=== PATIENT | male | born 1955 | race Caucasian/White ===

== ENCOUNTER 2019-06-04 11:25 | Outpatient (CLI) | payer OTHER, SELFPAY ==
--- NOTE | ~2019-06-04 | XR_ITS ---
EXAMINATION: XR lumbar spine 2-3V EXAM DATE: 06/04/2019 12:01 INDICATION: Chronic sciatica, bilateral pain. TECHNIQUE: Lumber spine frontal, lateral, lateral L5-S1 projections for interpretation. There is no prior study for comparison. FINDINGS: There is mild to moderate disc disease L2-3, L4-5 and L5-S1. There is mild to moderate lum bar facet arthropathy. There is 3 mm anterolisthesis L4 on L5. The vertebral bodies are otherwise ali gned. Sacrum, sacroiliac joints, sacral arcuate lines are intact. Mild aortic arterial sclerosis. IMPRESSION: Mild to moderate lumbar spondylosis. Reviewed, dictated and finalized at location A.
== END 2019-06-04 11:26 | disposition home or self-care (01) ==
LOC: ANHIMG 11:37
PROVIDERS: PCP Nurse Practitioner Family; Visit Provider Nurse Practitioner Family
DX: M54.31 Sciatica, right side (principal); M54.32 Sciatica, left side; M47.816 Spondylosis without myelopathy or radiculopathy, lumbar region
CPT/HCPCS: 72100

== ENCOUNTER 2020-03-31 16:47 | Emergency (ER) | payer OTHER, SELFPAY ==
--- NOTE | ~2020-03-31 | CT_ITS ---
EXAMINATION: CT facial & cervical spine wo DATE: 03/31/2020 17:59 INDICATION: Left facial swelling. TECHNIQUE: Computed tomography (CT) of the maxillofacial region and cervical spine was performed with out intravenous contrast. Automated exposure control and iterative reconstruction technique were empl oyed. The dose-length product was 542.33 mGy-cm. COMPARISON: Cervical spine radiographs 07/14/2018 FINDINGS: MAXILLOFACIAL CT: There is mild mucosal thickening in the paranasal sinuses. There is leftward deviation of the nasal s eptum. No fracture. CERVICAL SPINE CT: There is a 2.6 cm nodule in left thyroid lobe. There is 5 degrees dextrocurvature of cervical spine. Vertebral body heights are normal. There is mildly decreased disc height at C4-C5 and C5-C6 and moder ately decreased disc height at C6-C7. Osseous central spinal canal is developmentally small from C1 t o C7. The following disc levels are specifically discussed: C2-C3: There is no uncovertebral joint osteoarthritis. There is moderate right and severe left facet joint osteoarthritis. There is no neural foraminal stenosis. There is mild central canal stenosis. C3-C4: There is no uncovertebral joint osteoarthritis. There is severe bilateral facet joint osteoart hritis. There is mild bilateral neural foraminal stenosis. There is mild central canal stenosis. C4-C5: There is no uncovertebral joint osteoarthritis. There is mild right and moderate left facet hira int osteoarthritis. There is no neural foraminal stenosis. There is mild central canal stenosis. C5-C6: There is mild right uncovertebral joint osteoarthritis. There is mild bilateral facet joint os teoarthritis. There is moderate right neural foraminal stenosis. There is mild central canal stenosis . C6-C7: There is mild left uncovertebral joint osteoarthritis. There is mild bilateral facet joint ost eoarthritis. There is no neural foraminal stenosis. There is mild central canal stenosis. C7-T1: There is no uncovertebral joint osteoarthritis. There is mild bilateral facet joint osteoarthr itis. There is no neural foraminal stenosis. There is no central canal stenosis. IMPRESSION: 1. No fracture. 2. Moderate cervical spondylosis. Reviewed, dictated and finalized at location A. ROUNDER
--- NOTE | ~2020-03-31 | CT_ITS ---
EXAMINATION: CT brain wo con DATE: 03/31/2020 17:59 INDICATION: Head injury. TECHNIQUE: Computed tomography (CT) of the head was performed without intravenous contrast. The mA wa s adjusted according to patient size. Iterative reconstruction technique was employed. The dose-lengt h product was 681.00 mGy-cm. COMPARISON: None FINDINGS: There are scattered areas of low attenuation in the cerebral white matter, which is within normal limits for the patient's age. There is no intracranial hemorrhage, acute infarction, or abnorm al intracranial mass lesion. The ventricles are normal in size. There is mild mucosal thickening in t he paranasal sinuses. The mastoid air cells are normal. IMPRESSION: 1. Normal aging brain. Reviewed, dictated and finalized at location A. ENT FOLDER IMPRESSION: 1. Normal aging brain.
--- NOTE | ~2020-03-31 | XR_ITS ---
XR hand RT min 3V DATE: 03/31/2020 18:18 INDICATION: Patient fell over dog. First digit pain, abrasion TECHNIQUE: 3 views COMPARISON: None FINDINGS: No fracture or dislocation, periosteal reaction or bone destruction. IMPRESSION: No fracture or dislocation Reviewed, dictated and finalized at location A. NT ACQUISITION MANAGER IMPRESSION: No fracture or dislocation
--- NOTE | ~2020-03-31 | XR_ITS ---
XR knee LT min 4V DATE: 03/31/2020 18:17 INDICATION: Patient fell over dog. Anterior and lateral knee pain, abrasion TECHNIQUE: 4 views COMPARISON: None FINDINGS: No fracture or dislocation or joint effusion. No periosteal reaction or bone destruction. N o radiopaque intra-articular loose body or chondrocalcinosis. Joint spaces are preserved. IMPRESSION: Negative Reviewed, dictated and finalized at location A. FORM POWER TECHNICIAN IMPRESSION: Negative
[2020-03-31 16:49] VITALS: BP 130/96; PULSE 77; RESP 20; TEMP 36.6; O2SAT 96
[2020-03-31] MEDS: ONDANSETRON HCL ODT 4 MG TABLET PO (18:18)
[2020-03-31] MEDS: ACETAMINOPHEN 500 MG TABLET 1000 MG PO (18:19)
[2020-03-31] MEDS: TETANUS,DIPHTHERIA,AC PERTUSSIS ADULT (0.5 ML) BOOSTRIX IM (18:20)
--- NOTE | 2020-03-31 18:24 | ED.FALL ---
HPI - Fall General Chief Complaint: Fall Stated Complaint: fell hit head, +blood thinners Time Seen by Provider: 03/31/20 16:59 Source: patient Mode of arrival: ambulatory Limitations: no limitations History of Present Illness HPI Narrative: This patient is a 65 year old male with history of afib, chronic anticoagulation who presents for evaluation of a head injury. He states he accidentally fell forward on concrete. He states he was dealing with his dog and a neighbor's dog and he lost his balance. He denies LOC. He reports headache, neck pain and left knee pain. He denies rib pain or shortness of breath. He take eliquis due to afib . He is unsure of his last tetanus. Related Data Allergies Allergy/AdvReac Type Severity Reaction Status Date / Time No Known Allergies Allergy Verified 03/31/20 18:18 Review of Systems Review of Systems: All systems reviewed & are unremarkable except as noted in HPI and below PMFSH Past Medical History Medical History (Updated 04/01/20 @ 00:00 by Thelma Guevara) Atrial fibrillation Hypertension Social History Social History (Updated 03/31/20 @ 18:29 by Rahel Moreno MD) Smoking status: Former smoker Gender identity (if verbalized by the patient): Male Exam Const: General: no acute distress and alert Orientation/consciousness: patient oriented x3 HENMT: Other: abrasion to left forehead and cheek Eyes: Pupils: Equal, round and reactive pupils present EOM: EOMs intact bilaterally Chest: Chest palpation & inspection: normal inspection of the chest Resp: Effort & Inspection: normal respiratory effort and no retractions Auscultation: clear to auscultation bilaterally Cardio: Rate: regular rate Rhythm: regular rhythm Heart sounds: no murmurs GI: GI Palp: Yes Soft to palpation Skin: Rashes: no rashes Neuro: General: patient oriented x3, moves all extremities and CN's II-XI intact bilaterally Extrem: Other: abrasion to left knee, abrasion right thumb Psych: Mental Status: mental status grossly normal Affect: normal affect Course Reevaluation(s) Reevaluation #1: I Discussed with patient imaging results. No acute fracture or injury. I discussed things to monitor while on anticoagulation Date: 03/31/20 Time: 18:43 Vital Signs Vital signs: Vital Signs Temperature 97.9 F 03/31/20 16:49 Pulse Rate 77 03/31/20 16:49 Respiratory Rate 20 03/31/20 16:49 Blood Pressure 130/96 H 03/31/20 16:49 Pulse Oximetry 96 03/31/20 16:49 Temperature 97.9 F 03/31/20 16:49 Pulse Rate 77 03/31/20 16:49 Respiratory Rate 20 03/31/20 16:49 Blood Pressure 130/96 H 03/31/20 16:49 Pulse Oximetry 96 03/31/20 16:49 MDM - Fall Imaging Data Radiologist's impression: ITS Impressions Head CT 03/31/20 18:01 IMPRESSION: 1. Normal aging brain. Head/Cervical Spine/Facial Bones CT 03/31/20 18:03 IMPRESSION: 1. No fracture. 2. Moderate cervical spondylosis. Knee X-Ray 03/31/20 18:23 IMPRESSION: Negative Hand X-Ray 03/31/20 18:24 IMPRESSION: No fracture or dislocation Discharge Plan Discharge Clinical Impression: CHI (closed head injury), Chronic anticoagulation, Abrasion of knee, left Patient Disposition: Home, Self-Care Condition: Stable Instructions: Head Injury (ED), Abrasion (ED) Additional Instructions: Today you were evaluated for a head injury. If your headache worsens, you develop more than 2 episodes of vomiting, weakness, or dizziness. return to ER. Follow up with your primary care physician. Follow-up/Referrals: Meagan,Alanna Young MD [Primary Care Provider] -
== END 2020-03-31 18:59 | disposition home or self-care (01) ==
PROVIDERS: Emergency Provider General Practice; PCP Family Medicine
DX: S09.90XA Unspecified injury of head, initial encounter (principal); S80.212A Abrasion, left knee, initial encounter; Z79.01 Long term (current) use of anticoagulants; I48.91 Unspecified atrial fibrillation; I10 Essential (primary) hypertension; Z87.891 Personal history of nicotine dependence; Z23 Encounter for immunization; M47.812 Spondylosis without myelopathy or radiculopathy, cervical region; W18.39XA Other fall on same level, initial encounter
CPT/HCPCS: 70450; 70486; 72125; 73130; 73564; 90471; 90715; 99284; A9270

== ENCOUNTER 2020-10-07 06:50 | Outpatient (CLI) | payer OTHER, SELFPAY ==
[2020-10-07 07:57] LABS: Basophils Absolute Auto 0.1 K/mm3 (0.0-0.1); Basophils Percent Auto 0.9 % (0.2-1.2); Eosinophils Absolute Auto 0.2 K/mm3 (0-0.3); Eosinophils Percent Auto 2.4 % (0-4.4); Hematocrit 48.5 % (42.0-52.0); Hemoglobin 16.1 g/dL (14.0-18.0); Immature Granulocyte Absolute 0.03 K/mm3 (0.00-0.031); Immature Granulocyte Percent A 0.4 % (0-0.5); Lymphocytes Absolute Auto 2.47 K/mm3 (0.9-3.2); Lymphocytes Percent Auto 29.2 % (18.3-44.2); Mean Corpuscular HGB Conc 33.2 g/dl (32-36); Mean Corpuscular Hemoglobin 29.4 pg (26-34); Mean Corpuscular Volume 88.5 fl (80-100); Monocytes Absolute Auto 0.6 K/mm3 (0.1-0.6); Neutrophils Absolute Auto 5.1 K/mm3 (1.3-6.7); Neutrophils Percent Auto 60.1 % (45.5-73.1); Platelet Count Result 241 k/mm3 (150-375); Red Blood Count 5.48 M/mm3 (4.6-6.20); White Blood Count 8.5 K/mm3 (4.5-10.0)
[2020-10-07 08:13] LABS: Alanine Aminotransferase 24 U/L (4-50); Albumin Level 4.5 g/dL (3.5-5.1); Alkaline Phosphatase 76 U/L (38-126); Anion Gap 9 mmol/L (8-16); Aspartate Amino Transferase 26 U/L (17-59); Bilirubin,Total 0.7 mg/dL (0.2-1.3); Blood Urea Nitrogen 13 mg/dL (9-20); Calcium 9.8 mg/dL (8.4-10.2); Carbon Dioxide 22 mmol/L (22-30); Chloride 106 mmol/L (98-107); Cholesterol 157 mg/dL (0-200); Estimated Glomerular Filt Rate > 60; Glucose 110 mg/dL (65-110); HDL Direct 40 mg/dL; Sodium 137 mmol/L (137-145); Triglycerides 143 mg/dL (<150)
[2020-10-07 08:24] LABS: LDL Cholesterol Direct 77 mg/dL
== END 2020-10-07 06:51 | disposition home or self-care (01) ==
PROVIDERS: PCP Family Medicine
DX: I48.0 Paroxysmal atrial fibrillation (principal); E78.5 Hyperlipidemia, unspecified
CPT/HCPCS: 36415; 80053; 80061; 85025

== ENCOUNTER 2021-09-12 07:48 | Outpatient (CLI) | payer OTHER, SELFPAY ==
[2021-09-12 08:17] LABS: Cholesterol 197 mg/dL (0-200); HDL Direct 38 mg/dL; Triglycerides 158 mg/dL (<150)
[2021-09-12 08:28] LABS: LDL Cholesterol Direct 117 mg/dL
== END 2021-09-12 07:49 | disposition home or self-care (01) ==
LOC: ANHLAB 07:53
PROVIDERS: PCP Family Medicine
DX: E78.5 Hyperlipidemia, unspecified (principal)
CPT/HCPCS: 36415; 80061

== ENCOUNTER 2022-06-05 07:03 | Outpatient (CLI) | payer OTHER, SELFPAY ==
[2022-06-05 08:01] LABS: Hematocrit 49.7 % (42.0-52.0); Hemoglobin 17.1 g/dL (14.0-18.0); Mean Corpuscular HGB Conc 34.4 g/dl (32-36); Mean Corpuscular Hemoglobin 29.8 pg (26-34); Mean Corpuscular Volume 86.7 fl (80-100); Mean Platelet Volume 9.4 fl (7.4-10.4); Platelet Count Result 243 k/mm3 (150-375); Red Blood Count 5.73 M/mm3 (4.6-6.20); Red Cell Distribution Width 13.1 % (11.5-14.5)
[2022-06-05 08:09] LABS: Alanine Aminotransferase 33 U/L (6-50); Albumin Level 4.7 g/dL (3.5-5.1); Alkaline Phosphatase 54 U/L (38-126); Anion Gap 8 mmol/L (8-16); Aspartate Amino Transferase 27 U/L (17-59); Bilirubin,Total 0.6 mg/dL (0.2-1.3); Blood Urea Nitrogen 14 mg/dL (9-20); Calcium 9.2 mg/dL (8.4-10.2); Carbon Dioxide 25 mmol/L (22-30); Chloride 103 mmol/L (98-107); Cholesterol 164 mg/dL (0-200); Estimated Glomerular Filt Rate > 60; Glucose 96 mg/dL (65-110); HDL Direct 34 mg/dL; Potassium 3.6 mmol/L (3.4-5.0); Sodium 136 mmol/L (137-145); Triglycerides 93 mg/dL (<150)
[2022-06-05 08:20] LABS: LDL Cholesterol Direct 113 mg/dL
[2022-06-05 08:37] LABS: Hemoglobin A1C 5.7 % (<5.7)
== END 2022-06-05 07:04 | disposition home or self-care (01) ==
LOC: ANHLAB 07:05
PROVIDERS: PCP Family Medicine; Visit Provider Nurse Practitioner Family
DX: E11.65 Type 2 diabetes mellitus with hyperglycemia (principal)
CPT/HCPCS: 36415; 80053; 80061; 83036; 85027

== ENCOUNTER 2023-01-28 08:11 | Outpatient (CLI) | payer OTHER, SELFPAY ==
--- NOTE | ~2023-01-28 | XR_ITS ---
Clinical Indication: Melanoma PA and lateral views of the chest: Comparison: None Findings: The lungs are clear, without evidence of focal consolidation or pleural effusion. Cardiome diastinal silhouette is within normal limits. Bones and soft tissues are unremarkable. Impression: Normal chest. Reviewed, dictated and finalized at location . NEERING INSTRUCTOR Impression: Normal chest.
== END 2023-01-28 08:12 | disposition home or self-care (01) ==
LOC: ANHIMG 08:15
PROVIDERS: PCP Family Medicine; Visit Provider Surgery
DX: C43.59 Malignant melanoma of other part of trunk (principal)
CPT/HCPCS: 71046

== ENCOUNTER 2023-07-27 07:26 | Outpatient (CLI) | payer OTHER, SELFPAY ==
[2023-07-27 08:04] LABS: Basophils Absolute Auto 0.1 K/mm3 (0.0-0.1); Basophils Percent Auto 1.1 % (0.2-1.2); Eosinophils Absolute Auto 0.1 K/mm3 (0-0.3); Eosinophils Percent Auto 1.8 % (0-4.4); Hematocrit 48.2 % (42.0-52.0); Hemoglobin 16.2 g/dL (14.0-18.0); Immature Granulocyte Absolute 0.02 K/mm3 (0.00-0.031); Immature Granulocyte Percent A 0.3 % (0-0.5); Lymphocytes Percent Auto 27.6 % (18.3-44.2); Mean Corpuscular HGB Conc 33.6 g/dl (32-36); Mean Corpuscular Hemoglobin 29.8 pg (26-34); Mean Corpuscular Volume 88.6 fl (80-100); Mean Platelet Volume 9.2 fl (7.4-10.4); Monocytes Absolute Auto 0.6 K/mm3 (0.1-0.6); Neutrophils Absolute Auto 4.4 K/mm3 (1.3-6.7); Neutrophils Percent Auto 61.2 % (45.5-73.1); Platelet Count Result 244 k/mm3 (150-375); Red Blood Count 5.44 M/mm3 (4.6-6.20); Red Cell Distribution Width 12.9 % (11.5-14.5); White Blood Count 7.2 K/mm3 (4.5-10.0)
[2023-07-27 08:14] LABS: Alanine Aminotransferase 31 U/L (6-50); Albumin Level 4.6 g/dL (3.5-5.1); Alkaline Phosphatase 52 U/L (38-126); Anion Gap 8 mmol/L (4-12); Aspartate Amino Transferase 28 U/L (17-59); Bilirubin,Total 0.6 mg/dL (0.2-1.3); Blood Urea Nitrogen 17 mg/dL (9-20); Calcium 9.6 mg/dL (8.4-10.2); Carbon Dioxide 26 mmol/L (22-30); Chloride 103 mmol/L (98-107); Cholesterol 165 mg/dL (0-200); Estimated Glomerular Filt Rate > 60; Glucose 126 mg/dL (65-110); HDL Direct 36 mg/dL; Potassium 4.2 mmol/L (3.4-5.0); Sodium 137 mmol/L (137-145); Triglycerides 257 mg/dL (<150)
[2023-07-27 08:25] LABS: LDL Cholesterol Direct 99 mg/dL
[2023-07-27 08:29] LABS: Iron 83 ug/dL (49-181)
[2023-07-27 08:38] LABS: Percent Iron Saturation 23 % (20-50)
[2023-07-27 08:44] LABS: Hemoglobin A1C 5.9 % (<5.7)
[2023-07-27 08:45] LABS: Prostate Specific Antigen 2.3 ng/mL (< OR = 4.0)
[2023-07-27 08:57] LABS: Vitamin D 25 Hydroxy 52.9 ng/mL
[2023-07-27 14:55] LABS: Appearance Urine Clear (Clear); Bacteria Urine None Seen /hpf; Bilirubin Urine Negative (Negative); Blood Urine Negative (Negative); Color Urine Yellow (Yellow); Glucose Urine UA Negative (Negative); Ketones Urine Negative (Negative); Leukocyte Esterase Ur 1+ LEU/UL (Negative); Nitrate Urine Negative (Negative); Non Pathogenic Casts 0-2; Protein Urine Negative (Negative); Squamous Epithelial Cell Urine None Seen /hpf (Few); pH Urine 7.5 (5.0-9.0)
[2023-07-27 15:08] LABS: Add Urine Microscopic? YES
== END 2023-07-27 07:27 | disposition home or self-care (01) ==
PROVIDERS: PCP Nurse Practitioner Family; Visit Provider Nurse Practitioner Family
DX: Z12.5 Encounter for screening for malignant neoplasm of prostate (principal); I10 Essential (primary) hypertension; R73.03 Prediabetes; D64.9 Anemia, unspecified; E55.9 Vitamin D deficiency, unspecified; Z13.29 Encounter for screening for other suspected endocrine disorder
CPT/HCPCS: 36415; 80053; 80061; 81001; 82306; 82607; 82728; 83036; 83540; 83550; 84153; 84443; 85025; G0103

== ENCOUNTER 2023-08-26 07:00 | Outpatient (CLI) | payer OTHER, SELFPAY ==
[2023-08-26 07:44] LABS: Alanine Aminotransferase 35 U/L (6-50); Albumin Level 4.7 g/dL (3.5-5.1); Alkaline Phosphatase 54 U/L (38-126); Anion Gap 12 mmol/L (4-12); Aspartate Amino Transferase 26 U/L (17-59); Bilirubin,Total 0.6 mg/dL (0.2-1.3); Blood Urea Nitrogen 14 mg/dL (9-20); Calcium 9.4 mg/dL (8.4-10.2); Carbon Dioxide 24 mmol/L (22-30); Chloride 100 mmol/L (98-107); Estimated Glomerular Filt Rate > 60; Glucose 119 mg/dL (65-110); Potassium 3.8 mmol/L (3.4-5.0); Sodium 136 mmol/L (137-145)
== END 2023-08-26 07:01 | disposition home or self-care (01) ==
LOC: ANHLAB 07:03
PROVIDERS: PCP Nurse Practitioner Family; Visit Provider Nurse Practitioner Family
DX: B35.1 Tinea unguium (principal); Z79.899 Other long term (current) drug therapy
CPT/HCPCS: 36415; 80053

== ENCOUNTER 2023-11-21 14:31 | Emergency (ER) | payer OTHER, SELFPAY ==
--- NOTE | ~2023-11-21 | CT_ITS ---
CT brain wo con Ordering provider: John Lee APRN History: 68 years Male with . fall, head injury . Comparison: March 31, 2020 Technique: CT of the head without contrast. Radiation reduction technique utilized.The dose-length product was 681 mGy-cm. FINDINGS: BRAIN PARENCHYMA AND CSF SPACES: Mild leukoaraiosis and diffuse cortical atrophy. Mild atheromatous d isease. Old lacunar infarct in the right basal ganglia. No midline shift, mass effect or hemorrhage. The brain parenchyma and CSF spaces are otherwise normal. VISUALIZED PARANASAL SINUSES: Well aerated. MASTOIDS: Well aerated. BONES: The bones appear intact. SOFT TISSUES: Visualized nasopharynx is normal. Superficial soft tissues are normal. IMPRESSION: No acute intracranial findings. Reviewed, dictated and finalized at location A.
--- NOTE | ~2023-11-21 | CT_ITS ---
EXAMINATION: CT cervical spine wo con DATE: 11/21/2023 15:07 INDICATION: Head injury. TECHNIQUE: Computed tomography (CT) of the cervical spine was performed without intravenous contrast. Automated exposure control and iterative reconstruction technique were employed. The dose-length pro duct was 611.36 mGy-cm. COMPARISON: CT cervical spine 03/31/2020 FINDINGS: There is 5 degrees dextrocurvature of cervical spine. Vertebral body heights are normal. Th ere is mildly decreased disc height at C4-C5 and C5-C6 and moderately decreased disc height at C6-C7. The following disc levels are specifically discussed: C2-C3: There is no uncovertebral joint osteoarthritis. There is moderate right and severe left facet joint osteoarthritis. There is mild left neural foraminal stenosis. There is no central canal stenosi s. C3-C4: There is mild bilateral uncovertebral joint osteoarthritis. There is severe bilateral facet hira int osteoarthritis. There is mild bilateral neural foraminal stenosis. There is mild central canal st enosis. C4-C5: There is no uncovertebral joint osteoarthritis. There is mild right and moderate left facet hira int osteoarthritis. There is mild left neural foraminal stenosis. There is no central canal stenosis. C5-C6: There is moderate right and mild left uncovertebral joint osteoarthritis. There is mild bilate ral facet joint osteoarthritis. There is mild right neural foraminal stenosis. There is mild central canal stenosis. C6-C7: There is mild bilateral uncovertebral joint osteoarthritis. There is mild right and moderate l eft facet joint osteoarthritis. There is mild left neural foraminal stenosis. There is mild central c anal stenosis. C7-T1: There is no uncovertebral joint osteoarthritis. There is mild bilateral facet joint osteoarthr itis. There is no neural foraminal stenosis. There is no central canal stenosis. IMPRESSION: 1. No fracture. 2. Moderate cervical spondylosis. Reviewed, dictated and finalized at location A.
--- NOTE | ~2023-11-21 | XR_ITS ---
EXAMINATION: XR chest 1V DATE: 11/21/2023 15:16 INDICATION: Syncope TECHNIQUE: frontal view of the chest was obtained. COMPARISON: Chest radiograph dated 01/28/2023 FINDINGS: The lungs are clear with no focal airspace opacities, pulmonary edema, pleural effusion or pneumothor ax. The cardiomediastinal silhouette is normal. Status post distal left clavicle resection. IMPRESSION: 1. No acute cardiopulmonary disease. Reviewed, dictated and finalized at location A.
--- NOTE | ~2023-11-21 | XR_ITS ---
EXAMINATION: XR shoulder LT min 2V DATE: 11/21/2023 15:16 INDICATION: Left shoulder pain post fall TECHNIQUE: AP internally and externally rotated and transscapular Y views of the left shoulder were o btained. COMPARISON: None FINDINGS: Chronic distal left clavicle resection with widening of the acromioclavicular joint. Alignment is oth erwise normal. No fracture. Soft tissues are unremarkable. IMPRESSION: 1. Status post distal left clavicle resection. No acute osseous abnormality. Reviewed, dictated and finalized at location A.
[2023-11-21 14:34] VITALS: BP 121/78; PULSE 72; RESP 16; TEMP 36.8; O2SAT 98
--- NOTE | 2023-11-21 14:47 | ED.GENADULT ---
HPI - General Adult General Chief complaint: Fall Stated complaint: fall - on blood thinner Time Seen by Provider: 11/21/23 14:46 Source: patient and family Mode of arrival: ambulatory Limitations: no limitations History of Present Illness HPI narrative: This is a 60-year-old male patient presents to the emergency department after he was working on the project on the ground he stood up blacked out fell against a door frame striking the left side of his head and left shoulder. Patient reported dizziness but no other symptoms. No nausea vomiting constipation diarrhea fever or chills. No shortness of breath or chest pain. Patient complaining of being at the left shoulder head with any mobilization. Related Data Home Medications Medication Instructions Recorded Confirmed cholecalciferol (vitamin D3) 125 125 mcg PO DAILY 07/06/23 07/06/23 mcg (5,000 unit) capsule omeprazole magnesium 20 mg 20 mg PO DAILY 07/06/23 07/06/23 tablet,delayed release (Prilosec OTC) ezetimibe 10 mg tablet (Zetia) 10 mg PO DAILY 08/30/23 Allergies Allergy/AdvReac Type Severity Reaction Status Date / Time No Known Allergies Allergy Verified 03/31/20 18:18 Review of Systems Review of Systems: All systems reviewed & are unremarkable except as noted in HPI and below PMFSH Past Medical History Medical History Acid reflux Anemia Arthritis Atrial fibrillation Chronic allergic rhinitis Dyslipidemia Heart disease Hx of melanoma of skin back Hypertension IBS (irritable bowel syndrome) Onychomycosis Prediabetes Family History Family History Mother Diabetes mellitus Hypertension Cerebrovascular accident Social History Social History Smoking status: Former smoker Alcohol intake: current Substance use: never Do You Feel Safe in your Home?: Yes Lack of Transportation: No Lack of Food: Never True Current Housing: I Have Housing Concerned About Future Housing: No Difficulty Paying Gas/Electric Bills: No Difficulty Paying for Meds: No Currently Unemployed: No Education: Associate Degree Difficulty w/ Childcare or Family Care: No Living arrangements: with family Gender identity (if verbalized by the patient): Male Exam Narrative: GENERAL: Well-appearing, well-nourished, and in no acute distress. HEAD: Normocephalic, atraumatic. ENT:? Mucous membranes moist. CHEST: Clear to auscultation.? No respiratory distress. HEART: Regular rate and rhythm. ? Normal peripheral pulses. ABDOMEN: Soft, nontender, nondistended. Obese. EXTREMITIES: Normal range of motion. No peripheral edema. Left shoulder tenderness to palpation with ROM limited due to pain, no crepitus. SKIN: Warm dry normal color NEURO: Alert and oriented x3. PSYCH: Normal mood and affect Course Reevaluation(s) Reevaluation #1: Ordered pain medication and shoulder sling. Will check orthostats and if stable plan to discharge home. Date: 11/21/23 Time: 15:45 Vital Signs Vital signs: Vital Signs Temperature 36.8 C 11/21/23 14:34 Pulse Rate 72 11/21/23 14:34 Respiratory Rate 16 11/21/23 14:34 Blood Pressure 121/78 11/21/23 14:34 Pulse Oximetry 98 11/21/23 14:34 Oxygen Delivery Room Air 11/21/23 14:34 Temperature 36.4 C 11/21/23 16:40 Pulse Rate 72 11/21/23 16:40 Respiratory Rate 18 11/21/23 16:40 Blood Pressure 129/89 11/21/23 16:40 Pulse Oximetry 98 11/21/23 16:40 Oxygen Delivery Room Air 11/21/23 14:34 Medical Decision Making MDM Narrative Medical decision making narrative: This is a 68-year-old male patient past medical history of atrial fibrillation hypertension on diltiazem and apixaban. Patient also has history of type 2 diabetes and hyperlipidemia. Patient had what sounds like a vasovagal synco
--- NOTE | 2023-11-21 14:48 | ECG_ITS ---
Test Date: 2023-11-21 14:55:36 Measurements Intervals [place] Rate: 69 P: -17 LA: 129 QRS: 52 QRSD: 90 T: 65 QT: 382 QTc: 411 Interpretive Statements SINUS RHYTHM LOW QRS VOLTAGE IN PRECORDIAL LEADS [QRS DEFLECTION < 1.0 mV IN CHEST LEADS] NONSPECIFIC T-WAVE ABNORMALITY No previous ECG available for comparison Electronically Signed On 11-21-2023 15:42:42 CDT by Kaden Juarez M.D.
[2023-11-21] MEDS: SODIUM CHLORIDE 0.9% IV 1,000 ML 999 ML IV CONT (14:56)
--- NOTE | 2023-11-21 14:59 | PC.NURSE ---
Pt to CT on tele and O2 monitor via stretcher at this time
[2023-11-21 15:05] LABS: Basophils Absolute Auto 0.1 K/mm3 (0.0-0.1); Basophils Percent Auto 0.6 % (0.2-1.2); Eosinophils Absolute Auto 0.1 K/mm3 (0-0.3); Eosinophils Percent Auto 0.6 % (0-4.4); Hematocrit 51.6 % (42.0-52.0); Hemoglobin 17.8 g/dL (14.0-18.0); Immature Granulocyte Absolute 0.03 K/mm3 (0.00-0.031); Immature Granulocyte Percent A 0.2 % (0-0.5); Lymphocytes Absolute Auto 2.39 K/mm3 (0.9-3.2); Lymphocytes Percent Auto 19.9 % (18.3-44.2); Mean Corpuscular HGB Conc 34.5 g/dl (32-36); Mean Corpuscular Hemoglobin 30.6 pg (26-34); Mean Corpuscular Volume 88.7 fl (80-100); Monocytes Absolute Auto 0.5 K/mm3 (0.1-0.6); Monocytes Percent Auto 4.1 % (2.6-8.5); Neutrophils Percent Auto 74.6 % (45.5-73.1); Platelet Count Result 250 k/mm3 (150-375); Red Blood Count 5.82 M/mm3 (4.6-6.20); Red Cell Distribution Width 13.2 % (11.5-14.5)
[2023-11-21 15:14] LABS: Alanine Aminotransferase 36 U/L (6-50); Albumin Level 4.6 g/dL (3.5-5.1); Alkaline Phosphatase 60 U/L (38-126); Anion Gap 14 mmol/L (4-12); Aspartate Amino Transferase 31 U/L (17-59); Bilirubin,Total 0.5 mg/dL (0.2-1.3); Blood Urea Nitrogen 22 mg/dL (9-20); Calcium 9.7 mg/dL (8.4-10.2); Carbon Dioxide 21 mmol/L (22-30); Chloride 101 mmol/L (98-107); Estimated CRCL calculation 122 ml/min; Estimated Glomerular Filt Rate > 60; Glucose 168 mg/dL (65-110); Potassium 3.9 mmol/L (3.4-5.0); Sodium 136 mmol/L (137-145)
[2023-11-21 15:26] LABS: Troponin I < 0.012 ng/mL (0.000-0.034)
[2023-11-21 15:28] VITALS: BP 110/87; PULSE 68; RESP 23; O2SAT 98
[2023-11-21 15:30] LABS: Partial Thromboplastin Time 27.8 Seconds (22.3-36.8)
[2023-11-21 15:31] LABS: INR 1.1; Prothrombin Time 14.6 Seconds (11.1-14.7)
[2023-11-21 15:34] LABS: D Dimer 0.28 ug/mL (<0.48)
[2023-11-21] MEDS: HYDROcodone/acetaminophen (*CRX) 10-325 MG TABLET 1 TAB PO (15:37)
[2023-11-21 16:01] VITALS: BP 128/91; BP 141/96; PULSE 68; PULSE 73
[2023-11-21 16:03] VITALS: BP 136/92; PULSE 65
[2023-11-21 16:40] VITALS: BP 129/89; PULSE 72; RESP 18; TEMP 36.4; O2SAT 98
== END 2023-11-21 16:42 | disposition home or self-care (01) ==
PROVIDERS: Emergency Provider Nurse Practitioner; PCP Nurse Practitioner Family
DX: S09.90XA Unspecified injury of head, initial encounter (principal); S49.92XA Unspecified injury of left shoulder and upper arm, initial encounter; I48.91 Unspecified atrial fibrillation; I11.9 Hypertensive heart disease without heart failure; E78.5 Hyperlipidemia, unspecified; K21.9 Gastro-esophageal reflux disease without esophagitis; K58.9 Irritable bowel syndrome, unspecified; M19.90 Unspecified osteoarthritis, unspecified site; R73.03 Prediabetes; Z85.820 Personal history of malignant melanoma of skin; Z87.891 Personal history of nicotine dependence; Z79.01 Long term (current) use of anticoagulants; Z79.899 Other long term (current) drug therapy; M47.812 Spondylosis without myelopathy or radiculopathy, cervical region; R94.31 Abnormal electrocardiogram [ECG] [EKG]; W01.198A Fall on same level from slipping, tripping and stumbling with subsequent striking against other object, initial encounter
CPT/HCPCS: 36415; 70450; 71045; 72125; 73030; 80053; 84484; 85025; 85380; 85610; 85730; 93005; 96360; 99284; A4565; A9270; J7030

== ENCOUNTER 2023-12-30 13:38 | Emergency (ER) | payer OTHER, SELFPAY ==
[2023-12-30 14:00] VITALS: PULSE 87; RESP 18; TEMP 36.2; O2SAT 98
--- NOTE | 2023-12-30 14:20 | ED_ITS ---
HPI - Extremity Problem General Chief complaint: Extremity Problem,Nontraumatic Stated complaint: Left Foot Big Toe Pain Time Seen by Provider: 12/30/23 14:20 History of Present Illness HPI Narrative: Patient presents with complaints of left great toe pain. He reports that he stubbed the toe and now the toenail is partially pulled off. No active bleeding. No other injury or trauma. Able to ambulate without any difficulty. Related Data Home Medications Medication Instructions Recorded Confirmed cholecalciferol (vitamin D3) 125 125 mcg PO DAILY 07/06/23 12/30/23 mcg (5,000 unit) capsule omeprazole magnesium 20 mg 20 mg PO DAILY 07/06/23 12/30/23 tablet,delayed release (Prilosec OTC) ezetimibe 10 mg tablet (Zetia) 10 mg PO DAILY 08/30/23 12/30/23 Allergies Allergy/AdvReac Type Severity Reaction Status Date / Time No Known Allergies Allergy Verified 01/01/24 13:23 Review of Systems Review of Systems: All systems reviewed & are unremarkable except as noted in HPI and below Constitutional: Constitutional: Reports no additional constitutional complaints ENT: Reports system reviewed and no additional complaints, except as documented Cardiovascular: Cardiovascular: Reports no additional cardiovascular complaints Respiratory: Respiratory: Reports no additional respiratory complaints Gastrointestinal: Gastrointestinal: Reports no additional gastrointestinal complaints Musculoskeletal: Musculoskeletal: Reports no additional musculoskeletal complaints and Reports as per HPI Integumentary/Breasts: Skin/Breast: Reports system reviewed and no additional complaints, except as docu and Reports as per HPI PMFSH Past Medical History Medical History Abnormal CT scan, head Acid reflux Anemia Anxiety and depression Arthritis Atrial fibrillation Balance problem Cervical radiculitis Cervicalgia Chronic allergic rhinitis Dyslipidemia Family history of Parkinson disease Frequent falls Heart disease Hx of melanoma of skin back Hypertension IBS (irritable bowel syndrome) Left shoulder pain Onychomycosis Prediabetes Family History Family History Mother Diabetes mellitus Hypertension Cerebrovascular accident Social History Social History Smoking status: Former smoker Alcohol intake: current Substance use: never Do You Feel Safe in your Home?: Yes Lack of Transportation: No Lack of Food: Never True Current Housing: I Have Housing Concerned About Future Housing: No Difficulty Paying Gas/Electric Bills: No Difficulty Paying for Meds: No Currently Unemployed: No Education: Associate Degree Difficulty w/ Childcare or Family Care: No Living arrangements: with family Gender identity (if verbalized by the patient): Male Exam Const: General: cooperative, no acute distress, alert and awake Orientation/consciousness: oriented to person, oriented to place and oriented to time HENMT: Head: normal to inspection Resp: Effort & Inspection: normal respiratory effort and able to speak in complete sentences Auscultation: clear to auscultation bilaterally, no crackles, no rales, no rhonchi and no wheezes Cardio: Palpation: normal PMI Rate: regular rate Rhythm: regular rhythm Heart sounds: S1 normal heart sound present and S2 normal heart sound present Neuro: General: oriented to person, oriented to place and oriented to time Cranial nerves: Yes CN's II-XII intact bilaterally Extrem: Left lower extremity: foot (Left great toe with partially avulsed toenail. Affected nail is thickened ) Psych: Appearance: grossly normal Thought process: Normal thought process present Insight: Good insight present (Psych) Judgement: Good judgement present (Psych) Course Course Level of Care: Express Care Visit Vital Signs Vital signs: Vital Signs Temperature 97.2 F L 12/30/23 14:00 Pulse Rate 87 12/30/23 14:00 Respiratory Rate 18 12/30/23 14:00 Pulse Oximetry 98 12/30/23 14:00 Oxygen Delivery Room Air 12/30/23 14:00 Temperature 97.2 F L 12/30/23 14:00 Pulse Rate 87 12/30/23 14:00 Respiratory Rate 18 12/30/23 14:00 Pulse Oximetry 98 12/30/23 14:00 Oxygen Delivery Room Air 12/30/23 14:00 MDM - Extremity (Nontraumatic) MDM Narrative Medical decision making narrative: Patient with partial avulsion of the left great toenail. Patient advised to keep the area bandaged. Follow with primary care provider. Emergency department for new or worsening symptoms. Discharge instructions reviewed with patient, as well as provided in writing per nursing staff. The instructions also include specific and strict return/GO TO THE ER as well as f/u information. All questions have been answered, and the patient deny any further questions with discharge and discharge plan. Some parts of this dictation were generated by voice recognition software and may contain typographical and/or grammatical inaccuracies. Differential Diagnosis Differential diagnosis: Likely cellulitis and deep vein thrombosis of lower extremity Medical Records Attestation: I reviewed the patient's medical records. Discharge Plan Discharge Clinical Impression: Avulsion of nail Patient Disposition: Home, Self-Care Condition: Stable Instructions: Antibiotic Form, Nail Avulsion (ED) Additional Instructions: Follow-up with primary care provider. Emergency department for new or worse symptoms. Patient Language: Khmer Prescriptions: No Action cholecalciferol (vitamin D3) 125 mcg (5,000 unit) capsule 125 mcg PO DAILY omeprazole magnesium [Prilosec OTC] 20 mg tablet,delayed release (DR/EC) 20 mg PO DAILY Eliquis 5 mg tablet 5 mg PO BID Qty: 180 3RF diltiazem HCl 360 mg capsule,extended release 24 hr 360 mg PO DAILY Qty: 90 3RF metformin 500 mg tablet extended release 24 hr 500 mg PO DAILY Qty: 90 3RF hydrochlorothiazide 12.5 mg tablet 12.5 mg PO DAILY Qty: 90 3RF benazepril 20 mg tablet 20 mg PO DAILY Qty: 90 3RF terbinafine HCl 250 mg tablet 250 mg PO DAILY Qty: 90 1RF Rx Instructions: take daily for 90 days, stop for 90 days, then take for 90 days again cephalexin 500 mg capsule 500 mg PO TID Qty: 30 0RF ezetimibe [Zetia] 10 mg tablet 10 mg PO DAILY Loratadine-D 10-240 mg tablet extended release 24 hr 1 tablet PO DAILY PRN (Reason: allergy symptoms) Qty: 90 3RF Follow-up/Referrals: Rosy Alexander NP [Primary Care Provider] - 1 Week Stand Alone Forms: Work/School Release IP Time of Disposition: 14:32
== END 2023-12-30 14:38 | disposition home or self-care (01) ==
PROVIDERS: Emergency Provider Nurse Practitioner Family; PCP Nurse Practitioner Family
DX: S91.202A Unspecified open wound of left great toe with damage to nail, initial encounter (principal); X58.XXXA Exposure to other specified factors, initial encounter; K21.9 Gastro-esophageal reflux disease without esophagitis; I48.91 Unspecified atrial fibrillation; E78.5 Hyperlipidemia, unspecified; I10 Essential (primary) hypertension; R73.03 Prediabetes; Z87.891 Personal history of nicotine dependence; Z85.820 Personal history of malignant melanoma of skin
CPT/HCPCS: 99212; G0463

== ENCOUNTER 2024-01-01 13:22 | Emergency (ER) | payer OTHER, SELFPAY ==
--- NOTE | ~2024-01-01 | XR_ITS ---
XR foot LT min 3V DATE: 01/01/2024 14:17 INDICATION: Left great toe injury 2 days ago. Redness and swelling. TECHNIQUE: 4 views COMPARISON: None FINDINGS: Mild plantar and posterior calcaneal enthesopathy. Mild osteoarthritis at the first metatarsophalangeal joint. No fracture or dislocation, periosteal reaction or bone destruction is detected. IMPRESSION: No fracture or dislocation is detected Mild osteoarthritis of first metatarsophalangeal joint Mild plantar and posterior calcaneal enthesopathy Reviewed, dictated and finalized at location A. NESS APPLICATIONS SPECIALIST
[2024-01-01 13:38] VITALS: BP 119/86; PULSE 98; RESP 16; TEMP 36.3; O2SAT 97
--- NOTE | 2024-01-01 14:19 | ED_ITS ---
HPI - Extremity Injury (Lower) General Chief Complaint: Extremity Injury, Lower Stated Complaint: 12/29 big toe L foot injury also has fungus Time Seen by Provider: 01/01/24 13:54 History of Present Illness HPI Narrative: Patient is a 68-year-old male who presents to the ER after a left toe injury. He reports he has history of a fungal infection on his left large toenail for which he has been treated for for at least 6 months. Patient reports he has been diagnosed as prediabetic. He reports on Tuesday morning he accidentally kicked the dresser and has had significant left great toe pain since then. Patient denies calf pain, shortness of breath, fevers. He endorses a history of atrial fibrillation for which he takes medications, and he has a history shoulder pain. Related Data Home Medications Medication Instructions Recorded Confirmed cholecalciferol (vitamin D3) 125 125 mcg PO DAILY 07/06/23 12/30/23 mcg (5,000 unit) capsule omeprazole magnesium 20 mg 20 mg PO DAILY 07/06/23 12/30/23 tablet,delayed release (Prilosec OTC) ezetimibe 10 mg tablet (Zetia) 10 mg PO DAILY 08/30/23 12/30/23 Allergies Allergy/AdvReac Type Severity Reaction Status Date / Time No Known Allergies Allergy Verified 01/01/24 13:23 Review of Systems Review of Systems: All systems reviewed & are unremarkable except as noted in HPI and below PMFSH Past Medical History Medical History Abnormal CT scan, head Acid reflux Anemia Anxiety and depression Arthritis Atrial fibrillation Balance problem Cervical radiculitis Cervicalgia Chronic allergic rhinitis Dyslipidemia Family history of Parkinson disease Frequent falls Heart disease Hx of melanoma of skin back Hypertension IBS (irritable bowel syndrome) Left shoulder pain Onychomycosis Prediabetes Family History Family History Mother Diabetes mellitus Hypertension Cerebrovascular accident Social History Social History Smoking status: Former smoker Alcohol intake: current Substance use: never Do You Feel Safe in your Home?: Yes Lack of Transportation: No Lack of Food: Never True Current Housing: I Have Housing Concerned About Future Housing: No Difficulty Paying Gas/Electric Bills: No Difficulty Paying for Meds: No Currently Unemployed: No Education: Associate Degree Difficulty w/ Childcare or Family Care: No Living arrangements: with family Gender identity (if verbalized by the patient): Male Exam Narrative: GENERAL: Well appearing, well-nourished, non-toxic, in no acute distress. HEAD: Normocephalic, atraumatic. NECK: Supple. No adenopathy, no masses. RESPIRATORY: Airway patent, respirations nonlabored. Clear to auscultation bilaterally, no rales, rhonchi, wheezing. CARDIOVASCULAR: Regular rate and rhythm without murmurs, rubs, or gallops. Peripheral pulses 2+ and equal bilaterally. ABDOMINAL: Soft, nontender, nondistended, no hepatosplenomegaly. Normoactive BS. MUSCULOSKELETAL: Moves all extremities. Strength/ROM intact without gross deformities. +full ROM in LLE and L great toe. Redness surrounding L great toenail, no notable areas of drainage. + feeling in entire great L toe. SKIN: Warm, dry, normal color. No rashes. NEURO: A&O X3. Speech clear. Cranial nerves II-XII grossly intact. Steady gait. No ataxic movements. PSYCHIATRIC: Appropriate mood and affect. Normal interaction. Course Vital Signs Vital signs: Vital Signs Temperature 36.3 C L 01/01/24 13:38 Pulse Rate 98 01/01/24 13:38 Respiratory Rate 16 01/01/24 13:38 Blood Pressure 119/86 01/01/24 13:38 Pulse Oximetry 97 01/01/24 13:38 Oxygen Delivery Room Air 01/01/24 13:38 Temperature 36.3 C L 01/01/24 13:38 Pulse Rate 98 01/01/24 13:38 Respiratory Rate 16 01/01/24 13:38 Blood Pressure 119/86 01/01/24 13:38 Pulse Oximetry 97 01/01/24 13:38 Oxygen Delivery Room Air 01/01/24 13:38 MDM - Extremity Injury (Lower) MDM Narrative Medical decision making narrative: Patient is a 68-year-old male who presents to the ER after a left toe injury. He reports he has history of a fungal infection on his left large toenail for which he has been treated for for at least 6 months. Patient r eports he has been diagnosed as prediabetic. He reports on Tuesday morning he accidentally kicked the dresser and has had significant left great toe pain since then. Patient denies calf pain, shortness of breath, fevers. He endorses a history of atrial fibrillation for which he takes medications, and he has a history shoulder pain. Labs Ordered: Imaging Ordered: Results: Diagnosis: Risks: Consults: Patient Education/Shared MDM: Disposition/Plan: Lab Data 01/01/24 14:31 01/01/24 14:31 Labs: Lab Results 01/01/24 Range/Units 14:31 WBC 9.2 (4.5-10.0) K/mm3 RBC 5.30 (4.6-6.20) M/mm3 Hgb 16.1 (14.0-18.0) g/dL Hct 46.3 (42.0-52.0) % MCV 87.4 (80-100) fl MCH 30.4 (26-34) pg MCHC 34.8 (32-36) g/dl RDW 13.2 (11.5-14.5) % Plt Count 246 (150-375) k/mm3 MPV 9.5 (7.4-10.4) fl Immature Gran % (Auto) 0.3 (0-0.5) % Neut % (Auto) 65.2 (45.5-73.1) % Lymph % (Auto) 26.7 (18.3-44.2) % [place] % (Auto) 5.7 (2.6-8.5) % Eos % (Auto) 1.6 (0-4.4) % Baso % (Auto) 0.5 (0.2-1.2) % Lymph # (Auto) 2.45 (0.9-3.2) K/mm3 [place] # (Auto) 0.5 (0.1-0.6) K/mm3 Eos # (Auto) 0.2 (0-0.3) K/mm3 Baso # (Auto) 0.1 (0.0-0.1) K/mm3 Abs Immat Gran (auto) 0.03 (0.00-0.031) K/mm3 Absolute Neuts (auto) 6.0 (1.3-6.7) K/mm3 Absolute Nucleated RBC 0.000 (0.0-0.012) K/mm3 Nucleated RBC % 0.0 (0.0-0.2) % PT 13.9 (11.1-14.7) Seconds INR 1.0 APTT 28.8 (22.3-36.8) Seconds Sodium 136 L (137-145) mmol/L Potassium 3.7 (3.4-5.0) mmol/L Chloride 103 (98-107) mmol/L Carbon Dioxide 25 (22-30) mmol/L Anion Gap 8 (4-12) mmol/L BUN 18 (9-20) mg/dL Creatinine 0.60 L (0.7-1.3) mg/dL Estim Creat Clear Calc 143 ml/min Estimated GFR > 60 (59 - ) Glucose 137 H (65-110) mg/dL Hemoglobin A1c 6.1 H (<5.7) % Lactic Acid 1.5 (0.7-2.0) mmol/L Calcium 9.8 (8.4-10.2) mg/dL Total Bilirubin 0.5 (0.2-1.3) mg/dL AST 35 (17-59) U/L ALT 40 (6-50) U/L Alkaline Phosphatase 57 (38-126) U/L Troponin I < 0.012 (0.000-0.034) ng/mL C-Reactive Protein < 0.5 (<1.0) mg/dL Total Protein 7.0 (6.3-8.2) g/dL Albumin 4.5 (3.5-5.1) g/dL Discharge Plan Discharge Clinical Impression: Traumatic loss of toenail of great toe Patient Disposition: Home, Self-Care Condition: Stable Instructions: Antibiotic Form, Nail Removal (ED) Additional Instructions: Please keep the Xeroform and gauze on your toenail until tomorrow. Starting tomorrow you can soak your foot in Epsom salts for 10 minutes once a day. Please apply antibiotic ointment daily for 1-2 weeks. Keep site covered with Band-Aid. Follow-up with podiatry as needed. Prescriptions: New cephalexin 500 mg capsule 500 mg PO TID Qty: 30 0RF No Action cholecalciferol (vitamin D3) 125 mcg (5,000 unit) capsule 125 mcg PO DAILY omeprazole magnesium [Prilosec OTC] 20 mg tablet,delayed release (DR/EC) 20 mg PO DAILY Eliquis 5 mg tablet 5 mg PO BID Qty: 180 3RF diltiazem HCl 360 mg capsule,extended release 24 hr 360 mg PO DAILY Qty: 90 3RF metformin 500 mg tablet extended release 24 hr 500 mg PO DAILY Qty: 90 3RF hydrochlorothiazide 12.5 mg tablet 12.5 mg PO DAILY Qty: 90 3RF benazepril 20 mg tablet 20 mg PO DAILY Qty: 90 3RF terbinafine HCl 250 mg tablet 250 mg PO DAILY Qty: 90 1RF Rx Instructions: take daily for 90 days, stop for 90 days, then take for 90 days again Loratadine-D 10-240 mg tablet extended release 24 hr 1 tablet PO DAILY PRN (Reason: allergy symptoms) Qty: 90 3RF ezetimibe [Zetia] 10 mg tablet 10 mg PO DAILY Follow-up/Referrals: Rosy Alexander NP [Primary Care Provider] - Hillary Davidson DPM [Physician] - (podiatry ) Time of Disposition: 16:14
[2024-01-01] MEDS: SODIUM CHLORIDE 0.9% IV 1,000 ML 999 ML IV CONT (14:35)
[2024-01-01 14:41] LABS: Basophils Absolute Auto 0.1 K/mm3 (0.0-0.1); Basophils Percent Auto 0.5 % (0.2-1.2); Eosinophils Absolute Auto 0.2 K/mm3 (0-0.3); Eosinophils Percent Auto 1.6 % (0-4.4); Hematocrit 46.3 % (42.0-52.0); Hemoglobin 16.1 g/dL (14.0-18.0); Immature Granulocyte Absolute 0.03 K/mm3 (0.00-0.031); Immature Granulocyte Percent A 0.3 % (0-0.5); Lymphocytes Absolute Auto 2.45 K/mm3 (0.9-3.2); Lymphocytes Percent Auto 26.7 % (18.3-44.2); Mean Corpuscular HGB Conc 34.8 g/dl (32-36); Mean Corpuscular Hemoglobin 30.4 pg (26-34); Mean Corpuscular Volume 87.4 fl (80-100); Mean Platelet Volume 9.5 fl (7.4-10.4); Monocytes Absolute Auto 0.5 K/mm3 (0.1-0.6); Monocytes Percent Auto 5.7 % (2.6-8.5); Neutrophils Percent Auto 65.2 % (45.5-73.1); Platelet Count Result 246 k/mm3 (150-375); Red Cell Distribution Width 13.2 % (11.5-14.5); White Blood Count 9.2 K/mm3 (4.5-10.0)
[2024-01-01 14:49] LABS: Lactic Acid Reflex 1.5 mmol/L (0.7-2.0)
[2024-01-01 14:52] LABS: Prothrombin Time 13.9 Seconds (11.1-14.7)
[2024-01-01 14:53] LABS: Alanine Aminotransferase 40 U/L (6-50); Albumin Level 4.5 g/dL (3.5-5.1); Alkaline Phosphatase 57 U/L (38-126); Anion Gap 8 mmol/L (4-12); Aspartate Amino Transferase 35 U/L (17-59); Bilirubin,Total 0.5 mg/dL (0.2-1.3); Blood Urea Nitrogen 18 mg/dL (9-20); CRP < 0.5 mg/dL (<1.0); Calcium 9.8 mg/dL (8.4-10.2); Carbon Dioxide 25 mmol/L (22-30); Chloride 103 mmol/L (98-107); Estimated CRCL calculation 143 ml/min; Estimated Glomerular Filt Rate > 60; Glucose 137 mg/dL (65-110); Hemoglobin A1C 6.1 % (<5.7); Partial Thromboplastin Time 28.8 Seconds (22.3-36.8); Potassium 3.7 mmol/L (3.4-5.0); Sodium 136 mmol/L (137-145)
[2024-01-01 15:02] LABS: Troponin I < 0.012 ng/mL (0.000-0.034)
== END 2024-01-01 16:37 | disposition home or self-care (01) ==
PROVIDERS: Emergency Provider Registered Nurse; PCP Nurse Practitioner Family
DX: S91.202A Unspecified open wound of left great toe with damage to nail, initial encounter (principal); B35.1 Tinea unguium; I48.91 Unspecified atrial fibrillation; I11.9 Hypertensive heart disease without heart failure; E78.5 Hyperlipidemia, unspecified; K21.9 Gastro-esophageal reflux disease without esophagitis; K58.9 Irritable bowel syndrome, unspecified; R73.03 Prediabetes; Z85.820 Personal history of malignant melanoma of skin; Z86.2 Personal history of diseases of the blood and blood-forming organs and certain disorders involving the immune mechanism; Z87.891 Personal history of nicotine dependence; Z79.01 Long term (current) use of anticoagulants; Z79.84 Long term (current) use of oral hypoglycemic drugs; Z79.899 Other long term (current) drug therapy; W22.03XA Walked into furniture, initial encounter
CPT/HCPCS: 36415; 73630; 80053; 83036; 83605; 84484; 85025; 85610; 85730; 86140; 87040; 96360; 99284; J7030

== ENCOUNTER 2024-01-17 08:39 | Outpatient (CLI) | payer OTHER, SELFPAY ==
--- NOTE | ~2024-01-17 | MR_ITS ---
MRI of the left shoulder Technique: Axial proton-density fat-sat images, coronal proton density fat-sat and T2 fat-sat images, and sagittal T1-weighted and T2 fat-sat images were acquired. Clinical History: Rotator cuff tear Findings: Probable prior subacromial decompression and partial resection of the distal clavicle, with associated presumed postoperative widening of the acromial clavicular joint space. No subacromial sp ur. Coracoclavicular, coracohumeral ligaments appear intact. Coracoacromial ligament probably remains intact. There are complete, full-thickness tears involving essentially the entire supraspinatus and infraspin atus tendons. Tendons are retracted to the medial aspect of the humeral head. Fluid-filled gap measur es approximately approximately 4.8 x 4.8 cm at its largest extent. Subscapularis tendon demonstrates probable partial thickness articular surface tearing, though evaluation is suboptimal due to signific ant motion artifact on axial images. There is moderate subscapularis tendinosis. Tendon of the long h ead of the biceps is probably intact, with intra-articular tendinosis. There is superior labral tear. There is mild to moderate degenerative change of the glenohumeral joint with extensive chondromalacia and minimal humeral head osteophyte. Inferior glenohumeral ligament is intact. Small glenohumeral hira int effusion present. No definite muscle atrophy. There is mild edematous change of the infraspinatus muscle belly. Impression: Essentially complete, full-thickness tears of the entire supraspinatus and infraspinatus tendons, as detailed above. Associated edematous change of the infraspinatus muscle belly. No fatty atrophy. Probable partial thickness articular surface tearing of the subscapularis tendon. Background rotator cuff tendinosis. Probable prior subacromial decompression. Degenerative changes of glenohumeral joint, as above. Reviewed, dictated and finalized at location M. DIRECTOR Impression: Essentially complete, full-thickness tears of the entire supraspinatus and infr aspinatus tendons, as detailed above. Associated edematous change of the infras pinatus muscle belly. No fatty atrophy. Probable partial thickness articular surface tearing of the subscapularis tendo n. Background rotator cuff tendinosis. Probable prior subacromial decompression. Degenerative changes of glenohumeral joint, as above.
== END 2024-01-17 08:40 | disposition home or self-care (01) ==
LOC: MICIMG 08:40
PROVIDERS: PCP Nurse Practitioner Family; Visit Provider Orthopaedic Surgery
DX: S46.812A Strain of other muscles, fascia and tendons at shoulder and upper arm level, left arm, initial encounter (principal); X58.XXXA Exposure to other specified factors, initial encounter; M19.012 Primary osteoarthritis, left shoulder; M75.122 Complete rotator cuff tear or rupture of left shoulder, not specified as traumatic
CPT/HCPCS: 73221

== ENCOUNTER 2024-03-30 12:14 | Outpatient (CLI) | payer OTHER, SELFPAY ==
--- OUTSIDE RECORDS SUMMARY | 2024-03-30 12:23 | XMS_ITS | Referral Summary ---
Author Organization [facility] Address [address] [place] [address] Care Team Providers Care Laser Machine Operator Name Role Phone Og Tran APRN-POTATO CHIP PROCESSING SUPERVISOR Primary Care Provider Source Comments [facility],non-owned Affiliates and Associated Physician Practices is amultiple site organization consisting of ambulatory clinics and hospital sitesin [place], [place], [place] and [place]. This disclosure is being madepursuant to the Care Everywhere program and may not contain all information available regarding this patient. Last updated 17.[facility] Allergies Active Allergy Reactions Criticality Noted Date Comments Adhesive Sensitivity Swelling Low 09/27/2016 Gabapentin Psychiatric Medium 03/25/2021 Hmg-Coa-R Inhibitors Myalgias High 04/17/2019 Medications * Be aware that medications may not be up to date on this document. Alwaysverify current medications with the patient. Medication Sig Dispensed Refills Start Date End Date Status fluticasone propionate (FLONASE) 50 MCG/ACT nasal spray [place] 2 (two) sprays into each nostril once daily Active dilTIAZem ER (TIAZAC) 360 MG capsule Take 1 (one) capsule by mouth once daily Active benazepril (LOTENSIN) 20 MG tablet Take by mouth once daily Active hydroCHLOROthiazide (MICROZIDE) 12.5 MG capsule Take 1 (one) capsule by mouth once daily Active Cholecalciferol (VITAMIN D3) 22217 UNITS TABS Active Eliquis 5 MG tablet Take 1 (one) tablet by mouth 2 times daily 12/10/2022 Active metFORMIN (Glucophage) 500 MG tablet Take 1 (one) tablet by mouth 2 times daily with morning and evening meal Active phentermine (Ionamine) 30 MG capsule Take 1 (one) capsule by mouth daily before breakfast Active B Complex Vitamins (B COMPLEX 1 PO) Active Active Problems Problem Noted Date Diagnosed Date Melanoma of back Social History Tobacco Use Types Packs/Day Years Used Date Smoking Tobacco: Former Cigarettes Q uit: 09/09/1996 Smokeless Tobacco: Never Tobacco Cessation:Counseling Given: Not Answered Alcohol Use Standard Drinks/Week Comments Yes 0 (1 standard drink = 0.6 oz pur e alcohol) few beers once and and awhile AUDIT-C Answer Date Recorded Q1: How often do you have a drink containing alc ohol? 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 No 02/08/2023 Is person blind or have serious difficulty seein g? No 02/08/2023 Does person have serious dif ficulty walking/climbing stairs? No 02/08/2023 Does person have difficulty dressing/bathing? No 02/08/2023 Does person have difficulty doing errands alone? No 02/08/2023 Cognitive Status Response Date of Assessm ent Does person have difficulty concentrating/remembering/making decisions? No 02/08/2023 Plan of Treatment Not on file Procedures Procedure Name Priority Date/Time Associated Diagnosis Comments COMPREHENSIVE METABOLIC PANEL Routine 02/02/2023 1:43 PM [facility] Mass of scalp from Last 3 Months or Most Recently Relevant to Health Maintenance Results * (ABNORMAL) COMPREHENSIVE METABOLIC PANEL (02/02/2023 1:43 PM [facility]) BUN 15 7 - 26 mg/dL 02/02/2023 2:31 PM [facility] Creatinine 0.76 0.71 - 1.16 mg/dL 02/02/2023 2:31 PM [facility] Sodium 143 136 - 145 mmol/L 02/02/2023 2:31 PM [facility] Potassium 3.8 3.5 - 4.5 mmol/L 02/02/2023 2:31 PM [facility] Chloride 104 98 - 107 mmol/L 02/02/2023 2:31 PM [facility] CO2 26 22 - 29 mmol/L 02/02/2023 2:31 PM [facility] Glucose 115 70 - 115 mg/dL 02/02/2023 2:31 PM [facility] Calcium 10.2 8.4 - 10.2 mg/dL 02/02/2023 2:31 PM [facility] Protein Total 7.5 6.0 - 8.3 g/dL 02/02/2023 2:31 PM [facility] Albumin 4.3 3.4 - 5.0 g/dL 02/02/2023 2:31 PM [facility] Bilirubin Total 0.3 0.2 - 1.2 mg/dL 02/02/2023 2:31 PM [facility] Alkaline Phosphatase 62 40 - 150 U/L 02/02/2023 2:31 PM [facility] ALT 30 5 - 55 U/L 02/02/2023 2:31 PM [facility] AST 21 5 - 34 U/L 02/02/2023 2:31 PM [facility] Anion Gap 13 6 - 16 02/02/2023 2:31 PM [facility] BUN/Creatinine Ratio 20 7 - 23 02/02/2023 2:31 PM [facility] Osmolality Calculated 298(H) 275 - 295 mOsm/kg 02/02/2023 2:31 PM [employer] [facility] Albumin/Globulin Ratio 1.3 1.1 - 2.3 02/02/2023 2:31 PM [employer] [facility] eGFR by CKD-EPI >90 >=90 mL/min/1.7 3 m2 02/02/2023 2:31 PM [employer] [facility] Blood BLOOD SPECIMEN / Unknown Lab Venipuncture / Unknown 02/02/2023 1:43 PM [employer] 02/02/2023 2:06 PM [employer] Talib Hunt MD LAB - CHEMISTRY [facility] [address] [place] [address], [facility] [phone] from Last 3 Months or Most Recently Relevant to Health Maintenance Care Teams Laser Machine Operator Relationship Specialty Start Date End Date Og Tran, LOG DRIVER-POTATO CHIP PROCESSING SUPERVISOR [address] [place] [id number] PCP - General 11/02/21
--- OUTSIDE RECORDS SUMMARY | 2024-03-30 12:23 | XMS_ITS | Referral Summary ---
Author Organization [facility] Address [address] [place] [address] Care Team Providers Care Staple Shear Operator Name Role Phone Rosy Alexander NP Primary Care Provider [phone] Encounters Date Type Department Care Team Description 02/09/2024 3:11 PM WIREWORKER SUPERVISOR - 02/09/2024 7:59 PM WIREWORKER SUPERVISOR Emergency [facility] [address] [place] [address] Dinesh Abreu MD Near syncope (Primary Dx); Palpitations Discharge Disposition: Discharge to home or self care from Last 3 Months Allergies No known active allergies Medications No known medications Social History Tobacco Use Types Packs/Day Years Used Date Smoking Tobacco: Never Assessed Personal Safety Answer Date Recorded Have you ever been in or are you currently in a harmful physical or emotional relationship or is someone making you feel afraid or unsafe? Denies 02/09/2024 Sex and Gender Information Value Date Recorded Sex Assigned at Not on file Legal Sex Male 5:43 PM WIREWORKER SUPERVISOR Gender Identity Not on file Sexual Orientation Not on file Last Filed Vital Signs Vital Sign Reading Time Taken Comments Blood Pressure 122/96 02/09/2024 7:36 PM WIREWORKER SUPERVISOR Pulse 78 02/09/2024 7:36 PM WIREWORKER SUPERVISOR Temperature 36.4 C (97.6 F) 02/09/2024 3:20 PM WIREWORKER SUPERVISOR Respiratory Rate 17 02/09/2024 7:36 PM WIREWORKER SUPERVISOR Oxygen Saturation 98% 02/09/2024 7:36 PM WIREWORKER SUPERVISOR Inhaled Oxygen Concentration - - Weight 136.1 kg (300 lb) 02/09/2024 3:20 PM WIREWORKER SUPERVISOR Height 182.9 cm (6') 02/09/2024 3:20 PM WIREWORKER SUPERVISOR Body Mass Index 40.69 02/09/2024 3:20 PM WIREWORKER SUPERVISOR Plan of Treatment Not on file Procedures Procedure Name Priority Date/Time Associated Diagnosis Comments URINE CULTURE STAT 02/09/2024 7:40 PM WIREWORKER SUPERVISOR URINALYSIS, MICROSCOPIC ONLY STAT 02/09/2024 5:16 PM WIREWORKER SUPERVISOR URINALYSIS AND REFLEX TO MICROSCOPIC AND CULTURE STAT 02/09/2024 5:16 PM WIREWORKER SUPERVISOR EGFR STAT 02/09/2024 3:25 PM WIREWORKER SUPERVISOR DIFFERENTIAL AUTO STAT 02/09/2024 3:2 5 PM WIREWORKER SUPERVISOR COMPREHENSIVE METABOLIC PANEL STAT 02/09/2024 3:25 PM WIREWORKER SUPERVISOR CBC WITH AUTO DIFFERENTIAL STAT 02/09/2024 3:25 PM WIREWORKER SUPERVISOR ECG 12-LEAD STAT 02/09/2024 3:22 PM WIREWORKER SUPERVISOR POCT GLUCOSE DEVICE Routine 02/09/2024 3 :[address] ABDOMEN PELVIS W WO CONTRAST Schedule Routine, Read Routine (OP Routine) 06/12/2018 8:26 AM CDT Other specified disorders of kidney and ureter from Last 3 Months or Most Recently Relevant to Health Maintenance Results * Urine culture Urine, bladder (02/09/2024 7:40 PM WIREWORKER SUPERVISOR) Report Final Report: No growth Comment:Testing performed by : [facility], [address], [place]., [address] Urine, bladder 02/09/2024 7: 40 PM WIREWORKER SUPERVISOR 02/10/2024 3:01 AM WIREWORKER SUPERVISOR Narrative [facility] - 02/12/2024 4:00 AM WIREWORKER SUPERVISOR Indications for Culture:->Recent positive UA Dinesh Abreu MD LAB MICROBIOLOGY - GENERAL OR DERABLES Final Result [facility]ERTO [address] [place] [address] * (ABNORMAL) Urinalysis reflex to microscopic and culture Urine (02/09/2024 5:16 PM WIREWORKER SUPERVISOR) Color, ur Yellow Yellow Clarity, ur Clear Clear [facility] Specific gravity, ur 1.025 1.003 - 1.030 [facility] pH, urine 6.0 [facility] Comment: Interpretive Data U rine pH is affected by diet, medications, systemic acid-base disturbances, and renal tubular function. pH may affect urinary stone formation. For example, urine pH below 6.0 may help reduce the tendency for calcium phosphate stones and pH greater than 6.0 may reduce the tendency for uric acid stone formation. Source: [facility] Current Interpretive Data was last revised on 2017 Protein, ur ql Trace Negative [facility] Glucose, ur ql Negative Negative [facility] Ketones, ur Negative Negative [facility] Bilirubin, ur Negative Negative [facility] Blood, ur Negative Negative [facility] Urobilinogen, ur <2.0 <2.0 mg/dL [facility] Nitrite, ur Negative Negative [facility] Leukocyte esterase, ur 1+(A) Negative [facility] UA reflex comment Reflex to microscopic UA will be performed. [facility] Urine 02/09/2024 5:16 PM WIREWORKER SUPERVISOR 02/09/2024 5:25 PM WIREWORKER SUPERVISOR Dinesh Abreu MD LAB MICROBIOLOGY - GENERAL OR DERABLES Final Result Performing Organization Address City/[facility]/ZIP Co de Phone Number ALBERTO [address] Department [place] [address] * (ABNORMAL) Urinalysis, microscopic only (02/09/2024 5:16 PM WIREWORKER SUPERVISOR) WBC, ur 6-10(A) 0 - 5 /HPF RBC, ur 3-5(A) 0 - 2 /HPF [facility] Bacteria, ur Trace(A) [facility] Culture Reflex Comment Reflex conditions for urine culture (WBC >10) not met. [facility] Urine 02/09/2024 5:16 PM WIREWORKER SUPERVISOR 02/09/2024 5:25 PM WIREWORKER SUPERVISOR Dinesh Abreu MD LAB URINE ORDERABLES Final Re sult Performing Organization Address [facility] Co de Phone Number [address] [place] [address] * eGFR (02/09/2024 3:25 PM WIREWORKER SUPERVISOR) eGFR >90 >=60 mL/min/1. 73 m2 Comment: Interpretive Data Reference Interval Normal >/= 90 mL/min/1.73m2 Mildly decreased* 60 - 89 mL/min/1.73m2 Mildly to moderately decreased 45 - 59 mL/min/1.73m2 Moderately to severely decreased 30 - 44 mL/min/1.73m2 Severely decreased 15 - 29 mL/min/1.73m2 Kidney Failure < 15 mL/min/1.73m2 *Relative to young adult level Estimated glomerular filtration rate is determined by the 2020 CKD-EPI equation recommended by the National Kidney Foundation (A Unifying Approach to GFR Estimation: Recommendations of the NKF-ASK Task Force on Reassessing the Inclusion of Race in Diagnosing Kidney Disease, JASN 2020). The CKD-EPI equation should not be used for patients with unstable renal function and has not been validated in children and those over 70. Current interpretive data was last reviewed 2020. Blood 02/09/2024 3:25 PM WIREWORKER SUPERVISOR 02/09/2024 3:30 PM WIREWORKER SUPERVISOR Dinesh Abreu MD LAB BLOOD ORDERABLES Final Re sult Performing Organization Address City/[facility]/ZIP Co de Phone Number [address] Department of Laboratories [place], [place] [id number] * (ABNORMAL) Differential, auto (02/09/2024 3:25 PM WIREWORKER SUPERVISOR) Neutrophil abs 6.2 1.5 - 6.5 K/cumm Imm gran abs 0.0 0.0 - 0.1 K/cumm [facility] Lymphocyte abs 3.9(H) 0.8 - 3.3 K/cumm [facility] Monocyte abs 0.7 0.2 - 0.8 K/cumm [facility] Eosinophil abs 0.1 0.0 - 0.5 K/cumm [facility] Basophil abs 0.1 0.0 - 0.1 K/cumm [facility] Neutrophil pct 56.3 % [facility] Comment: Interpretive Data Percent cell count reference ranges are not reported, since discordance with absolute values may lead to misinterpretation of CBC data. Current Interpretive Data was last revised on 2017. Imm gran pct 0.3 % [facility] Comment: Interpretive Data Percent cell count reference ranges are not reported, since discordance with absolute values may lead to misinterpretation of CBC data. Current Interpretive Data was last revised on 2017. Lymphocyte pct 35.8 % [facility] Comment: Interpretive Data Percent cell count reference ranges are not reported, since discordance with absolute values may lead to misinterpretation of CBC data. Current Interpretive Data was last revised on 2017. Monocyte pct 5.9 % [facility] Comment: Interpretive Data Percent cell count reference ranges are not reported, since discordance with absolute values may lead to misinterpretation of CBC data. Current Interpretive Data was last revised on 2017. Eosinophil pct 1.0 % [facility] Comment: Interpretive Data Percent cell count reference ranges are not reported, since discordance with absolute values may lead to misinterpretation of CBC data. Current Interpretive Data was last revised on 2017. Basophil pct 0.7 % [facility] Comment: Interpretive Data Percent cell count reference ranges are not reported, since discordance with absolute values may lead to misinterpretation of CBC data. Current Interpretive Data was last revised on 2017. Blood 02/09/2024 3:25 PM WIREWORKER SUPERVISOR 02/09/2024 3:30 PM WIREWORKER SUPERVISOR Dinesh Abreu MD LAB BLOOD ORDERABLES Final Re sult [address] Department [place] [address] * (ABNORMAL) CBC with auto differential (02/09/2024 3:25 PM WIREWORKER SUPERVISOR) [facility] WBC 11.0(H) 3.8 - 9.9 K/cumm Hgb 16.8 13.0 - 17.5 g/dL [facility] Hct 51.1(H) 38.9 - 50.3 % [facility] Plt 268 150 - 400 K/cumm [facility] MPV 9.4 9.1 - 12.3 fL [facility] RBC 5.67 4.30 - 5.80 M/cumm [facility] MCV 90.1 81.3 - 96.4 fL [facility] MCH 29.6 27.1 - 33.3 pg [facility] MCHC 32.9 32.3 - 35.7 g/dL [facility] RDW CV 12.9 11.1 - 14.9 % [facility] RDW SD 42.3 35.7 - 48.1 fL [facility] NRBC abs 0.00 0.00 - 0.01 K/cumm [facility] Blood 02/09/2024 3:25 PM WIREWORKER SUPERVISOR 02/09/2024 3:30 PM WIREWORKER SUPERVISOR Dinesh Abreu MD LAB BLOOD ORDERABLES Final Re sult Performing Organization Address [facility]/ZIP Co de Phone Number [address] Department [place] [address] * (ABNORMAL) Comprehensive metabolic panel (02/09/2024 3:25 PM WIREWORKER SUPERVISOR) [facility] Sodium 139 135 - 145 mmol/L Potassium, pl 4.0 3.3 - 4.9 mmol/L [facility] Chloride 103 97 - 110 mmol/L [facility] CO2 21(L) 22 - 32 mmol/L [facility] Anion gap 15 2 - 15 mmol/L [facility] BUN 21 6 - 25 mg/dL [facility] Creatinine 0.78(L) 0.80 - 1.30 mg/dL [facility] Glucose 123 70 - 199 mg/dL [facility] Comment: Interpretive Data Fasting glucose >/= 126 mg/dl is diagnostic for diabetes. Fasting is defined as no caloric intake for at least 8 hours. Fasting glucose between 100 mg/dl to 125 mg/dl is diagnostic of prediabetes. In a patient with classic symptoms of hyperglycemia or hyperglycemic crisis, a random glucose >/= 200 mg/dl is diagnostic for diabetes. In the absence of unequivocal hyperglycemia, results should be confirmed by repeat testing. The classification and Diagnosis of Diabetes Diabetes Care 2021; 46: S19-S40. Current interpretive data was last revised 2022. Calcium 9.9 8.5 - 10.3 mg/dL [facility] Bilirubin, total 0.2 0.1 - 1.2 mg/dL [facility] Protein, pl 7.1 6.5 - 8.5 g/dL [facility] Albumin 4.3 3.5 - 5.0 g/dL [facility] Alk phos 62 40 - 130 Units/L [facility] ALT 47 7 - 55 Units/L [facility] AST 35 10 - 50 Units/L [facility] Comment:Hemolysis may falsel y increase results. Use caution when interpreting hemolyzed results. Blood 02/09/2024 3:25 PM WIREWORKER SUPERVISOR 02/09/2024 3:30 PM WIREWORKER SUPERVISOR Dinesh Abreu MD LAB BLOOD ORDERABLES Final Re sult [facility] [address] [facility] [address] Department [place] [address] * ECG 12 lead (02/09/2024 3:22 PM WIREWORKER SUPERVISOR) 02/09/2024 3:22 PM WIREWORKER SUPERVISOR Narrative [facility] - 02/13/2024 3:33 PM WIREWORKER SUPERVISOR Vent Rate: 82 bpm RR Interval: 724 msec AR Interval: 151 msec QRS Duration: 110 msec QT Interval: 371 msec QTC Interval: 410 msec P-R-T [place]: 35 - 57 - 32 degrees IMPRESSION: SINUS RHYTHM WITH SINUS ARRHYTHMIA INCOMPLETE RIGHT BUNDLE BRANCH BLOCK BORDERLINE ECG Electronically Signed By: Sia Goddard DO us Dinesh Abreu MD ECG ORDERABLES Final Result [facility] * POCT glucose (02/09/2024 3:14 PM WIREWORKER SUPERVISOR) Glucose, POC 117 70 - 199 mg/dL Blood 02/09/2024 3:14 PM WIREWORKER SUPERVISOR 02/09/2024 3:14 PM WIREWORKER SUPERVISOR Notinfile Unknown LAB POCT ORDERABLES - DEVICE F inal Result Performing Organization Address City/[facility]/ZIP Co de Phone Number ALBERTO [address] Department of Laboratories [place] [phone] * CT Abdomen Pelvis W WO Contrast (06/12/2018 8:26 AM CDT) Anatomical Region Laterality Modality Body N/A Computed Tomogra phy 06/12/2018 9:30 AM CDT Impressions 06/12/2018 10:01 AM CDT Bilateral renal cysts as noted Electronically signed by: Samuel Klein M.D. Narrative 06/12/2018 10:01 AM CDT RESULT: CT ABDOMEN AND PELVIS WITH AND WITHOUT IV CONTRAST HISTORY: Other specified disorders of kidney and ureter abdominal pain TECHNIQUE: Transaxial imaging through the abdomen and pelvis was performed with 2-D reformats preceding and following the intravenous administration of 95 mL of Optiray-350. FINDINGS: There are no acute changes in the visualized lung bases. There is no sign of pneumoperitoneum. The liver was unremarkable. The gallbladder, spleen and pancreas were unremarkable. There is a normal appearance of both adrenal glands and both kidneys, with the exception of renal cysts. The largest representing a 2 cm exophytic cyst is noted in the mid posterior right kidney no evidence of pathologic renal enhancement. The small bowel pattern is not significantly dilated and there are no significant air-fluid levels. There is a prominent sized appendix with a tiny appendicolith at the tip and no evidence of acute inflammatory change There is moderate fecal loading of the colon with sigmoid diverticulosis. There is no ascites or increased cul-de-sac fluid. The urinary bladder as imaged is unremarkable. There are scattered atherosclerotic mural calcifications throughout the aorta and iliac vessels and the visceral arteries of the abdominal aorta without sign of aneurysm or dissection. There are degenerative spine changes with generalized spondylosis and scoliosis. Procedure Note Samuel Klein MD - 06/12/2018 RESULT: CT ABDOMEN AND PELVIS WITH AND WITHOUT IV CONTRAST HISTORY: Other specified disorders of kidney and ureter abdominal pain TECHNIQUE: Transaxial imaging through the abdomen and pelvis was performed with 2-D reformats preceding and following the intravenous administration of 95 mL of Optiray-350. FINDINGS: There are no acute changes in the visualized lung bases. There is no sign of pneumoperitoneum. The liver was unremarkable. The gallbladder, spleen and pancreas were unremarkable. There is a normal appearance of both adrenal glands and both kidneys, with the exception of renal cysts. The largest representing a 2 cm exophytic cyst is noted in the mid posterior right kidney no evidence of pathologic renal enhancement. The small bowel pattern is not significantly dilated and there are no significant air-fluid levels. There is a prominent sized appendix with a tiny appendicolith at the tip and no evidence of acute inflammatory change There is moderate fecal loading of the colon with sigmoid diverticulosis. There is no ascites or increased cul-de-sac fluid. The urinary bladder as imaged is unremarkable. There are scattered atherosclerotic mural calcifications throughout the aorta and iliac vessels and the visceral arteries of the abdominal aorta without sign of aneurysm or dissection. There are degenerative spine changes with generalized spondylosis and scoliosis. IMPRESSION: Bilateral renal cysts as noted Electronically signed by: Samuel Klein M.D. Nick Virk DO IMG CT PROCEDURES Final Res ult from Last 3 Months or Most Recently Relevant to Health Maintenance Insurance [facility]ICE PL[facility] HMO/PPO Address: [facility] [address] [id number] [place] [address] [facility] CHOICE PLUS [facility] HMO/PPO Address: [place] [phone] [place] [phone] Care Teams Staple Shear Operator Relationship Specialty Start Date End Date Rosy Alexander NP [address] [address] PCP - General Family Medicine 02/09/24
--- OUTSIDE RECORDS SUMMARY | 2024-03-30 12:23 | XMS_ITS | Encounter Summary ---
Author Organization [facility] Facility Care Team Providers Care Oil Dipper Name Role Phone Alanna Rhodes MD Primary Care Provider + Rosy Alexander NP Primary Care Provider [phone] Encounter Details Date Type Department Care Team (Latest Contact Info) Description 02/20/2015 Orders Only [facility] ProviderGiselle MD [address] [place] [id number] Social History Tobacco Use Types Packs/Day Years Used Date Smoking Tobacco: Never Assessed Sex and Gender Information Value Date Recorded Sex Assigned at Not on file Legal Sex Male 5:43 PM BURSAR Gender Identity Not on file Sexual Orientation Not on file documented as of this encounter Plan of Treatment Not on file documented as of this encounter Procedures Procedure Name Priority Date/Time Associated Diagnosis Comments CARDIOLOGY REPORT 03/04/2016 12: 00 AM BURSAR documented in this encounter Results * CARDIOLOGY REPORT (03/04/2016 12:00 AM BURSAR) Anatomical Region Laterality Modality Other Narrative 03/04/2016 12:00 AM BURSAR Ordered by an unspecified provider. Historical Provider [facility] DESI[facility] GREENWOOD Final Result documented in this encounter Visit Diagnoses Not on filedocumented in this encounter Care Teams Oil Dipper Relationship Specialty Start Date End Date Alanna Rhodes MD PCP - General 06/12/18 02/08/24 Rosy Alexander NP [address] [address] PCP - General Family Medicine 02/09/24 documented as of this encounter
--- OUTSIDE RECORDS SUMMARY | 2024-03-30 12:23 | XMS_ITS | Encounter Summary ---
Author Organization [facility] Address [address] [facility] [place] [address] Care Team Providers Care Naval Surface Fire Support Planner Name Role Phone TranOg ASSEMBLY LINE MACHINE OPERATOR-AUTO TECHNICIAN MECHANIC Primary Care Provider Encounter Details Date Type Department Care Team (Late st Contact Info) Description 03/22/2019 Lab Requisition [facility] Care DermPath Lab [address] [place] [id number] Sloan Alfaro MD [address] [place] [address] Social History Tobacco Use Types Packs/Day Years Used Date Smoking Tobacco: Former Cigarettes Q uit: 09/09/1996 Smokeless Tobacco: Never Alcohol Use Standard Drinks/Week Comments Yes 0 (1 standard drink = 0.6 oz pur e alcohol) few beers once and and awhile Sex and Gender Information Value Date Recorded Sex Assigned at Not on file Gender Identity Not on file Sexual Orientation Not on file documented as of this encounter Plan of Treatment Not on file documented as of this encounter Procedures Procedure Name Priority Date/Time Associated Diagnosis Comments DERMATOPATHOLOGY Routine 03/20/2019 12:0 0 AM SURVEY RESEARCHER documented in this encounter Results * DERMATOPATHOLOGY (03/20/2019 12:00 AM SURVEY RESEARCHER) Case Report Dermatopathology Report Case: [id number] Authorizing Provider: Sloan Alfaro MD Collected: 03/20/2019 12:00 AM Ordering Location: [facility] Care DermPath Lab Received: 03/22/2019 08:09 AM Pathologist: Destiny Graham MD Specimen: Skin, left mid back 0 2:09 PM [facility] DERMATOPATHOLOGY LABORATORY Final Diagnosis Specimen A. 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 [id number]. Check margins 0 2:09 PM SURVEY RESEARCHER DERMATOPATHOLOGY LABORATORY Gross Description Specimen A: Received is one formalin filled container labeled with the patient's name and designated left mid back. The specimen consists of a shave biopsy measuring 9x7x1 mm, inked. Jar 0. 0 2:09 PM [facility] DERMATOPATHOLOGY LABORATORY Microscopic Description Specimen A. SKIN, left mid back: This is a compound nevus. There is architectural disorder characterized by a lentiginous proliferation of melanocytes between irregular nevus nests of cells along the dermal-epidermal junction. There is underlying lamellar fibroplasia of the papillary dermis. The intradermal component is bland in appearance and matures with depth. (Compound Bryant's Nevus or Compound Dysplastic Nevus) This lesion is not present at the sampled margin of the specimen. 0 2:09 PM [facility] DERMATOPATHOLOGY LABORATORY Disclaimer An external and internal positive and negative controls are appropriate for the histochemical, immunohistochemical and immunofluorescence stain(s) in this case (if any), except where stated explicitly. The performance characteristics of the stain(s) cited in this report were developed and its performance characteristic determined by the Dermatopathology Laboratory at [facility], directed by Dr. Christie Núñez. These tests need not be, and therefore are not, approved by the [place] Food and Drug Administration. The tests are used for clinical purposes. Billing Codes Specimen Charges Stain Charges 59029 1 0 2:09 PM [facility] DERMATOPATHOLOGY [facility]ORATORY Embedded Images 0 2:09 PM [facility] DERMATOPATHOLOGY [facility]OR[facility]ORY Pathology/Cytolog y TISSUE SPECIMEN FROM SKIN / Unknown 03/20/2019 03/22/2019 8:09 AM SURVEY RESEARCHER Sloan Alfaro MD LAB - PATHOLOGY/CYTO LOGY ORDERABLES DERMATOPATHOLOGY LABORATORY [facility] - Department of Dermatology [address] [facility] 5th Floor Lab [address] [phone] documented in this encounter Visit Diagnoses Not on filedocumented in this encounter Care Teams Naval Surface Fire Support Planner Relationship Specialty Start Date End Date Og Tran, ASSEMBLY LINE MACHINE OPERATOR-AUTO TECHNICIAN MECHANIC [address] [place] [id number] PCP - General 11/02/21 documented as of this encounter
--- OUTSIDE RECORDS SUMMARY | 2024-03-30 12:23 | XMS_ITS | Encounter Summary ---
Author Organization [facility] Facility Care Team Providers Care Residential Mental Health Worker Name Role Phone Alanna Rhodes MD Primary Care Provider + Rosy Alexander NP Primary Care Provider [phone] Encounter Details Date Type Department Care Team (Latest Contact Info) Description 01/13/2015 Orders Only [facility] CLINCONV ProviderGiselle MD [address] [place] [address] Social History Tobacco Use Types Packs/Day Years Used Date Smoking Tobacco: Never Assessed Sex and Gender Information Value Date Recorded Sex Assigned at Not on file Legal Sex Male 5:43 PM PICKER AND PACKER Gender Identity Not on file Sexual Orientation Not on file documented as of this encounter Plan of Treatment Not on file documented as of this encounter Procedures Procedure Name Priority Date/Time Associated Diagnosis Comments SCAN - LABS 03/04/2016 12:00 AM PICKER AND PACKER documented in this encounter Results * SCAN - LABS (03/04/2016 12:00 AM PICKER AND PACKER) Narrative 03/04/2016 12:00 AM PICKER AND PACKER Ordered by an unspecified provider. Historical Provider Final Res ult documented in this encounter Visit Diagnoses Not on filedocumented in this encounter Care Teams Residential Mental Health Worker Relationship Specialty Start Date End Date Alanna Rhodes MD PCP - General 06/12/18 02/08/24 Rosy Alexander NP [address] [address] PCP - General Family Medicine 02/09/24 documented as of this encounter
--- OUTSIDE RECORDS SUMMARY | 2024-03-30 12:23 | XMS_ITS | Clinical Summary ---
Author Organization [facility] Address [address] [place] [address] Care Team Providers Care Anime Designer Name Role Phone Rosy Alexander NP Primary Care Provider [phone] Allergies No known active allergies Medications No known medications Encounters Date Type Department Care Team Description 02/09/2024 3:11 PM BACK PAD INSPECTOR - 02/09/2024 7:59 PM BACK PAD INSPECTOR Emergency [facility] Emergency Department [address] [place] [address] Dinesh Abreu MD Near syncope (Primary Dx); Palpitations Discharge Disposition: Discharge to home or self care from Last 3 Months Social History Tobacco Use Types Packs/Day Years Used Date Smoking Tobacco: Never Assessed Personal Safety Answer Date Recorded Have you ever been in or are you currently in a harmful physical or emotional relationship or is someone making you feel afraid or unsafe? Denies 02/09/2024 Sex and Gender Information Value Date Recorded Sex Assigned at Not on file Legal Sex Male 5:43 PM BACK PAD INSPECTOR Gender Identity Not on file Sexual Orientation Not on file Last Filed Vital Signs Vital Sign Reading Time Taken Comments Blood Pressure 122/96 02/09/2024 7:36 PM BACK PAD INSPECTOR Pulse 78 02/09/2024 7:36 PM BACK PAD INSPECTOR Temperature 36.4 C (97.6 F) 02/09/2024 3:20 PM BACK PAD INSPECTOR Respiratory Rate 17 02/09/2024 7:36 PM BACK PAD INSPECTOR Oxygen Saturation 98% 02/09/2024 7:36 PM BACK PAD INSPECTOR Inhaled Oxygen Concentration - - Weight 136.1 kg (300 lb) 02/09/2024 3:20 PM BACK PAD INSPECTOR Height 182.9 cm (6') 02/09/2024 3:20 PM BACK PAD INSPECTOR Body Mass Index 40.69 02/09/2024 3:20 PM BACK PAD INSPECTOR Plan of Treatment Health Maintenance Due Date Last Done Comments Colon Cancer Screening-Colonoscopy 1955 Depression Screening 1955 Fall Risk Assessment 1955 Hepatitis C Screening 1955 Prostate Cancer Screening-PSA 1955 Hepatitis B Screening 1973 Zoster Vaccine (1 of 2) 2005 Abdominal Aortic Aneurysm (A AA) Screen 2020 06/12/2018 Well Visit 65+ 2020 Covid-19 Vaccine (2023-2 5 season) 2024 01/19/2024, 12/04/2022, 11/04/2021, Additional history exists DTaP/Tdap/Td Vaccine (3 - Td or Tdap) 03/31/2030 03/31/2020, 03/29/2019 Pneumococcal vaccine 65+ Completed 12/04/2022 Influenza Vaccine Completed 01/19/2024, , 12/13/2016, Additional history exists Procedures Procedure Name Priority Date/Time Associated Diagnosis Comments URINE CULTURE STAT 02/09/2024 7:40 PM BACK PAD INSPECTOR URINALYSIS, MICROSCOPIC ONLY STAT 02/09/2024 5:16 PM BACK PAD INSPECTOR URINALYSIS AND REFLEX TO MICROSCOPIC AND CULTURE STAT 02/09/2024 5:16 PM BACK PAD INSPECTOR EGFR STAT 02/09/2024 3:25 PM BACK PAD INSPECTOR DIFFERENTIAL AUTO STAT 02/09/2024 3:2 5 PM BACK PAD INSPECTOR COMPREHENSIVE METABOLIC PANEL STAT 02/09/2024 3:25 PM BACK PAD INSPECTOR CBC WITH AUTO DIFFERENTIAL STAT 02/09/2024 3:25 PM BACK PAD INSPECTOR ECG 12-LEAD STAT 02/09/2024 3:22 PM BACK PAD INSPECTOR POCT GLUCOSE DEVICE Routine 02/09/2024 3 :[address] ABDOMEN PELVIS W WO CONTRAST Schedule Routine, Read Routine (OP Routine) 06/12/2018 8:26 AM CDT Other specified disorders of kidney and ureter from Last 3 Months or Most Recently Relevant to Health Maintenance Results * Urine culture Urine, bladder (02/09/2024 7:40 PM BACK PAD INSPECTOR) Report Final Report: No growth Comment:Testing performed by : [facility], [address] [place] [address], [place]., [address] Urine, bladder 02/09/2024 7: 40 PM BACK PAD INSPECTOR 02/10/2024 3:01 AM BACK PAD INSPECTOR [facility]ative [facility] - 02/12/2024 4:00 AM BACK PAD INSPECTOR Indications for Culture:->Recent positive UA us Dinesh Abreu MD LAB MICROBIOLOGY - GENERAL OR DERABLES Final Result [address] [place] [address] * (ABNORMAL) Urinalysis reflex to microscopic and culture Urine (02/09/2024 5:16 PM BACK PAD INSPECTOR) Color, ur Yellow Yellow Clarity, ur Clear Clear [facility] Specific gravity, ur 1.025 1.003 - 1.030 [facility] pH, urine 6.0 [facility] Comment: Interpretive Data U rine pH is affected by diet, medications, systemic acid-base disturbances, and renal tubular function. pH may affect urinary stone formation. For example, urine pH below 6.0 may help reduce the tendency for calcium phosphate stones and pH greater than 6.0 may reduce the tendency for uric acid stone formation. Source: [facility] Current Interpretive Data was last revised on 2017 Protein, ur ql Trace Negative [facility] Glucose, ur ql Negative Negative [facility] Ketones, ur Negative Negative [facility] Bilirubin, ur Negative Negative [facility] Blood, ur Negative Negative [facility] Urobilinogen, ur <2.0 <2.0 mg/dL [facility] Nitrite, ur Negative Negative [facility] Leukocyte esterase, ur 1+(A) Negative [facility] UA reflex comment Reflex to microscopic UA will be performed. [facility] Urine 02/09/2024 5:16 PM BACK PAD INSPECTOR 02/09/2024 5:25 PM BACK PAD INSPECTOR Dinesh Abreu MD LAB MICROBIOLOGY - GENERAL OR DERABLES Final Result Performing Organization Address [facility] Co de Phone Number [address] [place] [address] * (ABNORMAL) Urinalysis, microscopic only (02/09/2024 5:16 PM BACK PAD INSPECTOR) WBC, ur 6-10(A) 0 - 5 /HPF RBC, ur 3-5(A) 0 - 2 /HPF [facility] Bacteria, ur Trace(A) [facility] Culture Reflex Comment Reflex conditions for urine culture (WBC >10) not met. [facility] Urine 02/09/2024 5:16 PM BACK PAD INSPECTOR 02/09/2024 5:25 PM BACK PAD INSPECTOR Dinesh Abreu MD LAB URINE ORDERABLES Final Re sult Performing Organization Address [facility] de Phone Number [address] [place] [address] * eGFR (02/09/2024 3:25 PM BACK PAD INSPECTOR) eGFR >90 >=60 mL/min/1. 73 m2 Comment: [...] of Race in Diagnosing Kidney Disease, JASN 202). The CKD-EPI equation should not be used for patients with unstable renal function and has not been validated in children and those over 70. Current interpretive data was last reviewed 2020. Blood 02/09/2024 3:25 PM BACK PAD INSPECTOR 02/09/2024 3:30 PM BACK PAD INSPECTOR us Dinesh Abreu MD LAB BLOOD ORDERABLES Final Re sult [address] Department [place] [address] * (ABNORMAL) Differential, auto (02/09/2024 3:25 PM BACK PAD INSPECTOR) Neutrophil abs 6.2 1.5 - 6.5 K/cumm Imm gran abs 0.0 0.0 - 0.1 K/cumm [facility] Lymphocyte abs 3.9(H) 0.8 - 3.3 K/cumm [facility] Monocyte abs 0.7 0.2 - 0.8 K/cumm [facility] Eosinophil abs 0.1 0.0 - 0.5 K/cumm [facility] Basophil abs 0.1 0.0 - 0.1 K/cumm [facility] Neutrophil pct 56.3 % [facility] Comment: Interpretive Data Percent cell count reference ranges are not reported, since discordance with absolute values may lead to misinterpretation of CBC data. Current Interpretive Data was last revised on 2017. Imm gran pct 0.3 % [facility] Comment: Interpretive Data Percent cell count reference ranges are not reported, since discordance with absolute values may lead to misinterpretation of CBC data. Current Interpretive Data was last revised on 2017. Lymphocyte pct 35.8 % [facility] Comment: Interpretive Data Percent cell count reference ranges are not reported, since discordance with absolute values may lead to misinterpretation of CBC data. Current Interpretive Data was last revised on 2017. Monocyte pct 5.9 % [facility] Comment: Interpretive Data Percent cell count reference ranges are not reported, since discordance with absolute values may lead to misinterpretation of CBC data. Current Interpretive Data was last revised on 2017. Eosinophil pct 1.0 % [facility] Comment: Interpretive Data Percent cell count reference ranges are not reported, since discordance with absolute values may lead to misinterpretation of CBC data. Current Interpretive Data was last revised on 2017. Basophil pct 0.7 % [facility] Comment: Interpretive Data Percent cell count reference ranges are not reported, since discordance with absolute values may lead to misinterpretation of CBC data. Current Interpretive Data was last revised on 2017. Blood 02/09/2024 3:25 PM BACK PAD INSPECTOR 02/09/2024 3:30 PM BACK PAD INSPECTOR us Dinesh Abreu MD LAB BLOOD ORDERABLES Final Re sult [address] Department [place] [address] * (ABNORMAL) CBC with auto differential (02/09/2024 3:25 PM BACK PAD INSPECTOR) WBC 11.0(H) 3.8 - 9.9 K/cumm Hgb 16.8 13.0 - 17.5 g/dL [facility] Hct 51.1(H) 38.9 - 50.3 % [facility] Plt 268 150 - 400 K/cumm [facility] MPV 9.4 9.1 - 12.3 fL [facility] RBC 5.67 4.30 - 5.80 M/cumm [facility] MCV 90.1 81.3 - 96.4 fL [facility] MCH 29.6 27.1 - 33.3 pg [facility] MCHC 32.9 32.3 - 35.7 g/dL [facility] RDW CV 12.9 11.1 - 14.9 % [facility] RDW SD 42.3 35.7 - 48.1 fL [facility] NRBC abs 0.00 0.00 - 0.01 K/cumm [facility] Blood 02/09/2024 3:25 PM BACK PAD INSPECTOR 02/09/2024 3:30 PM BACK PAD INSPECTOR us Dinesh Abreu MD LAB BLOOD ORDERABLES Final Re sult [facility] [address] [facility] Department [place] [address] * (ABNORMAL) Comprehensive metabolic panel (02/09/2024 3:25 PM BACK PAD INSPECTOR) Sodium 139 135 - 145 mmol/L Potassium, pl 4.0 3.3 - 4.9 mmol/L [facility] Chloride 103 97 - 110 mmol/L [facility] CO2 21(L) 22 - 32 mmol/L [facility] Anion gap 15 2 - 15 mmol/L [facility] BUN 21 6 - 25 mg/dL [facility] Creatinine 0.78(L) 0.80 - 1.30 mg/dL [facility] Glucose 123 70 - 199 mg/dL [facility] Comment: Interpretive Data Fasting glucose >/= 126 [...] classification and Diagnosis of Diabetes Diabetes Care 202; 46: S19-S40. Current interpretive data was last revised 2022. Calcium 9.9 8.5 - 10.3 mg/dL [facility] Bilirubin, total 0.2 0.1 - 1.2 mg/dL [facility] Protein, pl 7.1 6.5 - 8.5 g/dL [facility] Albumin 4.3 3.5 - 5.0 g/dL [facility] Alk phos 62 40 - 130 Units/L [facility] ALT 47 7 - 55 Units/L [facility] AST 35 10 - 50 Units/L [facility] Comment:Hemolysis may falsel y increase results. Use caution when interpreting hemolyzed results. Blood 02/09/2024 3:25 PM BACK PAD INSPECTOR 02/09/2024 3:30 PM BACK PAD INSPECTOR Dinesh Abreu MD LAB BLOOD ORDERABLES Final Re sult Performing Organization Address [facility] Co de Phone Number [address] Department [place] [address] * ECG 12 lead (02/09/2024 3:22 PM BACK PAD INSPECTOR) 02/09/2024 3:22 PM BACK PAD INSPECTOR Narrative [facility] - 02/13/2024 3:33 PM BACK PAD INSPECTOR Vent Rate: 82 bpm RR Interval: 724 msec MA Interval: 151 msec QRS Duration: 110 msec QT Interval: 371 msec QTC Interval: 410 msec P-R-T [place]: 35 - 57 - 32 degrees IMPRESSION: SINUS RHYTHM WITH SINUS ARRHYTHMIA INCOMPLETE RIGHT BUNDLE BRANCH BLOCK BORDERLINE ECG Electronically Signed By: Sai Goddard DO Dinesh Abreu MD ECG ORDERABLES Final Result Performing Organization Address [facility] de Phone Number [facility] * POCT glucose (02/09/2024 3:14 PM BACK PAD INSPECTOR) Glucose, POC 117 70 - 199 mg/dL Blood 02/09/2024 3:14 PM BACK PAD INSPECTOR 02/09/2024 3:14 PM BACK PAD INSPECTOR us Notinfile Unknown LAB POCT ORDERABLES - DEVICE F inal Result Performing Organization Address [facility] Co de Phone Number [address] [place] [address] * CT Abdomen Pelvis W WO Contrast [...] Relevant to Health Maintenance Insurance [facility] PL[facility] PLUS [place] [id number] Care Teams Anime Designer Relationship Specialty Start Date End Date Rosy Alexander NP [address] [place] [address] PCP - General Family Medicine 02/09/24
--- OUTSIDE RECORDS SUMMARY | 2024-03-30 12:23 | XMS_ITS | Encounter Summary ---
Author Organization [facility] Address [address] [place] [address] Care Team Providers Care Physician Intensivist Name Role Phone Alanna Rhodes MD Primary Care Provider [phone] Jose Alberto Toth MD Unavailable [phone] Rosy Alexander Primary Care Provider [phone] Encounter Details Date Type Department Care Team (Late Contact Info) Description 10/07/2020 Abstract [facility] [facility], [address] [address] Jenifer Lujan MA Social History Tobacco Use Types Packs/Day Years Used Date Smoking Tobacco: Never Smokeless Tobacco: Never Alcohol Use Standard Drinks/Week Comments Yes 0 (1 standard drink = 0.6 oz pur e alcohol) ocassionally Sex and Gender Information Value Date Recorded Sex Assigned at Male 02/23/2022 1:56 PM REFRACTORY TILE HELPER Legal Sex Male 5:08 PM CDT Gender Identity Male 03/23/2021 4:31 AM REFRACTORY TILE HELPER Sexual Orientation Straight 03/23/2021 4: 31 AM REFRACTORY TILE HELPER COVID-19 Exposure Response Date Recorded In the last month, have you been in contact with someone who was confirmed or suspected to have Coronavirus / COVID-19? No / Unsure 09/23/2020 8:32 AM CDT documented as of this encounter Plan of Treatment Upcoming Encounters Date Type Department Care Team (Late Contact Info) Description 08/22/2024 3:00 PM CDT Office Visit [facility] [facility], [address] [address] Jose Alberto Toth MD Three [facility]. [facility] [address] [place], [place] [id number] documented as of this encounter Procedures Procedure Name Priority Date/Time Associated Diagnosis Comments COMPREHENSIVE METABOLIC PANEL Routine 06/05/2022 LIPID PANEL Routine 06/05/2022 CBC, MANUAL DIFF Routine 06/05/2022 LIPID PANEL Routine 09/12/2021 CBC (OUTSIDE LAB) Routine 10/07/2020 COMPREHENSIVE METABOLIC PANEL Routine 10/07/2020 LIPID PANEL Routine 10/07/2020 documented in this encounter Results * (ABNORMAL) COMPREHENSIVE METABOLIC PANEL (06/05/2022) SODIUM S/P/B 136 GLUCOSE 96 mg/dL AST 27 BUN 14 CREATININE S/P/B 0.60(A) 0.7 - 1.3 CALCIUM S/P/B 9.2 POTASSIUM S/P/B 3.6 CHLORIDE S/P/B 103 ALT 33 GFR ESTIMATE >60 Narrative Resulting Agency Comment us Default History Genericprovider LABORATORY Final Result * LIPID PANEL (06/05/2022) CHOLESTEROL 164 TRIGLYCERIDES 93 HDL 34 DIRECT LDL 113 Narrative Resulting Agency Comment us Default History Genericprovider LABORATORY Final Result * CBC, MANUAL DIFF (06/05/2022) WBC 7.0 HGB 17.1 HCT 49.7 PLT 243 Narrative Resulting Agency Comment us Default History Genericprovider LABORATORY Final Result * LIPID PANEL (09/12/2021) CHOLESTEROL 197 HDL 38 TRIGLYCERIDES 158 DIRECT LDL 117 09/12/2021 us Doc [facility] LABORATORY Final Result * CBC (OUTSIDE LAB) (10/07/2020) Pathologist [facility] WBC 8.5 HGB 16.1 HCT 48.5 PLT 241 10/07/2020 us Doc [facility] LAB-OUTSIDE/ABSTRACTED Final Result * LIPID PANEL (10/07/2020) Pathologist [facility] CHOLESTEROL 157 HDL 40 TRIGLYCERIDES 143 DIRECT LDL 77 10/07/2020 us Doc [facility] LABORATORY Final Result * (ABNORMAL) COMPREHENSIVE METABOLIC PANEL (10/07/2020) Pathologist [facility] SODIUM S/P/B 137 POTASSIUM S/P/B 4.0 CO2 22 CHLORIDE S/P/B 106 GLUCOSE 110 mg/dL CALCIUM S/P/B 9.8 BUN 13 CREATININE S/P/B 0.60(A) 0.7 - 1.3 EGFR NON-AFR. AMER. >60 <=90 ALKALINE PHOSPHATASE S/P/B 76 ALT 24 AST 26 BILIRUBIN TOTAL S/P/B 0.7 ALBUMIN S/P/B 4.5 3.5 - 5.0 TOTAL PROTEIN S/P/B 7.0 10/07/2020 us Doc [facility] LABORATORY Final Result documented in this encounter Visit Diagnoses Not on filedocumented in this encounter Care Teams Physician Intensivist Relationship Specialty Start Date End Date Alanna Rhodes MD [address] [place] [address] [place] [address] PCP - General FAMILY PRACTICE 04/06/19 08/16/23 Rosy Alexander APNP [address] [place] [id number] PCP - General Nurse Practitioner Family 08/17/23 Jose Alberto Toth MD [address] [address] [place] Harvest Supervisor CARDIOVASCULAR DISEASE 05/09/19 documented as of this encounter
--- OUTSIDE RECORDS SUMMARY | 2024-03-30 12:23 | XMS_ITS | Clinical Summary ---
Author Organization [facility] Address [address] [place] [id number] Care Team Providers Care Photoengraving Etcher Name Role Phone Jose Alberto Toth MD Unavailable Rosy Alexander Primary Care Provider [phone] Allergies Active Allergy Reactions Criticality Noted Date Comments Gabapentin Hallucinations 03/25/2021 Statins Myalgias High 04/17/2019 Tape Swelling Low 09/27/2016 Medications benazepril 20 MG tablet Take 1 tablet (20 mg total) by mouth daily. 01/20/2019 Active fluticasone propionate 50 MCG/ACT nasal spray 2 sprays by Nasal route daily. Active Cholecalciferol (VITAMIN D-3) 125 MCG (5000 UT) Tab Take 1 tablet (5,000 Units total) by mouth daily. Active loratadine 10 MG tablet Take 1 tablet (10 mg total) by mouth daily. Active ELIQUIS 5 MG tablet Take 1 tablet by mouth twice daily 180 tablet 1 03/01/2022 Active metFORMIN ER (GLUCOPHAGE-XR) 500 MG 24 hr tablet Take 1 tablet (500 mg total) by mouth daily with breakfast. Active Phentermine HCl 30 MG Cap Take 30 mg by mouth daily. Active terbinafine (LAMISIL) 250 MG tablet TAKE 1 TABLET BY MOUTH ONCE DAILY FOR 90 DAYS, THEN STOP TAKING FOR 90 DAYS, THEN TAKE AGAIN FOR 90 DAYS. 07/06/2023 Active ezetimibe (ZETIA) 10 MG tabletIndication s:Dyslipidemia Take 1 tablet (10 mg total) by mouth daily. 90 tablet 2 08/25/2023 Active dilTIAZem ER (TIAZAC) 360 MG 24 hr capsule 02/24/2024 Activ e Active Problems Problem Noted Date Diagnosed Date Atrial fibrillation ([facility]) 02/27/2018 Hypertensive disorder 02/27/2018 Diabetes mellitus ([facility]) 02/27/2018 Dyslipidemia 02/27/2018 Palpitations Encounters Date Type Department Care Team Description 02/29/2024 3:00 PM SENIOR QUANTITY SURVEYOR Office Visit [facility] [address] [place] [address] Jose Alberto Toth MD Atrial Fibrillation; Palpitations; Hypertension; Lipids; Follow Up 02/29/2024 Travel 02/09/2024 Scan [facility] [address] [place] [address] Scanned, Doc Pccl 01/25/2024 Telephone [facility] [address] [place] [address] Jose Alberto Toth MD Surgical Clearance ([facility] requesting cardiac clearance) from Last 3 Months Immunizations Name Administration Dates Next Due Flucelvax 6 Months+ (Prefilled Syringe) 12/14/19 17 Influenza Adult (Generic) 01/13/2016 Tdap (Generic) 03/29/2019 Family History Medical History Relation Comments No Known Problems Brother No Known Problems Father No Known Problems Maternal Aunt No Known Problems Maternal Uncle No Known Problems Mother No Known Problems Paternal Aunt No Known Problems Paternal Uncle No Known Problems Sister Relation Status Comments Brother Father Maternal Aunt Maternal Uncle Mother Paternal Aunt Paternal Uncle Sister Social History Tobacco Use Types Packs/Day Years Used Date Smoking Tobacco: Never Smokeless Tobacco: Never Tobacco Cessation:Counseling Given: Not Answered Alcohol Use Standard Drinks/Week Comments Yes 0 (1 standard drink = 0.6 oz pur e alcohol) ocassionally Sex and Gender Information Value Date Recorded Sex Assigned at Male 02/23/2022 1:56 PM SENIOR QUANTITY SURVEYOR Legal Sex Male 5:08 PM CDT Gender Identity Male 03/23/2021 4:31 AM SENIOR QUANTITY SURVEYOR Sexual Orientation Straight 03/23/2021 4: 31 AM SENIOR QUANTITY SURVEYOR Last Filed Vital Signs Vital Sign Reading Time Taken Comments Blood Pressure 108/80 02/29/2024 2:55 PM SENIOR QUANTITY SURVEYOR Pulse 76 02/29/2024 2:55 PM SENIOR QUANTITY SURVEYOR Temperature 36.6 C (97.8 F) 04/17/2019 6:50 AM CDT Respiratory Rate 15 04/17/2019 11:00 AM CDT Oxygen Saturation 98% 02/29/2024 2:55 PM SENIOR QUANTITY SURVEYOR Inhaled Oxygen Concentration - - Weight 137.4 kg (303 lb) 02/29/2024 2:55 PM SENIOR QUANTITY SURVEYOR Height 182.9 cm (6') 02/29/2024 2:55 PM SENIOR QUANTITY SURVEYOR Body Mass Index 41.09 02/29/2024 2:55 PM SENIOR QUANTITY SURVEYOR Plan of Treatment Upcoming Encounters Date Type Department Care Team (Late st Contact Info) Description 08/22/2024 3:00 PM CDT Office Visit [facility] [address] [place], [place] [id number] Jose Alberto Toth MD [facility]. [address] [place], [place] [id number] Health Maintenance Due Date Last Done Comments Kidney Health Evaluation 1955 Hemoglobin A1C 1955 Pneumococcal Vaccine: 65+ Years (1 of 2 - PCV) 1961 Diabetes: Retinopathy Eye Exam 1973 Hepatitis C 1973 Zoster Vaccines (1 of 2) 2005 RSV Immunization or 60+ Years (1 - Risk 60-74 years 1-dose series) 2015 COVID-19 Vaccine ( season) 2023 Influenza Adult (#1) 2023 12/13/2016, 01/13/20 16 Lipid Panel 07/26/2024 07/27/2023, 04/2 10/2022, 09/12/2021, Additional history exists DTaP, Tdap and Td Vaccines (2 - Td or Tdap) 03/29/2029 03/29/2019 Colorectal Cancer Screening Colonoscopy (10 Years) 09/30/2029 10/01/2019 Meningococcal B Vaccine Aged Out No l onger eligible based on patient's age to complete this topic Meningococcal Vaccine Aged Out No conor amari eligible based on patient's age to complete this topic RSV Immunizations Under 20 Months Aged Out No longer eligible based on patient's age to complete this topic Procedures Procedure Name Priority Date/Time Associated Diagnosis Comments LIPID PANEL Routine 07/27/2023 COLONOSCOPY GENERIC (SCAN ORDER) Routine 10/01/2019 from Last 3 Months or Most Recently Relevant to Health Maintenance Results * (ABNORMAL) LIPID PANEL (07/27/2023) CHOLESTEROL 165 0 - 200 HDL 36 >35 TRIGLYCERIDES 257(A) 0 - 150 LDL (CALCULATED) 99 0 - 100 07/27/2023 us Default History Genericprovider LABORATORY Final Result * COLONOSCOPY (10/01/2019) us Documents Scanned SCANNING Final Result Performing Organization Address City/State/[facility] Co de Phone [facility] from Last 3 Months or Most Recently Relevant to Health Maintenance [place] [address] [address] [place] [address] [facility] [place] [address] Care Teams Photoengraving Etcher Relationship Specialty Start Date End Date Rosy Alexander APNP [address] [place] [address] PCP - General Nurse Practitioner Family 08/17/23 Jose Alberto Toth MD [facility] [address] [place] [address] [employer] CARDIOVASCULAR DISEASE 05/09/19
--- OUTSIDE RECORDS SUMMARY | 2024-03-30 12:23 | XMS_ITS | Patient Health Summary ---
Author Organization [facility] Address [address] [place] [address] Care Team Providers Care Tile Decorator Name Role Phone Og Tran APRN-WEB SITE SPECIALIST Primary Care Provider Note from [facility],non-owned Affiliates and Associated Physician Practices is amultiple site organization consisting of ambulatory clinics and hospital sitesin [place], [place], [place] and [place]. This disclosure is being madepursuant to the Care Everywhere program and may not contain all information available regarding this patient. Last updated 17.[facility] Allergies * Adhesive Sensitivity(Swelling) -Low Criticality * Gabapentin(Psychiatric) -Medium Criticality * Hmg-Coa-R Inhibitors(Myalgias) -High Criticality Medications * Be aware that medications may not be up to date on this document. Alwaysverify current medications with the patient. * fluticasone propionate (FLONASE) 50 MCG/ACT nasal spray Distant 2 (two) sprays into each nostril once daily * dilTIAZem ER (TIAZAC) 360 MG capsule Take 1 (one) capsule by mouth once daily * benazepril (LOTENSIN) 20 MG tablet Take by mouth once daily * hydroCHLOROthiazide (MICROZIDE) 12.5 MG capsule Take 1 (one) capsule by mouth once daily * Cholecalciferol (VITAMIN D3) 91061 UNITS TABS * Eliquis 5 MG tablet(Started 12/10/2022) Take 1 (one) tablet by mouth 2 times daily * metFORMIN (Glucophage) 500 MG tablet Take 1 (one) tablet by mouth 2 times daily with morning and evening meal * phentermine (Ionamine) 30 MG capsule Take 1 (one) capsule by mouth daily before breakfast * B Complex Vitamins (B COMPLEX 1 PO) Active Problems Problem Noted Date Diagnosed Date [...] Comments Blood Pressure 118/81 02/21/2023 2:05 PM MANIFOLD OPERATOR Pulse 77 02/21/2023 2:05 PM MANIFOLD OPERATOR Temperature 36.8 C (98.2 F) 02/21/2023 2:05 PM MANIFOLD OPERATOR Respiratory Rate 9 02/08/2023 9:45 AM MANIFOLD OPERATOR Oxygen Saturation 97% 02/21/2023 2:05 PM MANIFOLD OPERATOR Inhaled Oxygen Concentration - - Weight 128.1 kg (282 lb 4.8 oz) 02/08/2023 6:46 AM MANIFOLD OPERATOR Height 182.9 cm (6') 02/21/2023 2:05 PM MANIFOLD OPERATOR Body Mass Index 38.29 02/08/2023 6:46 AM MANIFOLD OPERATOR Procedures * PATHOLOGY TISSUE(Performed 02/08/2023) Performed for Subcutaneous nodule * NH EXC FACE LES SC < 2 CM(Performed 02/08/2023) Performed for Subcutaneous nodule * PT-INR [facility](Performed 02/02/2023) Performed for Melanoma of back (HCC) * PTT [facility](Performed 02/02/2023) Performed for Melanoma of back (HCC) * COMPREHENSIVE METABOLIC PANEL(Performed 02/02/2023) Performed for Mass of scalp * CBC W AUTO DIFFERENTIAL(Performed 02/02/2023) Performed for Mass of scalp * EKG 12-LEAD(Performed 02/02/2023) Performed for Mass of scalp * IMAGING/RADIOLOGY/XRAY RESULTS ORDER(Performed 01/28/2023) * DERMATOPATHOLOGY(Performed 03/20/2019) * MRI BRAIN WWO CONTRAST(Performed 02/12/2018) Performed for Melanoma of back (HCC), Acute nonintractable headache, unspecified headache type * CREATININE BLOOD - POCT (IP) [facility](Performed 02/12/2018) Performed for Melanoma of back (HCC) * XR CHEST 2VW(Performed 01/06/2018) Performed for Melanoma of back (HCC) * LAB RESULTS ORDER(Performed 08/15/2017) * IMAGING/RADIOLOGY/XRAY RESULTS ORDER(Performed 07/21/2017) * LAB RESULTS ORDER(Performed 07/19/2017) * CARDIAC RHYTHM STRIP ORDER(Performed 09/10/2016) * PATHOLOGY/CYTOLOGY REPORT ORDER(Performed 09/10/2016) * PATHOLOGY TISSUE EXAM (STL)(Performed 09/09/2016) Performed for Malignant melanoma of back (HCC) * BIOPSY/EXCISION AXILLARY LYMPH NODE(Performed 09/09/2016) Performed for Malignant melanoma of back (HCC) * EXCISION MASS CHEST WALL/BACK(Performed 09/09/2016) Performed for Malignant melanoma of back (HCC) * NM LYMPHOSCINTIGRAPHY(Performed 09/09/2016) Performed for Melanoma of back (HCC) * PATHOLOGY/GENETICS HISTORICAL-ONBASE(Performed 09/09/2016) * COMPREHENSIVE METABOLIC PANEL(Performed 09/01/2016) * CBC W AUTO DIFFERENTIAL(Performed 09/01/2016) * CBC W AUTO DIFFERENTIAL(Performed 09/01/2016) * XR CHEST 2VW(Performed 09/01/2016) * EKG 12-LEAD(Performed 09/01/2016) * PATHOLOGY/GENETICS HISTORICAL-ONBASE(Performed 08/19/2016) * PATHOLOGY/GENETICS HISTORICAL-ONBASE(Performed 08/19/2016) * PATHOLOGY/GENETICS HISTORICAL-ONBASE(Performed 08/19/2016) Results * PATHOLOGY TISSUE (02/08/2023 8:55 AM MANIFOLD OPERATOR) Case Report Surgical Pathology Report Case: [id number] Authorizing Provider: Talib Hunt MD Collected: 02/08/2023 08:55 AM Ordering Location: [facility] Received: 02/08/2023 10:02 AM Pathologist: Tamika Brooks MD Specimen: Cyst, CYST WALL 02/10/2023 8:39 PM [facility] Final Diagnosis Soft tissue, cyst wall, excision (A): - Ruptured epidermal inclusion cyst 02/10/2023 8:39 PM [facility] Microscopic Description and Comment Sections from the cyst wall show portions of a cyst lined by stratified squamous epithelium. The wall is fibrous with dense chronic inflammation and a foreign body giant cell reaction. There is no atypia or malignancy 02/10/2023 8:39 PM [facility] Clinical History The patient is a 67-year-old man with a left forehead subcutaneous nodule. Operative procedure: Excision of the left forehead nodule. 02/10/2023 8:39 PM [facility] Gross Description The requisition and specimen(s) are identified with the patient's name Kentrell Javier . Received in formalin, specimen A , consists of a 0.7 x 0.4 x 0.1 cm aggregate of pink-angulo fibromembranous tissue, submitted in toto in cassette A1. [place]AYoon 02/10/2023 8:39 PM [facility] Pathologist Location at [facility] 02/10/2023 8:39 PM [facility] Disclaimer The performance characteristics of all immunohistochemical and indirect immunofluorescence stains (if any) cited in this report were determined by the Histopathology Laboratory of [facility]. Some of these tests were developed by our own laboratory and have not been cleared or approved by the US Food and Drug Administration. The FDA does not require this test to go through premarket FDA review. These tests are used for clinical purposes. They should not be regarded as investigational or for research. This laboratory is certified under the Clinical Laboratory Improvement Amendments (CLIA) as qualified to perform high complexity clinical laboratory testing. This case has been personally reviewed and interpreted by the attending (teaching) pathologist. 02/10/2023 8:39 PM [facility] Embedded Images 02/10/2023 8:39 PM [facility] Biopsy, Excision CYST TISSUE / Unknown 02/08/2023 8:55 AM MANIFOLD OPERATOR 02/08/2023 10:02 AM MANIFOLD OPERATOR Comment:Pre-op diagnosis: SUBCUTANEOUS NODULE LEFT FOREHEAD Talib Hunt MD LAB - PATHOLOGY/CYTO LOGY ORDERABLES Performing Organization Address [facility]/ZIP Co de Phone Number [facility] [address] [place] [address], [facility] [phone] * PTT [facility] (02/02/2023 1:43 PM MANIFOLD OPERATOR) APTT 29.7 23.0 - 38.4 Seconds 02/02/2023 2:29 PM MANIFOLD OPERATOR [facility] Comment:Suggested therapeuti c range for full dose I.V. unfractionated heparin therapy for venous thromboembolism is 71 to 109 seconds. Blood BLOOD SPECIMEN / Unknown Lab Venipuncture / Unknown 02/02/2023 1:43 PM MANIFOLD OPERATOR 02/02/2023 2:03 PM MANIFOLD OPERATOR Talib Hunt MD LAB - COAGULATION OR DERABLES Performing Organization Address [facility] Co de Phone Number [facility] [address] [place] [phone], [facility] [phone] * PT-INR [facility] (02/02/2023 1:43 PM MANIFOLD OPERATOR) PT 13.5 12.1 - 14.8 Seconds 02/02/2023 2:29 PM MANIFOLD OPERATOR [facility] INR 1.1 See Comment 02/02/2023 2:29 PM MANIFOLD OPERATOR [facility] Comment:The suggested therap eutic range for standard coumadin (warfarin) therapy is an INR of 2.0-3.0. For high-risk patients (Mechanical Mitral Valve Prosthesis, etc.), the suggested prophylactic therapeutic range is an INR of 2.5-3.5. Blood BLOOD SPECIMEN / Unknown Lab Venipuncture / Unknown 02/02/2023 1:43 PM MANIFOLD OPERATOR 02/02/2023 2:03 PM MANIFOLD OPERATOR Talib Hunt MD LAB - COAGULATION OR DERABLES Performing Organization Address [facility] Co de Phone Number [address] [phone], [facility] [phone] * CBC WITH DIFFERENTIAL (02/02/2023 1:43 PM [facility]) Only the most recent of3 resultswithin the time period is included. WBC 8.2 4.0 - 10.7 x10E9/L 02/02/2023 2:11 PM [facility] RBC Count 5.74 4.30 - 5.80 x10E12/L 02/02/2023 2:11 PM [facility] Hemoglobin 17.1 13.3 - 17.5 g/dL 02/02/2023 2:11 PM [facility] Hematocrit 49.5 38.7 - 51.1 % 02/02/2023 2:11 PM [facility] MCV 86.2 80.0 - 98.0 fL 02/02/2023 2:11 PM [facility] MCH 29.8 26.7 - 33.6 pg 02/02/2023 2:11 PM [facility] MCHC 34.5 31.7 - 36.3 g/dL 02/02/2023 2:11 PM [facility] RDW-CV 13.0 11.3 - 14.8 % 02/02/2023 2:11 PM [facility] Platelet Count 258 150 - 420 x10E9/L 02/02/2023 2:11 PM [facility] MPV 9.1 7.8 - 11.4 fL 02/02/2023 2:11 PM [facility] Neutrophil % 52.0 41.0 - 74.0 % 02/02/2023 2:11 PM [facility] Lymphocyte % 37.7 17.0 - 47.0 % 02/02/2023 2:11 PM [facility] Monocyte % 7.9 3.0 - 11.0 % 02/02/2023 2:11 PM [facility] Eosinophil % 1.5 0.0 - 7.0 % 02/02/2023 2:11 PM [facility] Basophil % 0.7 0.0 - 1.6 % 02/02/2023 2:11 PM [facility] Immature Granulocytes % 0.2 0.0 - 1.0 % 02/02/2023 2:11 PM [facility] Neutrophil Absolute 4.25 1.60 - 7.50 x10E9/L 02/02/2023 2:11 PM [facility] Lymphocyte Absolute 3.08 1.00 - 4.40 x10E9/L 02/02/2023 2:11 PM [facility] Monocyte Absolute 0.65 0.15 - 1.00 x10E9/L 02/02/2023 2:11 PM [facility] Eosinophil Absolute 0.12 0.00 - 0.60 x10E9/L 02/02/2023 2:11 PM [facility] Basophil Absolute 0.06 0.00 - 0.13 x10E9/L 02/02/2023 2:11 PM [facility] Blood BLOOD SPECIMEN / Unknown Lab Venipuncture / Unknown 02/02/2023 1:43 PM MANIFOLD OPERATOR 02/02/2023 2:06 PM MANIFOLD OPERATOR Talib Hunt MD LAB - HEMATOLOGY ORD ERABLES [facility] [address] [place] [address], [facility] [phone] * (ABNORMAL) COMPREHENSIVE METABOLIC PANEL (02/02/2023 1:43 PM MANIFOLD OPERATOR) Only the most recent of2 resultswithin the time period is included. BUN 15 7 - 26 mg/dL 02/02/2023 2:31 PM [facility] Creatinine 0.76 0.71 - 1.16 mg/dL 02/02/2023 2:31 PM [facility] Sodium 143 136 - 145 mmol/L 02/02/2023 2:31 PM [facility] Potassium 3.8 3.5 - 4.5 mmol/L 02/02/2023 2:31 PM [facility] Chloride 104 98 - 107 mmol/L 02/02/2023 2:31 PM [facility] CO2 26 22 - 29 mmol/L 02/02/2023 2:31 PM [facility] Glucose 115 70 - 115 mg/dL 02/02/2023 2:31 PM [facility] Calcium 10.2 8.4 - 10.2 mg/dL 02/02/2023 2:31 PM [facility] Protein Total 7.5 6.0 - 8.3 g/dL 02/02/2023 2:31 PM [facility] Albumin 4.3 3.4 - 5.0 g/dL 02/02/2023 2:31 PM [facility] Bilirubin Total 0.3 0.2 - 1.2 mg/dL 02/02/2023 2:31 PM [facility] Alkaline Phosphatase 62 40 - 150 U/L 02/02/2023 2:31 PM [facility] ALT 30 5 - 55 U/L 02/02/2023 2:31 PM [facility] AST 21 5 - 34 U/L 02/02/2023 2:31 PM [facility] Anion Gap 13 6 - 16 02/02/2023 2:31 PM [facility] BUN/Creatinine Ratio 20 7 - 23 02/02/2023 2:31 PM [facility] Osmolality Calculated 298(H) 275 - 295 mOsm/kg 02/02/2023 2:31 PM [facility] Albumin/Globulin Ratio 1.3 1.1 - 2.3 02/02/2023 2:31 PM [facility] eGFR by CKD-EPI >90 >=90 mL/min/1.7 3 m2 02/02/2023 2:31 PM [facility] Blood BLOOD SPECIMEN / Unknown Lab Venipuncture / Unknown 02/02/2023 1:43 PM MANIFOLD OPERATOR 02/02/2023 2:06 PM [facility] Talib Hunt MD LAB - CHEMISTRY GA HODGES [facility] [address] [place] [address], [facility] [phone] * EKG 12-LEAD (02/02/2023 1:05 PM [facility]) Only the most recent of2 resultswithin the time period is included. Ventricular Rate 85 BPM [facility] MUSE Atrial Rate 85 BPM [facility] MUSE P-R Interval 154 ms [facility] MUSE QRS Duration ms 94 ms [facility] MUSE Q-T Interval ms 364 ms [facility] MUSE QTC Calculation (Bezet) 433 ms [facility] MUSE Calculated P [place] 48 degrees [facility] MUSE Calculated R [place] 61 degrees [facility] MUSE Calculated T [place] 35 degrees [facility] MUSE Interpretation EKG NORMAL SINUS RHYTHM POSSIBLE LEFT ATRIAL ENLARGEMENT INCOMPLETE RIGHT BUNDLE BRANCH BLOCK BORDERLINE ECG WHEN COMPARED WITH ECG OF 01-SEP-2016 13:16, NO SIGNIFICANT CHANGE WAS FOUND Confirmed by ZENAIDA BETTS MD ([id number]) on 02/07/2023 9:17:12 AM [facility] MUSE 02/02/2023 1:05 PM MANIFOLD OPERATOR 02/07/2023 9:17 AM MANIFOLD OPERATOR Talib Hunt MD ECG ORDERABLES [facility] MUSE * IMAGING RADIOLOGY XRAY RESULTS ORDER (01/28/2023) Only the most recent of2 resultswithin the time period is included. Anatomical Region Laterality Modality Other 01/28/2023 Narrative 01/28/2023 Ordered by an unspecified provider. Scanned Document IMAGING * DERMATOPATHOLOGY (03/20/2019 12:00 AM MANIFOLD OPERATOR) Case Report Dermatopathology Report Case: [id number] Authorizing Provider: Sloan Alfaro MD Collected: 03/20/2019 12:00 AM Ordering Location: [facility] Lab Received: 03/22/2019 08:09 AM Pathologist: Destiny Graham MD Specimen: Skin, left mid back 0 2:09 PM MANIFOLD OPERATOR DERMATOPATHOLOGY LABORATORY Final Diagnosis Specimen A. 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 [id number]. Check margins 0 2:09 PM MANIFOLD OPERATOR DERMATOPATHOLOGY LABORATORY Gross Description Specimen A: Received is one formalin filled container labeled with the patient's name and designated left mid back. The specimen consists of a shave biopsy measuring 9x7x1 mm, inked. Jar 0. 0 2:09 PM [facility] DERMATOPATHOLOGY LABORATORY Microscopic Description Specimen A. SKIN, [...] margin of the specimen. 0 2:09 PM [facility] DERMATOPATHOLOGY LABORATORY Disclaimer An external and internal positive and negative controls are appropriate for the histochemical, immunohistochemical and immunofluorescence stain(s) in this case (if any), except where stated explicitly. The performance characteristics of the stain(s) cited in this report were developed and its performance characteristic determined by the Dermatopathology Laboratory at [facility], directed by Dr. Christie Núñez. These tests need not be, and therefore are not, approved by the [place] Food and Drug Administration. The tests are used for clinical purposes. Billing Codes Specimen Charges Stain Charges 17491 1 0 2:09 PM [facility] DERMATOPATHOLOGY LABORATORY Embedded Images 0 2:09 PM [facility] DERMATOPATHOLOGY LABORATORY Pathology/Cytolog y TISSUE SPECIMEN FROM SKIN / Unknown 03/20/2019 03/22/2019 8:09 AM MANIFOLD OPERATOR Sloan Alfaro MD LAB - PATHOLOGY/CYTO LOGY ORDERABLES DERMATOPATHOLOGY LABORATORY [facility] - Department of Dermatology [address] [place] [address], [address] Floor Lab [address] [phone] * MRI BRAIN WWO CONTRAST (02/12/2018 1:47 PM MANIFOLD OPERATOR) Anatomical Region Laterality Modality Head Magnetic Resonan ce 02/13/2018 8:13 AM MANIFOLD OPERATOR Impressions 02/13/2018 1:34 PM MANIFOLD OPERATOR IMPRESSION: 1.Right occipital scalp soft tissue lesion measuring 10 x 6 x 6 mm as outlined. Clinical correlation recommended. 2.No evidence of intracranial metastatic disease or acute intracranial process. Dictated by Shelby Robin MD (assistant to the vice president). This report was approved by Shelby Robin on 02/13/2018 1:25 PM . I, Dr. MILTON MCGEE have personally reviewed and interpreted this examination/study. This report was electronically signed by MILTON MCGEE on 02/13/2018 1:34 PM . Narrative 02/13/2018 1:34 PM MANIFOLD OPERATOR EXAMINATION: Magnetic resonance imaging (MRI) of the brain without and with contrast HISTORY: Headaches, history of melanoma TECHNIQUE: MRI of the brain was performed prior to and following the uneventful administration of [10 mL] Gadavist intravenous gadolinium contrast according to a tumor protocol. FINDINGS: No prior study is available for comparison at the time of this dictation. No evidence of acute or chronic hemorrhage is identified. No evidence of acute cerebral infarction is seen. There is mild cerebral volume loss with associated ex vacuo ventricular dilatation. No mass effect or midline shift is seen. Small right hippocampal fissure cysts. Periventricular and scattered white matter FLAIR hyperintensities likely represent sequelae of chronic small vessel ischemic disease. No enhancing lesions are identified. The corpus callosum and sella appear normal. The posterior fossa, brainstem, and craniocervical junction appear normal. There is a 10 x 6 x 6 mm enhancing lesion along the right occipital scalp, (series 17, image 21). Other than mucosal thickening of the left maxillary sinus the visualized portions of the orbits, paranasal sinuses, and mastoids appear normal. Normal flow voids are demonstrated in the carotid arteries and basilar artery. The calvarium and visualized cervical spine appear normal. Procedure Note Milton Mcgee MD - 02/13/2018 EXAMINATION: Magnetic resonance imaging (MRI) of the brain without and with contrast HISTORY: Headaches, history of melanoma TECHNIQUE: MRI of the brain was performed prior to and following the uneventful administration of [10 mL] Gadavist intravenous gadolinium contrast according to a tumor protocol. FINDINGS: No prior study is available for comparison at the time of this dictation. No evidence of acute or chronic hemorrhage is identified. No evidence of acute cerebral infarction is seen. There is mild cerebral volume losswith associated ex vacuo ventricular dilatation. No mass effect or midline shift is seen. Small right hippocampal fissure cysts. Periventricularand scattered white matter FLAIR hyperintensities likely represent sequelaeof chronic small vessel ischemic disease. No enhancing lesions are identified. The corpus callosum and sella appear normal. The posterior fossa, brainstem, and craniocervical junction appear normal. There is a10 x 6 x 6 mm enhancing lesion along the right occipital scalp, (series 17, image 21). Other than mucosal thickening of the left maxillary sinus the visualized portions of the orbits, paranasal sinuses, and mastoids appear normal. Normal flow voids are demonstrated in the carotid arteries and basilar artery. The calvarium and visualized cervical spine appear normal. IMPRESSION: 1.Right occipital scalp soft tissue lesion measuring 10 x 6 x 6 mm as outlined. Clinical correlation recommended. 2.No evidence of intracranial metastatic disease or acute intracranial process. Dictated by Shelby Robin MD (assistant to the vice president). This report was approved by Shelby Robin on 02/13/2018 1:25 PM . I, Dr. MILTON MCGEE have personally reviewed and interpreted this examination/study. This report was electronically signed by MILTON MCGEE on02/13/2018 1:34 PM . Talib Hunt MD MR ORDERABLES * CREATININE BLOOD - POCT (IP) [facility] (02/12/2018 12:50 PM MANIFOLD OPERATOR) Creatinine POCT 1.04 0.3 - 1.3 mg/dL [facility] POCT TESTING eGFR POCT 60 60 ml/min [facility] POCT TESTING Blood BLOOD SPECIMEN / Unknown 02/12/2018 12:50 PM MANIFOLD OPERATOR Talib Hunt MD LAB - POINT OF CARE ORDERABLES [facility] POCT TESTING [address] [phone] * XR CHEST 2VW (01/06/2018 3:02 PM MANIFOLD OPERATOR) Only the most recent of2 resultswithin the time period is included. Anatomical Region Laterality Modality Chest Radiographic Kerry ging 01/06/2018 3:03 PM MANIFOLD OPERATOR Impressions 01/06/2018 4:42 PM MANIFOLD OPERATOR IMPRESSION: No acute pulmonary process. No suspicious pulmonary nodules. Dictated by Nia Villegas MD (assistant to the vice president). This report was approved by Nia Villegas on 01/06/2018 4:[address] CHRISTINA Salcedo M.D. have personally reviewed and interpreted this examination/study. This report was electronically signed by CHRISTINA WILLSON M.D. on 01/06/2018 4:42 PM . Narrative 01/06/2018 4:42 PM MANIFOLD OPERATOR EXAMINATION: XR CHEST 2VW HISTORY: C43.59: Melanoma of back FINDINGS: Comparison made to chest radiograph performed 09/01/2016. There is no focal consolidation, pleural effusion, or pneumothorax. The cardiomediastinal silhouette is normal. The visible bony thorax is intact. Procedure Note Christina Willson MD - 01/06/2018 EXAMINATION: XR CHEST 2VW HISTORY: C43.59: Melanoma of back FINDINGS: Comparison made to chest radiograph performed 09/01/2016. There is no focal consolidation, pleural effusion, or pneumothorax. The cardiomediastinal silhouette is normal. The visible bony thorax is intact. IMPRESSION: No acute pulmonary process. No suspicious pulmonary nodules. Dictated by Nia Villegas MD (assistant to the vice president). This report was approved by Nia Villegas on 01/06/2018 4:[address] CHRISTINA Salcedo M.D. have personally reviewed and interpreted this examination/study. This report was electronically signed by CHRISTINA WILLSON M.D. on01/06/2018 4:42 PM . Talib Hunt MD DIAGNOSTIC IMAGING O RDERABLES * LAB RESULTS ORDER (08/15/2017 3:30 PM CDT) Only the most recent of2 resultswithin the time period is included. Narrative 08/15/2017 3:30 PM CDT Ordered by an unspecified provider. Scanned Document LAB - THERAPEUTIC DR SOSA MONITORING ORDERABLES * CARDIAC RHYTHM STRIP ORDER (09/10/2016 10:24 PM CDT) Narrative 09/10/2016 10:24 PM CDT Ordered by an unspecified provider. Scanned Document CARDIAC SERVICES ORD ERABLES * PATHOLOGY/CYTOLOGY REPORT ORDER (09/10/2016 10:24 PM CDT) Narrative 09/10/2016 10:24 PM CDT Ordered by an unspecified provider. Scanned Document LAB - PATHOLOGY/CYTO LOGY ORDERABLES * GROSS + MICRO EXAM (STL) (09/09/2016 11:13 AM CDT) Case Report Surgical Pathology Report Case: [id number] Authorizing Provider: Talib Hunt MD Collected: 09/09/2016 11:13 AM Ordering Location: [facility] Received: 09/09/2016 03:06 PM Pathologist: Nadege Bass MD Specimens: A) - Warren Lymph Node, right axillary sentinol lymph node, stitch at hot spot B) - Back Mass, back melanoma, stitch at 12 o'clock C) - Back Mass, back melanoma inferior margin D) - Back Mass, back melanoma superior margin 09/15/2016 10:39 AM CDT [facility] Final Diagnosis Warren lymph node, right axilla, excision: - No evidence of malignancy in one lymph node (0/1) Skin, back, wide local excision: - Residual melanoma - Breslow thickness: 1.10 mm - Lymph-vascular invasion not identified - Surgical resection margins negative - Dermal scar consistent with prior excision site - See description Skin, back, inferior margin, excision: - Compound melanocytic nevus - No evidence of malignancy - See description Skin, back, superior margin, excision: - No evidence of malignancy KL/scs 09/15/2016 10:39 AM CDT [facility] Clinical History Per the provided copy of the outside pathology report, the patient had a prior shave biopsy of A mid lower back malignant melanoma with a Breslow depth of 2.25 mm, 4 mitoses/mm^2, and no ulceration. The lesion reported extended to an inked deep and peripheral edge of the specimen. 09/15/2016 10:39 AM CDT [facility] Gross Description Received in formalin are four containers, each labeled Hopper, Kentrell W. Container 1 is labeled right axillary sentinel node, stitch at hot spot. The container holds a 4.8 x 4.0 x 1.5 cm yellow-angulo lobular fragments of fat. There is a stitch kenny in the hot spot of the lymph node. The lymph node measures 3 x 2.1 x 0.9 cm. The hot spot is inked black. The node is submitted in cassette A1 through A3. Container 2 is labeled back melanomas, stitch at 12 o'clock. The container holds a 5 x 4.7 x 3 cm angulo, slightly oval skin with subcutaneous attached tissue. The skin surface has a central lesion measuring 0.8 x 0.7 x 0.3 cm. There is a blue discoloration to the skin surface consistent with a tracer dye. The specimen is inked as follows: 12 o'clock - blue, 3 o'clock - red, 6 o'clock - green, 9 o'clock - yellow, deep - black. The specimen is serially sectioned from 12 o'clock to 6 o'clock. Section shows a yellow-angulo cut-surface. Airplane Patroller sections, including the entire lesion, are submitted as follows: B1 - 12 o'clock margin shaved, submitted en face; B2/B3 - contiguous section of lesion bisected; B4/B5 - contiguous section of lesion bisected; B6/B7 - contiguous section of lesion bisected; B8/B9 - contiguous section of lesion bisected; B10/B11 - contiguous section of lesion bisected; B12/B13 - contiguous section of lesion bisected; B14 - 6 o'clock margin shaved and submitted en face. Container 3 is labeled back melanoma inferior margin. The container holds a 4 x 3 x 2.2 cm triangular pink-angulo fragment of skin and subcutaneous tissue. The margin is inked green. Section shows a yellow-angulo uniform cut-surface. The specimen is entirely submitted in cassettes C1 through C10, with tips shaved in cassette C1. Container 4 is labeled back melanoma superior margin. The container holds an unoriented, 5 x 3 x 3 cm pink-angulo triangular fragment of skin with attached subcutaneous tissue. The margin of resection is inked blue. Sections show a yellow-angulo uniform cut-surface. The specimen is entirely submitted in cassettes D1 through D10, with tips shaved in cassette D1. ROB/chente 09/15/2016 10:39 AM [facility] Microscopic Description Histologic sections of the right axillary sentinel lymph node show no evidence of malignancy in one lymph node by multiple H&E sections, S100 and MART-1 immunohistochemical stains. Histologic sections of the back wide excision show residual melanoma adjacent to the prior excision site. The tumor is highlighted by MART-1 stains performed on blocks B3, B7, B11, and B12 and shows irregular and confluent nests at the dermal epidermal junction and nests of melanocytes within the dermis with enlarged nuclei and variably prominent nuclei that do not appear to significantly mature within the dermis. The lesion is seen adjacent to the dermal scar consistent with the prior biopsy site. The Breslow thickness measured on the MART-1 stained sections is 1.10 mm. Mitotic figures are not identified. Lymph-vascular invasion is not identified. The surgical resection margins are negative for tumor. Residual melanoma is 1.6 cm from the closest yellow-inked 9 o'clock peripheral margin. Histologic sections of the inferior margin show a focal melanocytic proliferation in C8. Sikes-1 stain is performed and shows the lesion to be predominantly composed of nests at the dermal-epidermal with a few small round dermal nests. While the epidermal nests are somewhat irregular with focal bridging of rete, the lesion is overall small (3 mm), relatively symmetric, and lacks Pagetoid growth in the epidermis or significant cytologic atypia. It is interpreted as a compound melanocytic nevus. The margins are negative. There is no evidence of malignancy. Histologic sections of the superior margin show no evidence of malignancy. KL/scs 09/15/2016 10:39 AM [facility] Disclaimer All histochemical and/or immunohistochemical results are interpreted with controls that demonstrate appropriate staining reactions before reporting results. Note on use of immunocytochemistry reagents: This test was developed and its performance characteristic determined by [facility], Department of Laboratory Medicine. It has not been cleared or approved by the U.S. Food and Drug Administration (FDA). The FDA has determined that such clearance or approval is not necessary. The test is used for clinical purpose. It should not be regarded as investigational or for research. This laboratory is certified to perform high complexity testing. 09/15/2016 10:39 AM [facility] Embedded Images 09/15/2016 10:39 AM [facility] Pathology/Cytology SPECIMEN FROM SENTINEL LYMPH NODE / Unknown 09/09/2016 11:13 AM CDT 09/09/2016 3:06 PM CDT Miscellaneous samples (specimen) MASS OF BACK / Unknown 09/09/2016 11:27 AM CDT 09/09/2016 3:06 PM CDT Miscellaneous samples (specimen) MASS OF BACK / Unknown 09/09/2016 11:40 AM CDT 09/09/2016 3:06 PM CDT Miscellaneous samples (specimen) MASS OF BACK / Unknown 09/09/2016 11:42 AM CDT 09/09/2016 3:06 PM CDT Talib Hunt MD LAB - PATHOLOGY/CYTO LOGY ORDERABLES [facility] [address] [place] [address] * NM LYMPHOSCINTIGRAPHY (09/09/2016 10:10 AM CDT) Anatomical Region Laterality Modality Nuclear Digisoni cs 09/09/2016 10:3 4 AM CDT Narrative 09/09/2016 10:36 AM CDT Nuclear medicine lymphoscintigraphy INDICATION: Malignant melanoma Patient was administered 1.03 mCi technetium 99m lymphocytic x the surgeon Dr. Hunt. Imaging performed in the AP and lateral projections. Uptake is noted at what appears to be right axilla or upper chest. Imaging performed as preoperative planning for the surgeon. Procedure Note Indy Flores MD - 09/09/2016 Nuclear medicine lymphoscintigraphy INDICATION: Malignant melanoma Patient was administered 1.03 mCi technetium 99m lymphocytic x the surgeon Dr. Hunt. Imaging performed in the AP and lateral projections. Uptake is noted at what appears to be right axilla or upper chest. Imaging performed as preoperative planning for the surgeon. Talib Hunt MD NM ORDERABLES * PATHOLOGY/GENETICS HISTORICAL-ONBASE (09/09/2016) Only the most recent of4 resultswithin the time period is included. 09/09/2016 Historical Provider LAB - CHEMISTRY O RDERABLES [facility] [address] [place] [address], [facility] Care Teams Tile Decorator Relationship Specialty Start Date End Date Og Tran, DRIVER/MERCHANDISER-WEB SITE SPECIALIST [address] [place] [id number] PCP - General 11/02/21
--- OUTSIDE RECORDS SUMMARY | 2024-03-30 12:23 | XMS_ITS | Clinical Summary ---
Author Organization [facility] Address [address] [address] Care Team Providers Care Dog Walker Name Role Phone Og Tran APRN-ROD FINISHER Primary Care Provider Source Comments [facility],non-owned Affiliates and Associated Physician Practices is amultiple site organization consisting of ambulatory clinics and hospital sitesin [place], [place], [place] and [place]. This disclosure is being madepursuant to the Care Everywhere program and may not contain all information available regarding this patient. Last updated 17.[facility] Allergies Active Allergy Reactions Criticality Noted Date Comments Adhesive Sensitivity Swelling Low 09/27/2016 Gabapentin Psychiatric Medium 03/25/2021 Hmg-Coa-R Inhibitors Myalgias High 04/17/2019 Medications * Be aware that medications may not be up to date on this document. Alwaysverify current medications with the patient. Medication Sig Dispensed Refills Start Date End Date Status fluticasone propionate (FLONASE) 50 MCG/ACT nasal spray Frierson 2 (two) sprays into each nostril once daily Active dilTIAZem ER (TIAZAC) 360 MG capsule Take 1 (one) capsule by mouth once daily Active benazepril (LOTENSIN) 20 MG tablet Take by mouth once daily Active hydroCHLOROthiazide (MICROZIDE) 12.5 MG capsule Take 1 (one) capsule by mouth once daily Active Cholecalciferol (VITAMIN D3) 70378 UNITS TABS Active Eliquis 5 MG tablet [...] Comments Blood Pressure 118/81 02/21/2023 2:05 PM TREATING ENGINEER HELPER Pulse 77 02/21/2023 2:05 PM TREATING ENGINEER HELPER Temperature 36.8 C (98.2 F) 02/21/2023 2:05 PM TREATING ENGINEER HELPER Respiratory Rate 9 02/08/2023 9:45 AM TREATING ENGINEER HELPER Oxygen Saturation 97% 02/21/2023 2:05 PM TREATING ENGINEER HELPER Inhaled Oxygen Concentration - - Weight 128.1 kg (282 lb 4.8 oz) 02/08/2023 6:46 AM TREATING ENGINEER HELPER Height 182.9 cm (6') 02/21/2023 2:05 PM TREATING ENGINEER HELPER Body Mass Index 38.29 02/08/2023 6:46 AM TREATING ENGINEER HELPER Plan of Treatment Health Maintenance Due Date Last Done Comments COLOGUARD (AGES 45-75) - COL ON CA SCREENING 1955 COLON MONITORING 1955 COLONOSCOPY - COLON CA SCREENING 1955 CT COLONOGRAPHY - COLON CA SCREENING 1955 Colorectal Cancer Screening 1955 FIT - COLON CA SCREENING 1955 FLEX SIG - COLON CA SCREENING 1955 LIPID TESTING 1955 HEPATITIS C SCREENING 03/14/1973 DTAP/TDAP/TD VACCINES (1 - Tdap) 1974 PNEUMOCOCCAL VACCINE 50+ (1 of 1 - PCV) 2005 ZOSTER VACCINE (1 of 2) 2005 AAA SCREENING 2020 COVID-19 VACCINE (1 - 2023-2 5 season) 2023 INFLUENZA VACCINE (#1) 2023 7, 01/13/2016 DEPRESSION SCREENING 02/08/2024 SCREENING FOR DIABETES 02/02/2026 3, 09/01/2016 Respiratory Syncytial Virus (RSV) Vaccine Pt: or over 60 yrs (1 - 1-dose 75+ series) 2030 HEPATITIS B VACCINE Aged Out No longe r eligible based on patient's age to complete this topic HIB VACCINE Aged Out No longer eligi ble based on patient's age to complete this topic HPV VACCINE Aged Out No longer eligi ble based on patient's age to complete this topic MENINGOCOCCAL (Group B) VACCINE Aged Out No longer eligible b ased on patient's age to complete this topic MENINGOCOCCAL VACCINE Aged Out No conor amari eligible based on patient's age to complete this topic Procedures Procedure Name Priority Date/Time Associated Diagnosis Comments COMPREHENSIVE METABOLIC PANEL Routine 02/02/2023 1:43 PM TREATING ENGINEER HELPER Mass of scalp from Last 3 Months or Most Recently Relevant to Health Maintenance Results * (ABNORMAL) COMPREHENSIVE METABOLIC PANEL (02/02/2023 1:43 PM TREATING ENGINEER HELPER) BUN 15 7 - 26 mg/dL 02/02/2023 2:31 PM [facility] Creatinine 0.76 0.71 - 1.16 mg/dL 02/02/2023 2:31 PM [facility] Sodium 143 136 - 145 mmol/L 02/02/2023 2:31 PM [facility] Potassium 3.8 3.5 - 4.5 mmol/L 02/02/2023 2:31 PM [facility] Chloride 104 98 - 107 mmol/L 02/02/2023 2:31 PM [facility] CO2 26 22 - 29 mmol/L 02/02/2023 2:31 PM [facility] Glucose 115 70 - 115 mg/dL 02/02/2023 2:31 PM [facility] Calcium 10.2 8.4 - 10.2 mg/dL 02/02/2023 2:31 PM [facility] Protein Total 7.5 6.0 - 8.3 g/dL 02/02/2023 2:31 PM [facility] Albumin 4.3 3.4 - 5.0 g/dL 02/02/2023 2:31 PM [facility] Bilirubin Total 0.3 0.2 - 1.2 mg/dL 02/02/2023 2:31 PM [facility] Alkaline Phosphatase 62 40 - 150 U/L 02/02/2023 2:31 PM [facility] ALT 30 5 - 55 U/L 02/02/2023 2:31 PM [facility] AST 21 5 - 34 U/L 02/02/2023 2:31 PM [facility] Anion Gap 13 6 - 16 02/02/2023 2:31 PM [facility] BUN/Creatinine Ratio 20 7 - 23 02/02/2023 2:31 PM [facility] Osmolality Calculated 298(H) 275 - 295 mOsm/kg 02/02/2023 2:31 PM [facility] Albumin/Globulin Ratio 1.3 1.1 - 2.3 02/02/2023 2:31 PM [facility] eGFR by CKD-EPI >90 >=90 mL/min/1.7 3 m2 02/02/2023 2:31 PM [facility] Blood BLOOD SPECIMEN / Unknown Lab Venipuncture / Unknown 02/02/2023 1:43 PM TREATING ENGINEER HELPER 02/02/2023 2:06 PM TREATING ENGINEER HELPER Talib Hunt MD LAB - CHEMISTRY [facility] Organization Address City/State/ZIP Co de Phone Number [facility] [address] [place] [address], [place] [phone] from Last 3 Months or Most Recently Relevant to Health Maintenance Care Teams Dog Walker Relationship Specialty Start Date End Date Og Tran, RESCUE INSTRUCTOR-ROD FINISHER [address] [place] [phone] PCP - General 11/02/21
[2024-03-30 13:23] LABS: Basophils Absolute Auto 0.1 K/mm3 (0.0-0.1); Basophils Percent Auto 0.7 % (0.2-1.2); Eosinophils Absolute Auto 0.2 K/mm3 (0-0.3); Eosinophils Percent Auto 1.5 % (0-4.4); Hematocrit 50.2 % (42.0-52.0); Hemoglobin 17.1 g/dL (14.0-18.0); Immature Granulocyte Absolute 0.02 K/mm3 (0.00-0.031); Immature Granulocyte Percent A 0.2 % (0-0.5); Lymphocytes Absolute Auto 3.08 K/mm3 (0.9-3.2); Mean Corpuscular HGB Conc 34.1 g/dl (32-36); Mean Corpuscular Hemoglobin 30.1 pg (26-34); Mean Corpuscular Volume 88.4 fl (80-100); Mean Platelet Volume 9.2 fl (7.4-10.4); Monocytes Absolute Auto 0.7 K/mm3 (0.1-0.6); Monocytes Percent Auto 6.6 % (2.6-8.5); Neutrophils Absolute Auto 6.6 K/mm3 (1.3-6.7); Platelet Count Result 254 k/mm3 (150-375); Red Blood Count 5.68 M/mm3 (4.6-6.20); Red Cell Distribution Width 12.9 % (11.5-14.5); White Blood Count 10.6 K/mm3 (4.5-10.0)
[2024-03-30 13:35] LABS: Anion Gap 10 mmol/L (4-12); Blood Urea Nitrogen 19 mg/dL (9-20); Calcium 9.9 mg/dL (8.4-10.2); Carbon Dioxide 25 mmol/L (22-30); Chloride 103 mmol/L (98-107); Estimated Glomerular Filt Rate > 60; Glucose 105 mg/dL (65-110); Potassium 4.5 mmol/L (3.4-5.0); Sodium 138 mmol/L (137-145)
[2024-03-30 14:33] LABS: MRSA (PCR) NOT DETECTED (NOT DETECTE)
== END 2024-03-30 12:15 | disposition home or self-care (01) ==
LOC: ANHSURGERY 12:20
PROVIDERS: Anesthesiology; PCP Nurse Practitioner Family; Visit Provider Orthopaedic Surgery
DX: Z01.812 Encounter for preprocedural laboratory examination (principal); M12.812 Other specific arthropathies, not elsewhere classified, left shoulder; E11.9 Type 2 diabetes mellitus without complications; Z79.899 Other long term (current) drug therapy
CPT/HCPCS: 36415; 80048; 85025; 87641

== ENCOUNTER 2024-04-06 08:52 | Outpatient (CLI) | payer OTHER, SELFPAY ==
[2024-04-09 18:39] LABS: Red Blood Cell Folate 391 ng/mL RBC (>280)
[2024-04-10 12:53] LABS: Vitamin B6 46.2 ng/mL (2.1-21.7)
[2024-04-10 13:58] LABS: Vitamin B1 59 nmol/L (8-30)
[2024-04-10 20:19] LABS: Methylmalonic Acid 149 nmol/L (69-390)
== END 2024-04-06 08:53 | disposition home or self-care (01) ==
LOC: ANHIMG 08:54
PROVIDERS: Psychiatry & Neurology Neurology; PCP Nurse Practitioner Family; Visit Provider Physician Assistant Surgical
DX: M19.012 Primary osteoarthritis, left shoulder (principal); E55.9 Vitamin D deficiency, unspecified; G62.9 Polyneuropathy, unspecified; R26.89 Other abnormalities of gait and mobility; R29.6 Repeated falls
CPT/HCPCS: 36415; 73200; 82607; 82652; 82747; 83921; 84207; 84425; 84443; 86334

== ENCOUNTER 2024-04-24 00:17 | Day surgery (SDC) | payer OTHER, SELFPAY ==
[2024-03-30 12:34] VITALS: RESP 16; TEMP 36.6; O2SAT 98; BMI 40.6
--- NOTE | 2024-03-30 13:01 | PC.NURSE ---
Report to the Outpatient Waiting Room, entrance under the green pavilion located off [facility], at time __0600am on date __04/24/24 . Planned Procedure Time: __0730am .? Time changes happen often and if your time is changed the preop area will call you the afternoon before. - You and your visitor will be asked to self-screen and do not enter if you have any COVID symptoms. Please call surgeon if you need to reschedule. - A mask is optional within the hospital at this time. Patients may have clear liquids (water, carbonated beverages, clear teas, apple juice) until 3 hours prior to surgery with a maximum of 20 ounces. - No food from midnight until time of surgery and no smoking, or chewing tobacco (or any form of nicotine). No chewing gum, candy or mints. (0430am) Take only the following medications with a SIP of water on the morning of surgery: __Diltiazem DO NOT STOP ANY OF YOUR OTHER PRESCRIPTION MEDICATIONS PRIOR TO SURGERY EXCEPT THE FOLLOWING Hold the Eliquis for 2 days prior to surgery per Dr Freed, date to take last dose is 04/21/24 Hold all vitamins and supplements for 3 days per anesthesiologist.Date to take last dose___04/20/24 Please no make-up, nail malaysian, hairspray, perfume, deodorant, or body powder the day of surgery.? No jewelry (including any body piercings) or valuables the day of surgery, leave them at home.? Please take a shower or bath the night before, or the morning of, surgery with an antibacterial soap.? Wear comfortable, loose fitting clothing.? - Jewelry must be removed prior to entering the operating room.? Rings and piercings that are not removed may be cut off. - The hospital will not accept responsibility for valuables.? - Please leave all valuables, including medications, at home the day of surgery. If you are going home after surgery, a licensed dairy truck driver must drive you home.? - NO public transportation without another adult if you receive anesthesia. - We recommend that an adult stay with you for 24 hours following discharge. - We also recommend that you do not drive, make important decision, drink alcoholic beverages, or take any drugs that were not prescribed by your health care provider for at least 24 hours after your discharge time. Follow any additional instructions given to you from your surgeon. Telephone instructions given to _patient and asked if any additional questions and then verbalized understanding. Patient advised to call surgeon office or pre surgery nurse liaison [phone] if any additional questions.
[2024-04-24] VITALS (23 sets, daily range): BP systolic 98–140; BP diastolic 73–101; PULSE 62–870; RESP 11–20; TEMP 36.1–37.1; O2SAT 89–100
--- NOTE | ~2024-04-24 | XR_ITS ---
EXAMINATION: XR shoulder LT min 2V DATE: 04/24/2024 10:56 INDICATION: Left shoulder arthroplasty TECHNIQUE: 4 views left shoulder FINDINGS: There is a left shoulder arthroplasty in expected position. Subcutaneous gas with soft tis radha swelling are consistent with recent surgery. IMPRESSION: 1. Recent left shoulder arthroplasty. Reviewed, dictated and finalized at location B.
--- OUTSIDE RECORDS SUMMARY | 2024-04-24 00:20 | XMS_ITS | Clinical Summary ---
Author Organization [facility] Address [facility] [place] [address] Care Team Providers Care Resist Coater Developer Name Role Phone Jose Alberto Toth MD Unavailable [phone] Rosy Alexander Primary Care Provider [phone] Allergies Active Allergy Reactions Criticality Noted Date [...] Problem Noted Date Diagnosed Date Atrial fibrillation ([facility]) 02/27/2018 Hypertensive disorder 02/27/2018 Diabetes mellitus ([facility]) 02/27/2018 Dyslipidemia 02/27/2018 Palpitations Encounters Date Type Department Care Team Description 02/29/2024 3:00 PM RECREATION TEACHER Office Visit [facility] [address] [place] [address] Jose Alberto Toth MD Atrial Fibrillation; Palpitations; Hypertension; Lipids; Follow Up 02/29/2024 Travel 02/09/2024 Scan [facility], [facility] [address] [place] [address] Scanned, Doc Pccl 01/25/2024 Telephone [facility], [facility] [address] [place] [address] Jose Alberto Toth MD Surgical Clearance (Precision [...] Sex Assigned at Male 02/23/2022 1:56 PM RECREATION TEACHER Legal Sex Male 5:08 PM CDT Gender Identity Male 03/23/2021 4:31 AM RECREATION TEACHER Sexual Orientation Straight 03/23/2021 4: 31 AM RECREATION TEACHER Last Filed Vital Signs Vital Sign Reading Time Taken Comments Blood Pressure 108/80 02/29/2024 2:55 PM RECREATION TEACHER Pulse 76 02/29/2024 2:55 PM RECREATION TEACHER Temperature 36.6 C (97.8 F) 04/17/2019 6:50 AM CDT Respiratory Rate 15 04/17/2019 11:00 AM CDT Oxygen Saturation 98% 02/29/2024 2:55 PM RECREATION TEACHER Inhaled Oxygen Concentration - - Weight 137.4 kg (303 lb) 02/29/2024 2:55 PM RECREATION TEACHER Height 182.9 cm (6') 02/29/2024 2:55 PM RECREATION TEACHER Body Mass Index 41.09 02/29/2024 2:55 PM RECREATION TEACHER Plan of Treatment Upcoming Encounters Date Type Department Care Team (Late st Contact Info) Description 08/22/2024 3:00 PM CDT Office Visit [facility] [address] [place], [place] [id number] Jose Alberto Toth MD [facility]. [address] [place], [place] [id number] Health Maintenance Due Date Last Done Comments [...] Scanned SCANNING Final Result Performing Organization Address City/State/[facility] Co de Phone Number [facility] from Last 3 Months or Most Recently Relevant to Health Maintenance [place] [address] [facility] Care Teams Resist Coater Developer Relationship Specialty Start Date End Date Rosy Alexander APNP [address] [place] [address] PCP - General Nurse Practitioner Family 08/17/23 Jose Alberto Toth MD [facility] [address] [place] [address] [place] Dope Sprayer CARDIOVASCULAR DISEASE 05/09/19
--- OUTSIDE RECORDS SUMMARY | 2024-04-24 00:20 | XMS_ITS | Clinical Summary ---
Author Organization [facility] Address [address] [place] [address] Care Team Providers Care Community Development Coordinator Name Role Phone Benjamin Rosy GRACE Primary Care Provider [phone] Allergies No known active allergies Medications No known medications Encounters Date Type Department Care Team Description 02/09/2024 3:11 PM PLANNER/SCHEDULER - 02/09/2024 7:59 PM PLANNER/SCHEDULER Emergency [facility] Emergency Department [address] [place] [address] Dinesh Abreu MD Near syncope (Primary [...] on file Legal Sex Male 5:43 PM PLANNER/SCHEDULER Gender Identity Not on file Sexual Orientation Not on file Last Filed Vital Signs Vital Sign Reading Time Taken Comments Blood Pressure 122/96 02/09/2024 7:36 PM PLANNER/SCHEDULER Pulse 78 02/09/2024 7:36 PM PLANNER/SCHEDULER Temperature 36.4 C (97.6 F) 02/09/2024 3:20 PM PLANNER/SCHEDULER Respiratory Rate 17 02/09/2024 7:36 PM PLANNER/SCHEDULER Oxygen Saturation 98% 02/09/2024 7:36 PM PLANNER/SCHEDULER Inhaled Oxygen Concentration - - Weight 136.1 kg (300 lb) 02/09/2024 3:20 PM PLANNER/SCHEDULER Height 182.9 cm (6') 02/09/2024 3:20 PM PLANNER/SCHEDULER Body Mass Index 40.69 02/09/2024 3:20 PM PLANNER/SCHEDULER Plan of Treatment Health Maintenance Due Date [...] Comments URINE CULTURE STAT 02/09/2024 7:40 PM PLANNER/SCHEDULER URINALYSIS, MICROSCOPIC ONLY STAT 02/09/2024 5:16 PM PLANNER/SCHEDULER URINALYSIS AND REFLEX TO MICROSCOPIC AND CULTURE STAT 02/09/2024 5:16 PM PLANNER/SCHEDULER EGFR STAT 02/09/2024 3:25 PM PLANNER/SCHEDULER DIFFERENTIAL AUTO STAT 02/09/2024 3:2 5 PM PLANNER/SCHEDULER COMPREHENSIVE METABOLIC PANEL STAT 02/09/2024 3:25 PM PLANNER/SCHEDULER CBC WITH AUTO DIFFERENTIAL STAT 02/09/2024 3:25 PM PLANNER/SCHEDULER ECG 12-LEAD STAT 02/09/2024 3:22 PM PLANNER/SCHEDULER POCT GLUCOSE DEVICE Routine 02/09/2024 3 :14 PM PLANNER/SCHEDULER CT ABDOMEN PELVIS W WO CONTRAST Schedule Routine, Read Routine (OP Routine) 06/12/2018 8:26 AM CDT Other specified disorders of kidney and ureter from Last 3 Months or Most Recently Relevant to Health Maintenance Results * Urine culture Urine, bladder (02/09/2024 7:40 PM PLANNER/SCHEDULER) Report Final Report: No growth Comment:Testing performed by : [facility], [address] [place] [address]., [id number] Urine, bladder 02/09/2024 7: 40 PM PLANNER/SCHEDULER 02/10/2024 3:01 AM PLANNER/SCHEDULER Narrative [facility] - 02/12/2024 4:00 AM PLANNER/SCHEDULER Indications for Culture:->Recent positive UA Dinesh Abreu MD LAB MICROBIOLOGY - GEN ERAL ORDERABLES Final Result [address] [place] [address] * (ABNORMAL) Urinalysis reflex to microscopic and culture Urine (02/09/2024 5:16 PM PLANNER/SCHEDULER) Color, ur Yellow Yellow Clarity, ur Clear Clear [facility] Specific gravity, ur 1.025 1.003 - 1.030 [facility] pH, urine 6.0 [facility] Comment: Interpretive Data U rine pH is affected by diet, medications, systemic acid-base disturbances, and renal tubular function. pH may affect urinary stone formation. For example, urine pH below 6.0 may help reduce the tendency for calcium phosphate stones and pH greater than 6.0 may reduce the tendency for uric acid stone formation. Source: [facility] Current Interpretive Data was last revised on 2017 Protein, ur ql Trace Negative [facility] Glucose, ur ql Negative Negative [facility] Ketones, ur Negative Negative [facility] Bilirubin, ur Negative Negative [facility] Blood, ur Negative Negative [facility] Urobilinogen, ur <2.0 <2.0 mg/dL [facility] Nitrite, ur Negative Negative [facility] Leukocyte esterase, ur 1+(A) Negative [facility] UA reflex comment Reflex to microscopic UA will be performed. [facility] Urine 02/09/2024 5:16 PM PLANNER/SCHEDULER 02/09/2024 5:25 PM PLANNER/SCHEDULER Dinesh Abreu MD LAB MICROBIOLOGY - GEN ERAL ORDERABLES Final Result Performing Organization Address [facility] [[email or web address]] Co de Phone Number [address] [place] [address] * (ABNORMAL) Urinalysis, microscopic only (02/09/2024 5:16 PM PLANNER/SCHEDULER) WBC, ur 6-10(A) 0 - 5 /HPF RBC, ur 3-5(A) 0 - 2 /HPF [facility] Bacteria, ur Trace(A) [facility] Culture Reflex Comment Reflex conditions for urine culture (WBC >10) not met. [facility] Urine 02/09/2024 5:16 PM PLANNER/SCHEDULER 02/09/2024 5:25 PM PLANNER/SCHEDULER Dinesh Abreu MD LAB URINE ORDERABLES F inal Result Performing Organization Address [facility] de Phone Number [address] [place] [address] * eGFR (02/09/2024 3:25 PM PLANNER/SCHEDULER) eGFR >90 >=60 mL/min/1. 73 m2 Comment: [...] last reviewed 2020. Blood 02/09/2024 3:25 PM PLANNER/SCHEDULER 02/09/2024 3:30 PM PLANNER/SCHEDULER us Dinesh Abreu MD LAB BLOOD ORDERABLES F inal Result [address] Department [place] [address] * (ABNORMAL) Differential, auto (02/09/2024 3:25 PM PLANNER/SCHEDULER) Neutrophil abs 6.2 1.5 - 6.5 K/cumm Imm gran abs 0.0 0.0 - 0.1 K/cumm [facility] Lymphocyte abs 3.9(H) 0.8 - 3.3 K/cumm [facility] Monocyte abs 0.7 0.2 - 0.8 K/cumm [facility] Eosinophil abs 0.1 0.0 - 0.5 K/cumm [facility] Basophil abs 0.1 0.0 - 0.1 K/cumm [facility] Neutrophil pct 56.3 % [facility] Comment: Interpretive Data Percent cell count reference ranges are not reported, since discordance with absolute values may lead to misinterpretation of CBC data. Current Interpretive Data was last revised on 2017. Imm gran pct 0.3 % [facility] Comment: Interpretive Data Percent cell count reference ranges are not reported, since discordance with absolute values may lead to misinterpretation of CBC data. Current Interpretive Data was last revised on 2017. Lymphocyte pct 35.8 % [facility] Comment: Interpretive Data Percent cell count reference ranges are not reported, since discordance with absolute values may lead to misinterpretation of CBC data. Current Interpretive Data was last revised on 2017. Monocyte pct 5.9 % [facility] Comment: Interpretive Data Percent cell count reference ranges are not reported, since discordance with absolute values may lead to misinterpretation of CBC data. Current Interpretive Data was last revised on 2017. Eosinophil pct 1.0 % [facility] Comment: Interpretive Data Percent cell count reference ranges are not reported, since discordance with absolute values may lead to misinterpretation of CBC data. Current Interpretive Data was last revised on 2017. Basophil pct 0.7 % [facility] Comment: Interpretive Data Percent cell count reference ranges are not reported, since discordance with absolute values may lead to misinterpretation of CBC data. Current Interpretive Data was last revised on 2017. Blood 02/09/2024 3:25 PM PLANNER/SCHEDULER 02/09/2024 3:30 PM PLANNER/SCHEDULER us Dinesh Abreu MD LAB BLOOD ORDERABLES F inal Result [address] [place] [address] * (ABNORMAL) CBC with auto differential (02/09/2024 3:25 PM PLANNER/SCHEDULER) WBC 11.0(H) 3.8 - 9.9 K/cumm Hgb 16.8 13.0 - 17.5 g/dL [facility] Hct 51.1(H) 38.9 - 50.3 % [facility] Plt 268 150 - 400 K/cumm [facility] MPV 9.4 9.1 - 12.3 fL [facility] RBC 5.67 4.30 - 5.80 M/cumm [facility] MCV 90.1 81.3 - 96.4 fL [facility] MCH 29.6 27.1 - 33.3 pg [facility] MCHC 32.9 32.3 - 35.7 g/dL [facility] RDW CV 12.9 11.1 - 14.9 % [facility] RDW SD 42.3 35.7 - 48.1 fL [facility] NRBC abs 0.00 0.00 - 0.01 K/cumm [facility] Blood 02/09/2024 3:25 PM PLANNER/SCHEDULER 02/09/2024 3:30 PM PLANNER/SCHEDULER us Dinesh Abreu MD LAB BLOOD ORDERABLES F inal Result [facility] Department [place] [address] * (ABNORMAL) Comprehensive metabolic panel (02/09/2024 3:25 PM PLANNER/SCHEDULER) Sodium 139 135 - 145 mmol/L Potassium, pl 4.0 3.3 - 4.9 mmol/L [facility] Chloride 103 97 - 110 mmol/L [facility] CO2 21(L) 22 - 32 mmol/L [facility] Anion gap 15 2 - 15 mmol/L [facility] BUN 21 6 - 25 mg/dL [facility] Creatinine 0.78(L) 0.80 - 1.30 mg/dL [facility] Glucose 123 70 - 199 mg/dL [facility] Comment: Interpretive Data Fasting glucose >/= [...] 2022. Calcium 9.9 8.5 - 10.3 mg/dL [facility] Bilirubin, total 0.2 0.1 - 1.2 mg/dL [facility] Protein, pl 7.1 6.5 - 8.5 g/dL [facility] Albumin 4.3 3.5 - 5.0 g/dL [facility] Alk phos 62 40 - 130 Units/L [facility] ALT 47 7 - 55 Units/L [facility] AST 35 10 - 50 Units/L [facility] Comment:Hemolysis may falsel y increase results. Use caution when interpreting hemolyzed results. Blood 02/09/2024 3:25 PM PLANNER/SCHEDULER 02/09/2024 3:30 PM PLANNER/SCHEDULER Dinesh Abreu MD LAB BLOOD ORDERABLES F inal Result Performing Organization Address [facility] de Phone Number [address] [place] [address] * ECG 12 lead (02/09/2024 3:22 PM PLANNER/SCHEDULER) 02/09/2024 3:22 PM PLANNER/SCHEDULER Narrative [facility] - 02/13/2024 3:33 PM PLANNER/SCHEDULER Vent Rate: 82 bpm RR Interval: 724 msec [place] Interval: 151 msec QRS Duration: 110 msec QT Interval: 371 msec QTC Interval: 410 msec P-R-T [place]: 35 - 57 - 32 degrees IMPRESSION: SINUS RHYTHM WITH SINUS ARRHYTHMIA INCOMPLETE RIGHT BUNDLE BRANCH BLOCK BORDERLINE ECG Electronically Signed By: Sai Goddard DO Dinesh Abreu MD ECG ORDERABLES Final Result Performing Organization Address [facility] de Phone Number [facility] * POCT glucose (02/09/2024 3:14 PM PLANNER/SCHEDULER) [facility] Signature Glucose, POC 117 70 - 199 mg/dL Blood 02/09/2024 3:14 PM PLANNER/SCHEDULER 02/09/2024 3:14 PM PLANNER/SCHEDULER Notinfile Unknown LAB POCT ORDERABLES - DEVICE F inal Result Performing Organization Address [facility] [[email or web address]] Co de Phone Number [address] [place] [address] * CT Abdomen Pelvis W WO Contrast (06/12/2018 8:26 AM CDT) Anatomical Region Laterality Modality Body N/A Computed Tomogra phy 06/12/2018 9:30 AM CDT Impressions 06/12/2018 10:01 AM CDT Bilateral renal cysts as noted Electronically signed by: Samuel Klein M.D. [facility] 06/12/2018 10:01 AM CDT RESULT: CT ABDOMEN [...] Most Recently Relevant to Health Maintenance Insurance [place] [id number] [facility] CHOICE PLUS [facility] CHOICE PLUS Care Teams Community Development Coordinator Relationship Specialty Start Date End Date Rosy Alexander NP [address] [id number] PCP - General Family Medicine 02/09/24
--- OUTSIDE RECORDS SUMMARY | 2024-04-24 00:20 | XMS_ITS | Referral Summary ---
Author Organization [facility] Address [address] [place] [address] Care Team Providers Care It Administrator Name Role Phone Rosy Alexander NP Primary Care Provider [phone] Encounters Date Type Department Care Team Description 02/09/2024 3:11 PM INDUSTRIAL STAFF NURSE - 02/09/2024 7:59 PM INDUSTRIAL STAFF NURSE Emergency [facility] Emergency Department [address] [place] [address] Dinesh Abreu MD Near syncope (Primary [...] on file Legal Sex Male 5:43 PM INDUSTRIAL STAFF NURSE Gender Identity Not on file Sexual Orientation Not on file Last Filed Vital Signs Vital Sign Reading Time Taken Comments Blood Pressure 122/96 02/09/2024 7:36 PM INDUSTRIAL STAFF NURSE Pulse 78 02/09/2024 7:36 PM INDUSTRIAL STAFF NURSE Temperature 36.4 C (97.6 F) 02/09/2024 3:20 PM INDUSTRIAL STAFF NURSE Respiratory Rate 17 02/09/2024 7:36 PM INDUSTRIAL STAFF NURSE Oxygen Saturation 98% 02/09/2024 7:36 PM INDUSTRIAL STAFF NURSE Inhaled Oxygen Concentration - - Weight 136.1 kg (300 lb) 02/09/2024 3:20 PM INDUSTRIAL STAFF NURSE Height 182.9 cm (6') 02/09/2024 3:20 PM INDUSTRIAL STAFF NURSE Body Mass Index 40.69 02/09/2024 3:20 PM INDUSTRIAL STAFF NURSE Plan of Treatment Not on file Procedures Procedure Name Priority Date/Time Associated Diagnosis Comments URINE CULTURE STAT 02/09/2024 7:40 PM INDUSTRIAL STAFF NURSE URINALYSIS, MICROSCOPIC ONLY STAT 02/09/2024 5:16 PM INDUSTRIAL STAFF NURSE URINALYSIS AND REFLEX TO MICROSCOPIC AND CULTURE STAT 02/09/2024 5:16 PM INDUSTRIAL STAFF NURSE EGFR STAT 02/09/2024 3:25 PM INDUSTRIAL STAFF NURSE DIFFERENTIAL AUTO STAT 02/09/2024 3:2 5 PM INDUSTRIAL STAFF NURSE COMPREHENSIVE METABOLIC PANEL STAT 02/09/2024 3:25 PM INDUSTRIAL STAFF NURSE CBC WITH AUTO DIFFERENTIAL STAT 02/09/2024 3:25 PM INDUSTRIAL STAFF NURSE ECG 12-LEAD STAT 02/09/2024 3:22 PM INDUSTRIAL STAFF NURSE POCT GLUCOSE DEVICE Routine 02/09/2024 3 :14 [address] IND[address]AL STAFF NURSE CT ABDOMEN PELVIS W WO CONTRAST Schedule Routine, Read Routine (OP Routine) 06/12/2018 8:26 AM CDT Other specified disorders of kidney and ureter from Last 3 Months or Most Recently Relevant to Health Maintenance Results * Urine culture Urine, bladder (02/09/2024 7:40 PM INDUSTRIAL STAFF NURSE) Report Final Report: No growth Comment:Testing performed by : [facility], [facility], [place]., [address] Urine, bladder 02/09/2024 7: 40 PM INDUSTRIAL STAFF NURSE 02/10/2024 3:01 AM INDUSTRIAL STAFF NURSE Narrative [facility] - 02/12/2024 4:00 AM INDUSTRIAL STAFF NURSE Indications for Culture:->Recent positive UA us Dinesh Abreu MD LAB MICROBIOLOGY - GEN ERAL ORDERABLES Final Result [facility] [address] Department [place] [address] * (ABNORMAL) Urinalysis reflex to microscopic and culture Urine (02/09/2024 5:16 PM INDUSTRIAL STAFF NURSE) Color, ur Yellow Yellow Clarity, ur Clear Clear [facility] Specific gravity, ur 1.025 1.003 - 1.030 [facility] pH, urine 6.0 [facility] Comment: Interpretive Data U rine pH is affected by diet, medications, systemic acid-base disturbances, and renal tubular function. pH may affect urinary stone formation. For example, urine pH below 6.0 may help reduce the tendency for calcium phosphate stones and pH greater than 6.0 may reduce the tendency for uric acid stone formation. Source: [facility] Current Interpretive Data was last revised on 2017 Protein, ur ql Trace Negative [facility] Glucose, ur ql Negative Negative [facility] Ketones, ur Negative Negative [facility] Bilirubin, ur Negative Negative [facility] Blood, ur Negative Negative [facility] Urobilinogen, ur <2.0 <2.0 mg/dL [facility] Nitrite, ur Negative Negative [facility] Leukocyte esterase, ur 1+(A) Negative [facility] UA reflex comment Reflex to microscopic UA will be performed. [facility] Urine 02/09/2024 5:16 PM INDUSTRIAL STAFF NURSE 02/09/2024 5:25 PM INDUSTRIAL STAFF NURSE us Dinesh Abreu MD LAB MICROBIOLOGY - GEN ERAL ORDERABLES Final Result [facility] [address] Department [place] [address] * (ABNORMAL) Urinalysis, microscopic only (02/09/2024 5:16 PM INDUSTRIAL STAFF NURSE) WBC, ur 6-10(A) 0 - 5 /HPF RBC, ur 3-5(A) 0 - 2 /HPF [facility] Bacteria, ur Trace(A) [facility] Culture Reflex Comment Reflex conditions for urine culture (WBC >10) not met. [facility] Urine 02/09/2024 5:16 PM INDUSTRIAL STAFF NURSE 02/09/2024 5:25 PM INDUSTRIAL STAFF NURSE Dinesh Abreu MD LAB URINE ORDERABLES F inal Result Performing Organization Address [facility] Co de Phone Number [address] [place] [address] * eGFR (02/09/2024 3:25 PM INDUSTRIAL STAFF NURSE) Pathologist [facility] eGFR >90 >=60 mL/min/1. 73 m2 Comment: [...] last reviewed 2020. Blood 02/09/2024 3:25 PM INDUSTRIAL STAFF NURSE 02/09/2024 3:30 PM INDUSTRIAL STAFF NURSE Dinesh Abreu MD LAB BLOOD ORDERABLES F inal Result Performing Organization Address City/[facility] Co de Phone Number [address] [place] [address] * (ABNORMAL) Differential, auto (02/09/2024 3:25 PM INDUSTRIAL STAFF NURSE) Neutrophil abs 6.2 1.5 - 6.5 K/cumm Imm gran abs 0.0 0.0 - 0.1 K/cumm [facility] Lymphocyte abs 3.9(H) 0.8 - 3.3 K/cumm [facility] Monocyte abs 0.7 0.2 - 0.8 K/cumm [facility] Eosinophil abs 0.1 0.0 - 0.5 K/cumm [facility] Basophil abs 0.1 0.0 - 0.1 K/cumm [facility] Neutrophil pct 56.3 % [facility] Comment: Interpretive Data Percent cell count reference ranges are not reported, since discordance with absolute values may lead to misinterpretation of CBC data. Current Interpretive Data was last revised on 2017. Imm gran pct 0.3 % [facility] Comment: Interpretive Data Percent cell count reference ranges are not reported, since discordance with absolute values may lead to misinterpretation of CBC data. Current Interpretive Data was last revised on 2017. Lymphocyte pct 35.8 % [facility] Comment: Interpretive Data Percent cell count reference ranges are not reported, since discordance with absolute values may lead to misinterpretation of CBC data. Current Interpretive Data was last revised on 2017. Monocyte pct 5.9 % [facility] Comment: Interpretive Data Percent cell count reference ranges are not reported, since discordance with absolute values may lead to misinterpretation of CBC data. Current Interpretive Data was last revised on 2017. Eosinophil pct 1.0 % [facility] Comment: Interpretive Data Percent cell count reference ranges are not reported, since discordance with absolute values may lead to misinterpretation of CBC data. Current Interpretive Data was last revised on 2017. Basophil pct 0.7 % [facility] Comment: Interpretive Data Percent cell count reference ranges are not reported, since discordance with absolute values may lead to misinterpretation of CBC data. Current Interpretive Data was last revised on 2017. Blood 02/09/2024 3:25 PM INDUSTRIAL STAFF NURSE 02/09/2024 3:30 PM INDUSTRIAL STAFF NURSE Dinesh Abreu MD LAB BLOOD ORDERABLES F inal Result Performing Organization Address [facility] Co de Phone Number [address] Department [place] [address] * (ABNORMAL) CBC with auto differential (02/09/2024 3:25 PM INDUSTRIAL STAFF NURSE) [facility] WBC 11.0(H) 3.8 - 9.9 K/cumm Hgb 16.8 13.0 - 17.5 g/dL [facility] Hct 51.1(H) 38.9 - 50.3 % [facility] Plt 268 150 - 400 K/cumm [facility] MPV 9.4 9.1 - 12.3 fL [facility] RBC 5.67 4.30 - 5.80 M/cumm [facility] MCV 90.1 81.3 - 96.4 fL [facility] MCH 29.6 27.1 - 33.3 pg [facility] MCHC 32.9 32.3 - 35.7 g/dL [facility] RDW CV 12.9 11.1 - 14.9 % [facility] RDW SD 42.3 35.7 - 48.1 fL [facility] NRBC abs 0.00 0.00 - 0.01 K/cumm [facility] Blood 02/09/2024 3:25 PM INDUSTRIAL STAFF NURSE 02/09/2024 3:30 PM INDUSTRIAL STAFF NURSE Dinesh Abreu MD LAB BLOOD ORDERABLES F inal Result Performing Organization Address [facility]/ZIP Co de Phone Number [address] Department [place] [address] * (ABNORMAL) Comprehensive metabolic panel (02/09/2024 3:25 PM INDUSTRIAL STAFF NURSE) [facility] Sodium 139 135 - 145 mmol/L Potassium, pl 4.0 3.3 - 4.9 mmol/L [facility] Chloride 103 97 - 110 mmol/L [facility] CO2 21(L) 22 - 32 mmol/L [facility] Anion gap 15 2 - 15 mmol/L [facility] BUN 21 6 - 25 mg/dL [facility] Creatinine 0.78(L) 0.80 - 1.30 mg/dL [facility] Glucose 123 70 - 199 mg/dL [facility] Comment: Interpretive Data Fasting glucose >/= 126 [...] 2022. Calcium 9.9 8.5 - 10.3 mg/dL [facility] Bilirubin, total 0.2 0.1 - 1.2 mg/dL [facility] Protein, pl 7.1 6.5 - 8.5 g/dL [facility] Albumin 4.3 3.5 - 5.0 g/dL [facility] Alk phos 62 40 - 130 Units/L [facility] ALT 47 7 - 55 Units/L [facility] AST 35 10 - 50 Units/L [facility] Comment:Hemolysis may falsel y increase results. Use caution when interpreting hemolyzed results. Blood 02/09/2024 3:25 PM INDUSTRIAL STAFF NURSE 02/09/2024 3:30 PM INDUSTRIAL STAFF NURSE us Dinesh Abreu MD LAB BLOOD ORDERABLES F inal Result [facility] [address] [facility] Department [place] [address] * ECG 12 lead (02/09/2024 3:22 PM INDUSTRIAL STAFF NURSE) 02/09/2024 3:22 PM INDUSTRIAL STAFF NURSE Narrative [facility] - 02/13/2024 3:33 PM INDUSTRIAL STAFF NURSE Vent Rate: 82 bpm RR Interval: 724 msec [place] Interval: 151 msec QRS Duration: 110 msec QT Interval: 371 msec QTC Interval: 410 msec P-R-T [place]: 35 - 57 - 32 degrees IMPRESSION: SINUS RHYTHM WITH SINUS ARRHYTHMIA INCOMPLETE RIGHT BUNDLE BRANCH BLOCK BORDERLINE ECG Electronically Signed By: Sai Goddard DO us Dinesh Abreu MD ECG ORDERABLES Final Result [facility] * POCT glucose (02/09/2024 3:14 PM INDUSTRIAL STAFF NURSE) Glucose, POC 117 70 - 199 mg/dL Blood 02/09/2024 3:14 PM INDUSTRIAL STAFF NURSE 02/09/2024 3:14 PM INDUSTRIAL STAFF NURSE us Notinfile Unknown LAB POCT ORDERABLES - DEVICE F inal Result [facility] [address] Department of Laboratories [place] [id number] * CT Abdomen Pelvis W WO Contrast [...] Most Recently Relevant to Health Maintenance Insurance [facility] CHOICE PLUS [facility] HMO/PPO Address: [address] [address] [place] [address] [facility] CHOICE PLUS [facility] HMO/PPO Address: [address] [address] [place] [address] Care Teams It Administrator Relationship Specialty Start Date End Date Rosy Alexander NP [address] [address] PCP - General Family Medicine 02/09/24
--- OUTSIDE RECORDS SUMMARY | 2024-04-24 00:20 | XMS_ITS | Encounter Summary ---
Author Organization [facility] Facility Care Team Providers Care Neurosurgeon Name Role Phone Alnana Rhodes MD Primary Care Provider + Rosy Alexander NP Primary Care Provider [phone] Encounter Details Date Type Department Care Team (Latest Contact Info) Description 02/20/2015 Orders Only [facility] CLINCONV ProviderGiselle MD [address] [place] [address] Social History Tobacco Use Types Packs/Day Years Used Date Smoking Tobacco: Never Assessed Sex and Gender Information Value Date Recorded Sex Assigned at Not on file Legal Sex Male 5:43 PM VOCATIONAL REHABILITATION ADMINISTRATOR Gender Identity Not on file Sexual Orientation Not on file documented as of this encounter Plan of Treatment Not on file documented as of this encounter Procedures Procedure Name Priority Date/Time Associated Diagnosis Comments CARDIOLOGY REPORT 03/04/2016 12: 00 AM VOCATIONAL REHABILITATION ADMINISTRATOR documented in this encounter Results * CARDIOLOGY REPORT (03/04/2016 12:00 AM VOCATIONAL REHABILITATION ADMINISTRATOR) Anatomical Region Laterality Modality Other Narrative 03/04/2016 12:00 AM VOCATIONAL REHABILITATION ADMINISTRATOR Ordered by an unspecified provider. Historical Provider [facility] DESIREE GREENWOOD Final Result documented in this encounter Visit Diagnoses Not on filedocumented in this encounter Care Teams Neurosurgeon Relationship Specialty Start Date End Date Alanna Rhodes MD PCP - General 06/12/18 02/08/24 Rosy Alexander NP [address] [address] PCP - General Family Medicine 02/09/24 documented as of this encounter
--- OUTSIDE RECORDS SUMMARY | 2024-04-24 00:20 | XMS_ITS | Encounter Summary ---
Author Organization [facility] Address [address] [place] [address] Care Team Providers Care Music Minister Name Role Phone TranOg SECURITY OFFICER SUPERVISOR-PRODUCT DEVELOPMENT Primary Care Provider Encounter Details Date Type Department Care Team (Late st Contact Info) Description 03/22/2019 Lab Requisition [facility] Care DermPath Lab [address] [place] [id number] Sloan Alfaro MD [address] [place] [address] Social History Tobacco Use Types [...] Comments DERMATOPATHOLOGY Routine 03/20/2019 12:0 0 AM ACCOUNT EXECUTIVE documented in this encounter Results * DERMATOPATHOLOGY (03/20/2019 12:00 AM ACCOUNT EXECUTIVE) Case Report Dermatopathology Report Case: [id number] Authorizing Provider: Sloan Alfaro MD Collected: 03/20/2019 12:00 AM Ordering Location: [facility] Care DermPath Lab Received: 03/22/2019 08:09 AM Pathologist: Destiny Graham MD Specimen: Skin, left mid back 0 2:09 PM [facility] DERMATOPATHOLOGY LABORATORY Final Diagnosis Specimen A. 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 [id number]. Check margins 0 2:09 PM ACCOUNT EXECUTIVE DERMATOPATHOLOGY LABORATORY Gross Description Specimen A: Received is one formalin filled container labeled with the patient's name and designated left mid back. The specimen consists of a shave biopsy measuring 9x7x1 mm, inked. Jar 0. 0 2:09 PM [facility] DERMATOPATHOLOGY LABORATORY Microscopic Description Specimen A. SKIN, [...] margin of the specimen. 0 2:09 PM [facility] DERMATOPATHOLOGY LABORATORY Disclaimer An external and internal positive and negative controls are appropriate for the histochemical, immunohistochemical and immunofluorescence stain(s) in this case (if any), except where stated explicitly. The performance characteristics of the stain(s) cited in this report were developed and its performance characteristic determined by the Dermatopathology Laboratory at [facility], directed by Dr. Christie Núñez. These tests need not be, and therefore are not, approved by the [place] Food and Drug Administration. The tests are used for clinical purposes. Billing Codes Specimen Charges Stain Charges 87324 1 0 2:09 PM [facility] DERMATOPATHOLOGY LABORATORY Embedded Images 0 2:09 PM [facility] DERMATOPATHOLOGY LABORATORY Pathology/Cytolog y TISSUE SPECIMEN FROM SKIN / Unknown 03/20/2019 03/22/2019 8:09 AM ACCOUNT EXECUTIVE Sloan Alfaro MD LAB - PATHOLOGY/CYTO LOGY ORDERABLES DERMATOPATHOLOGY LABORATORY [facility] - Department of Dermatology [address] [facility] 5th Floor Lab [address] [phone] documented in this encounter Visit Diagnoses Not on filedocumented in this encounter Care Teams Music Minister Relationship Specialty Start Date End Date Og Tran, SECURITY OFFICER SUPERVISOR-PRODUCT DEVELOPMENT [address] [place] [id number] PCP - General 11/02/21 documented as of this encounter
--- OUTSIDE RECORDS SUMMARY | 2024-04-24 00:20 | XMS_ITS | Encounter Summary ---
Author Organization [facility] Facility Care Team Providers Care Family Practice Nurse Practitioner Name Role Phone Alanna Rhodes MD Primary Care Provider + Rosy Alexander NP Primary Care Provider [phone] Encounter Details Date Type Department Care Team (Latest Contact Info) Description 01/13/2015 Orders Only [facility] CLINCONV ProviderGiselle MD [address] [place] [address] Social History Tobacco Use Types Packs/Day Years Used Date Smoking Tobacco: Never Assessed Sex and Gender Information Value Date Recorded Sex Assigned at Not on file Legal Sex Male 5:43 PM SUPERVISOR FRUIT GRADING Gender Identity Not on file Sexual Orientation Not on file documented as of this encounter Plan of Treatment Not on file documented as of this encounter Procedures Procedure Name Priority Date/Time Associated Diagnosis Comments SCAN - LABS 03/04/2016 12:00 AM SUPERVISOR FRUIT GRADING documented in this encounter Results * SCAN - LABS (03/04/2016 12:00 AM SUPERVISOR FRUIT GRADING) Narrative 03/04/2016 12:00 AM SUPERVISOR FRUIT GRADING Ordered by an unspecified provider. Historical Provider Final Res ult documented in this encounter Visit Diagnoses Not on filedocumented in this encounter Care Teams Family Practice Nurse Practitioner Relationship Specialty Start Date End Date Alanna Rhodes MD PCP - General 06/12/18 02/08/24 Rosy Alexander NP [address] [address] PCP - General Family Medicine 02/09/24 documented as of this encounter
--- OUTSIDE RECORDS SUMMARY | 2024-04-24 00:21 | XMS_ITS | Data Portability ---
Author Organization [facility] [employer], Main Office Address [address] [place] [address] Care Team Providers Care Offal Worker Name Role Phone KG GONZALEZ Primary Care Provider [phone] KG GONZALEZ Referring Provider [phone] Assessment No assessment recorded. Plan of Treatment Reminders Order Date Submit Date Provider Last Modified By Organization Details Last Modified Time Details Appointments None recorded. Lab None recorded. Referral None recorded. Procedures None recorded. Surgeries None recorded. Imaging None recorded. Medication Orders phentermine 37.5 mg capsule 2022 023 [facility], [address], [place], [address], 3 16:30:12 phentermine 15 mg capsule 2022 023 [facility], [address], [place], [address], 3 17:02:24 fluticasone propionate 50 mcg/actuati on nasal spray,suspe nsion 2022 023 [facility] [address], [address] [place], [address], 3 16:48:27 Loratadine- D 10 mg-240 mg tablet,exte nded release 24 hr 2022 023 [facility] [address], [address] [place], [address], 3 16:48:29 Wegovy 0.25 mg/0.5 mL subcutaneou s pen injector 2022 023 [facility] [address], [address], [place], [address], 3 16:48:26 Eliquis 5 mg tablet 2022 023 [facility] [address], [address], [place], [address], 3 17:04:20 Mounjaro 5 mg/0.5 mL subcutaneou s pen injector [address] [place] [address] Pharmacy 4878, [address] Y[address]osey, [place], [address], 3 17:42:07 Mounjaro 7.5 mg/0.5 mL subcutaneou s pen injector 2022 [email or web address] [place] [address] Pharmacy 4878, [address], [place], [address], 3 13:21:35 Patient TargetsNo targets recorded. Patient InstructionsNo instructions recorded. Reason for Referral None Reported. Results Created Date Observation Date Name Description Value Unit Range Abnormal Flag Note LastModifiedBy Organization Detail LastModifiedTime 01/29/20 23 01/28/2023 XR, chest No observ ation record ed. [address] [facility] [address], [place], [address], 06/17/2023 17:51:50 Result Notes None recorded. Problems Name Problem SNOMED Code Status Onset Date Resolution Date Notes Provider Name and Address Organization Details Recorded Time Dupuytren' s disease of palm, nodules with no contractur e 460064446 Active 2021 Not Available [facility] 3 20:39:32 Renal mass 643675645 Active 2018 Not Available [facility] 3 20:39:32 Dyslipidem ia 681726575 Active 2018 Not Available [facility] 3 20:39:32 Hypertensi ve disorder 63174780 Active 2018 Not Available [facility] 3 20:39:32 Atrial fibrillati on 31986077 Active 2018 Not Available [facility] 3 20:39:32 Essential hypertensi on 86531825 Active 2020 Not Available [facility] 3 20:39:32 Diabetes mellitus 71527457 Active 2018 Not Available [facility] 3 20:39:32 Seasonal allergy 729036943 Active 2022 ASHIA Bautista [address], [place], [address] , [employer] 3 13:42:10 Hyperglyce alfonzo due to type 2 diabetes mellitus 5652974104746 09 Active 2022 SALTY Perez [address], [address], [place], [address] , [employer] 3 15:46:08 Obesity 150758802 Active 2022 ISAC Sidhu [address], [address], [place], [address] , [employer] 3 16:20:08 Problem Notes None recorded. Procedures Surgical History None recorded. Imaging Results Imaging Date Name Status LastModified by Organiz ation Details LastModified Time 01/28/2023 XR, chest completed [id number] [facility] [address], [place], [address], 06/17/2023 17:51:50 Procedure Notes None recorded. Medical Equipment None Reported. Allergies Allergen ID Allergen Name Allergen Category Reaction Reaction Severity Criticality Documentation Date Start Date Code Code System Note Provider Name and Address Organization Details Recorded Time 65003 Product containin g 3-hydroxy -3-methyl glutaryl- coenzyme A reductase inhibitor (product) medicatio n Not available Not available Not available 04/07/2022 88988 009 SNOMED pain Not Available [facility] 3 20:40:35 Medications Name Sig Start Date Stop Date Status Note LastModified by Organization Details LastModified Time cyclobenza loyda 10 mg tablet 07/21 completed too sleepy Not Available Not Available Not Available atorvastat in 20 mg tablet Take 1 tablet every day by oral route for 30 days. active Not Available Not Available No t Available tizanidine 2 mg tablet TAKE 1 TABLET BY MOUTH EVERY 8 HOURS NEEDED 09/18 completed Not Available Not Available Not Available atorvastat in 10 mg tablet Take 1 tablet every day by oral route for 90 days. 09/15 completed Not Available Not Available Not Available alprazolam 1 mg tablet Take one tablet PO 30 minutes before procedur e 11/13 completed Not Available Not Available Not Available prednisone 20 mg tablet Take 2 tablets every day by oral route for 5 days. 06/09 completed Not Available Not Available Not Available phentermin e 15 mg capsule TAKE 1 CAPSULE BY MOUTH ONCE DAILY active Not Available Not Available No t Available diltiazem CD 360 mg capsule,ex tended release 24 hr active Not Available Not Available Not Available digoxin 250 mcg (0.25 mg) tablet TAKE 1 TABLET BY MOUTH ONCE DAILY 05/[address] Toth Not Available Not Available Not Available tramadol 50 mg tablet TAKE 1 TABLET BY MOUTH TWICE DAILY FOR 30 DAYS active Not Available Not Available No t Available phentermin e 30 mg capsule TAKE 1 CAPSULE BY MOUTH ONCE DAILY active Not Available Not Available No t Available ketorolac 30 mg/mL (1 mL) injection solution Inject 1 mL every 6 hours by intramus cular route. 01/06 completed Not Available Not Available Not Available simvastati n 40 mg tablet Take 1 tablet every day by oral route at bedtime for 30 days. 09/20 completed Not Available Not Available Not Available cephalexin 500 mg capsule TAKE 1 CAPSULE BY MOUTH THREE TIMES DAILY FOR 3 DAYS active Not Available Not Available No t Available hydrochlor othiazide 12.5 mg capsule TAKE 1 CAPSULE BY MOUTH ONCE DAILY active Not Available Not Available No t Available gabapentin 300 mg capsule TAKE 1 CAPSULE BY MOUTH THREE TIMES DAILY NEEDED 01/27 completed Not Available Not Available Not Available benazepril 20 mg tablet Take 1 tablet every day by oral route. active Not Available Not Available No t Available fluticason e propionate 50 mcg/actuat ion nasal spray,susp ension Use 2 spray(s) in each nostril once daily 2023 active Not Available Not Available Not Avai lable metformin ER 500 mg tablet,ext ended release 24 hr TAKE 1 TABLET BY MOUTH ONCE DAILY FOR 90 DAYS active Not Available Not Available No t Available phentermin e 37.5 mg capsule Take 1 capsule by mouth once daily 2023 active Not Available Not Available Not Avai lable naproxen 500 mg tablet Take 1 tablet twice a day by oral route for 90 days. 09/18 completed Not Available Not Available Not Available Loratadine -D 10 mg-240 mg tablet,ext ended release 24 hr Take 1 tablet by mouth once daily 2022 active Not Available Not Available Not Avai lable rosuvastat in 5 mg tablet TAKE 1 TABLET BY MOUTH NIGHTLY AT BEDTIME active Not Available Not Available No t Available rosuvastat in 40 mg tablet Take 1 tablet every day by oral route at bedtime for 90 days. 03/29 completed Not Available Not Available Not Available fenofibrat e 160 mg tablet TAKE 1 TABLET BY MOUTH ONCE DAILY WITH MEALS FOR 90 DAYS active Not Available Not Available No t Available digoxin daily 05/08 completed 0.25 mg Not Available Not Available Not Available hydrochlor othiazide daily 01/06 completed 12.5 mg Not Available Not Available Not Available fenofibrat e daily 09/18 completed 160 mg Not Available Not Available Not Available Suprep Bowel Prep Kit 17.5 gram-3.13 gram-1.6 gram oral solution 01/06 completed Not Available Not Available Not Available Xarelto 20 mg tablet TK 1 T PO D WITH SUPPER - TAKE WITH FOOD 05/[address] Toth Not Available Not Available Not Available vit D3-folic acid-B2-B6 -B12 09/18 completed Not Available Not Available Not Available Eliquis 5 mg tablet Take 1 tablet by mouth twice daily 2023 active Not Available Not Available Not Avlexy labdavid Trulicity 0.75 mg/0.5 mL subcutaneo us pen injector INJECT 1/2 (ONE-DARY F) ML SUBCUTAN EOUSLY ONCE A WEEK 2022 active Not Available Not Available Not Avai lable One-A-Day Men [employer] 2018 active Not Available Not Available Not Avai lable Wegovy 0.25 mg/0.5 mL subcutaneo us pen injector Inject 0.5 mL every week by subcutan eous route. active Not Available Not Available No t Available Mounjaro 7.5 mg/0.5 mL subcutaneo us pen injector INJECT 7.5MG SUBCUTAN EOUSLY ONCE A WEEK, EVERY 7 DAYS 07/23 completed sick Not Available Not Available Not Available Mounjaro 5 mg/0.5 mL subcutaneo us pen injector INJECT 5 MG SUBCUTAN EOUSLY ONCE A WEEK, EVERY 7 DAYS 07/15 completed Not Available Not Available Not Available Mounjaro 2.5 mg/0.5 mL subcutaneo us pen injector Inject 2.5 mg every week by subcutan eous route. 07/15 completed Not Available Not Available Not Available Vitals Date Recorded Body height Body mass index (BMI) Body weight Body temperature Heart rate Oxygen saturation Oxygen saturation in Arterial blood by Pulse oximetry Systolic blood pressure Diastolic blood pressure Provider Name and Address Organization Details Last Updated DateTime 3 185.42 cm 37.5 kg/m2 870121. 23 g 97.1 [degF] 76 /min 93 % 93 % 110 mm[Hg] 68 mm[Hg] PATRICIA Weinstein [facility] [employer] 3 16:34:39 Date Recorded Body height Body mass index (BMI) Body weight Body temperature Heart rate Oxygen saturation Oxygen saturation in Arterial blood by Pulse oximetry Systolic blood pressure Diastolic blood pressure Provider Name and Address Organization Details Last Updated DateTime 3 185.42 cm 35.2 kg/m2 697830. 16 g 98.9 [degF] 82 /min 96 % 96 % 118 mm[Hg] 78 mm[Hg] [facility] 3 17:10:47 Date Recorded Body height Body mass index (BMI) Body weight Body temperature Oxygen saturation Oxygen saturation in Arterial blood by Pulse oximetry Heart rate Systolic blood pressure Diastolic blood pressure Provider Name and Address Organization Details Last Updated DateTime 3 185.42 cm 35.1 kg/m2 461442. 57 g 97.9 [degF] 96 % 96 % 108 /min 122 mm[Hg] 68 mm[Hg] Luci Alexander CMA [facility] [employer] 3 15:58:45 Date Recorded Body height Body mass index (BMI) Body weight Body temperature Heart rate Oxygen saturation Oxygen saturation in Arterial blood by Pulse oximetry Systolic blood pressure Diastolic blood pressure Provider Name and Address Organization Details Last Updated DateTime 3 185.42 cm 36.4 kg/m2 576853. 49 g 98.3 [degF] 77 /min 93 % 93 % 122 mm[Hg] 72 mm[Hg] Justyna Sullivan LPN [facility] [employer] [facility] [employer] 3 16:45:41 Date Recorded Body height Body mass index (BMI) Body weight Body temperature Oxygen saturation Oxygen saturation in Arterial blood by Pulse oximetry Heart rate Systolic blood pressure Diastolic blood pressure Provider Name and Address Organization Details Last Updated DateTime 3 185.42 cm 37.2 kg/m2 271931. 05 g 97.2 [degF] 94 % 94 % 91 /min 128 mm[Hg] 90 mm[Hg] Erna Smiley RN [facility] [employer] 3 15:59:44 Social History Question Answer Notes LastModified by Organizat ion Details LastModified Time Tobacco Smoking Status Former Smoker Lillie Tim RN [facility], [facility] [employer] 05/21/2022 15:35:51 What Is Your Level Of Alcohol Consumption? Occasional Information not available 05/21/2022 What Is Your Level Of Caffeine Consumption? Moderate Information not available 05/21/2022 Which Illicit Or Recreational Drugs Have You Used? Marijuana Information not available 05/21/2022 When Did You Quit Smoking? 16+yearssincel astcigarette Information not available 05/21/2022 Do You Use Your Seat Belt Or Car Seat Routinely? Yes Information not available 06/09/2022 Do You Feel Stressed (tense, Restless, Nervous, Or Anxious, Or Unable To Sleep At Night)? [email or web address] Information not available 06/09/2022 Do You Use Any Illicit Or Recreational Drugs? Yes [email or web address] Information not available 05/21/2022 Sex: Unknown Functional Status None recorded. Mental Status None recorded. Family History Nothing Reported. Medical History No medical history recorded. Immunizations Vaccine Type Date Status Note Provider Nam e and Address Organization Details Recorded Time Tdap 03/29/2019 completed Not Available [employer] 04/07/2022 20:40:33 Past Encounters Encounter ID Performer Location Encounter Start Date Encounter Closed Date Diagnosis/Indication Diagnosis SNOMED-CT Code Diagnosis ICD10 Code Diagnosis Note [id number] [address] [address] 01/27/2021 00:00:00 01/27/2021 17:14:[id number] [address] 11/13/2021 00:00:00 11/13/2021 18:16:22 [id number] SALTY Perez [address] [address] 05/21/2022 15:25:56 05/21/2022 17:26:10 Hyperglycemia due to type 2 diabetes mellitus 8766909868 04940 E11.65 Unknown status.Dis cussed need for regular exercise, increase intake of water/vege tables/fib er. Decrease intake of carbs, especially white rice/pasta /flour/leodan ad/sugar.W ill check labs and start on metformin 500mg ER daily.Will also give trial of Mounjaro 2.5mg weekly. [id number] SALTY Perez [address] [address] 06/09/2022 16:28:17 06/09/2022 17:27:44 Hyperglycemia due to type 2 diabetes mellitus 5317839546 90486 E11.65 Improved with starting MounjaroA1 C 5.7 (06/05/22)D iscussed need for regular exercise, increase intake of water/vege tables/fib er. Decrease intake of carbs, especially white rice/pasta /flour/leodan ad/sugar.C ontinue with metformin 500mg ER daily.Incr ease Mounjaro to 5mg weekly, then increase to 7.5mg in July. Pt to call or send portal message after second dose of 7.5mg to decide whether to increase to the 10mg dose. Patient in formed - test result [id number] Z71.2 Reviewed lab results with patient. Discussed abnormal levels and treatment recommenda tions as above.chol esterol levels wnl (06/05/22)C BC wnl (06/05/22)C MP: na 136, creat 0.60 (06/05/22) [id number] SALTY Perez [facility] [address] [place] [address] 07/15/2022 16:50:48 07/15/2022 18:02:22 Hyperglycemia due to type 2 diabetes mellitus 1902783398 26593 E11.65 Improved with starting MounjaroA1 C 5.7 (06/05/22)D iscussed need for regular exercise, increase intake of water/vege tables/fib er. Decrease intake of carbs, especially white rice/pasta /flour/leodan ad/sugar.C ontinue with metformin 500mg ER daily.Incr ease Mounjaro to 5mg weekly, then increase to 7.5mg in July. Pt to call or send portal message after second dose of 7.5mg to decide whether to increase to the 10mg dose. fall W19.XXXA No ongoing sx at this time. [id number] ISAC Sidhu [facility] [address] [place] [address] 09/10/2022 15:53:43 09/10/2022 16:46:53 Obesity 879898314 E66.9 Declines further use of the Mounjaro d/t negative GI side effectsWil l trial wegovyEnco uraged fresh fruits and veggies.In crease daily water intake Seasonal allergy 7134272 04 J30.2 stable Atrial fibrillation 4943 6004 I48.91 stable [id number] Sergio Abdalla [employer] [facility] Primary Care [facility] [address] [facility] [address] [place] [address] 12/01/2022 16:27:15 12/01/2022 17:00:40 Obesity 756698528 E66.9 Has gained 10 lbs since last visitinsur ance did not approve wegovyhe has tried to be more active in the last 2 months than he has in the last 2 yearshe is agreeable to trying phentermin e-will give 15mg capf/u in 1 month Declines further use of the Mounjaro d/t negative GI side effectsWil l trial wegovyEnco uraged fresh fruits and veggies.In crease daily water intake [id number] Sergio AbdallaSALTY-Yuriy [facility] Primary Care [facility] [address] [facility] [address] [place] [address] 02/02/2023 15:49:25 02/02/2023 16:28:34 Obesity 409376538 E66.9 -pt notes no ASE with use of phentermin e-he is ready to increase the dosage-phe ntermine 37.5 started-f/ u in 2 months to restart meds Health Concerns Section Related Observation LastModified by Organization Detai ls LastModified Time None Recorded Concern Status LastModified by Organization Details LastModified Time None Recorded Advance Directives Directive None Recorded Payers Encounter Date Sequence Insurance Name Policy Number Policy Wagoner Covered Member ID Wagoner Member ID Guarantor Name 06/09/2022 1 [facility] [id number] [facility] [id number] [facility] 07/15/2022 1 [facility] [id number] [facility] [id number] [facility] 09/10/2022 1 [facility] [id number] [facility] [id number] [facility] 12/01/2022 1 [facility] [id number] [facility] [id number] Kentrell Iglesias [facility] 02/02/2023 1 [facility] [id number] Kentrell Iglesias [facility] [id number] Kentrell Kelsie [facility] Notes Date Note Type Note Provider Name and Address Organization Details Recorded Time 06/09/2022 text/html 06/09/22: 1. Pt in office for 3 week f/u on starting Mounjaro and metformin. Pt states he has been taking metamucil fiber to help with the constipation. Pt states that he doesn't feel like he's losing weight as fast as he thought he would. 05/21/22: 1. Pt in office for f/u on DM. Pt states his son went on Mounjaro about 2 months ago and had amazing results for sugars and weight loss. Pt states he discussed it with cardiology and they are all for anything that will help him lose some weight. SALTY Perez [address], [place], [address], [facility] [employer] 06/09/2022 17:11:37 07/15/2022 text/html 07/15/22: 1. Pt in office with for 4 week f/u appt on Mounjaro. Pt states he is tolerating well. Denies any severe GI distress most of the time until he went to [facility] for lunch on Tuesday.2. Pt states he was in his camper the end of last month and sat up in the bed, hit his head on the ceiling, got off balance, fell forward and hit the left side of his head, neck, and chest on a TV tray. 06/09/22: 1. Pt in office for 3 week f/u on starting Mounjaro and metformin. Pt states he has been taking metamucil fiber to help with the constipation. Pt states that he doesn't feel like he's losing weight as fast as he thought he would. 05/21/22: 1. Pt in office for f/u on DM. Pt states his son went on Mounjaro about 2 months ago and had amazing results for sugars and weight loss. Pt states he discussed it with cardiology and they are all for anything that will help him lose some weight. SALTY Perez [address], [place], [address], [facility] [employer] [facility] [employer] [facility] 07/15/2022 18:47:06 09/10/2022 text/html Pt here to f/u o n mounjaro and blood sugars . Started taking on Tuesday after last visit, by Tuesday he developed LLQ pain. Symptoms resolved over the couple days. The next week he took his dose of mounjaro and the exact same thing happened. Nausea included. He stopped this medication at that time, 1 month total since last used. BMs few and far between with use of Mounjaro. Improved with use of metamucil, and miralax ISAC Sidhu [address] [place] [address], [place], [address], [facility] [employer] [facility] 09/10/2022 16:49:17 12/01/2022 text/html Pt is here for 1 month f/u ISAC Sidhu [address], [place] [address], [place], [address], [employer] [facility] [employer] [facility] 12/01/2022 17:03:57 02/02/2023 text/html Pt is here for weight loss f/u ISAC Sidhu [address], [place] [address], [place], [address], [facility] [employer] [facility] [employer] [facility] 02/02/2023 16:33:03
--- OUTSIDE RECORDS SUMMARY | 2024-04-24 00:21 | XMS_ITS | Clinical Summary ---
Author Organization [facility] Address [address] [place] [address] Care Team Providers Care Military Lawyer Name Role Phone Og Tran APRN-HEALTH PROMOTION SPECIALIST Primary Care Provider Source Comments [facility],non-owned Affiliates and Associated Physician Practices is amultiple site organization consisting of ambulatory clinics and hospital sitesin [place], [place], [place] and [place]. This disclosure is being madepursuant to the Care Everywhere program and may not contain all information available regarding this patient. Last updated 17.[facility] Allergies Active Allergy Reactions Criticality Noted Date Comments Adhesive Sensitivity Swelling Low 09/27/2016 Gabapentin Psychiatric Medium 03/25/2021 Hmg-Coa-R Inhibitors Myalgias High 04/17/2019 Medications * Be aware that medications may not be up to date on this document. Alwaysverify current medications with the patient. Medication Sig Dispensed Refills Start Date End Date Status fluticasone propionate (FLONASE) 50 MCG/ACT nasal spray [place] 2 (two) sprays into each nostril once daily Active dilTIAZem ER (TIAZAC) 360 MG capsule Take 1 (one) capsule by mouth once daily Active benazepril (LOTENSIN) 20 MG tablet Take by mouth once daily Active hydroCHLOROthiazide (MICROZIDE) 12.5 MG capsule Take 1 (one) capsule by mouth once daily Active Cholecalciferol (VITAMIN D3) 75438 UNITS TABS Active Eliquis 5 MG tablet [...] Comments Blood Pressure 118/81 02/21/2023 2:05 PM [facility] Pulse 77 02/21/2023 2:05 PM [facility] Temperature 36.8 C (98.2 F) 02/21/2023 2:05 PM [facility] Respiratory Rate 9 02/08/2023 9:45 AM [facility] Oxygen Saturation 97% 02/21/2023 2:05 PM [facility] Inhaled Oxygen Concentration - - Weight 128.1 kg (282 lb 4.8 oz) 02/08/2023 6:46 AM [facility] Height 182.9 cm (6') 02/21/2023 2:05 PM [facility] Body Mass Index 38.29 02/08/2023 6:46 AM [facility] Plan of Treatment Health Maintenance Due Date [...] complete this topic MENINGOCOCCAL (Group B) VACCINE SHARED DECISION-MAKING Aged Out No longer eligible based on patient's age to complete this topic MENINGOCOCCAL GROUPS A/C/Y/W VACCINE Aged Out No longer eligible b ased on patient's age to complete this topic Procedures Procedure Name Priority Date/Time Associated Diagnosis Comments COMPREHENSIVE METABOLIC PANEL Routine 02/02/2023 1:43 PM [facility] Mass of scalp from Last 3 Months or Most Recently Relevant to Health Maintenance Results * (ABNORMAL) COMPREHENSIVE METABOLIC PANEL (02/02/2023 1:43 PM [facility]) BUN 15 7 - 26 mg/dL 02/02/2023 2:31 PM [facility] Creatinine 0.76 0.71 - 1.16 mg/dL 02/02/2023 2:31 PM [facility] Sodium 143 136 - 145 mmol/L 02/02/2023 2:31 PM [facility] Potassium 3.8 3.5 - 4.5 mmol/L 02/02/2023 2:31 PM [facility] Chloride 104 98 - 107 mmol/L 02/02/2023 2:31 PM [facility] CO2 26 22 - 29 mmol/L 02/02/2023 2:31 PM [facility] Glucose 115 70 - 115 mg/dL 02/02/2023 2:31 PM [facility] Calcium 10.2 8.4 - 10.2 mg/dL 02/02/2023 2:31 PM [facility] Protein Total 7.5 6.0 - 8.3 g/dL 02/02/2023 2:31 PM [facility] Albumin 4.3 3.4 - 5.0 g/dL 02/02/2023 2:31 PM [facility] Bilirubin Total 0.3 0.2 - 1.2 mg/dL 02/02/2023 2:31 PM [facility] Alkaline Phosphatase 62 40 - 150 U/L 02/02/2023 2:31 PM [facility] ALT 30 5 - 55 U/L 02/02/2023 2:31 PM [facility] AST 21 5 - 34 U/L 02/02/2023 2:31 PM [facility] Anion Gap 13 6 - 16 02/02/2023 2:31 PM [facility] BUN/Creatinine Ratio 20 7 - 23 02/02/2023 2:31 PM [facility] Osmolality Calculated 298(H) 275 - 295 mOsm/kg 02/02/2023 2:31 PM [facility] Albumin/Globulin Ratio 1.3 1.1 - 2.3 02/02/2023 2:31 PM [facility] eGFR by CKD-EPI >90 >=90 mL/min/1.7 3 m2 02/02/2023 2:31 PM [facility] Blood BLOOD SPECIMEN / Unknown Lab Venipuncture / Unknown 02/02/2023 1:43 PM [facility] 02/02/2023 2:06 PM [facility] Talib Hunt MD LAB - CHEMISTRY [place] [facility] [address] [place] [address], [facility] [phone] from Last 3 Months or Most Recently Relevant to Health Maintenance Care Teams Military Lawyer Relationship Specialty Start Date End Date Og Tran, PREMIUM SERVICE REPRESENTATIVE-HEALTH PROMOTION SPECIALIST [address] [place] [phone] PCP - General 11/02/21
--- OUTSIDE RECORDS SUMMARY | 2024-04-24 00:21 | XMS_ITS | Encounter Summary ---
Author Organization [facility] Address [address] [place] [address] Care Team Providers Care Paper And Pulp Mill Operator Name Role Phone Alanna Rhodes MD Primary Care Provider [phone] Jose Alberto Toth MD Unavailable [phone] Rosy Alexander Primary Care Provider [phone] Encounter Details Date Type Department Care Team (Late Contact Info) Description 10/07/2020 Abstract [facility] [facility], [address] [address] Jenifer Lujan MA Social History Tobacco Use Types Packs/Day Years Used Date Smoking Tobacco: Never Smokeless Tobacco: Never Alcohol Use Standard Drinks/Week Comments Yes 0 (1 standard drink = 0.6 oz pur e alcohol) ocassionally Sex and Gender Information Value Date Recorded Sex Assigned at Male 02/23/2022 1:56 PM UNIT AIDE TECH Legal Sex Male 5:08 PM CDT Gender Identity Male 03/23/2021 4:31 AM UNIT AIDE TECH Sexual Orientation Straight 03/23/2021 4: 31 AM UNIT AIDE TECH COVID-19 Exposure Response Date Recorded In the last month, have you been in contact with someone who was confirmed or suspected to have Coronavirus / COVID-19? No / Unsure 09/23/2020 8:32 AM CDT documented as of this encounter Plan of Treatment Upcoming Encounters Date Type Department Care Team (Late Contact Info) Description 08/22/2024 3:00 PM CDT Office Visit [facility] [facility], [address] [address] Jose Alberto Toth MD Three [facility]. [facility] [address] [place], [place] [id number] documented as of this encounter Procedures Procedure [...] Result * CBC (OUTSIDE LAB) (10/07/2020) Pathologist [facility] WBC 8.5 HGB 16.1 HCT 48.5 PLT 241 10/07/2020 us Doc [facility] Abstract LAB-OUTSIDE/ABSTRACTED Final Result * LIPID PANEL (10/07/2020) Pathologist [facility] CHOLESTEROL 157 HDL 40 TRIGLYCERIDES 143 DIRECT LDL 77 10/07/2020 us Doc [facility] Abstract LABORATORY Final Result * (ABNORMAL) COMPREHENSIVE METABOLIC PANEL (10/07/2020) Pathologist [facility] SODIUM S/P/B 137 POTASSIUM S/P/B 4.0 CO2 [...] on filedocumented in this encounter Care Teams Paper And Pulp Mill Operator Relationship Specialty Start Date End Date Alanna Rhodes MD [address] [place] [address] [place] [address] PCP - General FAMILY PRACTICE 04/06/19 08/16/23 Rosy Alexander APNP [address] [place] [phone] PCP - General Nurse Practitioner Family 08/17/23 Jose Alberto Toth MD [address] [address] [place] [facility] CARDIOVASCULAR DISEASE 05/09/19 documented as of this encounter
--- OUTSIDE RECORDS SUMMARY | 2024-04-24 00:21 | XMS_ITS | Referral Summary ---
Author Organization [email or web address] Address [address] [place] [address] Care Team Providers Care Boatbuilder Wood Name Role Phone Og Tran APRN-GROUP BURNER MACHINE Primary Care Provider Source Comments [facility],non-owned Affiliates and Associated Physician Practices is amultiple site organization consisting of ambulatory clinics and hospital sitesin [place], [place], [place] and [place]. This disclosure is being madepursuant to the Care Everywhere program and may not contain all information available regarding this patient. Last updated 17.[email or web address] Allergies Active Allergy Reactions Criticality Noted Date Comments Adhesive Sensitivity Swelling Low 09/27/2016 Gabapentin Psychiatric Medium 03/25/2021 Hmg-Coa-R Inhibitors Myalgias High 04/17/2019 Medications * Be aware that medications may not be up to date on this document. Alwaysverify current medications with the patient. Medication Sig Dispensed Refills Start Date End Date Status fluticasone propionate (FLONASE) 50 MCG/ACT nasal spray [place] 2 (two) sprays into each nostril once daily Active dilTIAZem ER (TIAZAC) 360 MG capsule Take 1 (one) capsule by mouth once daily Active benazepril (LOTENSIN) 20 MG tablet Take by mouth once daily Active hydroCHLOROthiazide (MICROZIDE) 12.5 MG capsule Take 1 (one) capsule by mouth once daily Active Cholecalciferol (VITAMIN D3) 10183 UNITS TABS Active Eliquis 5 MG tablet [...] Comments Blood Pressure 118/81 02/21/2023 2:05 PM ACCOUNT SPECIALIST Pulse 77 02/21/2023 2:05 PM ACCOUNT SPECIALIST Temperature 36.8 C (98.2 F) 02/21/2023 2:05 PM ACCOUNT SPECIALIST Respiratory Rate 9 02/08/2023 9:45 AM ACCOUNT SPECIALIST Oxygen Saturation 97% 02/21/2023 2:05 PM ACCOUNT SPECIALIST Inhaled Oxygen Concentration - - Weight 128.1 kg (282 lb 4.8 oz) 02/08/2023 6:46 AM ACCOUNT SPECIALIST Height 182.9 cm (6') 02/21/2023 2:05 PM ACCOUNT SPECIALIST Body Mass Index 38.29 02/08/2023 6:46 AM ACCOUNT SPECIALIST Functional Status Functional Status Response Date of [...] COMPREHENSIVE METABOLIC PANEL Routine 02/02/2023 1:43 PM [facility] Mass of scalp from Last 3 Months or Most Recently Relevant to Health Maintenance Results * (ABNORMAL) COMPREHENSIVE METABOLIC PANEL (02/02/2023 1:43 PM [facility]) BUN 15 7 - 26 mg/dL 02/02/2023 2:31 PM [facility] Creatinine 0.76 0.71 - 1.16 mg/dL 02/02/2023 2:31 PM [facility] Sodium 143 136 - 145 mmol/L 02/02/2023 2:31 PM [facility] Potassium 3.8 3.5 - 4.5 mmol/L 02/02/2023 2:31 PM [facility] Chloride 104 98 - 107 mmol/L 02/02/2023 2:31 PM [facility] CO2 26 22 - 29 mmol/L 02/02/2023 2:31 PM [facility] Glucose 115 70 - 115 mg/dL 02/02/2023 2:31 PM [facility] Calcium 10.2 8.4 - 10.2 mg/dL 02/02/2023 2:31 PM [facility] Protein Total 7.5 6.0 - 8.3 g/dL 02/02/2023 2:31 PM [facility] Albumin 4.3 3.4 - 5.0 g/dL 02/02/2023 2:31 PM [facility] Bilirubin Total 0.3 0.2 - 1.2 mg/dL 02/02/2023 2:31 PM [facility] Alkaline Phosphatase 62 40 - 150 U/L 02/02/2023 2:31 PM [facility] ALT 30 5 - 55 U/L 02/02/2023 2:31 PM [facility] AST 21 5 - 34 U/L 02/02/2023 2:31 PM [facility] Anion Gap 13 6 - 16 02/02/2023 2:31 PM [facility] BUN/Creatinine Ratio 20 7 - 23 02/02/2023 2:31 PM [facility] Osmolality Calculated 298(H) 275 - 295 mOsm/kg 02/02/2023 2:31 PM ACCOUNT SPECIALIST [facility] Albumin/Globulin Ratio 1.3 1.1 - 2.3 02/02/2023 2:31 PM ACCOUNT SPECIALIST [facility] eGFR by CKD-EPI >90 >=90 mL/min/1.7 3 m2 02/02/2023 2:31 PM ACCOUNT SPECIALIST [facility] Blood BLOOD SPECIMEN / Unknown Lab Venipuncture / Unknown 02/02/2023 1:43 PM ACCOUNT SPECIALIST 02/02/2023 2:06 PM ACCOUNT SPECIALIST Talib Hunt MD LAB - CHEMISTRY [place] [facility] [address] [place] [address], [facility] [phone] from Last 3 Months or Most Recently Relevant to Health Maintenance Care Teams Boatbuilder Wood Relationship Specialty Start Date End Date Og Tran, ASSEMBLER TRIM-GROUP BURNER MACHINE [address] [place] [phone] PCP - General 11/02/21
--- OUTSIDE RECORDS SUMMARY | 2024-04-24 00:21 | XMS_ITS | Patient Health Summary ---
Author Organization [facility] Address [address] [place] [address] Care Team Providers Care Towel Sewer Name Role Phone Og Tran APRN-COOK P[employer]LED MEAT Primary Care Provider Note from [facility],non-owned Affiliates and Associated Physician Practices is amultiple site organization consisting of ambulatory clinics and hospital sitesin [place], [place], [place] and [place]. This disclosure is being madepursuant to the Care Everywhere program and may not contain all information available regarding this patient. Last updated 17.[facility] Allergies * Adhesive Sensitivity(Swelling) -Low Criticality * Gabapentin(Psychiatric) -Medium Criticality * Hmg-Coa-R Inhibitors(Myalgias) -High Criticality Medications * Be aware that medications may not be up to date on this document. Alwaysverify current medications with the patient. * fluticasone propionate (FLONASE) 50 MCG/ACT nasal spray [place] 2 (two) sprays into each nostril once daily * dilTIAZem ER (TIAZAC) 360 MG capsule Take 1 (one) capsule by mouth once daily * benazepril (LOTENSIN) 20 MG tablet Take by mouth once daily * hydroCHLOROthiazide (MICROZIDE) 12.5 MG capsule Take 1 (one) capsule by mouth once daily * Cholecalciferol (VITAMIN D3) 00351 UNITS TABS * Eliquis 5 MG tablet(Started [...] Comments Blood Pressure 118/81 02/21/2023 2:05 PM [employer] Pulse 77 02/21/2023 2:05 PM [employer] Temperature 36.8 C (98.2 F) 02/21/2023 2:05 PM [employer] Respiratory Rate 9 02/08/2023 9:45 AM [employer] Oxygen Saturation 97% 02/21/2023 2:05 PM [employer] Inhaled Oxygen Concentration - - Weight 128.1 kg (282 lb 4.8 oz) 02/08/2023 6:46 AM [employer] Height 182.9 cm (6') 02/21/2023 2:05 PM [employer] Body Mass Index 38.29 02/08/2023 6:46 AM [employer] Procedures * PATHOLOGY TISSUE(Performed 02/08/2023) Performed for Subcutaneous nodule * [place] EXC FACE LES SC < 2 CM(Performed [...] Results * PATHOLOGY TISSUE (02/08/2023 8:55 AM [employer]) Case Report Surgical Pathology Report Case: [id number] Authorizing Provider: Talib Hunt MD Collected: 02/08/2023 08:55 AM Ordering Location: [facility] Received: 02/08/2023 10:02 AM Pathologist: Tamika Brooks MD Specimen: Cyst, CYST WALL 02/10/2023 8:39 PM [facility] Final Diagnosis Soft tissue, cyst wall, excision (A): - Ruptured epidermal inclusion cyst 02/10/2023 8:39 PM [facility] Microscopic Description and Comment Sections from the cyst wall show portions of a cyst lined by stratified squamous epithelium. The wall is fibrous with dense chronic inflammation and a foreign body giant cell reaction. There is no atypia or malignancy 02/10/2023 8:39 PM [facility] Clinical History The patient is a 67-year-old man with a left forehead subcutaneous nodule. Operative procedure: Excision of the left forehead nodule. 02/10/2023 8:39 PM [facility] Gross Description The requisition and specimen(s) are identified with the patient's name Kentrell Javier . Received in formalin, specimen A , consists of a 0.7 x 0.4 x 0.1 cm aggregate of pink-angulo fibromembranous tissue, submitted in toto in cassette A1. [place] 02/10/2023 8:39 PM [facility] Pathologist Location at [facility] 02/10/2023 8:39 PM [facility] Disclaimer The performance characteristics of all immunohistochemical and indirect immunofluorescence stains (if any) cited in this report were determined by the Histopathology Laboratory of [facility]. Some of these tests were developed by [...] the attending (teaching) pathologist. 02/10/2023 8:39 PM [facility] Embedded Images 02/10/2023 8:39 PM [facility] Biopsy, Excision CYST TISSUE / Unknown 02/08/2023 8:55 AM [employer] 02/08/2023 10:02 AM [employer] Comment:Pre-op diagnosis: SUBCUTANEOUS NODULE LEFT FOREHEAD Talib Hunt MD LAB - PATHOLOGY/CYTO LOGY ORDERABLES Performing Organization Address [facility]/ZIP Co de Phone Number [facility] [address] [place] [address], [facility] [phone] * PTT [facility] (02/02/2023 1:43 PM [employer]) APTT 29.7 23.0 - 38.4 Seconds 02/02/2023 2:29 PM [employer] [facility] Comment:Suggested therapeuti c range for full dose I.V. unfractionated heparin therapy for venous thromboembolism is 71 to 109 seconds. Blood BLOOD SPECIMEN / Unknown Lab Venipuncture / Unknown 02/02/2023 1:43 PM [employer] 02/02/2023 2:03 PM [employer] Talib Hunt MD LAB - COAGULATION OR DERABLES Performing Organization Address [facility] Co de Phone Number [facility] [address] [place] [id number], [facility] [phone] * PT-INR [facility] (02/02/2023 1:43 PM [employer]) PT 13.5 12.1 - 14.8 Seconds 02/02/2023 2:29 PM [employer] [facility] INR 1.1 See Comment 02/02/2023 2:29 PM [employer]IRING [employer] INSPECTING [facility] Comment:The suggested therap eutic range for standard coumadin (warfarin) therapy is an INR of 2.0-3.0. For high-risk patients (Mechanical Mitral Valve Prosthesis, etc.), the suggested prophylactic therapeutic range is an INR of 2.5-3.5. Blood BLOOD SPECIMEN / Unknown Lab Venipuncture / Unknown 02/02/2023 1:43 PM [employer] 02/02/2023 2:03 PM [employer] Talib Hunt MD LAB - COAGULATION OR DERABLES Performing Organization Address [facility] Co de Phone Number [address] [address], [facility] [phone] * CBC WITH DIFFERENTIAL (02/02/2023 1:[address] [facility]) Only the most recent of3 resultswithin the time period is included. WBC 8.2 4.0 - 10.7 x10E9/L 02/02/2023 2:11 PM [facility] RBC Count 5.74 4.30 - 5.80 x10E12/L 02/02/2023 2:11 PM [facility] Hemoglobin 17.1 13.3 - 17.5 g/dL 02/02/2023 2:11 PM [facility] Hematocrit 49.5 38.7 - 51.1 % 02/02/2023 2:11 PM [facility] MCV 86.2 80.0 - 98.0 fL 02/02/2023 2:11 PM [facility] MCH 29.8 26.7 - 33.6 pg 02/02/2023 2:11 PM [facility] MCHC 34.5 31.7 - 36.3 g/dL 02/02/2023 2:11 PM [facility] RDW-CV 13.0 11.3 - 14.8 % 02/02/2023 2:11 PM [facility] Platelet Count 258 150 - 420 x10E9/L 02/02/2023 2:11 PM [facility] MPV 9.1 7.8 - 11.4 fL 02/02/2023 2:11 PM [facility] Neutrophil % 52.0 41.0 - 74.0 % 02/02/2023 2:11 PM [facility] Lymphocyte % 37.7 17.0 - 47.0 % 02/02/2023 2:11 PM [facility] Monocyte % 7.9 3.0 - 11.0 % 02/02/2023 2:11 PM [facility] Eosinophil % 1.5 0.0 - 7.0 % 02/02/2023 2:11 PM [facility] Basophil % 0.7 0.0 - 1.6 % 02/02/2023 2:11 PM [facility] Immature Granulocytes % 0.2 0.0 - 1.0 % 02/02/2023 2:11 PM [facility] Neutrophil Absolute 4.25 1.60 - 7.50 x10E9/L 02/02/2023 2:11 PM [facility] Lymphocyte Absolute 3.08 1.00 - 4.40 x10E9/L 02/02/2023 2:11 PM [facility] Monocyte Absolute 0.65 0.15 - 1.00 x10E9/L 02/02/2023 2:11 PM [facility] Eosinophil Absolute 0.12 0.00 - 0.60 x10E9/L 02/02/2023 2:11 PM [facility] Basophil Absolute 0.06 0.00 - 0.13 x10E9/L 02/02/2023 2:11 PM [facility] Blood BLOOD SPECIMEN / Unknown Lab Venipuncture / Unknown 02/02/2023 1:43 PM [employer] 02/02/2023 2:06 PM [employer] Talib Hunt MD LAB - HEMATOLOGY ORD ERABLES [facility] [address] [place] [address], [facility] [phone] * (ABNORMAL) COMPREHENSIVE METABOLIC PANEL (02/02/2023 1:43 PM [employer]) Only the most recent of2 resultswithin the time period is included. BUN 15 7 - 26 mg/dL 02/02/2023 2:31 PM [facility] Creatinine 0.76 0.71 - 1.16 mg/dL 02/02/2023 2:31 PM [facility] Sodium 143 136 - 145 mmol/L 02/02/2023 2:31 PM [facility] Potassium 3.8 3.5 - 4.5 mmol/L 02/02/2023 2:31 PM [facility] Chloride 104 98 - 107 mmol/L 02/02/2023 2:31 PM [facility] CO2 26 22 - 29 mmol/L 02/02/2023 2:31 PM [facility] Glucose 115 70 - 115 mg/dL 02/02/2023 2:31 PM [facility] Calcium 10.2 8.4 - 10.2 mg/dL 02/02/2023 2:31 PM [facility] Protein Total 7.5 6.0 - 8.3 g/dL 02/02/2023 2:31 PM [facility] Albumin 4.3 3.4 - 5.0 g/dL 02/02/2023 2:31 PM [facility] Bilirubin Total 0.3 0.2 - 1.2 mg/dL 02/02/2023 2:31 PM [facility] Alkaline Phosphatase 62 40 - 150 U/L 02/02/2023 2:31 PM [facility] ALT 30 5 - 55 U/L 02/02/2023 2:31 PM [facility] AST 21 5 - 34 U/L 02/02/2023 2:31 PM [facility] Anion Gap 13 6 - 16 02/02/2023 2:31 PM [facility] BUN/Creatinine Ratio 20 7 - 23 02/02/2023 2:31 PM [facility] Osmolality Calculated 298(H) 275 - 295 mOsm/kg 02/02/2023 2:31 PM [facility] Albumin/Globulin Ratio 1.3 1.1 - 2.3 02/02/2023 2:31 PM [facility] eGFR by CKD-EPI >90 >=90 mL/min/1.7 3 m2 02/02/2023 2:31 PM [facility] Blood BLOOD SPECIMEN / Unknown Lab Venipuncture / Unknown 02/02/2023 1:43 PM [employer] 02/02/2023 2:[address] [facility] Talib Hunt MD LAB - CHEMISTRY GA [facility] [address] [place] [address], [facility] [phone] * EKG 12-LEAD (02/02/2023 1:[address] [facility]) Only the most recent of2 resultswithin the time period is included. Ventricular Rate 85 BPM [facility] Atrial Rate 85 BPM [facility] P-R Interval 154 ms [facility] QRS Duration ms 94 ms [facility] Q-T Interval ms 364 ms [facility] QTC Calculation (Bezet) 433 ms [facility] Calculated P [place] 48 degrees [facility] Calculated R [place] 61 degrees [facility] Calculated T [place] 35 degrees [facility] Interpretation EKG NORMAL SINUS RHYTHM POSSIBLE LEFT ATRIAL ENLARGEMENT INCOMPLETE RIGHT BUNDLE BRANCH BLOCK BORDERLINE ECG WHEN COMPARED WITH ECG OF 01-SEP-2016 13:16, NO SIGNIFICANT CHANGE WAS FOUND Confirmed by ZENAIDA BETTS MD ([id number]) on 02/07/2023 9:17:12 AM [facility] 02/02/2023 1:05 PM [employer] 02/07/2023 9:17 AM [employer] Talib Hunt MD ECG ORDERABLES [facility] * IMAGING RADIOLOGY XRAY RESULTS ORDER (01/28/2023) Only the most recent of2 resultswithin the time period is included. Anatomical Region Laterality Modality Other 01/28/2023 Narrative 01/28/2023 Ordered by an unspecified provider. Scanned Document IMAGING * DERMATOPATHOLOGY (03/20/2019 12:00 AM [employer]) Case Report Dermatopathology Report Case: [id number] Authorizing Provider: Sloan Alfaro MD Collected: 03/20/2019 12:00 AM Ordering Location: [facility] Received: 03/22/2019 08:09 AM Pathologist: Destiny Graham MD Specimen: Skin, left mid back 0 2:09 PM [employer] DERMATOPATHOLOGY LABORATORY Final Diagnosis Specimen A. 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 [id number]. Check margins 0 2:09 PM [employer] DERMATOPATHOLOGY LABORATORY Gross Description Specimen A: Received is one formalin filled container labeled with the patient's name and designated left mid back. The specimen consists of a shave biopsy measuring 9x7x1 mm, inked. Jar 0. 0 2:[address] [facility] DERMATOPATHOLOGY LABORATORY Microscopic Description Specimen A. [...] margin of the specimen. 0 2:[address] [facility] DERMATOPATHOLOGY LABORATORY Disclaimer An external and internal positive and negative controls are appropriate for the histochemical, immunohistochemical and immunofluorescence stain(s) in this case (if any), except where stated explicitly. The performance characteristics of the stain(s) cited in this report were developed and its performance characteristic determined by the Dermatopathology Laboratory at [facility], directed by Dr. Christie Núñez. These tests need not be, and therefore are not, approved by the [place] Food and Drug Administration. The tests are used for clinical purposes. Billing Codes Specimen Charges Stain Charges 04368 1 0 2:[address] [facility] DERMATOPATHOLOGY LABORATORY Embedded Images 0 2:[address] [facility] DERMATOPATHOLOGY LABORATORY Pathology/Cytolog y TISSUE SPECIMEN FROM SKIN / Unknown 03/20/2019 03/22/2019 8:09 AM [employer] Sloan Alfaro MD LAB - PATHOLOGY/CYTO LOGY ORDERABLES DERMATOPATHOLOGY LABORATORY [facility] - Department of Dermatology [address] [place] [address], [address] Floor Lab [address] [phone] * MRI BRAIN WWO CONTRAST (02/12/2018 1:47 PM [employer]) Anatomical Region Laterality Modality Head Magnetic Resonan ce 02/13/2018 8:13 AM [employer] Impressions 02/13/2018 1:34 PM [employer] IMPRESSION: 1.Right occipital scalp soft tissue lesion measuring 10 x 6 x 6 mm as outlined. Clinical correlation recommended. 2.No evidence of intracranial metastatic disease or acute intracranial process. Dictated by Shelby Robin MD (vice president of product marketing). This report was approved by Shelby Robin on 02/13/2018 1:25 PM . I, Dr. MILTON MCGEE have personally reviewed and interpreted this examination/study. This report was electronically signed by MILTON MCGEE on 02/13/2018 1:34 PM . Narrative 02/13/2018 1:34 PM [employer] EXAMINATION: Magnetic resonance imaging (MRI) of the [...] intracranial process. Dictated by Shelby Robin MD (vice president of product marketing). This report was approved by Shelby Robin on 02/13/2018 1:25 PM . I, Dr. MILTON MCGEE have personally reviewed and interpreted this examination/study. This report was electronically signed by MILTON MCGEE on02/13/2018 1:34 PM . Talib Hunt MD MR ORDERABLES * CREATININE BLOOD - POCT (IP) [facility] (02/12/2018 12:50 PM [employer]) Creatinine POCT 1.04 0.3 - 1.3 mg/dL [facility] eGFR POCT 60 60 ml/min [facility] Blood BLOOD SPECIMEN / Unknown 02/12/2018 12:50 PM [employer] Talib Hunt MD LAB - POINT OF CARE ORDERABLES [facility] [address] [phone] * XR CHEST 2VW (01/06/2018 3:02 PM [employer]) Only the most recent of2 resultswithin the time period is included. Anatomical Region Laterality Modality Chest Radiographic Kerry ging 01/06/2018 3:03 PM [employer] Impressions 01/06/2018 4:42 PM [employer] IMPRESSION: No acute pulmonary process. No suspicious pulmonary nodules. Dictated by Nia Villegas MD (vice president of product marketing). This report was approved by Nia Villegas on 01/06/2018 4:[address] CHRISTINA Salcedo M.D. have personally reviewed and interpreted this examination/study. This report was electronically signed by CHRISTINA WILLSON M.D. on 01/06/2018 4:42 PM . Narrative 01/06/2018 4:42 PM [employer] EXAMINATION: XR CHEST 2VW HISTORY: C43.59: Melanoma [...] pulmonary nodules. Dictated by Nia Villegas MD (vice president of product marketing). This report was approved by Nia Villegas [...] CDT) Case Report Surgical Pathology Report Case: [id number] Authorizing Provider: Talib Hunt MD Collected: 09/09/2016 11:13 AM Ordering Location: [facility] Received: 09/09/2016 03:06 PM Pathologist: Nadege Bass MD Specimens: A) - Capulin Lymph Node, right axillary sentinol lymph node, stitch at hot spot B) - Back Mass, back melanoma, stitch at 12 o'clock C) - Back Mass, back melanoma inferior margin D) - Back Mass, back melanoma superior margin 09/15/2016 10:39 AM CDT [facility] Final Diagnosis Capulin lymph node, right axilla, excision: - No [...] of malignancy KL/scs 09/15/2016 10:39 AM CDT [facility] Clinical History Per the provided copy of the outside pathology report, the patient had a prior shave biopsy of A mid lower back malignant melanoma with a Breslow depth of 2.25 mm, 4 mitoses/mm^2, and no ulceration. The lesion reported extended to an inked deep and peripheral edge of the specimen. 09/15/2016 10:39 AM CDT [facility] Gross Description Received in formalin are [...] 6 o'clock. Section shows a yellow-angulo cut-surface. Telecom Engineer sections, including the entire lesion, are submitted [...] in cassette D1. ROB/chente 09/15/2016 10:39 AM [facility] Microscopic Description Histologic sections of the [...] show a focal melanocytic proliferation in C8. [place]-1 stain is performed and shows the lesion [...] evidence of malignancy. KL/scs 09/15/2016 10:39 AM [facility] Disclaimer All histochemical and/or immunohistochemical results are interpreted with controls that demonstrate appropriate staining reactions before reporting results. Note on use of immunocytochemistry reagents: This test was developed and its performance characteristic determined by [facility], Department of Laboratory Medicine. It has not been cleared or approved by the U.S. Food and Drug Administration (FDA). The FDA has determined that such clearance or approval is not necessary. The test is used for clinical purpose. It should not be regarded as investigational or for research. This laboratory is certified to perform high complexity testing. 09/15/2016 10:39 AM [facility] Embedded Images 09/15/2016 10:39 AM [facility] Pathology/Cytology SPECIMEN FROM SENTINEL LYMPH NODE [...] Hunt MD LAB - PATHOLOGY/CYTO LOGY ORDERABLES [facility] [address] [place] [address] * NM LYMPHOSCINTIGRAPHY (09/09/2016 10:10 AM [...] Provider LAB - CHEMISTRY O RDERABLES [facility] [address] [place] [address], [facility] Care Teams Towel Sewer Relationship Specialty Start Date End Date Og Tran, MEDICATION ADMINISTRATION PROFESSIONAL-COOK [employer]LED [employer]AT [address] [place] [phone] PCP - General 11/02/21
[2024-04-24 06:38] LABS: Glucose Point of Care 118 mg/dl (65-105)
[2024-04-24] MEDS: ACETAMINOPHEN 500 MG TABLET 1000 MG PO (06:45)
[2024-04-24] MEDS: TRANEXAMIC ACID 1,000MG/ISO100 1,000 MG/100 ML BAG 200 MG IVPB (06:45)
[2024-04-24] MEDS: LACTATED RINGERS 1,000 ML 30 ML IV CONT ×2 (06:45→09:59)
--- NOTE | 2024-04-24 06:51 | P.PNAN_ITS ---
Anes - Initial Pre Proc Eval Procedure: Operation Date: 04/24/24 07:30 Proposed Procedures p Left Reverse Total Shoulder Arthroplasty - German Freed MD Date/Time: 04/24/24 06:51 Surgeon: German Freed MD Pre Op Diagnosis: left shoulder rotator cuff arthropathy Patient Data Age: 69 Gender: M Height: 1.83 m Weight: 136 kg Last Vital Signs Temp 36.6 C 03/30/24 12:34 Resp 16 03/30/24 12:34 Pulse Ox 98 03/30/24 12:34 O2 Del Method Room Air 03/30/24 12:34 Allergies Allergy/AdvReac Type Severity Reaction Status Date / Time No Known Allergies Allergy Verified 04/03/24 15:50 Home Medications ?Medication ?Instructions ?Recorded ?Confirmed ?Type apixaban 5 mg tablet (Eliquis) 5 mg PO BID #180 tabs 07/06/23 04/04/24 Rx benazepril 20 mg tablet 20 mg PO DAILY #90 tabs 07/06/23 04/04/24 Rx cholecalciferol (vitamin D3) 125 125 mcg PO DAILY 07/06/23 04/04/24 History mcg (5,000 unit) capsule metformin 500 mg tablet,extended 500 mg PO DAILY #90 tabs 07/06/23 04/04/24 Rx release 24 hr omeprazole magnesium 20 mg 20 mg PO DAILY 07/06/23 04/04/24 History tablet,delayed release (Prilosec OTC) ezetimibe 10 mg tablet (Zetia) 10 mg PO DAILY 08/30/23 04/04/24 History diltiazem HCl 360 mg capsule,24 360 mg PO DAILY #90 caps 02/23/24 04/04/24 Rx hr,extended release loratadine-pseudoephedrine ER 10 1 tablet PO DAILY PRN allergy 04/14/24 Rx mg-240 mg tablet,extended symptoms #90 tabs [id number] (Loratadine-D) Laboratory Tests 04/24/24 04/24/24 06:31 06:36 POC Capillary Glucose 118 H mg/dl (65-105) Blood Type Pending Antibody Screen Pending Patient hx anesthesia problems: none Family hx anesthesia problems: none Results Review: All pre-operative results and documents have been reviewed as part of the pre- operative evaluation. [facility] Past Medical History Medical History (Updated 04/16/24 @ 17:04 by Nirali Moran MD) Monoclonal gammopathy Polyneuropathy Anxiety and depression Abnormal CT scan, head Family history of Parkinson disease Frequent falls Balance problem Cervical radiculitis Cervicalgia Left shoulder pain Dyslipidemia Chronic allergic rhinitis Prediabetes Anemia Onychomycosis IBS (irritable bowel syndrome) Hx of melanoma of skin back Heart disease Acid reflux Arthritis Hypertension Atrial fibrillation Family History Family History Mother Diabetes mellitus Hypertension Cerebrovascular accident Social History Social History Smoking packs per day: 0.5 Smoking cigarettes per day: 10.0 Years smoked: 15 Smoking pack-years: 7.50 Smoking status: Former smoker Smoking end date: 02/07/94 Alcohol intake: current Drinks per week: 4 Substance use: never Substance use type: marijuana Other substance usage details: daily smokes Marijuana Do You Feel Safe in your Home?: Yes Lack of Transportation: No Lack of Food: Never True Current Housing: I Have Housing Concerned About Future Housing: No Difficulty Paying Gas/Electric Bills: No Difficulty Paying for Meds: No Currently Unemployed: No Education: Associate Degree Difficulty w/ Childcare or Family Care: No Living arrangements: with family Additional living arrangements comments: Gender identity (if verbalized by the patient): Male Spiritual care concerns: No Anes - Eval Final PreProcedure Day of Procedure 04/24/24 06:51 Patient weight: morbidly obese Heart: regular rate and rhythm Lungs: clear to auscultation Airway: Mallampati scale class III Neurological: alert and oriented Last oral intake: >/= 8 hours ASA classification: III Emergent: no Anesthetic plan: proceed Anesthesia type and monitoring: general ETT and standard monitoring Results Review: All pre-operative results and documents have been reviewed as part of the pre- operative evaluation. Informed Consent: The patient's anesthetic plan and its attendant risks and benefits were discussed with the patient/family/POA. Questions were solicited and answers provided to the satisfaction of the patient/family/POA.
--- NOTE | 2024-04-24 07:19 | WPDHPUPDATE1 ---
History and Physical Update Update Date/Time: 04/24/24 07:19 History and Physical has been reviewed, including an updated exam of the patient. There are NO changes in the patient's condition. Risks, benefits, and alternatives have been discussed and questions answered. Patient agrees to proceed with procedure.
[2024-04-24] MEDS: ceFAZolin 3 GM/D5W 100 ML 100 ML IVPB (07:31)
--- NOTE | 2024-04-24 08:11 | WPDANESPNB ---
Anes - Peripheral Nerve Block Date/Time: 04/24/24 08:11 I have discussed with the patient/family/POA the placement of a peripheral nerve block for post-operative pain management, including associated risks, benefits, complications, and side effects. Alternative methods of post-operative analgesia were detailed. Questions were solicited and answers provided to the satisfaction of the patient/family/POA. Time-Out: A pre-procedural Time-Out was completed immediately before starting the procedure and confirmed: Patient Identification, Site, Procedure, Patient Position and the Availability of Requisite Equipment. Clinical Indications: Acute post-operative pain management requested by the operative surgeon. Nerve Block Insertion Note Anes-nerve block: interscalene left Patient position: supine Skin prep: chlorhexidine Needle: 22 gauge, stimulating, insulated echogenic needle. Needle length: 50 mm Technique: ultrasound Injectate: bupivacaine 0.5% with epi 5 mcg/ml (20cc- no epi) Observations: tolerated well Complications: none Procedure start time:: 722 Procedure end time:: 725
[2024-04-24] MEDS: SODIUM CHLORIDE 0.9% IV 37.7 ML, MORPHINE SULFATE INJ (*CRX) 2 MG, ROPivacaine HCL 1% 2... INFILTRATE (08:13)
[2024-04-24] MEDS: VANCOMYCIN HCL 1,000 MG VIAL 1000 MG TOPICAL (08:14)
[2024-04-24] MEDS: TRANEXAMIC ACID 1,000 MG/10 ML AMPUL 1000 MG IV PUSH (08:49)
--- NOTE | 2024-04-24 09:24 | P.OP_ITS ---
Procedure Note - Detailed Date of Procedure 04/24/24 Pre-op Diagnosis Left shoulder rotator cuff arthropathy Post-op Diagnosis Same Procedure Performed Reverse total shoulder arthroplasty, left Surgeon German Freed MD Development Eng Anca Jacobo PA-C Anesthesia General and Regional (Interscalene block.) Indications Massive recurrent rotator cuff tear. Findings Satisfactory bone quality. Large stature. 10 degree augment. Description of Procedure The patient was given an interscalene block in the preoperative area. Preoperative antibiotics were given. The patient was transferred to the operating room and a general anesthetic was administered. The beach chair position was used at 45 degrees. All bony prominences were padded. The head was carefully stabilized on the [facility] head concierge. A sterile prep and drape was performed in the usual manner with ChloraPrep. A longitudinal incision was created at the anterior shoulder just lateral to the deltopectoral interval. Hydrogen peroxide was placed on the incision and then rinsed after one minute. Careful dissection was performed to expose the interval and protect the cephalic vein. The vein was retracted medially. The upper border of the pectoralis was released. Anterior circumflex vessel branches were suture ligated. The biceps was tenodesed. A subscapularis tenotomy was performed. The inferior capsule was released, exposing the humeral head. Osteophytes were removed. Care was taken to stay on bone to protect the axillary nerve. The anatomic head cut was taken with the oscillating saw. The guide pin was placed, central drilling performed, and the broach trial inserted. The neck anteversion and inclination were carefully assessed. The cut protector was placed, and attention was turned to the glenoid. Retractors were placed. Releases were carried out for exposure. The subscapularis was mobilized, the inferior capsule and long head of triceps released, and the superior and middle glenohumeral ligaments released as well. Labral tissue was resected as needed. Version and inclination were corrected according to preoperative templating. The sizing template was used to assess the baseplate position low on the glenoid, with an approximate 3 degrees corrections of retroversion and 10 degrees of inclination. A guide pin was placed. Minimal reaming was used to accomplish a flat surface without violating the subchondral bone. The boss was drilled, and the real component was impacted into position. Supplemental locking screws were placed centrally, superiorly, and inferiorly. The glenosphere was impacted into the taper. The proximal humerus was reamed for the inset component. The humeral components were trialed. The real humeral stem, tray, and insert were impacted into position. The shoulder was copiously irrigated periodically with pulsatile lavage. The shoulder was reduced and stability confirmed. 1 gram of Vancomycin powder was placed in the joint. The biceps tenodesis was incorporated with the pectoralis tendon repair. The remaining tissue was closed with 2-0 Vicryl, 3-0 Stratafix and 4-0 Stratafix, and steri-strips. A sterile silver occlusive dressing and shoulder immobilizer were placed. The patient was transferred to the recovery room. Physician emergency veterinary assistant, Anca Jacobo PA-C, required for surgery; including patient positioning, draping, tissue retraction, maintaining instrument position, wound closure, and dressing placement. Implants Shoulder Innovations reverse TSA size 1 stem. +3 polyethylene insert. 10 augmented baseplate. 36 +6 mm glenosphere. Estimated Blood Loss 200 Drains No Pathology None sent Complications No immediate complications Condition Stable Disposition PACU [facility] Billing Surgery - Charge Forward: Surgery Billing
[2024-04-24 10:11] LABS: Glucose Point of Care 145 mg/dl (65-105)
[2024-04-24] MEDS: fentaNYL CITRATE INJ (*CRX) 100 MCG/2 ML VIAL 25 MCG IV PUSH ×8 (10:16→11:45)
[2024-04-24] MEDS: HYDROmorphone HCL INJ (*CRX) 1 MG/ML SYR 0.5 MG IV PUSH ×3 (12:01→12:48)
[2024-04-24 15:08] LABS: Basophils Absolute Auto 0.1 K/mm3 (0.0-0.1); Basophils Percent Auto 0.3 % (0.2-1.2); Hematocrit 48.3 % (42.0-52.0); Hemoglobin 16.1 g/dL (14.0-18.0); Immature Granulocyte Absolute 0.09 K/mm3 (0.00-0.031); Immature Granulocyte Percent A 0.5 % (0-0.5); Lymphocytes Absolute Auto 1.17 K/mm3 (0.9-3.2); Lymphocytes Percent Auto 6.5 % (18.3-44.2); Mean Corpuscular HGB Conc 33.3 g/dl (32-36); Mean Corpuscular Hemoglobin 29.4 pg (26-34); Mean Corpuscular Volume 88.1 fl (80-100); Mean Platelet Volume 9.2 fl (7.4-10.4); Monocytes Absolute Auto 0.5 K/mm3 (0.1-0.6); Monocytes Percent Auto 2.8 % (2.6-8.5); Neutrophils Absolute Auto 16.2 K/mm3 (1.3-6.7); Neutrophils Percent Auto 89.9 % (45.5-73.1); Platelet Count Result 296 k/mm3 (150-375); Red Blood Count 5.48 M/mm3 (4.6-6.20); Red Cell Distribution Width 12.9 % (11.5-14.5)
[2024-04-24 15:13] LABS: Anion Gap 14 mmol/L (4-12); Blood Urea Nitrogen 12 mg/dL (9-20); Calcium 9.5 mg/dL (8.4-10.2); Carbon Dioxide 21 mmol/L (22-30); Chloride 101 mmol/L (98-107); Estimated CRCL calculation 139 ml/min; Estimated Glomerular Filt Rate > 60; Glucose 152 mg/dL (65-110); Potassium 4.2 mmol/L (3.4-5.0); Sodium 136 mmol/L (137-145)
[2024-04-24] MEDS: ACETAMINOPHEN 325 MG TABLET 650 MG PO ×3 (16:19→23:32)
[2024-04-24] MEDS: ceFAZolin 2 GM/D5W 50 ML 2 GM/50 ML BAG IVPB ×2 (16:19→23:31)
[2024-04-24] MEDS: SODIUM CHLORIDE 0.9% IV 1,000 ML 125 ML IV CONT (16:19)
[2024-04-24] MEDS: ASPIRIN 81 MG ENTERIC TABLET PO (18:06)
[2024-04-24] MEDS: SENNA/DOCUSATE SODIUM TABLET 2 TAB PO (18:07)
[2024-04-25 03:21] VITALS: BP 128/90; PULSE 93; RESP 18; TEMP 36.8; O2SAT 98
[2024-04-25] MEDS: ACETAMINOPHEN 325 MG TABLET 650 MG PO (06:06)
[2024-04-25] MEDS: ceFAZolin 2 GM/D5W 50 ML 2 GM/50 ML BAG IVPB (06:07)
[2024-04-25 07:01] LABS: Basophils Percent Auto 0.2 % (0.2-1.2); Hematocrit 41.5 % (42.0-52.0); Hemoglobin 13.6 g/dL (14.0-18.0); Immature Granulocyte Absolute 0.06 K/mm3 (0.00-0.031); Immature Granulocyte Percent A 0.5 % (0-0.5); Lymphocytes Absolute Auto 2.02 K/mm3 (0.9-3.2); Lymphocytes Percent Auto 15.9 % (18.3-44.2); Mean Corpuscular HGB Conc 32.8 g/dl (32-36); Mean Corpuscular Hemoglobin 29.2 pg (26-34); Mean Corpuscular Volume 89.2 fl (80-100); Mean Platelet Volume 9.5 fl (7.4-10.4); Monocytes Absolute Auto 1.1 K/mm3 (0.1-0.6); Neutrophils Absolute Auto 9.5 K/mm3 (1.3-6.7); Neutrophils Percent Auto 74.4 % (45.5-73.1); Platelet Count Result 239 k/mm3 (150-375); Red Blood Count 4.65 M/mm3 (4.6-6.20); White Blood Count 12.7 K/mm3 (4.5-10.0)
[2024-04-25 07:07] LABS: Anion Gap 9 mmol/L (4-12); Blood Urea Nitrogen 15 mg/dL (9-20); Calcium 8.7 mg/dL (8.4-10.2); Carbon Dioxide 26 mmol/L (22-30); Chloride 101 mmol/L (98-107); Estimated CRCL calculation 145 ml/min; Estimated Glomerular Filt Rate > 60; Glucose 115 mg/dL (65-110); Potassium 3.8 mmol/L (3.4-5.0); Sodium 136 mmol/L (137-145)
[2024-04-25 07:31] VITALS: BP 107/85; PULSE 91; RESP 18; TEMP 36.2; O2SAT 97
[2024-04-25] MEDS: oxyCODONE/ACETAMINOPHEN (*CRX) 10-325 MG TABLET 1 TAB PO (08:47)
[2024-04-25] MEDS: SENNA/DOCUSATE SODIUM TABLET 2 TAB PO (08:51)
[2024-04-25] MEDS: dilTIAZem HCL CD 180 MG CAP.24HR 360 MG PO (08:51)
[2024-04-25] MEDS: lisinopriL 20 MG TABLET PO (08:51)
[2024-04-25] MEDS: polyethylene glycoL 3350 17 GM POWD.PACK PO (08:51)
[2024-04-25] MEDS: EZETIMIBE 10 MG TABLET PO (08:51)
[2024-04-25] MEDS: PANTOPRAZOLE 40 MG TABLET PO (08:52)
[2024-04-25] MEDS: ASPIRIN 81 MG ENTERIC TABLET PO (08:52)
[2024-04-25] MEDS: metFORMIN HCL XR 500 MG TAB.SR.24H PO (08:53)
== END 2024-04-25 10:10 | disposition home or self-care (01) ==
LOC: ANHSURGERY 07:20 → ANH3MEDSUR 13:47
PROVIDERS: Physician Assistant Surgical; PCP Nurse Practitioner Family; Visit Provider Orthopaedic Surgery
PROC: (CPT 23472; principal; 2024-04-24 07:30)
DX: M12.812 Other specific arthropathies, not elsewhere classified, left shoulder (principal); M25.712 Osteophyte, left shoulder; G89.18 Other acute postprocedural pain; E78.5 Hyperlipidemia, unspecified; D64.9 Anemia, unspecified; K58.9 Irritable bowel syndrome, unspecified; R73.03 Prediabetes; I11.9 Hypertensive heart disease without heart failure; K21.9 Gastro-esophageal reflux disease without esophagitis; I48.91 Unspecified atrial fibrillation; G89.29 Other chronic pain; G62.9 Polyneuropathy, unspecified; D47.2 Monoclonal gammopathy; F41.8 Other specified anxiety disorders; R26.89 Other abnormalities of gait and mobility; M54.12 Radiculopathy, cervical region; J30.89 Other allergic rhinitis; F12.90 Cannabis use, unspecified, uncomplicated; E66.01 Morbid (severe) obesity due to excess calories; Z68.41 Body mass index [BMI] 40.0-44.9, adult; Z91.81 History of falling; Z79.01 Long term (current) use of anticoagulants; Z79.84 Long term (current) use of oral hypoglycemic drugs; Z79.899 Other long term (current) drug therapy; Z87.891 Personal history of nicotine dependence; Z85.820 Personal history of malignant melanoma of skin; Z82.49 Family history of ischemic heart disease and other diseases of the circulatory system
CPT/HCPCS: 64415; 23472; 36415; 73030; 80048; 82948; 85025; 86850; 86900; 86901; 97110; 97161; 97165; 97530; 97535; A4565; A9270; C1776; J0171; J0690; J1100; J1171; J1885; J2250; J2270; J2405; J2704; J2795; J3010; J3370; J7030; J7120

== ENCOUNTER 2024-05-07 09:46 | Outpatient (CLI) | payer OTHER, SELFPAY ==
[2024-05-07 10:07] LABS: Basophils Absolute Auto 0.1 K/mm3 (0.0-0.1); Basophils Percent Auto 0.7 % (0.2-1.2); Eosinophils Absolute Auto 0.2 K/mm3 (0-0.3); Eosinophils Percent Auto 1.8 % (0-4.4); Hemoglobin 14.3 g/dL (14.0-18.0); Immature Granulocyte Absolute 0.06 K/mm3 (0.00-0.031); Immature Granulocyte Percent A 0.6 % (0-0.5); Lymphocytes Absolute Auto 2.69 K/mm3 (0.9-3.2); Lymphocytes Percent Auto 25.8 % (18.3-44.2); Mean Corpuscular HGB Conc 33.3 g/dl (32-36); Mean Corpuscular Hemoglobin 29.2 pg (26-34); Mean Corpuscular Volume 87.8 fl (80-100); Mean Platelet Volume 8.5 fl (7.4-10.4); Monocytes Absolute Auto 0.7 K/mm3 (0.1-0.6); Monocytes Percent Auto 6.6 % (2.6-8.5); Neutrophils Absolute Auto 6.7 K/mm3 (1.3-6.7); Neutrophils Percent Auto 64.5 % (45.5-73.1); Platelet Count Result 368 k/mm3 (150-375); Red Cell Distribution Width 13.2 % (11.5-14.5); White Blood Count 10.4 K/mm3 (4.5-10.0)
--- OUTSIDE RECORDS SUMMARY | 2024-05-07 10:40 | XMS_ITS | Encounter Summary ---
Author Organization [facility] Facility Care Team Providers Care Body Worker Name Role Phone Alanna Rhodes MD Primary Care Provider + Rosy Alexander NP Primary Care Provider [phone] Encounter Details Date Type Department Care Team (Latest Contact Info) Description 01/13/2015 Orders Only [facility] CLINCONV ProviderGiselle MD [address] [place] [id number] Social History Tobacco Use Types Packs/Day Years Used Date Smoking Tobacco: Never Assessed Sex and Gender Information Value Date Recorded Sex Assigned at Not on file Legal Sex Male 5:43 PM BOTTLE HOP Gender Identity Not on file Sexual Orientation Not on file documented as of this encounter Plan of Treatment Not on file documented as of this encounter Procedures Procedure Name Priority Date/Time Associated Diagnosis Comments SCAN - LABS 03/04/2016 12:00 AM BOTTLE HOP documented in this encounter Results * SCAN - LABS (03/04/2016 12:00 AM BOTTLE HOP) Narrative 03/04/2016 12:00 AM BOTTLE HOP Ordered by an unspecified provider. Historical Provider Final Res ult documented in this encounter Visit Diagnoses Not on filedocumented in this encounter Care Teams Body Worker Relationship Specialty Start Date End Date Alanna Rhodes MD PCP - General 06/12/18 02/08/24 Rosy Alexander NP [address] [address] PCP - General Family Medicine 02/09/24 documented as of this encounter
--- OUTSIDE RECORDS SUMMARY | 2024-05-07 10:40 | XMS_ITS | Clinical Summary ---
Author Organization [facility] Address [address] [place] [address] Care Team Providers Care Supervisor Brake Repair Name Role Phone Benjamin Rosy GRACE Primary Care Provider [phone] Allergies No known active allergies Medications No known medications Encounters Date Type Department Care Team Description 02/09/2024 3:11 PM RFID STRATEGIST - 02/09/2024 7:59 PM RFID STRATEGIST Emergency [facility] Emergency Department [address] [place] [address] Dinesh Abreu MD Near syncope (Primary [...] on file Legal Sex Male 5:43 PM RFID STRATEGIST Gender Identity Not on file Sexual Orientation Not on file Last Filed Vital Signs Vital Sign Reading Time Taken Comments Blood Pressure 122/96 02/09/2024 7:36 PM RFID STRATEGIST Pulse 78 02/09/2024 7:36 PM RFID STRATEGIST Temperature 36.4 C (97.6 F) 02/09/2024 3:20 PM RFID STRATEGIST Respiratory Rate 17 02/09/2024 7:36 PM RFID STRATEGIST Oxygen Saturation 98% 02/09/2024 7:36 PM RFID STRATEGIST Inhaled Oxygen Concentration - - Weight 136.1 kg (300 lb) 02/09/2024 3:20 PM RFID STRATEGIST Height 182.9 cm (6') 02/09/2024 3:20 PM RFID STRATEGIST Body Mass Index 40.69 02/09/2024 3:20 PM RFID STRATEGIST Plan of Treatment Health Maintenance Due Date [...] Comments URINE CULTURE STAT 02/09/2024 7:40 PM RFID STRATEGIST URINALYSIS, MICROSCOPIC ONLY STAT 02/09/2024 5:16 PM RFID STRATEGIST URINALYSIS AND REFLEX TO MICROSCOPIC AND CULTURE STAT 02/09/2024 5:16 PM RFID STRATEGIST EGFR STAT 02/09/2024 3:25 PM RFID STRATEGIST DIFFERENTIAL AUTO STAT 02/09/2024 3:2 5 PM RFID STRATEGIST COMPREHENSIVE METABOLIC PANEL STAT 02/09/2024 3:25 PM RFID STRATEGIST CBC WITH AUTO DIFFERENTIAL STAT 02/09/2024 3:25 PM RFID STRATEGIST ECG 12-LEAD STAT 02/09/2024 3:22 PM RFID STRATEGIST POCT GLUCOSE DEVICE Routine 02/09/2024 3 :[address] ABDOMEN PELVIS W WO CONTRAST Schedule Routine, Read Routine (OP Routine) 06/12/2018 8:26 AM CDT Other specified disorders of kidney and ureter from Last 3 Months or Most Recently Relevant to Health Maintenance Results * Urine culture Urine, bladder (02/09/2024 7:40 PM RFID STRATEGIST) Report Final Report: No growth Comment:Testing performed by : [facility], [address] [place] [address]., [id number] Urine, bladder 02/09/2024 7: 40 PM RFID STRATEGIST 02/10/2024 3:01 AM RFID STRATEGIST Narrative [facility] - 02/12/2024 4:00 AM RFID STRATEGIST Indications for Culture:->Recent positive UA Dinesh Abreu MD LAB MICROBIOLOGY - GEN ERAL ORDERABLES Final Result [address] Department [place] [address] * (ABNORMAL) Urinalysis reflex to microscopic and culture Urine (02/09/2024 5:16 PM RFID STRATEGIST) Color, ur Yellow Yellow Clarity, ur Clear Clear [facility] Specific gravity, ur 1.025 1.003 - 1.030 [facility] pH, urine 6.0 [facility] Comment: Interpretive Data U rine pH is affected by diet, medications, systemic acid-base disturbances, and renal tubular function. pH may affect urinary stone formation. For example, urine pH below 6.0 may help reduce the tendency for calcium phosphate stones and pH greater than 6.0 may reduce the tendency for uric acid stone formation. Source: [place] [employer] Current Interpretive Data was last revised on 2017 Protein, ur ql Trace Negative [facility] Glucose, ur ql Negative Negative [facility] Ketones, ur Negative Negative [facility] Bilirubin, ur Negative Negative [facility] Blood, ur Negative Negative [facility] Urobilinogen, ur <2.0 <2.0 mg/dL [facility] Nitrite, ur Negative Negative [facility] Leukocyte esterase, ur 1+(A) Negative [facility] UA reflex comment Reflex to microscopic UA will be performed. [facility] Urine 02/09/2024 5:16 PM RFID STRATEGIST 02/09/2024 5:25 PM RFID STRATEGIST Dinesh Abreu MD LAB MICROBIOLOGY - GEN ERAL ORDERABLES Final Result Performing Organization Address [facility] Co de Phone Number [address] Department [place] [address] * (ABNORMAL) Urinalysis, microscopic only (02/09/2024 5:16 PM RFID STRATEGIST) WBC, ur 6-10(A) 0 - 5 /HPF RBC, ur 3-5(A) 0 - 2 /HPF [facility] Bacteria, ur Trace(A) [facility] Culture Reflex Comment Reflex conditions for urine culture (WBC >10) not met. [facility] Urine 02/09/2024 5:16 PM RFID STRATEGIST 02/09/2024 5:25 PM RFID STRATEGIST Dinesh Abreu MD LAB URINE ORDERABLES F inal Result Performing Organization Address [facility] de Phone Number [address] [place] [address] * eGFR (02/09/2024 3:25 PM RFID STRATEGIST) eGFR >90 >=60 mL/min/1. 73 m2 Comment: [...] last reviewed 2020. Blood 02/09/2024 3:25 PM RFID STRATEGIST 02/09/2024 3:30 PM RFID STRATEGIST us iDnesh Abreu MD LAB BLOOD ORDERABLES F inal Result [address] Department [place] [address] * (ABNORMAL) Differential, auto (02/09/2024 3:25 PM RFID STRATEGIST) Neutrophil abs 6.2 1.5 - 6.5 K/cumm [...] revised on 2017. Monocyte pct 5.9 % [facility] Comment: Interpretive Data Percent cell count reference ranges are not reported, since discordance with absolute values may lead to misinterpretation of CBC data. Current Interpretive Data was last revised on 2017. Eosinophil pct 1.0 % [facility] Comment: Interpretive Data Percent cell count reference ranges are not reported, since discordance with absolute values may lead to misinterpretation of CBC data. Current Interpretive Data was last revised on 2017. Basophil pct 0.7 % [facility] Comment: Interpretive Data Percent cell count reference ranges are not reported, since discordance with absolute values may lead to misinterpretation of CBC data. Current Interpretive Data was last revised on 2017. Blood 02/09/2024 3:25 PM RFID STRATEGIST 02/09/2024 3:30 PM RFID STRATEGIST us Dinesh Abreu MD LAB BLOOD ORDERABLES F inal Result [address] Department [place] [address] * (ABNORMAL) CBC with auto differential (02/09/2024 3:25 PM RFID STRATEGIST) WBC 11.0(H) 3.8 - 9.9 K/cumm Hgb 16.8 13.0 - 17.5 g/dL [facility] Hct 51.1(H) 38.9 - 50.3 % [facility] Plt 268 150 - 400 K/cumm [facility] MPV 9.4 9.1 - 12.3 fL [facility] RBC 5.67 4.30 - 5.80 M/cumm [facility] MCV 90.1 81.3 - 96.4 fL [facility] MCH 29.6 27.1 - 33.3 pg [facility] MCHC 32.9 32.3 - 35.7 g/dL [facility] RDW CV 12.9 11.1 - 14.9 % [facility] RDW SD 42.3 35.7 - 48.1 fL [facility] NRBC abs 0.00 0.00 - 0.01 K/cumm [facility] Blood 02/09/2024 3:25 PM RFID STRATEGIST 02/09/2024 3:30 PM RFID STRATEGIST us Dinesh Abreu MD LAB BLOOD ORDERABLES F inal Result [facility] [address] [facility] [place] [address] * (ABNORMAL) Comprehensive metabolic panel (02/09/2024 3:25 PM RFID STRATEGIST) Sodium 139 135 - 145 mmol/L Potassium, pl 4.0 3.3 - 4.9 mmol/L [facility] Chloride 103 97 - 110 mmol/L [facility] CO2 21(L) 22 - 32 mmol/L [facility] Anion gap 15 2 - 15 mmol/L [facility] BUN 21 6 - 25 mg/dL [facility] Creatinine 0.78(L) 0.80 - 1.30 mg/dL [facility] Glucose 123 70 - 199 mg/dL [facility] Comment: Interpretive Data Fasting glucose >/= 126 [...] 2022. Calcium 9.9 8.5 - 10.3 mg/dL [facility] Bilirubin, total 0.2 0.1 - 1.2 mg/dL [facility] Protein, pl 7.1 6.5 - 8.5 g/dL [facility] Albumin 4.3 3.5 - 5.0 g/dL [facility] Alk phos 62 40 - 130 Units/L [facility] ALT 47 7 - 55 Units/L [facility] AST 35 10 - 50 Units/L [facility] Comment:Hemolysis may falsel y increase results. Use caution when interpreting hemolyzed results. Blood 02/09/2024 3:25 PM RFID STRATEGIST 02/09/2024 3:30 PM RFID STRATEGIST Dinesh Abreu MD LAB BLOOD ORDERABLES F inal Result Performing Organization Address [facility] de Phone Number [address] Department [place] [address] * ECG 12 lead (02/09/2024 3:22 PM RFID STRATEGIST) 02/09/2024 3:22 PM RFID STRATEGIST Narrative [facility] - 02/13/2024 3:33 PM RFID STRATEGIST Vent Rate: 82 bpm RR Interval: 724 msec [place] Interval: 151 msec QRS Duration: 110 msec QT Interval: 371 msec QTC Interval: 410 msec P-R-T [place]: 35 - 57 - 32 degrees IMPRESSION: SINUS RHYTHM WITH SINUS ARRHYTHMIA INCOMPLETE RIGHT BUNDLE BRANCH BLOCK BORDERLINE ECG Electronically Signed By: Sai Goddard DO Dinesh Abreu MD ECG ORDERABLES Final Result Performing Organization Address [facility] de Phone Number [facility] * POCT glucose (02/09/2024 3:14 PM RFID STRATEGIST) [facility] Signature Glucose, POC 117 70 - 199 mg/dL Blood 02/09/2024 3:14 PM RFID STRATEGIST 02/09/2024 3:14 PM RFID STRATEGIST Notinfile Unknown LAB POCT ORDERABLES - DEVICE F inal Result Performing Organization Address [facility] Co de Phone Number [address] Department [place] [address] * CT Abdomen Pelvis W WO Contrast (06/12/2018 8:26 AM CDT) Anatomical Region Laterality Modality Body N/A Computed Tomogra phy 06/12/2018 9:30 AM CDT Impressions 06/12/2018 10:01 AM CDT Bilateral renal cysts as noted Electronically signed by: Samuel Klein M.D. [facility] 06/12/2018 10:01 AM CDT RESULT: CT ABDOMEN [...] Most Recently Relevant to Health Maintenance Insurance [place] [id number] [facility] CHOICE PLUS [facility] CHOICE PLUS Care Teams Supervisor Brake Repair Relationship Specialty Start Date End Date Rosy Alexander NP [address] [id number] PCP - General Family Medicine 02/09/24
--- OUTSIDE RECORDS SUMMARY | 2024-05-07 10:40 | XMS_ITS | Clinical Summary ---
Author Organization [facility] Address [facility] [place] [address] Care Team Providers Care Medical Dir Name Role Phone Jose Alberto Toth MD Unavailable [phone] Rosy Alexander Primary Care Provider [phone] Allergies Active Allergy Reactions Criticality Noted Date [...] Problem Noted Date Diagnosed Date Atrial fibrillation ([facility]) 02/27/2018 Hypertensive disorder 02/27/2018 Diabetes mellitus ([facility]) 02/27/2018 Dyslipidemia 02/27/2018 Palpitations Encounters Date Type Department Care Team Description 02/29/2024 3:00 PM SHRINK PIT OPERATOR Office Visit [facility] [place] [address] [place] [address] Jose Alberto Toth MD Atrial Fibrillation; Palpitations; Hypertension; Lipids; Follow Up 02/29/2024 Travel 02/09/2024 Scan [facility] [address] [place] [address] Scanned, Doc Pccl from Last 3 Months Immunizations Name Administration [...] Sex Assigned at Male 02/23/2022 1:56 PM SHRINK PIT OPERATOR Legal Sex Male 5:08 PM CDT Gender Identity Male 03/23/2021 4:31 AM SHRINK PIT OPERATOR Sexual Orientation Straight 03/23/2021 4: 31 AM SHRINK PIT OPERATOR Last Filed Vital Signs Vital Sign Reading Time Taken Comments Blood Pressure 108/80 02/29/2024 2:55 PM SHRINK PIT OPERATOR Pulse 76 02/29/2024 2:55 PM SHRINK PIT OPERATOR Temperature 36.6 C (97.8 F) 04/17/2019 6:50 AM CDT Respiratory Rate 15 04/17/2019 11:00 AM CDT Oxygen Saturation 98% 02/29/2024 2:55 PM SHRINK PIT OPERATOR Inhaled Oxygen Concentration - - Weight 137.4 kg (303 lb) 02/29/2024 2:55 PM SHRINK PIT OPERATOR Height 182.9 cm (6') 02/29/2024 2:55 PM SHRINK PIT OPERATOR Body Mass Index 41.09 02/29/2024 2:55 PM SHRINK PIT OPERATOR Plan of Treatment Upcoming Encounters Date Type Department Care Team (Late st Contact Info) Description 08/22/2024 3:00 PM CDT [facility] [place] [place] [address] Jose Alberto Toth MD [facility]. [address] [place], [place] [id number] Health Maintenance Due Date Last Done Comments Kidney Health Evaluation 1955 Hemoglobin A1C 1955 Pneumococcal Vaccine: 65+ Years (1 of 2 - PCV) 1961 Diabetes: Retinopathy Eye Exam 1973 Hepatitis C 1973 Zoster Vaccines (1 of 2) 2005 RSV Immunization or 60+ Years (1 - Risk 60-74 years 1-dose series) 2015 COVID-19 Vaccine ( - season) 2023 Influenza Adult (#1) 2023 12/13/2016, [...] (10/01/2019) us Documents Scanned SCANNING Final Result [facility] from Last 3 Months or Most Recently Relevant to Health Maintenance Insurance [facility] Care Teams Medical Dir Relationship Specialty Start Date End Date Rosy Alexander APNP [address] [place] [id number] PCP - General Nurse Practitioner Family 08/17/23 Jose Alberto Toth MD [facility] [address] [place] [address] Spiro Gang Worker CARDIOVASCULAR DISEASE 05/09/19
--- OUTSIDE RECORDS SUMMARY | 2024-05-07 10:40 | XMS_ITS | Referral Summary ---
Author Organization [facility] Address [address] [place] [address] Care Team Providers Care Maintenance Director Name Role Phone Rosy Alexander NP Primary Care Provider [phone] Encounters Date Type Department Care Team Description 02/09/2024 3:11 PM ENGINEERING TEAM SUPERVISOR - 02/09/2024 7:59 PM ENGINEERING TEAM SUPERVISOR Emergency [facility] Emergency Department [address] [place] [address] Dinesh Abreu MD Near syncope (Primary [...] on file Legal Sex Male 5:43 PM ENGINEERING TEAM SUPERVISOR Gender Identity Not on file Sexual Orientation Not on file Last Filed Vital Signs Vital Sign Reading Time Taken Comments Blood Pressure 122/96 02/09/2024 7:36 PM ENGINEERING TEAM SUPERVISOR Pulse 78 02/09/2024 7:36 PM ENGINEERING TEAM SUPERVISOR Temperature 36.4 C (97.6 F) 02/09/2024 3:20 PM ENGINEERING TEAM SUPERVISOR Respiratory Rate 17 02/09/2024 7:36 PM ENGINEERING TEAM SUPERVISOR Oxygen Saturation 98% 02/09/2024 7:36 PM ENGINEERING TEAM SUPERVISOR Inhaled Oxygen Concentration - - Weight 136.1 kg (300 lb) 02/09/2024 3:20 PM ENGINEERING TEAM SUPERVISOR Height 182.9 cm (6') 02/09/2024 3:20 PM ENGINEERING TEAM SUPERVISOR Body Mass Index 40.69 02/09/2024 3:20 PM ENGINEERING TEAM SUPERVISOR Plan of Treatment Not on file Procedures Procedure Name Priority Date/Time Associated Diagnosis Comments URINE CULTURE STAT 02/09/2024 7:40 PM ENGINEERING TEAM SUPERVISOR URINALYSIS, MICROSCOPIC ONLY STAT 02/09/2024 5:16 PM ENGINEERING TEAM SUPERVISOR URINALYSIS AND REFLEX TO MICROSCOPIC AND CULTURE STAT 02/09/2024 5:16 PM ENGINEERING TEAM SUPERVISOR EGFR STAT 02/09/2024 3:25 PM ENGINEERING TEAM SUPERVISOR DIFFERENTIAL AUTO STAT 02/09/2024 3:2 5 PM ENGINEERING TEAM SUPERVISOR COMPREHENSIVE METABOLIC PANEL STAT 02/09/2024 3:25 PM ENGINEERING TEAM SUPERVISOR CBC WITH AUTO DIFFERENTIAL STAT 02/09/2024 3:25 PM ENGINEERING TEAM SUPERVISOR ECG 12-LEAD STAT 02/09/2024 3:22 PM ENGINEERING TEAM SUPERVISOR POCT GLUCOSE DEVICE Routine 02/09/2024 3 :14 [address]ING TEAM SU[address]VIS[address] CT ABDOMEN PELVIS W WO CONTRAST Schedule Routine, Read Routine (OP Routine) 06/12/2018 8:26 AM CDT Other specified disorders of kidney and ureter from Last 3 Months or Most Recently Relevant to Health Maintenance Results * Urine culture Urine, bladder (02/09/2024 7:40 PM ENGINEERING TEAM SUPERVISOR) Report Final Report: No growth Comment:Testing performed by : [facility], [facility], [place]., [address] Urine, bladder 02/09/2024 7: 40 PM ENGINEERING TEAM SUPERVISOR 02/10/2024 3:01 AM ENGINEERING TEAM SUPERVISOR Narrative [facility] - 02/12/2024 4:00 AM ENGINEERING TEAM SUPERVISOR Indications for Culture:->Recent positive UA us Dinesh Abreu MD LAB MICROBIOLOGY - GEN ERAL ORDERABLES Final Result [facility] [address] [place] [address] * (ABNORMAL) Urinalysis reflex to microscopic and culture Urine (02/09/2024 5:16 PM ENGINEERING TEAM SUPERVISOR) Color, ur Yellow Yellow Clarity, ur Clear Clear [facility] Specific gravity, ur 1.025 1.003 - 1.030 [facility] pH, urine 6.0 [facility] Comment: Interpretive Data U rine pH is affected by diet, medications, systemic acid-base disturbances, and renal tubular function. pH may affect urinary stone formation. For example, urine pH below 6.0 may help reduce the tendency for calcium phosphate stones and pH greater than 6.0 may reduce the tendency for uric acid stone formation. Source: [facility] Current Interpretive Data was last revised on 2017 Protein, ur ql Trace Negative [facility] Glucose, ur ql Negative Negative [facility] Ketones, ur Negative Negative [facility] Bilirubin, ur Negative Negative [facility] Blood, ur Negative Negative [facility] Urobilinogen, ur <2.0 <2.0 mg/dL [facility] Nitrite, ur Negative Negative [facility] Leukocyte esterase, ur 1+(A) Negative [facility] UA reflex comment Reflex to microscopic UA will be performed. [facility] Urine 02/09/2024 5:16 PM ENGINEERING TEAM SUPERVISOR 02/09/2024 5:25 PM ENGINEERING TEAM SUPERVISOR us Dinesh Abreu MD LAB MICROBIOLOGY - GEN ERAL ORDERABLES Final Result [facility]ERT[address] Department [place] [address] * (ABNORMAL) Urinalysis, microscopic only (02/09/2024 5:16 PM ENGINEERING TEAM SUPERVISOR) WBC, ur 6-10(A) 0 - 5 /HPF RBC, ur 3-5(A) 0 - 2 /HPF [facility] Bacteria, ur Trace(A) [facility] Culture Reflex Comment Reflex conditions for urine culture (WBC >10) not met. [facility] Urine 02/09/2024 5:16 PM ENGINEERING TEAM SUPERVISOR 02/09/2024 5:25 PM ENGINEERING TEAM SUPERVISOR Dinesh Abreu MD LAB URINE ORDERABLES F inal Result Performing Organization Address [facility] Co de Phone Number [address] [place] [address] * eGFR (02/09/2024 3:25 PM ENGINEERING TEAM SUPERVISOR) Pathologist [facility] eGFR >90 >=60 mL/min/1. 73 m2 Comment: [...] last reviewed 2020. Blood 02/09/2024 3:25 PM ENGINEERING TEAM SUPERVISOR 02/09/2024 3:30 PM ENGINEERING TEAM SUPERVISOR Dinesh Abreu MD LAB BLOOD ORDERABLES F inal Result Performing Organization Address City/[facility] Co de Phone Number [address] [place] [address] * (ABNORMAL) Differential, auto (02/09/2024 3:25 PM ENGINEERING TEAM SUPERVISOR) Neutrophil abs 6.2 1.5 - 6.5 K/cumm Imm gran abs 0.0 0.0 - 0.1 K/cumm [facility] Lymphocyte abs 3.9(H) 0.8 - 3.3 K/cumm [facility] Monocyte abs 0.7 0.2 - 0.8 K/cumm [facility] Eosinophil abs 0.1 0.0 - 0.5 K/cumm [facility] Basophil abs 0.1 0.0 - 0.1 K/cumm [facility] Neutrophil pct 56.3 % [facility] Comment: Interpretive Data Percent cell count reference ranges are not reported, since discordance with absolute values may lead to misinterpretation of CBC data. Current Interpretive Data was last revised on 2017. Imm gran pct 0.3 % [facility] Comment: Interpretive Data Percent cell count reference ranges are not reported, since discordance with absolute values may lead to misinterpretation of CBC data. Current Interpretive Data was last revised on 2017. Lymphocyte pct 35.8 % [facility] Comment: Interpretive Data Percent cell count reference ranges are not reported, since discordance with absolute values may lead to misinterpretation of CBC data. Current Interpretive Data was last revised on 2017. Monocyte pct 5.9 % [facility] Comment: Interpretive Data Percent cell count reference ranges are not reported, since discordance with absolute values may lead to misinterpretation of CBC data. Current Interpretive Data was last revised on 2017. Eosinophil pct 1.0 % [facility] Comment: Interpretive Data Percent cell count reference ranges are not reported, since discordance with absolute values may lead to misinterpretation of CBC data. Current Interpretive Data was last revised on 2017. Basophil pct 0.7 % [facility] Comment: Interpretive Data Percent cell count reference ranges are not reported, since discordance with absolute values may lead to misinterpretation of CBC data. Current Interpretive Data was last revised on 2017. Blood 02/09/2024 3:25 PM ENGINEERING TEAM SUPERVISOR 02/09/2024 3:30 PM ENGINEERING TEAM SUPERVISOR Dinesh Abreu MD LAB BLOOD ORDERABLES F inal Result Performing Organization Address [facility] Co de Phone Number [address] Department [place] [address] * (ABNORMAL) CBC with auto differential (02/09/2024 3:25 PM ENGINEERING TEAM SUPERVISOR) [facility] WBC 11.0(H) 3.8 - 9.9 K/cumm Hgb 16.8 13.0 - 17.5 g/dL [facility] Hct 51.1(H) 38.9 - 50.3 % [facility] Plt 268 150 - 400 K/cumm [facility] MPV 9.4 9.1 - 12.3 fL [facility] RBC 5.67 4.30 - 5.80 M/cumm [facility] MCV 90.1 81.3 - 96.4 fL [facility] MCH 29.6 27.1 - 33.3 pg [facility] MCHC 32.9 32.3 - 35.7 g/dL [facility] RDW CV 12.9 11.1 - 14.9 % [facility] RDW SD 42.3 35.7 - 48.1 fL [facility] NRBC abs 0.00 0.00 - 0.01 K/cumm [facility] Blood 02/09/2024 3:25 PM ENGINEERING TEAM SUPERVISOR 02/09/2024 3:30 PM ENGINEERING TEAM SUPERVISOR Dinesh Abreu MD LAB BLOOD ORDERABLES F inal Result Performing Organization Address [facility]/ZIP Co de Phone Number [address] Department [place] [address] * (ABNORMAL) Comprehensive metabolic panel (02/09/2024 3:25 PM ENGINEERING TEAM SUPERVISOR) [facility] Sodium 139 135 - 145 mmol/L Potassium, pl 4.0 3.3 - 4.9 mmol/L [facility] Chloride 103 97 - 110 mmol/L [facility] CO2 21(L) 22 - 32 mmol/L [facility] Anion gap 15 2 - 15 mmol/L [facility] BUN 21 6 - 25 mg/dL [facility] Creatinine 0.78(L) 0.80 - 1.30 mg/dL [facility] Glucose 123 70 - 199 mg/dL [facility] Comment: Interpretive Data Fasting glucose >/= [...] 2022. Calcium 9.9 8.5 - 10.3 mg/dL [facility] Bilirubin, total 0.2 0.1 - 1.2 mg/dL [facility] Protein, pl 7.1 6.5 - 8.5 g/dL [facility] Albumin 4.3 3.5 - 5.0 g/dL [facility] Alk phos 62 40 - 130 Units/L [facility] ALT 47 7 - 55 Units/L [facility] AST 35 10 - 50 Units/L [facility] Comment:Hemolysis may falsel y increase results. Use caution when interpreting hemolyzed results. Blood 02/09/2024 3:25 PM ENGINEERING TEAM SUPERVISOR 02/09/2024 3:30 PM ENGINEERING TEAM SUPERVISOR us Dinesh Abreu MD LAB BLOOD ORDERABLES F inal Result [facility] [address] [facility] Department [place] [address] * ECG 12 lead (02/09/2024 3:22 PM ENGINEERING TEAM SUPERVISOR) 02/09/2024 3:22 PM ENGINEERING TEAM SUPERVISOR Narrative [facility] - 02/13/2024 3:33 PM ENGINEERING TEAM SUPERVISOR Vent Rate: 82 bpm RR Interval: 724 msec CA Interval: 151 msec QRS Duration: 110 msec QT Interval: 371 msec QTC Interval: 410 msec P-R-T [place]: 35 - 57 - 32 degrees IMPRESSION: SINUS RHYTHM WITH SINUS ARRHYTHMIA INCOMPLETE RIGHT BUNDLE BRANCH BLOCK BORDERLINE ECG Electronically Signed By: Sai Goddard DO us Dinesh Abreu MD ECG ORDERABLES Final Result [facility] * POCT glucose (02/09/2024 3:14 PM ENGINEERING TEAM SUPERVISOR) Glucose, POC 117 70 - 199 mg/dL Blood 02/09/2024 3:14 PM ENGINEERING TEAM SUPERVISOR 02/09/2024 3:14 PM ENGINEERING TEAM SUPERVISOR us Notinfile Unknown LAB POCT ORDERABLES - DEVICE F inal Result ALBERTO [address] Department of Laboratories [place] [id number] * CT Abdomen Pelvis W WO Contrast [...] Most Recently Relevant to Health Maintenance Insurance [facility] CHOICE PLUS [facility] CHOICE PLUS Care Teams Maintenance Director Relationship Specialty Start Date End Date Rosy Alexander NP [address] [address] PCP - General Family Medicine 02/09/24
--- OUTSIDE RECORDS SUMMARY | 2024-05-07 10:40 | XMS_ITS | Encounter Summary ---
Author Organization [facility] Facility Care Team Providers Care Supervising Bailiff Name Role Phone Alanna Rhodes MD Primary Care Provider + Rosy Alexander NP Primary Care Provider [phone] Encounter Details Date Type Department Care Team (Latest Contact Info) Description 02/20/2015 Orders Only [facility] ProviderGiselle MD [address] [place] [address] Social History Tobacco Use Types Packs/Day Years Used Date Smoking Tobacco: Never Assessed Sex and Gender Information Value Date Recorded Sex Assigned at Not on file Legal Sex Male 5:43 PM EQUIPMENT LEAD Gender Identity Not on file Sexual Orientation Not on file documented as of this encounter Plan of Treatment Not on file documented as of this encounter Procedures Procedure Name Priority Date/Time Associated Diagnosis Comments CARDIOLOGY REPORT 03/04/2016 12: 00 AM EQUIPMENT LEAD documented in this encounter Results * CARDIOLOGY REPORT (03/04/2016 12:00 AM EQUIPMENT LEAD) Anatomical Region Laterality Modality Other Narrative 03/04/2016 12:00 AM EQUIPMENT LEAD Ordered by an unspecified provider. Historical Provider [facility] DESIREE GREENWOOD Final Result documented in this encounter Visit Diagnoses Not on filedocumented in this encounter Care Teams Supervising Bailiff Relationship Specialty Start Date End Date Alanna Rhodes MD PCP - General 06/12/18 02/08/24 Rosy Alexander NP [address] [address] PCP - General Family Medicine 02/09/24 documented as of this encounter
--- OUTSIDE RECORDS SUMMARY | 2024-05-07 10:40 | XMS_ITS | Encounter Summary ---
Author Organization [facility] Address [address] [place] [address] Care Team Providers Care Timber Setter Name Role Phone Alanna Rhodes MD Primary Care Provider [phone] Jose Alberto Toth MD Unavailable [phone] Rosy Alexander Primary Care Provider [phone] Encounter Details Date Type Department Care Team (Late Contact Info) Description 10/07/2020 Abstract [facility], [address] [address] Jenifer Lujan MA Social History Tobacco Use Types Packs/Day Years Used Date Smoking Tobacco: Never Smokeless Tobacco: Never Alcohol Use Standard Drinks/Week Comments Yes 0 (1 standard drink = 0.6 oz pur e alcohol) ocassionally Sex and Gender Information Value Date Recorded Sex Assigned at Male 02/23/2022 1:56 PM TELEPHONE CLEANER Legal Sex Male 5:08 PM CDT Gender Identity Male 03/23/2021 4:31 AM TELEPHONE CLEANER Sexual Orientation Straight 03/23/2021 4: 31 AM TELEPHONE CLEANER COVID-19 Exposure Response Date Recorded In the last month, have you been in contact with someone who was confirmed or suspected to have Coronavirus / COVID-19? No / Unsure 09/23/2020 8:32 AM CDT documented as of this encounter Plan of Treatment Upcoming Encounters Date Type Department Care Team (Late Contact Info) Description 08/22/2024 3:00 PM CDT Office Visit [facility] [facility], [address] [address] Jose Alberto Toth MD [facility]. [facility] [address] [place], [place] [id number] documented as of this encounter Procedures Procedure [...] * CBC (OUTSIDE LAB) (10/07/2020) Pathologist [facility] WBC 8.5 HGB 16.1 HCT 48.5 PLT 241 10/07/2020 us Doc [facility] Abstract LAB-OUTSIDE/ABSTRACTED Final Result * LIPID PANEL (10/07/2020) Pathologist [facility] CHOLESTEROL 157 HDL 40 TRIGLYCERIDES 143 DIRECT LDL 77 10/07/2020 us Doc [facility] Abstract LABORATORY Final Result * (ABNORMAL) COMPREHENSIVE METABOLIC PANEL (10/07/2020) Pathologist [facility] SODIUM S/P/B 137 POTASSIUM S/P/B 4.0 CO2 [...] on filedocumented in this encounter Care Teams Timber Setter Relationship Specialty Start Date End Date Alanna Rhodes MD [address] [place] [address] [place] [address] PCP - General FAMILY PRACTICE 04/06/19 08/16/23 Rosy Alexander APNP [address] [place] [id number] PCP - General Nurse Practitioner Family 08/17/23 Jose Alberto Toth MD [address] [address] [employer] Conservator CARDIOVASCULAR DISEASE 05/09/19 documented as of this encounter
--- OUTSIDE RECORDS SUMMARY | 2024-05-07 10:40 | XMS_ITS | Clinical Summary ---
Author Organization [facility] Address [address] [facility] [address] Care Team Providers Care Director Of Special Services Name Role Phone Unavailable Primary Care Provider Unavailabl e Allergies No known active allergies Medications ezetimibe (ZETIA) 10 mg tablet Take 10 mg by mouth daily. 08/25/2023 Active dilTIAZem (TIAZAC) 360 mg Extended Release capsule 02/24/2024 Active benazepriL (LOTENSIN) 20 mg tablet Take by mouth daily. Active apixaban (Eliquis) 5 mg tablet Take 5 mg by mouth 2 times daily. 03/01/2022 Active metFORMIN (GLUCOPHAGE XR) 500 mg Extended Release 24 hour tablet Take 500 mg by mouth daily with breakfast. Active loratadine (CLARITIN) 10 mg tablet Take 10 mg by mouth daily. Active CALCIUM CARBONATE-VITAMI N D3 ORAL Take by mouth. Active iron/folic ac/vit Bcomp,C/min (B JUAYIMZ-X-IDY-FE -FA ORAL) Take by mouth. Active Active Problems No known active problems Encounters Date Type Department Care Team Description 05/07/2024 9:15 AM CDT Office Visit [facility] Oncology and Hematology - [place] [address] [facility] [address] [address] Ernesto Turner MD Plasma cell disorder (Primary Dx) from Last 3 Months Family History * Patient is adopted Medical History Relation Name Comments No Known Problems Child No Known Problems Father No Known Problems Mother No Known Problems Sister Relation Name Status Comments Child Alive Father Mother Sister Alive Social History Tobacco Use Types Packs/Day Years Used Date Smoking Tobacco: Never Smokeless Tobacco: Never Alcohol Use Standard Drinks/Week Comments Yes 0 (1 standard drink = 0.6 oz pur e alcohol) Occasionally Sex and Gender Information Value Date Recorded Sex Assigned at Not on file Legal Sex Male 4:26 PM CDT Gender Identity Not on file Sexual Orientation Not on file Last Filed Vital Signs Vital Sign Reading Time Taken Comments Blood Pressure 113/72 05/07/2024 9:01 AM CDT Pulse 70 05/07/2024 9:01 AM CDT Temperature 35.9 C (96.7 F) 05/07/2024 9:01 AM CDT Respiratory Rate 15 05/07/2024 9:01 AM CDT Oxygen Saturation 96% 05/07/2024 9:01 AM CDT Inhaled Oxygen Concentration - - Weight 137.3 kg (302 lb 9.6 oz) 05/07/2024 9:01 AM CDT Height 182.9 cm (6') 05/07/2024 9:01 AM CDT Body Mass Index 41.04 05/07/2024 9:01 AM CDT Plan of Treatment Upcoming Encounters Date Type Department Care Team (Late st Contact Info) Description 05/21/2024 9:45 AM CDT Office Visit [facility] Oncology and Hematology - [place] [address] [place] [address] [facility] [address] [place] [address] Ernesto Turner MD [address] [facility] [address] [place] [address] Health Maintenance Due Date Last Done Comments FIT-DNA Q 3 years 2000 FIT/FOBT Q 1 year 2000 Flex Sig/CT Colonography Q 5 years 2000 PNEUMOCOCCAL VACCINE 50+ YEARS (1 of 1 - PCV) 03/19/19 06 ZOSTER VACCINE (1 of 2) 2005 INFLUENZA VACCINE (#1) 2023 12/13/2016 Preventative Visit- Commercial 02/08/2024 DTAP/TDAP/TD VACCINES (2 - Td or Tdap) 03/29/2029 COLORECTAL SCREENING 09/30/2029 10/01/2019 Colorectal Cancer Screening 09/30/2029 RSV VACCINE (60+ or ) (1 - 1-dose 75+ series) 2030 Insurance [facility] [id number]
--- OUTSIDE RECORDS SUMMARY | 2024-05-07 10:40 | XMS_ITS | Encounter Summary ---
Author Organization [facility] Address [address] [facility] [place] [address] Care Team Providers Care Centrifuge Operator Name Role Phone TranOg HOMICIDE SQUAD LIEUTENANT-MAINTENANCE REPRESENTATIVE Primary Care Provider Encounter Details Date Type Department Care Team (Late st Contact Info) Description 03/22/2019 Lab Requisition [facility] Care DermPath Lab [address] [facility] [place] [id number] Sloan Alfaro MD [address] [facility] [place] [address] Social History Tobacco Use Types [...] Comments DERMATOPATHOLOGY Routine 03/20/2019 12:0 0 AM RESIDENTIAL MORTGAGE MANAGER documented in this encounter Results * DERMATOPATHOLOGY (03/20/2019 12:00 AM RESIDENTIAL MORTGAGE MANAGER) Case Report Dermatopathology Report Case: [id number] Authorizing Provider: Sloan Alfaro MD Collected: 03/20/2019 12:00 AM Ordering Location: [facility] Care DermPath Lab Received: 03/22/2019 08:09 AM Pathologist: Destiny Graham MD Specimen: Skin, left mid back 0 2:09 PM [facility] DERMATOPATHOLOGY LABORATORY Final Diagnosis Specimen A. 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 [id number]. Check margins 0 2:09 PM RESIDENTIAL MORTGAGE MANAGER DERMATOPATHOLOGY LABORATORY Gross Description Specimen A: Received is one formalin filled container labeled with the patient's name and designated left mid back. The specimen consists of a shave biopsy measuring 9x7x1 mm, inked. Jar 0. 0 2:09 PM [facility] DERMATOPATHOLOGY LABORATORY Microscopic Description Specimen A. SKIN, [...] of the specimen. 0 2:09 PM [facility] DERMATOPATHOLOGY LABORATORY Disclaimer An external and internal positive and negative controls are appropriate for the histochemical, immunohistochemical and immunofluorescence stain(s) in this case (if any), except where stated explicitly. The performance characteristics of the stain(s) cited in this report were developed and its performance characteristic determined by the Dermatopathology Laboratory at [facility], directed by Dr. Christie Núñez. These tests need not be, and therefore are not, approved by the [place] Food and Drug Administration. The tests are used for clinical purposes. Billing Codes Specimen Charges Stain Charges 17818 1 0 2:09 PM [facility] DERMATOPATHOLOGY LABORATORY Embedded Images 0 2:09 PM [facility] DERMATOPATHOLOGY LABORATORY Pathology/Cytolog y TISSUE SPECIMEN FROM SKIN / Unknown 03/20/2019 03/22/2019 8:09 AM RESIDENTIAL MORTGAGE MANAGER Sloan Alfaro MD LAB - PATHOLOGY/CYTO LOGY ORDERABLES DERMATOPATHOLOGY LABORATORY [facility] - Department of Dermatology [address] [facility] 5th Floor Lab [address] [phone] documented in this encounter Visit Diagnoses Not on filedocumented in this encounter Care Teams Centrifuge Operator Relationship Specialty Start Date End Date Og Tran, HOMICIDE SQUAD LIEUTENANT-MAINTENANCE REPRESENTATIVE [address] [place] [phone] PCP - General 11/02/21 documented as of this encounter
--- OUTSIDE RECORDS SUMMARY | 2024-05-07 10:40 | XMS_ITS | Encounter Summary ---
Author Organization [facility] [employer] [facility] Address [address] [place] [address] Care Team Providers Care Facilities Specialist Name Role Phone Unavailable Primary Care Provider Unavailabl e Reason for Referral * Radiology Services (Routine) - Authorized Specialty Diagnoses / Procedures Referred By Contac t Referred To Contact Diagnoses Plasma cell disorder Procedures XR BONE SURVEY COMPLETE Ernesto Turner MD [address] [facility] [employer] [address] [place] [phone] Phone: tel: fax: Referral ID Status Reason Start Date Expiration Date V isits Requested Visits Authorized [id number] Authorized 05/07/2024 06/07/2025 1 1 Reason for Visit * Reason Comments Establish Care Encounter Details Date Type Department Care Team (Late st Contact Info) Description 05/07/2024 9:15 AM CDT Office Visit [facility] Oncology and Hematology - [place] [address] [place] [address] [facility] [address] [place] [address] [place] [address] [place], [place] [address] [address] [place] [id number] Plasma cell disorder (Primary Dx) Social History Tobacco Use Types Packs/Day Years [...] on file documented as of this encounter Last Filed Vital Signs Vital Sign Reading [...] Mass Index 41.04 05/07/2024 9:01 AM CDT documented in this encounter Progress Notes * Ernesto Turner MD - 05/07/2024 9:19 AM CDT PlanHematology-oncology consult Note Requesting Physician Nirali Moran MD Primary Care Physician No primary care provider on file. Problem list There is no problem list on file for this patient. Previous TREATMENT ? Measurable Disease ? Reason for Visit Kentrell Javier is a 69 y.o. male who was referred for consultation for plasma cell disorder. History of present illness This is a pleasant 69-year-old obese male with history of borderline diabetes, atrial fibrillation, hypertension, hyperlipidemia and melanoma status post surgery referred to me for abnormalserum protein electrophoresis and immunofixation testing. Patient fell and hit his head. He had CT scan performed that showed old stroke. He has been dealing with some balance issues and was seen by the neurologist. Workup done by the neurologist revealed IgG kappa monoclonal band on the serum immunofixation on April 06, 2024. He has been dealing with some peripheral neuropathy involving the hands and feet along with arthralgia and pain involving the neck. He has achiness all over. He deniesany recent weight changes. He lost 100 pound weight 2 years ago while he was on Mounjaro but ddkjel27 pound weight after discontinuation. He denies any other new complaint. Past Medical History No past medical history on file. Atrial fibrillation Hypertension Hyperlipidemia History of melanoma status post excision from the back lesion. Surgical History Past Surgical History: Procedure Laterality Date HX SHOULDER REPLACEMENT 2024 Medications Current Outpatient Medications Medication Sig Dispense Refill ezetimibe (ZETIA) 10 mg tablet Take 10 mg by mouth daily. dilTIAZem (TIAZAC) 360 mg Extended Release capsule apixaban (Eliquis) 5 mg tablet Take 5 mg by mouth 2 times daily. CALCIUM CARBONATE-VITAMIN D3 ORAL Take by mouth. iron/folic ac/vit Bcomp,C/min (B [id number] ORAL) Take by mouth. benazepriL (LOTENSIN) 20 mg tablet Take by mouth daily. metFORMIN (GLUCOPHAGE XR) 500 mg Extended Release 24 hour tablet Take 500 mg by mouth daily with breakfast. loratadine (CLARITIN) 10 mg tablet Take 10 mg by mouth daily. No current facility-administered medications for this visit. Allergies No Known Allergies Immunizations: There is no immunization history on file for this patient. Family History Family History Adopted: Yes Problem Relation Name Age of Onset No Known Problems Father No Known Problems Mother No Known Problems Sister No Known Problems Child Social History Social History Tobacco Use Smoking status: Never Smokeless tobacco: Never Substance Use Topics Alcohol use: Yes Comment: Occasionally Review of Systems Constitutional: Patient did not mention fever; no night sweats; no anorexia; no weight loss; no fatique NEENT: Patient did not mention headache; no change in vision; no change in hearing; no sore throat;no dysphagia Respiratory: Patient did not mention shortness of breath; no pleuritic chest pain; no cough; no hemoptysis Cardiac: Patient did not mention cardiac-like chest pain; no palpitations; no orthopnea; no PND; noDOE Breasts: Patient did not mention tenderness; no masses GI: Patient did not mention abdominal pain; no nausea; no vomiting; no diarrhea; no hematochezia; no melena : Patient did not mention dysuria; no frequency; no hesitancy; no hematuria FIREBRICK LAYER: Musculosketetal: Patient did not mention bone pain; neck arthralgia; no joint swelling; no myalgia; Skin: Patient did not mention pruritis; no rash; no petechiae; no ecchymoses Endocrine: Patient did not mention polydipsia; no polyuria; no unusual weight gain Neuro: Patient did not mention headache; no change in vision; peripheral neuropathy involving the hands and feet; no muscle weakness; no confusion; no seizures Psych: Patient did not mention anxiety; no depression; Physical Exam Vitals: As per nursing note Constitutional: Well developed, well nourished, no acute distress, non-toxic appearance Teeth and gum. No signs of infection or swelling. Eyes: PERRL, conjunctiva normal HEENT: Atraumatic, external ears normal, nose normal, oropharynx moist, no pharyngeal exudates. no sinus tenderness Neck- normal range of motion, no tenderness, supple Respiratory: No respiratory distress, normal breath sounds, no rales, no wheezing Cardiovascular: Normal rate, normal rhythm, no murmurs, no gallops, no rubs GI: Soft, nondistended, normal bowel sounds, nontender, no splenomegaly, no hepatomegaly, no mass, no rebound, no guarding : No costovertebral angle tenderness Musculoskeletal: No edema, no tenderness, no deformities. Back- no tenderness Integument: Well hydrated, no rash, Digits and nails inspection normal Lymphatic: No lymphadenopathy noted Neurologic: Alert & oriented x 3, CN 2-12 normal, normal motor function, normal sensory function, no focal deficits noted Psychiatric: Speech and behavior appropriate ? labs No results found for this or any previous visit (from the past 24 hours). Labs from April 06, 2024 showed IgG kappa monoclonal band present on the serum immunofixation creatinine 0.6 platelet 254,000 WBC 10.6 hemoglobin 17.1 Pathology ? Imaging & Other Studies Performance Status? Assessment / Plan: ? Plasma cell disorder. Patient is a pleasant 69-year-old obese male with history of melanoma, atrial fibrillation, hypertension, hyperlipidemia had a recent fall in November 2023 leading to the injury to the head and the left shoulder. He also has been dealing with frequent falls as well asbalance changes. He was seen by the neurologist and workup done including serum immunofixation showed IgG monoclonal band present. Clinically has been dealing with some peripheral neuropathy involving the hands and feet along with some generalized arthralgia mainly the neck arthralgia. I have discussed these labs and possibility of plasma cell disorder like multiple myeloma versus MGUS in detail.I will order the workup that will include CBC with differential, CMP, serum protein electrophoresiswith immunofixation, quantitative immunoglobulin and serum free light chain studies along with skeletal survey. Based on the finding will decide about bone marrow aspiration and biopsy. I have answered all the questions to patient and the satisfaction. Follow-up with me in 2 weeks. Type 2 diabetes. He is on metformin. Atrial fibrillation. He is on Eliquis. Hyperlipidemia. He is on Zetia. Thank you very much for allowing me to participate in Kentrell Javier's evaluation and management. Please feel free to contact if I can be of any further assistance in your patient???s care requiring hematology or oncology evaluation. Sincerely, ? ? Ernesto Turner M.D. cell TOBACCO COUNSELING He is not a tobacco/nicotine user. Ernesto Turner MD ,05/07/2024 10:02 AM ? Total time spent 60 minutes, two third of the total time spent counseling patient [id number]. CC:?Nirali Moran MD documented in this encounter Plan of Treatment Upcoming Encounters Date Type Department Care Team (Late st Contact Info) Description 05/21/2024 9:45 AM CDT Office Visit [facility] Oncology and Hematology - [place] [address] [facility] [address] [place] [address] Ernesto Turner MD [address] [facility] [address] [place] [address] Scheduled Orders Name Type Priority Associated Diagnoses Orde r Schedule CBC WITH DIFFERENTIAL Lab Stat Plasma cell disorder Expected: 05/07/2024, Expires: 05/07/2025 COMPREHENSIVE METABOLIC PANEL Lab Stat Plasma cell disorder Expected: 05/07/2024, Expires: 05/07/2025 IMMUNOGLOBULINS IGG IGA IGM Lab Routine Plasma cell disorder Expected: 05/07/2024, Expires: 05/07/2025 KAPPA/LAMBDA, FREE LIGHT CHAINS Lab Routine Plasma cell disorder Expected: 05/07/2024, Expires: 05/07/2025 PROTEIN ELECTROPHORESIS W/REFLEX,SERUM Lab Routine Plasma cell disorder Expected: 05/07/2024, Expires: 05/07/2025 XR BONE SURVEY COMPLETE Imaging Routine Plasma cell disorder 1 Occurrences starting 05/07/2024 until 05/07/2025 documented as of this encounter Visit Diagnoses Diagnosis Plasma cell disorder- Primary Other specified disease of white blood cells documented in this encounter
--- OUTSIDE RECORDS SUMMARY | 2024-05-07 10:41 | XMS_ITS | Clinical Summary ---
Author Organization [facility] Address [address] [place] [address] Care Team Providers Care Clinical Project Coordinator Name Role Phone Og Tran APRN-MOISTURE CONDITIONER OPERATOR Primary Care Provider Source Comments [facility],non-owned Affiliates and Associated Physician Practices is amultiple site organization consisting of ambulatory clinics and hospital sitesin [place], [place], [place] and [place]. This disclosure is being madepursuant to the Care Everywhere program and may not contain all information available regarding this patient. Last updated 17.[facility] Allergies Active Allergy Reactions Criticality Noted Date Comments Adhesive Sensitivity Swelling Low 09/27/2016 Gabapentin Psychiatric Medium 03/25/2021 Hmg-Coa-R Inhibitors Myalgias High 04/17/2019 Medications * Be aware that medications may not be up to date on this document. Alwaysverify current medications with the patient. Medication Sig Dispensed Refills Start Date End Date Status fluticasone propionate (FLONASE) 50 MCG/ACT nasal spray Victoria 2 (two) sprays into each nostril once daily Active dilTIAZem ER (TIAZAC) 360 MG capsule Take 1 (one) capsule by mouth once daily Active benazepril (LOTENSIN) 20 MG tablet Take by mouth once daily Active hydroCHLOROthiazide (MICROZIDE) 12.5 MG capsule Take 1 (one) capsule by mouth once daily Active Cholecalciferol (VITAMIN D3) 82408 UNITS TABS Active Eliquis 5 MG tablet [...] Comments Blood Pressure 118/81 02/21/2023 2:05 PM BICYCLE MECHANIC Pulse 77 02/21/2023 2:05 PM BICYCLE MECHANIC Temperature 36.8 C (98.2 F) 02/21/2023 2:05 PM BICYCLE MECHANIC Respiratory Rate 9 02/08/2023 9:45 AM BICYCLE MECHANIC Oxygen Saturation 97% 02/21/2023 2:05 PM BICYCLE MECHANIC Inhaled Oxygen Concentration - - Weight 128.1 kg (282 lb 4.8 oz) 02/08/2023 6:46 AM BICYCLE MECHANIC Height 182.9 cm (6') 02/21/2023 2:05 PM BICYCLE MECHANIC Body Mass Index 38.29 02/08/2023 6:46 AM BICYCLE MECHANIC Plan of Treatment Health Maintenance Due Date [...] COMPREHENSIVE METABOLIC PANEL Routine 02/02/2023 1:43 PM BICYCLE MECHANIC Mass of scalp from Last 3 Months or Most Recently Relevant to Health Maintenance Results * (ABNORMAL) COMPREHENSIVE METABOLIC PANEL (02/02/2023 1:43 PM BICYCLE MECHANIC) BUN 15 7 - 26 mg/dL 02/02/2023 2:31 PM [facility] Creatinine 0.76 0.71 - 1.16 mg/dL 02/02/2023 2:31 PM [facility] Sodium 143 136 - 145 mmol/L 02/02/2023 2:31 PM [facility] Potassium 3.8 3.5 - 4.5 mmol/L 02/02/2023 2:31 PM [facility] Chloride 104 98 - 107 mmol/L 02/02/2023 2:31 PM [facility] CO2 26 22 - 29 mmol/L 02/02/2023 2:31 PM [facility] Glucose 115 70 - 115 mg/dL 02/02/2023 2:31 PM [facility] MECH[facility] Calcium 10.2 8.4 - 10.2 mg/dL 02/02/2023 2:31 PM [facility] Protein Total 7.5 6.0 - 8.3 g/dL 02/02/2023 2:31 PM [facility] Albumin 4.3 3.4 - 5.0 g/dL 02/02/2023 2:31 PM [facility] Bilirubin Total 0.3 0.2 - 1.2 mg/dL 02/02/2023 2:31 PM [facility] Alkaline Phosphatase 62 40 - 150 U/L 02/02/2023 2:31 PM [facility] ALT 30 5 - 55 U/L 02/02/2023 2:31 PM [facility] AST 21 5 - 34 U/L 02/02/2023 2:31 PM [facility] Anion Gap 13 6 - 16 02/02/2023 2:31 PM [facility] BUN/Creatinine Ratio 20 7 - 23 02/02/2023 2:31 PM [facility] Osmolality Calculated 298(H) 275 - 295 mOsm/kg 02/02/2023 2:31 PM [facility] Albumin/Globulin Ratio 1.3 1.1 - 2.3 02/02/2023 2:31 PM [facility] eGFR by CKD-EPI >90 >=90 mL/min/1.7 3 m2 02/02/2023 2:31 PM [facility] Blood BLOOD SPECIMEN / Unknown Lab Venipuncture / Unknown 02/02/2023 1:43 PM BICYCLE MECHANIC 02/02/2023 2:06 PM BICYCLE MECHANIC Talib Hunt MD LAB - CHEMISTRY [facility] [address] [place] [address], [facility] [phone] from Last 3 Months or Most Recently Relevant to Health Maintenance Care Teams Clinical Project Coordinator Relationship Specialty Start Date End Date Og Tran, GARLAND MACHINE OPERATOR-MOISTURE CONDITIONER OPERATOR [address] [place] [phone] PCP - General 11/02/21
--- OUTSIDE RECORDS SUMMARY | 2024-05-07 10:41 | XMS_ITS | Data Portability ---
Author Organization [facility], Main Office Address [address] [place] [address] Care Team Providers Care Grab Jack Worker Name Role Phone KG GONZALEZ Primary Care Provider [phone] KG GONZALEZ Referring Provider [phone] Assessment No assessment recorded. Plan of Treatment Reminders Order Date Submit Date Provider Last Modified By Organization Details Last Modified Time Details Appointments None recorded. Lab None recorded. Referral None recorded. Procedures None recorded. Surgeries None recorded. Imaging None recorded. Medication Orders phentermine 37.5 mg capsule 2022 023 [facility], [address], [place], [address], 3 16:30:12 phentermine 15 mg capsule 2022 023 [facility], 5 Yess[address]osey, [place], [address], 3 17:02:24 fluticasone propionate 50 mcg/actuati on nasal spray,suspe nsion 2022 023 [facility], [address] [place], [address], 3 16:48:27 Loratadine- D 10 mg-240 mg tablet,exte nded release 24 hr 2022 023 [facility], [address] [place], [address], 3 16:48:29 Wegovy 0.25 mg/0.5 mL subcutaneou s pen injector 2022 023 [facility], [address]osey, [place], [address], 3 16:48:26 Eliquis 5 mg tablet 2022 023 [facility], [address]y, [place], [address], 3 17:04:20 Mounjaro 5 mg/0.5 mL subcutaneou s pen injector [address] [place] [address] Pharmacy 4878, [address] Yess[address] Posey, [place], [address], 3 17:42:07 Mounjaro 7.5 mg/0.5 mL subcutaneou s pen injector [address] [place] [address] Pharmacy 4878, [address] Yess[address] Posye, [place], [address], 3 13:21:35 Patient TargetsNo targets recorded. Patient InstructionsNo instructions recorded. Reason for Referral None Reported. Results Created Date Observation Date Name Description Value Unit Range Abnormal Flag Note LastModifiedBy Organization Detail LastModifiedTime 01/29/20 23 01/28/2023 XR, chest No observ ation record ed. [id number] [facility] [address], [place], [address], 06/17/2023 17:51:50 Result Notes None recorded. Problems Name Problem SNOMED Code Status Onset Date Resolution Date Notes Provider Name and Address Organization Details Recorded Time Dupuytren' s disease of palm, nodules with no contractur e 114869820 Active 2021 Not Available [facility] 3 20:39:32 Renal mass 634521216 Active 2018 Not Available [facility] 3 20:39:32 Dyslipidem ia 771263296 Active 2018 Not Available [facility] 3 20:39:32 Hypertensi ve disorder 85333728 Active 2018 Not Available [facility] 3 20:39:32 Atrial fibrillati on 09252235 Active 2018 Not Available [facility] 3 20:39:32 Essential hypertensi on 61953935 Active 2020 Not Available [facility] 3 20:39:32 Diabetes mellitus 22934572 Active 2018 Not Available [facility] 3 20:39:32 Seasonal allergy 706825315 Active 2022 ASHIA Bautista [address], [place], [address] , [email or web address] 3 13:42:10 Hyperglyce alfonzo due to type 2 diabetes mellitus 0644824288358 09 Active 2022 SALTY Perez [address], [address], [place], [address] , [email or web address] 3 15:46:08 Obesity 709354083 Active 2022 ISAC Sidhu [address], [place], [address] , [email or web address] 3 16:20:08 Problem Notes None recorded. Procedures Surgical History None recorded. Imaging Results Imaging Date Name Status LastModified by Organiz ation Details LastModified Time 01/28/2023 XR, chest completed [email or web address] [place] [address] [facility] [address], [place], [address], 06/17/2023 17:51:50 Procedure Notes None recorded. Medical Equipment None Reported. Allergies Allergen ID Allergen Name Allergen Category Reaction Reaction Severity Criticality Documentation Date Start Date Code Code System Note Provider Name and Address Organization Details Recorded Time 79112 Product containin g 3-hydroxy -3-methyl glutaryl- coenzyme A reductase inhibitor (product) medicatio n Not available Not available Not available 04/07/2022 65611 009 SNOMED pain Not Available [facility] 3 20:40:35 Medications Name Sig Start Date [...] Updated DateTime 3 185.42 cm 37.5 kg/m2 201078. 23 g 97.1 [degF] 76 /min 93 % 93 % 110 mm[Hg] 68 mm[Hg] PATRICIA Weinstein [facility] 3 16:34:39 Date Recorded Body height Body mass index (BMI) Body weight Body temperature Heart rate Oxygen saturation Oxygen saturation in Arterial blood by Pulse oximetry Systolic blood pressure Diastolic blood pressure Provider Name and Address Organization Details Last Updated DateTime 3 185.42 cm 35.2 kg/m2 751051. 16 g 98.9 [degF] 82 /min 96 % 96 % 118 mm[Hg] 78 mm[Hg] [facility] 3 17:10:47 Date Recorded Body height Body mass index (BMI) Body weight Body temperature Oxygen saturation Oxygen saturation in Arterial blood by Pulse oximetry Heart rate Systolic blood pressure Diastolic blood pressure Provider Name and Address Organization Details Last Updated DateTime 3 185.42 cm 35.1 kg/m2 489418. 57 g 97.9 [degF] 96 % 96 % 108 /min 122 mm[Hg] 68 mm[Hg] Luci Alexander CMA [facility] 3 15:58:45 Date Recorded Body height Body mass index (BMI) Body weight Body temperature Heart rate Oxygen saturation Oxygen saturation in Arterial blood by Pulse oximetry Systolic blood pressure Diastolic blood pressure Provider Name and Address Organization Details Last Updated DateTime 3 185.42 cm 36.4 kg/m2 185469. 49 g 98.3 [degF] 77 /min 93 % 93 % 122 mm[Hg] 72 mm[Hg] Justyna Sullivan LPN [place] [employer] [facility] 3 16:45:41 Date Recorded Body height Body mass index (BMI) Body weight Body temperature Oxygen saturation Oxygen saturation in Arterial blood by Pulse oximetry Heart rate Systolic blood pressure Diastolic blood pressure Provider Name and Address Organization Details Last Updated DateTime 3 185.42 cm 37.2 kg/m2 179976. 05 g 97.2 [degF] 94 % 94 % 91 /min 128 mm[Hg] 90 mm[Hg] Erna Smiley RN [facility] 3 15:59:44 Social History Question Answer Notes LastModified by Organizat ion Details LastModified Time Tobacco Smoking Status Former Smoker Lillie Tim RN [facility], [facility] 05/21/2022 15:35:51 What Is Your Level Of [...] Anxious, Or Unable To Sleep At Night)? [id number] [email or web address] Information not available 06/09/2022 Do You Use Any Illicit Or Recreational Drugs? Yes [email or web address] Information not available 05/21/2022 Sex: Unknown Functional [...] SNOMED-CT Code Diagnosis ICD10 Code Diagnosis Note [id number] [address] [address] 01/27/2021 00:00:00 01/27/2021 17:14:[id number] [address] 11/13/2021 00:00:00 11/13/2021 18:16:22 [id number] SALTY Perez [address] [address] 05/21/2022 15:25:56 05/21/2022 17:26:10 Hyperglycemia due to type 2 diabetes mellitus 3035561985 82007 E11.65 Unknown status.Dis cussed need for regular exercise, increase intake of water/vege tables/fib er. Decrease intake of carbs, especially white rice/pasta /flour/leodan ad/sugar.W ill check labs and start on metformin 500mg ER daily.Will also give trial of Mounjaro 2.5mg weekly. [id number] SALTY Perez [address] [address] 06/09/2022 16:28:17 06/09/2022 17:27:44 Hyperglycemia due to type 2 diabetes mellitus 1739711276 45590 E11.65 Improved with starting MounjaroA1 C 5.7 [...] dose. Patient in formed - test result [id number] Z71.2 Reviewed lab results with patient. Discussed abnormal levels and treatment recommenda tions as above.chol esterol levels wnl (06/05/22)C BC wnl (06/05/22)C MP: na 136, creat 0.60 (06/05/22) [id number] SALTY Perez [facility] [address] [place] [address] 07/15/2022 16:50:48 07/15/2022 18:02:22 Hyperglycemia due to type 2 diabetes mellitus 7279081772 41721 E11.65 Improved with starting MounjaroA1 C 5.7 [...] W19.XXXA No ongoing sx at this time. [id number] ISAC Sidhu [facility] [address] [place] [address] 09/10/2022 15:53:43 09/10/2022 16:46:53 Obesity 159412603 E66.9 Declines further use of the Mounjaro d/t negative GI side effectsWil l trial wegovyEnco uraged fresh fruits and veggies.In crease daily water intake Seasonal allergy 2398825 04 J30.2 stable Atrial fibrillation 4943 6004 I48.91 stable [id number] Sergio Abdalla PUMP SERVICE SUPERVISOR-C [facility] Primary Care [facility] [address] [facility] [address] [place] [address] 12/01/2022 16:27:15 12/01/2022 17:00:40 Obesity 953641743 E66.9 Has gained 10 lbs since last [...] fruits and veggies.In crease daily water intake [id number] Sergio AbdallaSALTY-Yuriy [facility] Primary Care [facility] [address] [facility] [address] [place] [address] 02/02/2023 15:49:25 02/02/2023 16:28:34 Obesity 404802399 E66.9 -pt notes no ASE with use [...] Wagoner Member ID Guarantor Name 06/09/2022 1 [facility] [id number] [facility] [id number] [facility] 07/15/2022 1 [facility] [id number] [facility] [id number] [facility] 09/10/2022 1 [facility] [id number] [facility] [id number] [facility] 12/01/2022 1 [facility] [id number] [facility] [id number] Kentrell Iglesias [facility] 02/02/2023 1 [facility] [id number] Kentrell Iglesias [facility] [id number] Kentrell Kelsie [facility] Notes Date Note Type Note Provider Name [...] him lose some weight. SALTY Perez [address], [place], [address], [facility] 06/09/2022 17:11:37 07/15/2022 text/html 07/15/22: 1. Pt in office with for 4 week f/u appt on Mounjaro. Pt states he is tolerating well. Denies any severe GI distress most of the time until he went to [employer] for lunch on Tuesday.2. Pt states he [...] him lose some weight. SALTY Perez [address], [place], [address], [facility] [employer] [facility] [employer] [facility] 07/15/2022 18:47:06 09/10/2022 text/html Pt here to [...] and miralax ISAC Sidhu [address] [place] [address], [place], [address], [facility] [employer] [facility] 09/10/2022 16:49:17 12/01/2022 text/html Pt is here for 1 month f/u ISAC Sidhu [address], [place] [address], [place], [address], [employer] [facility] [employer] [facility] 12/01/2022 17:03:57 02/02/2023 text/html Pt is here for weight loss f/u ISAC Sidhu [address], [place] [address], [place], [address], [facility] [employer] [facility] [employer] [facility] 02/02/2023 16:33:03
[2024-05-07 11:43] LABS: Alanine Aminotransferase 35 U/L (6-50); Albumin Level 4.4 g/dL (3.5-5.1); Alkaline Phosphatase 78 U/L (38-126); Anion Gap 10 mmol/L (4-12); Aspartate Amino Transferase 37 U/L (17-59); Bilirubin,Total 0.3 mg/dL (0.2-1.3); Blood Urea Nitrogen 13 mg/dL (9-20); Calcium 9.8 mg/dL (8.4-10.2); Carbon Dioxide 26 mmol/L (22-30); Chloride 101 mmol/L (98-107); Estimated Glomerular Filt Rate > 60; Glucose 112 mg/dL (65-110); Potassium 4.2 mmol/L (3.4-5.0); Sodium 137 mmol/L (137-145)
[2024-05-07 12:23] LABS: Immunoglobulin A 169 mg/dL (70-400); Immunoglobulin G 610 mg/dL (700-1600); Immunoglobulin M 29 mg/dL (40-230)
[2024-05-08 06:43] LABS: Protein, Total 6.6 g/dL (6.1-8.1)
[2024-05-08 15:43] LABS: Kappa\\Lambda Light Chains 1.68 (0.26-1.65); Lambda Light Chain 9.1 mg/L (5.7-26.3)
[2024-05-08 21:48] LABS: Albumin 3.9 g/dL (3.8-4.8); Alpha 1 Globulin 0.4 g/dL (0.2-0.3); Alpha 2 Globulin 0.9 g/dL (0.5-0.9); Beta 1 Globulin 0.5 g/dL (0.4-0.6); Gamma Globulin 0.5 g/dL (0.8-1.7)
== END 2024-05-07 09:47 | disposition home or self-care (01) ==
LOC: ANHLAB 09:46
PROVIDERS: PCP Nurse Practitioner Family; Visit Provider Internal Medicine Hematology & Oncology
DX: D72.9 Disorder of white blood cells, unspecified (principal)
CPT/HCPCS: 36415; 80053; 82784; 83883; 84155; 84165; 85025

== ENCOUNTER 2024-05-10 08:41 | Outpatient (CLI) | payer OTHER, SELFPAY ==
--- NOTE | ~2024-05-10 | XR_ITS ---
EXAMINATION: XR bone survey comp/metastic DATE: 05/10/2024 INDICATION: Plasma cell disorder TECHNIQUE: A skeletal survey was performed including AP views of the chest, abdomen and pelvis; AP an d lateral/lateral swimmers views of the cervical, thoracic and lumbar spine; lateral view of the skul l, and AP and lateral views of the appendicular skeleton excluding the hands and feet. COMPARISON: None. FINDINGS: Postoperative change of prior reverse left total shoulder arthroplasty and resection of the lateral l eft clavicle. No suspicious lytic or blastic bone lesions. Moderate lower cervical, mild thoracic and moderate lumbar spondylosis with mild lumbar levocurvature. 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 Lungs are clear with no pleural effusion or pneumothorax. Heart size is normal. IMPRESSION: 1. No suspicious lytic or blastic bone lesions to suggest multiple myeloma or other osseous metastati c disease.. Reviewed, dictated and finalized at location A. IMPRESSION: 1. No suspicious lytic or blastic bone lesions to suggest multiple myeloma or o ther osseous metastatic disease..
--- OUTSIDE RECORDS SUMMARY | 2024-05-10 08:48 | XMS_ITS | Encounter Summary ---
Author Organization [facility] Address [address] [place] [address] Care Team Providers Care Lead Javascript Engineer Name Role Phone Unavailable Primary Care Provider Unavailabl e Encounter Details Date Type Department Care Team (Late st Contact Info) Description 05/08/2024 External Device Data ST[place] ABSTRACTION Provider, Abstract NO ADDRESS ON FILE Social History Tobacco Use Types Packs/Day Years [...] Description 05/21/2024 9:45 AM CDT Office Visit [facility] Oncology and Hematology - [place] [address] [facility] [address] [place] [address] Ernesto Turner MD [address] [facility] [address] [place] [address] documented as of this encounter Visit Diagnoses Not on filedocumented in this encounter
--- OUTSIDE RECORDS SUMMARY | 2024-05-10 08:48 | XMS_ITS | Clinical Summary ---
Author Organization [facility] Address [address] [place] [address] Care Team Providers Care Group Therapist Name Role Phone Rosy Alexander NP Primary Care Provider [phone] Allergies No known active allergies Medications No [...] on file Legal Sex Male 5:43 PM YARD SUPERVISOR Gender Identity Not on file Sexual Orientation Not on file Last Filed Vital Signs Vital Sign Reading Time Taken Comments Blood Pressure 122/96 02/09/2024 7:36 PM YARD SUPERVISOR Pulse 78 02/09/2024 7:36 PM YARD SUPERVISOR Temperature 36.4 C (97.6 F) 02/09/2024 3:20 PM YARD SUPERVISOR Respiratory Rate 17 02/09/2024 7:36 PM YARD SUPERVISOR Oxygen Saturation 98% 02/09/2024 7:36 PM YARD SUPERVISOR Inhaled Oxygen Concentration - - Weight 136.1 kg (300 lb) 02/09/2024 3:20 PM YARD SUPERVISOR Height 182.9 cm (6') 02/09/2024 3:20 PM YARD SUPERVISOR Body Mass Index 40.69 02/09/2024 3:20 PM YARD SUPERVISOR Plan of Treatment Health Maintenance Due Date [...] Procedure Name Priority Date/Time Associated Diagnosis Comments CT ABDOMEN PELVIS W WO CONTRAST Schedule Routine, Read Routine (OP Routine) 06/12/2018 8:26 AM CDT Other specified disorders of kidney and ureter from Last 3 Months or Most Recently Relevant to Health Maintenance Results * CT Abdomen Pelvis W WO Contrast [...] Most Recently Relevant to Health Maintenance Insurance [facility] CHOICE PLUS [facility] HMO/PPO Address: [address] [address] [place] [address] [facility] CHOICE PLUS [facility] HMO/PPO Address: [place] [phone] [place] [phone] Care Teams Group Therapist Relationship Specialty Start Date End Date Rosy Alexander NP [address] [id number] PCP - General Family Medicine 02/09/24
--- OUTSIDE RECORDS SUMMARY | 2024-05-10 08:48 | XMS_ITS | Data Portability ---
Author Organization [place] - [facility], Main Office Address [address] [place] [address] Care Team Providers Care Food Beverage Server Name Role Phone KG GONZALEZ Primary Care Provider [phone] KG GONZALEZ Referring Provider Assessment No assessment recorded. Plan of Treatment Reminders Order Date Submit Date Provider Last Modified By Organization Details Last Modified Time Details Appointments None recorded. Lab None recorded. Referral None recorded. Procedures None recorded. Surgeries None recorded. Imaging None recorded. Medication Orders phentermine 37.5 mg capsule 2022 023 [facility], [address], BRI[place]NE [place]ardon, [address], 3 16:30:12 phentermine 15 mg capsule 2022 023 [facility], [address], [place], [address], 3 17:02:24 fluticasone propionate 50 mcg/actuati on nasal spray,suspe nsion 2022 023 [facility] [address], [address] [place], [address], 3 16:48:27 Loratadine- D 10 mg-240 mg tablet,exte nded release 24 hr 2022 023 [facility], [address] [place], [address], 3 16:48:29 Wegovy 0.25 mg/0.5 mL subcutaneou s pen injector 2022 023 [facility], [address], [place], [address], 3 16:48:26 Eliquis 5 mg tablet 2022 023 [facility], [address], [place], [address], 3 17:04:20 Mounjaro 5 mg/0.5 mL subcutaneou s pen injector 2022 [email or web address] [place] [address] Pharmacy 4878, [address], [place], [address], 3 17:42:07 Mounjaro 7.5 mg/0.5 mL subcutaneou s pen injector 2022 [email or web address] [place] [address] Pharmacy 4878, [address], [place], [address], 3 13:21:35 Patient TargetsNo targets recorded. Patient InstructionsNo instructions recorded. Reason for Referral None Reported. Results Created Date Observation Date Name Description Value Unit Range Abnormal Flag Note LastModifiedBy Organization Detail LastModifiedTime 01/29/20 23 01/28/2023 XR, chest No observ ation record ed. [email or web address] [facility] [address], [place], [address], 06/17/2023 17:51:50 Result Notes None recorded. Problems Name Problem SNOMED Code Status Onset Date Resolution Date Notes Provider Name and Address Organization Details Recorded Time Dupuytren' s disease of palm, nodules with no contractur e 364722437 Active 2021 Not Available [facility] 3 20:39:32 Renal mass 816384090 Active 2018 Not Available [facility] 3 20:39:32 Dyslipidem ia 194360081 Active 2018 Not Available [facility] 3 20:39:32 Hypertensi ve disorder 37157321 Active 2018 Not Available [facility] 3 20:39:32 Atrial fibrillati on 77533441 Active 2018 Not Available [facility] 3 20:39:32 Essential hypertensi on 89169598 Active 2020 Not Available [facility] 3 20:39:32 Diabetes mellitus 74928733 Active 2018 Not Available [facility] 3 20:39:32 Seasonal allergy 813163188 Active 2022 ASHIA Bautista [address], [place], [address] , [employer] [employer] 3 13:42:10 Hyperglyce alfonzo due to type 2 diabetes mellitus 0311956742646 09 Active 2022 SALTY Perez [address], [place], [address] , [employer] 3 15:46:08 Obesity 393126938 Active 2022 ISAC Sidhu [address], [place], [address] , [employer] 3 16:20:08 Problem Notes None recorded. Procedures Surgical History None recorded. Imaging Results Imaging Date Name Status LastModified by Organiz ation Details LastModified Time 01/28/2023 XR, chest completed [email or web address] [place] [address] [facility] [address], [place], [address], 06/17/2023 17:51:50 Procedure Notes None recorded. Medical Equipment None Reported. Allergies Allergen ID Allergen Name Allergen Category Reaction Reaction Severity Criticality Documentation Date Start Date Code Code System Note Provider Name and Address Organization Details Recorded Time 32510 Product containin g 3-hydroxy -3-methyl glutaryl- coenzyme A reductase inhibitor (product) medicatio n Not available Not available Not available 04/07/2022 85094 009 SNOMED pain Not Available [facility] 3 20:40:35 Medications Name Sig Start Date [...] Updated DateTime 3 185.42 cm 37.5 kg/m2 985682. 23 g 97.1 [degF] 76 /min 93 % 93 % 110 mm[Hg] 68 mm[Hg] PATRICIA Weinstein [facility] 3 16:34:39 Date Recorded Body height Body mass index (BMI) Body weight Body temperature Heart rate Oxygen saturation Oxygen saturation in Arterial blood by Pulse oximetry Systolic blood pressure Diastolic blood pressure Provider Name and Address Organization Details Last Updated DateTime 3 185.42 cm 35.2 kg/m2 144751. 16 g 98.9 [degF] 82 /min 96 % 96 % 118 mm[Hg] 78 mm[Hg] PATRICIA Weinstein [facility] 3 17:10:47 Date Recorded Body height Body mass index (BMI) Body weight Body temperature Oxygen saturation Oxygen saturation in Arterial blood by Pulse oximetry Heart rate Systolic blood pressure Diastolic blood pressure Provider Name and Address Organization Details Last Updated DateTime 3 185.42 cm 35.1 kg/m2 681891. 57 g 97.9 [degF] 96 % 96 % 108 /min 122 mm[Hg] 68 mm[Hg] Luci Alexander CMA [facility] 3 15:58:45 Date Recorded Body height Body mass index (BMI) Body weight Body temperature Heart rate Oxygen saturation Oxygen saturation in Arterial blood by Pulse oximetry Systolic blood pressure Diastolic blood pressure Provider Name and Address Organization Details Last Updated DateTime 3 185.42 cm 36.4 kg/m2 693989. 49 g 98.3 [degF] 77 /min 93 % 93 % 122 mm[Hg] 72 mm[Hg] Justyna Sullivan LPN [place] [employer] [facility] 3 16:45:41 Date Recorded Body height Body mass index (BMI) Body weight Body temperature Oxygen saturation Oxygen saturation in Arterial blood by Pulse oximetry Heart rate Systolic blood pressure Diastolic blood pressure Provider Name and Address Organization Details Last Updated DateTime 3 185.42 cm 37.2 kg/m2 534631. 05 g 97.2 [degF] 94 % 94 % 91 /min 128 mm[Hg] 90 mm[Hg] Erna Smiley RN [facility] 3 15:59:44 Social History Question Answer Notes LastModified by Organizat ion Details LastModified Time Tobacco Smoking Status Former Smoker Lillie Tim RN [facility], [facility] 05/21/2022 15:35:51 What Is Your Level Of [...] Anxious, Or Unable To Sleep At Night)? [id number] [email or web address] Information not available 06/09/2022 Do You Use Any Illicit Or Recreational Drugs? Yes henry ford [place] Information not available 05/21/2022 Sex: Unknown Functional [...] SNOMED-CT Code Diagnosis ICD10 Code Diagnosis Note [id number] [address] [address] 01/27/2021 00:00:00 01/27/2021 17:14:[id number] [address] 11/13/2021 00:00:00 11/13/2021 18:16:22 [id number] SALTY Perez [address] [address] 05/21/2022 15:25:56 05/21/2022 17:26:10 Hyperglycemia due to type 2 diabetes mellitus 1887922761 52470 E11.65 Unknown status.Dis cussed need for regular exercise, increase intake of water/vege tables/fib er. Decrease intake of carbs, especially white rice/pasta /flour/leodan ad/sugar.W ill check labs and start on metformin 500mg ER daily.Will also give trial of Mounjaro 2.5mg weekly. [id number] SALTY Perez [address] [address] 06/09/2022 16:28:17 06/09/2022 17:27:44 Hyperglycemia due to type 2 diabetes mellitus 7154183510 93003 E11.65 Improved with starting MounjaroA1 C 5.7 [...] dose. Patient in formed - test result [id number] Z71.2 Reviewed lab results with patient. Discussed abnormal levels and treatment recommenda tions as above.chol esterol levels wnl (06/05/22)C BC wnl (06/05/22)C MP: na 136, creat 0.60 (06/05/22) [id number] SALTY Perez [facility] [address] [place] [address] 07/15/2022 16:50:48 07/15/2022 18:02:22 Hyperglycemia due to type 2 diabetes mellitus 7306716975 75914 E11.65 Improved with starting MounjaroA1 C 5.7 [...] W19.XXXA No ongoing sx at this time. [id number] ISAC Sidhu [facility] [address] [place] [address] 09/10/2022 15:53:43 09/10/2022 16:46:53 Obesity 673791649 E66.9 Declines further use of the Mounjaro d/t negative GI side effectsWil l trial wegovyEnco uraged fresh fruits and veggies.In crease daily water intake Seasonal allergy 0358422 04 J30.2 stable Atrial fibrillation 4943 6004 I48.91 stable [id number] Sergio Abdalla OFFLINE EDITOR-C [facility] [address] [facility] [address] [place] [address] 12/01/2022 16:27:15 12/01/2022 17:00:40 Obesity 027093072 E66.9 Has gained 10 lbs since last [...] fruits and veggies.In crease daily water intake [id number] Sergio AbdallaSALTY-Yuriy [facility] [address] [facility] [address] [place] [address] 02/02/2023 15:49:25 02/02/2023 16:28:34 Obesity 473718519 E66.9 -pt notes no ASE with use [...] Wagoner Member ID Guarantor Name 06/09/2022 1 [facility] [id number] [facility] [id number] [facility] 07/15/2022 1 [facility] [id number] [facility] [id number] [facility] 09/10/2022 1 [facility] [id number] [facility] [id number] [facility] 12/01/2022 1 [facility] [id number] [facility] [id number] Kentrell Iglesias [facility] 02/02/2023 1 [facility] [id number] Kentrell Iglesias [facility] [id number] Kentrell Kelsie [facility] Notes Date Note Type Note Provider [...] him lose some weight. SALTY Perez [address], [place], [address], [facility] 06/09/2022 17:11:37 07/15/2022 text/html 07/15/22: 1. Pt in office with for 4 week f/u appt on Mounjaro. Pt states he is tolerating well. Denies any severe GI distress most of the time until he went to [facility] for lunch on Tuesday.2. Pt states he [...] him lose some weight. SALTY Perez [address], [place], [address], [facility] [employer] [facility] [employer] [facility] 07/15/2022 18:47:06 09/10/2022 text/html Pt [...] and miralax ISAC Sidhu [address] [place] [address], [place], [address], [facility] [employer] [facility] 09/10/2022 16:49:17 12/01/2022 text/html Pt is here for 1 month f/u ISAC Sidhu [address], [place] [address], [place], [address], [employer] [facility] [employer] [facility] 12/01/2022 17:03:57 02/02/2023 text/html Pt is here for weight loss f/u ISAC Sidhu [address], [place] [address], [place], [address], [facility] [employer] [facility] [employer] [facility] 02/02/2023 16:33:03
--- OUTSIDE RECORDS SUMMARY | 2024-05-10 08:48 | XMS_ITS | Clinical Summary ---
Author Organization [facility] Address [address] [place] [address] Care Team Providers Care Drill Operator Name Role Phone Jose Alberto Toth MD Unavailable [phone] Rosy Alexander Primary Care Provider [phone] Allergies Active Allergy Reactions Criticality Noted Date [...] Problem Noted Date Diagnosed Date Atrial fibrillation ([facility]) 02/27/2018 Hypertensive disorder 02/27/2018 Diabetes mellitus ([facility]) 02/27/2018 Dyslipidemia 02/27/2018 Palpitations Encounters Date Type Department Care Team Description 02/29/2024 3:00 PM DENTAL DETAIL REPRESENTATIVE Office Visit [facility], [address] [address] Jose Alberto Toth MD Atrial Fibrillation; Palpitations; Hypertension; Lipids; Follow Up 02/29/2024 Travel from Last 3 Months Immunizations Name Administration [...] Sex Assigned at Male 02/23/2022 1:56 PM DENTAL DETAIL REPRESENTATIVE Legal Sex Male 5:08 PM CDT Gender Identity Male 03/23/2021 4:31 AM DENTAL DETAIL REPRESENTATIVE Sexual Orientation Straight 03/23/2021 4: 31 AM DENTAL DETAIL REPRESENTATIVE Last Filed Vital Signs Vital Sign Reading Time Taken Comments Blood Pressure 108/80 02/29/2024 2:55 PM DENTAL DETAIL REPRESENTATIVE Pulse 76 02/29/2024 2:55 PM DENTAL DETAIL REPRESENTATIVE Temperature 36.6 C (97.8 F) 04/17/2019 6:50 AM CDT Respiratory Rate 15 04/17/2019 11:00 AM CDT Oxygen Saturation 98% 02/29/2024 2:55 PM DENTAL DETAIL REPRESENTATIVE Inhaled Oxygen Concentration - - Weight 137.4 kg (303 lb) 02/29/2024 2:55 PM DENTAL DETAIL REPRESENTATIVE Height 182.9 cm (6') 02/29/2024 2:55 PM DENTAL DETAIL REPRESENTATIVE Body Mass Index 41.09 02/29/2024 2:55 PM DENTAL DETAIL REPRESENTATIVE Plan of Treatment Upcoming Encounters Date Type Department Care Team (Late st Contact Info) Description 08/22/2024 3:00 PM CDT Office Visit [facility], [address] [place], [place] [phone] Jose Alberto Toth MD [facility]. [address] [place], [place] [id number] Health Maintenance Due Date Last Done Comments Kidney Health Evaluation 1955 Hemoglobin A1C 1955 Pneumococcal Vaccine: 65+ Years (1 of 2 - PCV) 1961 Diabetes: Retinopathy Eye Exam 1973 Hepatitis C 1973 Zoster Vaccines (1 of 2) 2005 RSV Immunization or 60+ Years (1 - Risk 60-74 years 1-dose series) 2015 COVID-19 Vaccine (1 - season) 2023 Influenza Adult (#1) 2023 12/13/2016, 01/13/20 16 Lipid Panel 07/26/2024 07/27/2023, 05/09, 09/12/2021, Additional history exists DTaP, Tdap and [...] (10/01/2019) us Documents Scanned SCANNING Final Result [facility] ON[facility] from Last 3 Months or Most Recently Relevant to Health Maintenance Insurance Care Teams Drill Operator Relationship Specialty Start Date End Date Rosy Alexander APNP [address] [place] [phone] PCP - General Nurse Practitioner Family 08/17/23 Jose Alberto Toth MD [facility] [address] [place] [address] Lilly Brine Tank Separator Operator CARDIOVASCULAR DISEASE 05/09/19
--- OUTSIDE RECORDS SUMMARY | 2024-05-10 08:48 | XMS_ITS | Encounter Summary ---
Author Organization [facility] Care Team Providers Care Carburizer Name Role Phone Alanna Rhodes MD Primary Care Provider + Rosy Alexander NP Primary Care Provider Encounter Details Date Type Department Care Team (Latest Contact Info) Description 02/20/2015 Orders Only [facility] ProviderGiselle MD [address] [place] [address] Social History Tobacco Use Types Packs/Day Years Used Date Smoking Tobacco: Never Assessed Sex and Gender Information Value Date Recorded Sex Assigned at Not on file Legal Sex Male 5:43 PM ASSOCIATE PROFESSOR OF BIOSTATISTICS Gender Identity Not on file Sexual Orientation Not on file documented as of this encounter Plan of Treatment Not on file documented as of this encounter Procedures Procedure Name Priority Date/Time Associated Diagnosis Comments CARDIOLOGY REPORT 03/04/2016 12: 00 AM ASSOCIATE PROFESSOR OF BIOSTATISTICS documented in this encounter Results * CARDIOLOGY REPORT (03/04/2016 12:00 AM ASSOCIATE PROFESSOR OF BIOSTATISTICS) Anatomical Region Laterality Modality Other Narrative 03/04/2016 12:00 AM ASSOCIATE PROFESSOR OF BIOSTATISTICS Ordered by an unspecified provider. Historical Provider [facility] DESI[facility]ENWOOD Final Result documented in this encounter Visit Diagnoses Not on filedocumented in this encounter Care Teams Carburizer Relationship Specialty Start Date End Date Alanna Rhodes MD PCP - General 06/12/18 02/08/24 Rosy Alexander NP [address] [address] PCP - General Family Medicine 02/09/24 documented as of this encounter
--- OUTSIDE RECORDS SUMMARY | 2024-05-10 08:48 | XMS_ITS | Encounter Summary ---
Author Organization [facility] Care Team Providers Care Raw Stock Drier Tender Name Role Phone Alanna Rhodes MD Primary Care Provider + Rosy Alexander NP Primary Care Provider [phone] Encounter Details Date Type Department Care Team (Latest Contact Info) Description 01/13/2015 Orders Only [facility] ProviderGiselle MD [address] [place] [address] Social History Tobacco Use Types Packs/Day Years Used Date Smoking Tobacco: Never Assessed Sex and Gender Information Value Date Recorded Sex Assigned at Not on file Legal Sex Male 5:43 PM CONTRACT DESIGN AGENT Gender Identity Not on file Sexual Orientation Not on file documented as of this encounter Plan of Treatment Not on file documented as of this encounter Procedures Procedure Name Priority Date/Time Associated Diagnosis Comments SCAN - LABS 03/04/2016 12:00 AM CONTRACT DESIGN AGENT documented in this encounter Results * SCAN - LABS (03/04/2016 12:00 AM CONTRACT DESIGN AGENT) Narrative 03/04/2016 12:00 AM CONTRACT DESIGN AGENT Ordered by an unspecified provider. Historical Provider Final Res ult documented in this encounter Visit Diagnoses Not on filedocumented in this encounter Care Teams Raw Stock Drier Tender Relationship Specialty Start Date End Date Alanna Rhodes MD PCP - General 06/12/18 02/08/24 Rosy Alexander NP [address] [address] PCP - General Family Medicine 02/09/24 documented as of this encounter
--- OUTSIDE RECORDS SUMMARY | 2024-05-10 08:48 | XMS_ITS | Clinical Summary ---
Author Organization [facility] Guzman castanon [address] Address [address] [place] [address] Care Team Providers Care Installation Tech Name Role Phone Unavailable Primary Care Provider [...] by mouth. Active iron/folic ac/vit Bcomp,C/min (B [id number]-[id number]-LCV-FE -FA ORAL) Take by mouth. Active Active Problems No known active problems Encounters Date Type Department Care Team Description 05/09/2024 Orders Only [facility] Oncology and Hematology - [place] [address] [place] [address] Ernesto Turner MD 05/08/2024 External Device Data STL ABSTRACTION Provider, Abstract 05/08/2024 External Device Data STL ABSTRACTION Provider, Abstract 05/08/2024 External Device Data STL ABSTRACTION Provider, Abstract 05/08/2024 Orders Only [facility] Oncology and Hematology - [place] [address] [place] [address] Ernesto Turner MD 05/07/2024 9:15 AM CDT Office Visit [facility] Oncology and Hematology - [place] [address] [place] [address] Ernesto Turner MD Plasma cell disorder (Primary Dx) 05/07/2024 Abstract [facility] Oncology and Hematology [place] [address] [place] [address] Ernesto Turner MD from Last 3 Months Family History * [...] Description 05/21/2024 9:45 AM CDT Office Visit [facility] Oncology and Hematology - [place] [address] [place] [address] Ernesto Turner MD [address] [facility] [address] [place] [address] Health Maintenance Due Date Last Done Comments DIABETES ANNUAL FOOT EXAM 1973 DIABETES ANNUAL RETINAL EXAM 1973 DIABETES HBA1C Q 6 MONTHS 1973 DIABETES MICROALBUMIN ANNUAL SCREEN 1973 LDL CHOLESTEROL ANNUAL 1973 PNEUMOCOCCAL VACCINE 50+ YEARS (1 of 2 - PCV) 03/19/18 75 FIT-DNA Q 3 years 2000 FIT/FOBT Q 1 year 2000 Flex Sig/CT Colonography Q 5 years 2000 ZOSTER VACCINE (1 of 2) 2005 RSV VACCINE (60+ or ) (1 - Risk 60-74 years 1-dose series) 2015 INFLUENZA VACCINE (#1) 2023 12/13/2016 Preventative Visit- Commercial 02/08/2024 DTAP/TDAP/TD VACCINES (2 - Td or Tdap) 03/29/2029 COLORECTAL SCREENING 09/30/2029 10/01/2019 Colorectal Cancer Screening 09/30/2029 Procedures Procedure Name Priority Date/Time Associated Diagnosis Comments CBC WITH AUTODIFFERENTIAL Routine 2024 11:33 AM CDT COMPREHENSIVE METABOLIC PANEL Routine 05/07/2024 11:32 AM CDT KAPPA/LAMBDA LIGHT CHAINS Routine 2024 10:30 AM CDT from Last 3 Months Results * CBC WITH AUTODIFFERENTIAL (05/07/2024 11:33 AM CDT) Blood us Ernesto Turner MD HEMATOLOGY ORDERABLES Final Res ult * COMPREHENSIVE METABOLIC PANEL (05/07/2024 11:32 AM CDT) Blood us Ernesto Turner MD CHEMISTRY ORDERABLES Final Resu lt * KAPPA/LAMBDA, FREE LIGHT CHAINS (05/07/2024 10:30 AM CDT) Blood us Ernesto Turner MD CHEMISTRY ORDERABLES Final Resu lt from Last 3 Months Insurance [facility] [id number] Member Subscriber Plan / Payer (Ef fective 2024-Present) Name:Kentrell Jvaier Relation to Subscriber:Self Name:Kentrell Javier Payer ID:[id number] (NAIC) Type:O Address: [facility] [id number] [place] [id number]
--- OUTSIDE RECORDS SUMMARY | 2024-05-10 08:48 | XMS_ITS | Referral Summary ---
Author Organization [facility] Address [address] [place] [address] Care Team Providers Care Bid Manager Name Role Phone Rosy Alexander NP Primary Care Provider Allergies No known active allergies Medications No [...] on file Legal Sex Male 5:43 PM RETAIL LOAN ORIGINATOR ASSISTANT Gender Identity Not on file Sexual Orientation Not on file Last Filed Vital Signs Vital Sign Reading Time Taken Comments Blood Pressure 122/96 02/09/2024 7:36 PM RETAIL LOAN ORIGINATOR ASSISTANT Pulse 78 02/09/2024 7:36 PM RETAIL LOAN ORIGINATOR ASSISTANT Temperature 36.4 C (97.6 F) 02/09/2024 3:20 PM RETAIL LOAN ORIGINATOR ASSISTANT Respiratory Rate 17 02/09/2024 7:36 PM RETAIL LOAN ORIGINATOR ASSISTANT Oxygen Saturation 98% 02/09/2024 7:36 PM RETAIL LOAN ORIGINATOR ASSISTANT Inhaled Oxygen Concentration - - Weight 136.1 kg (300 lb) 02/09/2024 3:20 PM RETAIL LOAN ORIGINATOR ASSISTANT Height 182.9 cm (6') 02/09/2024 3:20 PM RETAIL LOAN ORIGINATOR ASSISTANT Body Mass Index 40.69 02/09/2024 3:20 PM RETAIL LOAN ORIGINATOR ASSISTANT Plan of Treatment Not on file Procedures [...] Most Recently Relevant to Health Maintenance Insurance [facility] Care Teams Bid Manager Relationship Specialty Start Date End Date Rosy Alexander NP [address] [address] PCP - General Family Medicine 02/09/24
--- OUTSIDE RECORDS SUMMARY | 2024-05-10 08:48 | XMS_ITS | Encounter Summary ---
Author Organization [facility] [employer] [facility] Address [address] [place] [address] Care Team Providers Care Residential Carpenter Name Role Phone Unavailable Primary Care Provider Unavailabl e Encounter Details Date Type Department Care Team (Late Contact Info) Description 05/08/2024 Orders Only [facility] Oncology and Hematology - Chucky [facility] [address] [place] [address] Ernesto Turner MD [facility] [address] [place] [phone] Social History Tobacco Use Types Packs/Day Years [...] Department Care Team (Late Contact Info) Description 05/21/2024 9:45 AM CDT Office Visit [facility] Oncology and Hematology - Chucky Annmarie Clarke [address] [place] [address] Ernesto Turner MD [address] [place] [address] documented as of this encounter Procedures Procedure Name Priority Date/Time Associated Diagnosis Comments CBC WITH AUTODIFFERENTIAL Routine 2024 11:33 AM CDT COMPREHENSIVE METABOLIC PANEL Routine 05/07/2024 11:32 AM CDT documented in this encounter Results * CBC WITH AUTODIFFERENTIAL (05/07/2024 11:33 AM CDT) Blood us Ernesto Turner MD HEMATOLOGY ORDERABLES Final Res ult * COMPREHENSIVE METABOLIC PANEL (05/07/2024 11:32 AM CDT) Blood us Ernesto Turner MD CHEMISTRY ORDERABLES Final Resu lt documented in this encounter Visit Diagnoses Not on filedocumented in this encounter
--- OUTSIDE RECORDS SUMMARY | 2024-05-10 08:48 | XMS_ITS | Encounter Summary ---
Author Organization [facility] [employer] [facility] Address [address] [place] [address] Care Team Providers Care Track Grinder Name Role Phone Unavailable Primary Care Provider Unavailabl e Encounter Details Date Type Department Care Team (Late Contact Info) Description 05/09/2024 Orders Only [facility] Oncology and Hematology - Chucky [facility] [address] [place] [address] Ernesto Turner MD [facility] [employer] [address] [place] [phone] Social History Tobacco Use Types Packs/Day [...] Description 05/21/2024 9:45 AM CDT Office Visit [facility] Oncology and Hematology - Chucky Annmarie [address] [place] [address] Ernesto Turner MD [address] [employer] [address] [place] [phone] documented as of this encounter Procedures Procedure Name Priority Date/Time Associated Diagnosis Comments KAPPA/LAMBDA LIGHT CHAINS Routine 05/07/2024 10:30 AM CDT documented in this encounter Results * KAPPA/LAMBDA, FREE LIGHT CHAINS (05/07/2024 10:30 AM CDT) Blood us Ernesto Turner MD CHEMISTRY ORDERABLES Final Resu lt documented in this encounter Visit Diagnoses Not on filedocumented in this encounter
--- OUTSIDE RECORDS SUMMARY | 2024-05-10 08:48 | XMS_ITS | Encounter Summary ---
Author Organization [facility] Address [address] [place] [address] Care Team Providers Care Senior Copywriter Name Role Phone Alanna Rhodes MD Primary Care Provider [phone] Jose Alberto Toth MD Unavailable [phone] Rosy Alexander Primary Care Provider [phone] Encounter Details Date Type Department Care Team (Late Contact Info) Description 10/07/2020 Abstract [facility], [address] [address] Jenifer Lujan MA Social History Tobacco Use Types Packs/Day Years Used Date Smoking Tobacco: Never Smokeless Tobacco: Never Alcohol Use Standard Drinks/Week Comments Yes 0 (1 standard drink = 0.6 oz pur e alcohol) ocassionally Sex and Gender Information Value Date Recorded Sex Assigned at Male 02/23/2022 1:56 PM GRIPPER ATTACHER Legal Sex Male 5:08 PM CDT Gender Identity Male 03/23/2021 4:31 AM GRIPPER ATTACHER Sexual Orientation Straight 03/23/2021 4: 31 AM GRIPPER ATTACHER COVID-19 Exposure Response Date Recorded In the last month, have you been in contact with someone who was confirmed or suspected to have Coronavirus / COVID-19? No / Unsure 09/23/2020 8:32 AM CDT documented as of this encounter Plan of Treatment Upcoming Encounters Date Type Department Care Team (Late Contact Info) Description 08/22/2024 3:00 PM CDT Office Visit [facility], [address] [address] Jose Alberto Toth MD Three [facility] [address] [place], [place] [phone] documented as of this encounter Procedures Procedure [...] on filedocumented in this encounter Care Teams Senior Copywriter Relationship Specialty Start Date End Date Alanna Rhodes MD [address] [place] [address] [place] [address] PCP - General FAMILY PRACTICE 04/06/19 08/16/23 Rosy Alexander APNP [address] [place] [phone] PCP - General Nurse Practitioner Family 08/17/23 Jose Alberto Toth MD [address] [address] [employer] CARDIOVASCULAR DISEASE 05/09/19 documented as of this encounter
--- OUTSIDE RECORDS SUMMARY | 2024-05-10 08:48 | XMS_ITS | Clinical Summary ---
Author Organization [facility] [employer] Address [address] [place] [address] Care Team Providers Care Makeup Instructor Name Role Phone Og Tran APRN-BUILDING ENERGY RETROFIT TECHNICIAN Primary Care Provider Source Comments [facility],non-owned Affiliates and Associated Physician Practices is amultiple site organization consisting of ambulatory clinics and hospital sitesin [place], [place], [place] and [place]. This disclosure is being madepursuant to the Care Everywhere program and may not contain all information available regarding this patient. Last updated 17.[facility] Allergies Active Allergy Reactions Criticality Noted Date Comments Adhesive Sensitivity Swelling Low 09/27/2016 Gabapentin Psychiatric Medium 03/25/2021 Hmg-Coa-R Inhibitors Myalgias High 04/17/2019 Medications * Be aware that medications may not be up to date on this document. Alwaysverify current medications with the patient. Medication Sig Dispensed Refills Start Date End Date Status fluticasone propionate (FLONASE) 50 MCG/ACT nasal spray Bodfish 2 (two) sprays into each nostril once daily Active dilTIAZem ER (TIAZAC) 360 MG capsule Take 1 (one) capsule by mouth once daily Active benazepril (LOTENSIN) 20 MG tablet Take by mouth once daily Active hydroCHLOROthiazide (MICROZIDE) 12.5 MG capsule Take 1 (one) capsule by mouth once daily Active Cholecalciferol (VITAMIN D3) 04467 UNITS TABS Active Eliquis 5 MG tablet [...] Comments Blood Pressure 118/81 02/21/2023 2:05 PM SOLUTION COORDINATOR Pulse 77 02/21/2023 2:05 PM SOLUTION COORDINATOR Temperature 36.8 C (98.2 F) 02/21/2023 2:05 PM SOLUTION COORDINATOR Respiratory Rate 9 02/08/2023 9:45 AM SOLUTION COORDINATOR Oxygen Saturation 97% 02/21/2023 2:05 PM SOLUTION COORDINATOR Inhaled Oxygen Concentration - - Weight 128.1 kg (282 lb 4.8 oz) 02/08/2023 6:46 AM SOLUTION COORDINATOR Height 182.9 cm (6') 02/21/2023 2:05 PM SOLUTION COORDINATOR Body Mass Index 38.29 02/08/2023 6:46 AM SOLUTION COORDINATOR Plan of Treatment Health Maintenance Due Date [...] COMPREHENSIVE METABOLIC PANEL Routine 02/02/2023 1:43 PM SOLUTION COORDINATOR Mass of scalp from Last 3 Months or Most Recently Relevant to Health Maintenance Results * (ABNORMAL) COMPREHENSIVE METABOLIC PANEL (02/02/2023 1:43 PM SOLUTION COORDINATOR) BUN 15 7 - 26 mg/dL 02/02/2023 2:31 PM [facility] Creatinine 0.76 0.71 - 1.16 mg/dL 02/02/2023 2:31 PM [facility] Sodium 143 136 - 145 mmol/L 02/02/2023 2:31 PM [facility] Potassium 3.8 3.5 - 4.5 mmol/L 02/02/2023 2:31 PM [facility] Chloride 104 98 - 107 mmol/L 02/02/2023 2:31 PM [facility] CO2 26 22 - 29 mmol/L 02/02/2023 2:31 PM [facility] Glucose 115 70 - 115 mg/dL 02/02/2023 2:31 PM SOLUTION COORDINATOR [facility] Calcium 10.2 8.4 - 10.2 mg/dL 02/02/2023 2:31 PM [facility] Protein Total 7.5 6.0 - 8.3 g/dL 02/02/2023 2:31 PM [facility] Albumin 4.3 3.4 - 5.0 g/dL 02/02/2023 2:31 PM [facility] Bilirubin Total 0.3 0.2 - 1.2 mg/dL 02/02/2023 2:31 PM [facility] Alkaline Phosphatase 62 40 - 150 U/L 02/02/2023 2:31 PM [facility] ALT 30 5 - 55 U/L 02/02/2023 2:31 PM [facility] AST 21 5 - 34 U/L 02/02/2023 2:31 PM [facility] Anion Gap 13 6 - 16 02/02/2023 2:31 PM [facility] BUN/Creatinine Ratio 20 7 - 23 02/02/2023 2:31 PM [facility] Osmolality Calculated 298(H) 275 - 295 mOsm/kg 02/02/2023 2:31 PM [facility] Albumin/Globulin Ratio 1.3 1.1 - 2.3 02/02/2023 2:31 PM [facility] eGFR by CKD-EPI >90 >=90 mL/min/1.7 3 m2 02/02/2023 2:31 PM [facility] Blood BLOOD SPECIMEN / Unknown Lab Venipuncture / Unknown 02/02/2023 1:43 PM SOLUTION COORDINATOR 02/02/2023 2:06 PM SOLUTION COORDINATOR Talib Hunt MD LAB - CHEMISTRY [facility] [address] [place] [address], [place] [phone] from Last 3 Months or Most Recently Relevant to Health Maintenance Care Teams Makeup Instructor Relationship Specialty Start Date End Date Og Tran, SENIOR NET ARCHITECT-BUILDING ENERGY RETROFIT TECHNICIAN [address] [place] [phone] PCP - General 11/02/21
--- OUTSIDE RECORDS SUMMARY | 2024-05-10 08:48 | XMS_ITS | Encounter Summary ---
Author Organization [facility] Address [address] [facility] [place] [address] Care Team Providers Care Stave Bolt Equalizer Name Role Phone TranOg RELOCATION SERVICES SPECIALIST-SUPERVISOR SHRIMP POND Primary Care Provider Encounter Details Date Type Department Care Team (Late st Contact Info) Description 03/22/2019 Lab Requisition [facility] Derm[facility] Lab [address] [facility] [place] [phone] Sloan Alfaro MD [address] [address] [place] [address] Social History Tobacco Use Types [...] Comments DERMATOPATHOLOGY Routine 03/20/2019 12:0 0 AM ERGONOMIST documented in this encounter Results * DERMATOPATHOLOGY (03/20/2019 12:00 AM ERGONOMIST) Case Report Dermatopathology Report Case: [id number] Authorizing Provider: Sloan Alfaro MD Collected: 03/20/2019 12:00 AM Ordering Location: [facility] DermPath Lab Received: 03/22/2019 08:09 AM Pathologist: Destiny Graham MD Specimen: Skin, left mid back 0 2:09 PM [facility] DERMATOPATHOLOGY LABORATORY Final Diagnosis Specimen A. 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 [id number]. Check margins 0 2:09 PM ERGONOMIST DERMATOPATHOLOGY LABORATORY Gross Description Specimen A: Received is one formalin filled container labeled with the patient's name and designated left mid back. The specimen consists of a shave biopsy measuring 9x7x1 mm, inked. Jar 0. 0 2:09 PM [facility] DERMATOPATHOLOGY LABORATORY Microscopic Description Specimen A. SKIN, [...] margin of the specimen. 0 2:09 PM [facility] DERMATOPATHOLOGY LABORATORY Disclaimer An external and internal positive and negative controls are appropriate for the histochemical, immunohistochemical and immunofluorescence stain(s) in this case (if any), except where stated explicitly. The performance characteristics of the stain(s) cited in this report were developed and its performance characteristic determined by the Dermatopathology Laboratory at [facility], directed by Dr. Christie Núñez. These tests need not be, and therefore are not, approved by the [place] Food and Drug Administration. The tests are used for clinical purposes. Billing Codes Specimen Charges Stain Charges 65936 1 0 2:09 PM [facility] DERMATOPATHOLOGY LABORATORY Embedded Images 0 2:09 PM [facility] DERMATOPATHOLOGY LABORATORY Pathology/Cytolog y TISSUE SPECIMEN FROM SKIN / Unknown 03/20/2019 03/22/2019 8:09 AM ERGONOMIST Sloan Alfaro MD LAB - PATHOLOGY/CYTO LOGY ORDERABLES DERMATOPATHOLOGY LABORATORY [facility] - Department of Dermatology [address] [facility] 5th Floor Lab [address] [phone] documented in this encounter Visit Diagnoses Not on filedocumented in this encounter Care Teams Stave Bolt Equalizer Relationship Specialty Start Date End Date Og Tran, RELOCATION SERVICES SPECIALIST-SUPERVISOR SHRIMP POND [address] [place] [phone] PCP - General 11/02/21 documented as of this encounter
== END 2024-05-10 08:42 | disposition home or self-care (01) ==
PROVIDERS: PCP Nurse Practitioner Family; Visit Provider Internal Medicine Hematology & Oncology
DX: D72.9 Disorder of white blood cells, unspecified (principal)
CPT/HCPCS: 77075

== ENCOUNTER 2024-05-14 09:31 | Emergency (ER) | payer OTHER, SELFPAY ==
--- NOTE | ~2024-05-14 | CT_ITS ---
EXAMINATION: CT shoulder LT wo con DATE: 05/14/2024 10:34 INDICATION: Left shoulder periprosthetic fracture. TECHNIQUE: High resolution computed tomography (CT) of the left shoulder was performed without intrav enous contrast. Additional sagittal and coronal reconstructions were performed. Automated exposure co ntrol and iterative reconstruction technique were employed. The dose-length product was 850.54 mGy-cm . COMPARISON: Radiograph dated 05/14/2024 FINDINGS: Oblique periprosthetic fracture of the proximal left humerus. The fracture begins approximately along the posterior facet of the greater tuberosity and extends proximally 9 cm distally to the medial cor zandra of the proximal metadiaphyseal region. The fracture extends along the stem of the humeral compone nt of a reverse left total shoulder arthroplasty. There is 7 mm posterior displacement of the distal fragment at the distal margin of the fracture. No other fractures identified. The glenoid component a ppears to remain well seated. Alignment of the articulation of the arthroplasty components remains no rmal. Chronic distal left clavicle excision. There is a small glenohumeral joint effusion. Mild disco id atelectasis in the left lower lobe. IMPRESSION: 1. Reverse left total shoulder arthroplasty with oblique periprosthetic fracture of the proximal left humerus with 7 mm posterior displacement. Reviewed, dictated and finalized at location A. IMPRESSION: 1. Reverse left total shoulder arthroplasty with oblique periprosthetic fractur e of the proximal left humerus with 7 mm posterior displacement.
--- NOTE | ~2024-05-14 | XR_ITS ---
XR shoulder LT min 2V Ordering provider: Curly Christianson MD History: . fall after surgery . Comparison: April 24, 2024 FINDINGS: BONES: Fracture is seen in the proximal metaphysis of the left humerus. JOINT SPACES: The acromioclavicular joint is normal. Left shoulder arthroplasty. SOFT TISSUES: Normal . IMPRESSION: Acute fracture in the proximal metaphysis of the left humerus. Left shoulder arthroplasty. Reviewed, dictated and finalized at location A.
[2024-05-14 09:33] VITALS: BP 114/81; PULSE 80; RESP 22; TEMP 36.3; O2SAT 96
[2024-05-14] MEDS: ONDANSETRON INJ 4 MG/2 ML VIAL IV PUSH (10:07)
[2024-05-14] MEDS: MORPHINE SULFATE (*CRX) 4 MG/ML INJ IV PUSH (10:08)
--- NOTE | 2024-05-14 10:14 | ED_ITS ---
HPI - Fall General Chief Complaint: Fall Stated Complaint: fall Time Seen by Provider: 05/14/24 09:44 Source: patient Mode of arrival: wheelchair Limitations: no limitations History of Present Illness HPI Narrative: This is a 69 year old male that presents to the ER for left shoulder pain. He recently underwent left shoulder arthroplasty. He has balance issues chronically, he does use a cane. Unsure what caused him to fall, but he fell onto his left shoulder. Reports he underwent left shoulder arthroplasty on 04/[address] Freed. Reports tingling in his fingers. Denies focal numbness. Reports decreased ROM due to pain. He did not hit his head or lose consciousness. No other focal injuries or areas of pain. Related Data Home Medications ?Medication ?Instructions ?Recorded ?Confirmed ?Last Taken ?Type cholecalciferol (vitamin D3) 125 125 mcg PO DAILY 07/06/23 04/24/24 04/20/24 History mcg (5,000 unit) capsule omeprazole magnesium 20 mg 20 mg PO DAILY 07/06/23 04/24/24 04/23/24 History tablet,delayed release (Prilosec OTC) ezetimibe 10 mg tablet (Zetia) 10 mg PO DAILY 08/30/23 04/24/24 04/23/24 History Allergies Allergy/AdvReac Type Severity Reaction Status Date / Time No Known Allergies Allergy Verified 04/24/24 07:12 Review of Systems Review of Systems: CONSTITUTIONAL: Denies fever MUSCULOSKELETAL: Reports joint pain, and myalgia. NEUROLOGIC: Denies numbness, or weakness. All systems reviewed & are unremarkable except as noted in HPI and below PMFSH Past Medical History Medical History (Updated 05/14/24 @ 11:16 by Amy Elizalde PA-C) Monoclonal gammopathy Polyneuropathy Anxiety and depression Abnormal CT scan, head Family history of Parkinson disease Frequent falls Balance problem Cervical radiculitis Cervicalgia Left shoulder pain Dyslipidemia Chronic allergic rhinitis Prediabetes Anemia Onychomycosis IBS (irritable bowel syndrome) Hx of melanoma of skin back Heart disease Acid reflux Arthritis Hypertension Atrial fibrillation Family History Family History Mother Diabetes mellitus Hypertension Cerebrovascular accident Social History Social History Smoking packs per day: 0.5 Smoking cigarettes per day: 10.0 Years smoked: 15 Smoking pack-years: 7.50 Smoking status: Former smoker Alcohol intake: current Drinks per week: 4 Substance use: never Substance use type: marijuana Other substance usage details: daily smokes Marijuana Do You Feel Safe in your Home?: Yes Lack of Transportation: No Lack of Food: Never True Current Housing: I Have Housing Concerned About Future Housing: No Difficulty Paying Gas/Electric Bills: No Difficulty Paying for Meds: No Currently Unemployed: No Education: Associate Degree Difficulty w/ Childcare or Family Care: No Living arrangements: with family Additional living arrangements comments: Gender identity (if verbalized by the patient): Male Spiritual care concerns: No Exam Narrative: GENERAL: Well-appearing, well-nourished, and in no acute distress. HEAD: Normocephalic, atraumatic. EYES: EOMI. CHEST: No respiratory distress. HEART: Regular rate EXTREMITIES: No edema. Steri strips in place to the left shoulder, clean dry and intact without abnormal drainage or surrounding redness. Normal radial pulse. Decreased active ROM in the left shoulder due to pain SKIN: Warm, dry, no rash. NEURO: No focal deficits. Alert and oriented x3. PSYCH: Normal mood and affect Course Course Emergency Course: patient updated on his workup and agrees with plan of care Consultations Consultation #1: Spoke with Dr. Freed about patient and workup. Patient will be placed in sling and is to follow up at his post op appointment this tuesday. Date: 05/14/24 Vital Signs Vital signs: Vital Signs Temperature 97.4 F L 05/14/24 09:33 Pulse Rate 80 05/14/24 09:33 Respiratory Rate 22 H 05/14/24 09:33 Blood Pressure 114/81 05/14/24 09:33 Pulse Oximetry 96 05/14/24 09:33 Oxygen Delivery Room Air 05/14/24 09:33 Temperature 97.4 F L 05/14/24 09:33 Pulse Rate 80 05/14/24 09:33 Respiratory Rate 22 H 05/14/24 09:33 Blood Pressure 114/81 05/14/24 09:33 Pulse Oximetry 96 05/14/24 09:33 Oxygen Delivery Room Air 05/14/24 09:33 Procedures Orthopedic Splinting/Casting Injury #1: Splinting/Casting Date: 05/14/24 Splinting/Casting Time: 11:15 Side: left Upper Extremity Injury Location: shoulder Upper Extremity Immobilizer: sling/shoulder immobilizer Pre-Procedure Neuro Vascular Exam: normal Post-Procedure Neuro Vascular Exam: normal MDM - Fall MDM Narrative Medical decision making narrative: Patient presents to the emergency department after a fall today with left shoulder injury. Recently postop from a total shoulder arthroplasty. He is neurovascularly intact. He did not hit his head or lose consciousness. Left shoulder x-ray shows acute fracture in the proximal metaphysis of the left humerus. Left shoulder arthroplasty. Spoke with Dr. Freed. CT scan was o btained for further delineation. He was able to review images. Recommend sling and follow-up at his postop appointment on Tuesday. Patient was updated on his workup and agrees with plan of care. He was given warnings to return to the ER Differential Diagnosis Differential diagnosis: Likely dislocation of shoulder region and other (opal- prosthetic fracture) Imaging Data Radiologist's impression: ITS Impressions Shoulder X-Ray 05/14/24 09:54 IMPRESSION: Acute fracture in the proximal metaphysis of the left humerus. Left shoulder arthroplasty. Shoulder CT 05/14/24 10:35 IMPRESSION: 1. Reverse left total shoulder arthroplasty with oblique periprosthetic fracture of the proximal left humerus with 7 mm posterior displacement. Critical Care Time Critical Care Time Critical Care Time: No Discharge Plan Discharge Clinical Impression: Periprosthetic fracture around internal prosthetic left shoulder joint Qualifiers: Encounter type: initial encounter Qualified Code(s): M97.32XA - Periprosthetic fracture around internal prosthetic left shoulder joint, initial encounter Patient Disposition: Home Condition: Stable Instructions: Proximal Humerus Fracture (ED) Additional Instructions: Return to the ER if you experience weakness, numbness, redness and swelling of your arm, or any other symptoms that are concerning to you Rest, use ice, take anti-inflammatories (Aleve, Ibuprofen, Naproxen, etc) or Tylenol as needed for pain as well as prescribed pain medication as needed Follow up with your orthopedics doctor Patient Language: Hungarian Prescriptions: New oxycodone-acetaminophen 5-325 mg tablet 1 tablet PO Q6H PRN (Reason: pain) Qty: 20 0RF No Action cholecalciferol (vitamin D3) 125 mcg (5,000 unit) capsule 125 mcg PO DAILY omeprazole magnesium [Prilosec OTC] 20 mg tablet,delayed release (DR/EC) 20 mg PO DAILY Eliquis 5 mg tablet 5 mg PO BID Qty: 180 3RF Patient Comments: HOLD 2 days preop and restart [address] op [address] Freed metformin 500 mg tablet extended release 24 hr 500 mg PO DAILY Qty: 90 3RF benazepril 20 mg tablet 20 mg PO DAILY Qty: 90 3RF oxycodone-acetaminophen 5-325 mg tablet 1 - 2 tablet PO Q4-6H PRN (Reason: pain) 7 Days Qty: 30 0RF ezetimibe [Zetia] 10 mg tablet 10 mg PO DAILY diltiazem HCl 360 mg capsule,extended release 24hr 360 mg PO DAILY Qty: 90 3RF Loratadine-D 10-240 mg tablet extended release 24 hr 1 tablet PO DAILY PRN (Reason: allergy symptoms) Qty: 90 1RF Follow-up/Referrals: Rosy Alexander NP [Primary Care Provider] - German Freed MD [Physician] -
--- OUTSIDE RECORDS SUMMARY | 2024-05-14 10:21 | XMS_ITS | Encounter Summary ---
Author Organization [facility] [employer] [facility] Address [address] [place] [address] Care Team Providers Care Assistant Office Manager Name Role Phone Unavailable Primary Care Provider Unavailabl e Encounter Details Date Type Department Care Team (Late Contact Info) Description 05/09/2024 Orders Only [facility] Oncology and Hematology - Chucky [facility] [address] [place] [address] Ernesto Turner MD [facility] [employer] [address] [place] [phone] Social History Tobacco Use Types Packs/Day [...] Description 05/21/2024 9:45 AM CDT Office Visit [facility] Oncology and Hematology - Chucky Annmarie [address] [place] [address] Ernesto Turner MD [address] [employer] [address] [place] [phone] documented as of this encounter Procedures [...]
--- OUTSIDE RECORDS SUMMARY | 2024-05-14 10:21 | XMS_ITS | Encounter Summary ---
Author Organization [facility] Facility Care Team Providers Care Auto Cleaner Name Role Phone Alanna Rhodes MD Primary Care Provider + Rosy Alexander NP Primary Care Provider [phone] Encounter Details Date Type Department Care Team (Latest Contact Info) Description 01/13/2015 Orders Only [facility] ProviderGiselle MD [address] [place] [address] Social History Tobacco Use Types Packs/Day Years Used Date Smoking Tobacco: Never Assessed Sex and Gender Information Value Date Recorded Sex Assigned at Not on file Legal Sex Male 5:43 PM WAREHOUSE INCENTIVE SELECTOR Gender Identity Not on file Sexual Orientation Not on file documented as of this encounter Plan of Treatment Not on file documented as of this encounter Procedures Procedure Name Priority Date/Time Associated Diagnosis Comments SCAN - LABS 03/04/2016 12:00 AM WAREHOUSE INCENTIVE SELECTOR documented in this encounter Results * SCAN - LABS (03/04/2016 12:00 AM WAREHOUSE INCENTIVE SELECTOR) Narrative 03/04/2016 12:00 AM WAREHOUSE INCENTIVE SELECTOR Ordered by an unspecified provider. Historical Provider Final Res ult documented in this encounter Visit Diagnoses Not on filedocumented in this encounter Care Teams Auto Cleaner Relationship Specialty Start Date End Date Alanna Rhodes MD PCP - General 06/12/18 02/08/24 Rosy Alexander NP [address] [address] PCP - General Family Medicine 02/09/24 documented as of this encounter
--- OUTSIDE RECORDS SUMMARY | 2024-05-14 10:21 | XMS_ITS | Clinical Summary ---
Author Organization [facility] Guzman castanon Manuelito Address [address] [place] [address] Care Team Providers Care Patient Relations Liaison Name Role Phone Unavailable Primary Care Provider [...] by mouth. Active iron/folic ac/vit Bcomp,C/min (B [id number] -FA ORAL) Take by mouth. Active Active Problems No known active problems Encounters Date Type Department Care Team Description 05/11/2024 Orders Only [facility] Oncology and Hematology - [address] [place] [address] Ernesto Turner MD 05/09/2024 Orders Only [facility] Oncology and Hematology - [address] [place] [address] Ernesto Turner MD 05/08/2024 External Device Data ST[facility] ABSTRACTION Provider, Abstract 05/08/2024 External Device Data [facility] ABSTRACTION Provider, Abstract 05/08/2024 External Device Data [facility] ABSTRACTION Provider, Abstract 05/08/2024 Orders Only [facility] Oncology and Hematology - [address] [place] [address] Ernesto Turner MD 05/07/2024 9:15 AM CDT Office Visit [facility] Oncology and Hematology - [address] [place] [id number] Ernesto Turner MD Plasma cell disorder (Primary Dx) 05/07/2024 Abstract [facility] Oncology and Hematology - [address] [place] [address] Ernesto Turner MD from Last 3 Months [...] CDT Office Visit [facility] Oncology and Hematology - [address] [place] [address] Ernesto Turner MD [address] [facility] [address] [place] [address] Health Maintenance Due Date Last [...] Procedure Name Priority Date/Time Associated Diagnosis Comments XR BONE SURVEY COMPLETE Routine 05/11/19 25 10:48 AM CDT CBC WITH AUTODIFFERENTIAL Routine 2024 11:33 AM CDT COMPREHENSIVE METABOLIC PANEL Routine 05/07/2024 11:32 AM CDT KAPPA/LAMBDA LIGHT CHAINS Routine 2024 10:30 AM CDT from Last 3 Months Results * XR BONE SURVEY COMPLETE (05/10/2024 10:48 AM CDT) Anatomical Region Laterality Modality Other Ernesto Turner MD DIAGNOSTIC IMAGING ORDERABLES F inal Result * CBC WITH AUTODIFFERENTIAL (05/07/2024 11:33 AM CDT) Blood us Ernesto Turner MD HEMATOLOGY ORDERABLES Final Res ult * COMPREHENSIVE METABOLIC PANEL (05/07/2024 11:32 AM CDT) Blood Ernesto Turner MD CHEMISTRY ORDERABLES Final Resu lt * KAPPA/LAMBDA, FREE LIGHT CHAINS (05/07/2024 10:30 AM CDT) Blood Ernesto Turner MD CHEMISTRY ORDERABLES Final Resu lt from Last 3 Months Insurance [facility] [id number] [facility] Address: [facility] [id number] [place] [address]
--- OUTSIDE RECORDS SUMMARY | 2024-05-14 10:21 | XMS_ITS | Clinical Summary ---
Author Organization [facility] Address [address] [place] [address] Care Team Providers Care Auto Seat Cover Installer Name Role Phone Jose Alberto Toth MD Unavailable [phone] Rosy Alexander Primary Care Provider [phone] Allergies Active Allergy Reactions Criticality Noted Date [...] Problem Noted Date Diagnosed Date Atrial fibrillation ([facility]) 02/27/2018 Hypertensive disorder 02/27/2018 Diabetes mellitus ([facility]) 02/27/2018 Dyslipidemia 02/27/2018 Palpitations Encounters Date Type Department Care Team Description 02/29/2024 3:00 PM UNINDENTURED APPRENTICE Office Visit [facility], [address] [address] Jose Alberto Toth MD Atrial Fibrillation; Palpitations; [...] Sex Assigned at Male 02/23/2022 1:56 PM UNINDENTURED APPRENTICE Legal Sex Male 5:08 PM CDT Gender Identity Male 03/23/2021 4:31 AM UNINDENTURED APPRENTICE Sexual Orientation Straight 03/23/2021 4: 31 AM UNINDENTURED APPRENTICE Last Filed Vital Signs Vital Sign Reading Time Taken Comments Blood Pressure 108/80 02/29/2024 2:55 PM UNINDENTURED APPRENTICE Pulse 76 02/29/2024 2:55 PM UNINDENTURED APPRENTICE Temperature 36.6 C (97.8 F) 04/17/2019 6:50 AM CDT Respiratory Rate 15 04/17/2019 11:00 AM CDT Oxygen Saturation 98% 02/29/2024 2:55 PM UNINDENTURED APPRENTICE Inhaled Oxygen Concentration - - Weight 137.4 kg (303 lb) 02/29/2024 2:55 PM UNINDENTURED APPRENTICE Height 182.9 cm (6') 02/29/2024 2:55 PM UNINDENTURED APPRENTICE Body Mass Index 41.09 02/29/2024 2:55 PM UNINDENTURED APPRENTICE Plan of Treatment Upcoming Encounters Date Type Department Care Team (Late st Contact Info) Description 08/22/2024 3:00 PM CDT Office Visit [facility], [address] [place], [place] [id number] Jose Alberto Toth MD Three [facility] [address] [place], [place] [id number] Health Maintenance Due Date Last Done Comments Kidney Health Evaluation 1955 Hemoglobin A1C 1955 Pneumococcal Vaccine: 65+ Years (1 of 2 - PCV) 1961 Diabetes: Retinopathy Eye Exam 1973 Hepatitis C 1973 Zoster Vaccines (1 of 2) 2005 RSV Immunization or 60+ Years (1 - Risk 60-74 years 1-dose series) 2015 COVID-19 Vaccine (1 - season) 2023 Lipid Panel 07/26/2024 07/27/2023, /10/2022, 09/12/2021, Additional history exists DTaP, Tdap and [...] (10/01/2019) us Documents Scanned SCANNING Final Result [facility] from Last 3 Months or Most Recently Relevant to Health Maintenance Insurance Member Subscriber Plan / Payer (Ef fective 2019-Present) Name:Yaya Kentrellabhishek Gerber Relation to Subscriber:Self Name:Madi Javierabhishek Gerber Payer ID:[id number] (NAIC) Type:Not on file Address: [place] [phone] Care Teams Auto Seat Cover Installer Relationship Specialty Start Date End Date Rosy Alexander APNP [address] [place] [phone] PCP - General Nurse Practitioner Family 08/17/23 Jose Alberto Toth MD [address] [address] [place] Addiction Therapist CARDIOVASCULAR DISEASE 05/09/19
--- OUTSIDE RECORDS SUMMARY | 2024-05-14 10:21 | XMS_ITS | Encounter Summary ---
Author Organization [facility] [employer] [facility] Address [address] [place] [address] Care Team Providers Care Manager Global Name Role Phone Unavailable Primary Care Provider Unavailabl e Encounter Details Date Type Department Care Team (Late Contact Info) Description 05/11/2024 Orders Only [facility] Oncology and Hematology - [place] [facility] [address] [place] [address] Ernesto Turner MD [address] [place], [place] [address] [address] [place] [address] Social History Tobacco Use Types Packs/Day [...] Description 05/21/2024 9:45 AM CDT Office Visit [facility] Oncology and Hematology - [place] [address] [place] [address] Ernesto Turner MD [address] [place] [address] documented as of this encounter Procedures Procedure Name Priority Date/Time Associated Diagnosis Comments XR BONE SURVEY COMPLETE Routine 05/10/2024 10:48 AM CDT documented in this encounter Results * XR BONE SURVEY COMPLETE (05/10/2024 10:48 AM CDT) Anatomical Region Laterality Modality Other us Ernesto Turner MD DIAGNOSTIC IMAGING ORDERABLES F inal Result documented in this encounter Visit Diagnoses Not on filedocumented in this encounter
--- OUTSIDE RECORDS SUMMARY | 2024-05-14 10:21 | XMS_ITS | Encounter Summary ---
Author Organization [facility] Address [address] [place] [address] Care Team Providers Care Infantry Senior Sergeant Name Role Phone Alanna Rhodes MD Primary Care Provider [phone] Jose Alberto Toth MD Unavailable [phone] Rosy Alexander Primary Care Provider [phone] Encounter Details Date Type Department Care Team (Late Contact Info) Description 10/07/2020 Abstract [facility] [facility], [address] [address] Jenifer Lujan MA Social History Tobacco Use Types Packs/Day Years Used Date Smoking Tobacco: Never Smokeless Tobacco: Never Alcohol Use Standard Drinks/Week Comments Yes 0 (1 standard drink = 0.6 oz pur e alcohol) ocassionally Sex and Gender Information Value Date Recorded Sex Assigned at Male 02/23/2022 1:56 PM PATTERNATOR Legal Sex Male 5:08 PM CDT Gender Identity Male 03/23/2021 4:31 AM PATTERNATOR Sexual Orientation Straight 03/23/2021 4: 31 AM PATTERNATOR COVID-19 Exposure Response Date Recorded In the last month, have you been in contact with someone who was confirmed or suspected to have Coronavirus / COVID-19? No / Unsure 09/23/2020 8:32 AM CDT documented as of this encounter Plan of Treatment Upcoming Encounters Date Type Department Care Team (Late Contact Info) Description 08/22/2024 3:00 PM CDT Office Visit [facility] [facility], [address] [address] Jose Alberto Toth MD Three [facility]. [facility] [address] [place], [place] [phone] documented as of this encounter Procedures Procedure [...] Result * CBC (OUTSIDE LAB) (10/07/2020) Pathologist [facility] WBC 8.5 HGB 16.1 HCT 48.5 PLT 241 10/07/2020 us Doc [facility] Abstract LAB-OUTSIDE/ABSTRACTED Final Result * LIPID PANEL (10/07/2020) Pathologist [facility] CHOLESTEROL 157 HDL 40 TRIGLYCERIDES 143 DIRECT LDL 77 10/07/2020 us Doc [facility] Abstract LABORATORY Final Result * (ABNORMAL) COMPREHENSIVE METABOLIC PANEL (10/07/2020) Pathologist [facility] SODIUM S/P/B 137 POTASSIUM S/P/B 4.0 CO2 [...] on filedocumented in this encounter Care Teams Infantry Senior Sergeant Relationship Specialty Start Date End Date Alanna Rhodes MD [address] [place] [address] [place] [address] PCP - General FAMILY PRACTICE 04/06/19 08/16/23 Roys Alexander APNP [address] [place] [phone] PCP - General Nurse Practitioner Family 08/17/23 Jose Alberto Toth MD [address] [address] [place] Civil Engineer Helper CARDIOVASCULAR DISEASE 05/09/19 documented as of this encounter
--- OUTSIDE RECORDS SUMMARY | 2024-05-14 10:21 | XMS_ITS | Clinical Summary ---
Author Organization [facility] Address [address] [place] [address] Care Team Providers Care Cotton Agent Name Role Phone Rosy Alexander NP Primary Care Provider [phone] Allergies No known active allergies Medications No [...] on file Legal Sex Male 5:43 PM PASTORAL ASSISTANT Gender Identity Not on file Sexual Orientation Not on file Last Filed Vital Signs Vital Sign Reading Time Taken Comments Blood Pressure 122/96 02/09/2024 7:36 PM PASTORAL ASSISTANT Pulse 78 02/09/2024 7:36 PM PASTORAL ASSISTANT Temperature 36.4 C (97.6 F) 02/09/2024 3:20 PM PASTORAL ASSISTANT Respiratory Rate 17 02/09/2024 7:36 PM PASTORAL ASSISTANT Oxygen Saturation 98% 02/09/2024 7:36 PM PASTORAL ASSISTANT Inhaled Oxygen Concentration - - Weight 136.1 kg (300 lb) 02/09/2024 3:20 PM PASTORAL ASSISTANT Height 182.9 cm (6') 02/09/2024 3:20 PM PASTORAL ASSISTANT Body Mass Index 40.69 02/09/2024 3:20 PM PASTORAL ASSISTANT Plan of Treatment Health Maintenance Due Date [...] Relevant to Health Maintenance Insurance [facility] CHOICE PLUS [facility] HMO/PPO Address: [address] [address] [place] [address] [facility] CHOICE PLUS [facility] HMO/PPO Address: [place] [id number] [place] [phone] Care Teams Cotton Agent Relationship Specialty Start Date End Date Rosy Alexander NP [address] [address] PCP - General Family Medicine 02/09/24
--- OUTSIDE RECORDS SUMMARY | 2024-05-14 10:21 | XMS_ITS | Clinical Summary ---
Author Organization [facility] [employer] Address [address] [place] [address] Care Team Providers Care Computer Forensics Investigator Name Role Phone Og rTan APRN-LOGGER ALL ROUND Primary Care Provider Source Comments [facility] [employer],non-owned Affiliates and Associated Physician Practices is amultiple site organization consisting of ambulatory clinics and hospital sitesin [place], [place], [place] and [place]. This disclosure is being madepursuant to the Care Everywhere program and may not contain all information available regarding this patient. Last updated 17.[facility] [employer] Allergies Active Allergy Reactions Criticality Noted Date Comments Adhesive Sensitivity Swelling Low 09/27/2016 Gabapentin Psychiatric Medium 03/25/2021 Hmg-Coa-R Inhibitors Myalgias High 04/17/2019 Medications * Be aware that medications may not be up to date on this document. Alwaysverify current medications with the patient. Medication Sig Dispensed Refills Start Date End Date Status fluticasone propionate (FLONASE) 50 MCG/ACT nasal spray [place] 2 (two) sprays into each nostril once daily Active dilTIAZem ER (TIAZAC) 360 MG capsule Take 1 (one) capsule by mouth once daily Active benazepril (LOTENSIN) 20 MG tablet Take by mouth once daily Active hydroCHLOROthiazide (MICROZIDE) 12.5 MG capsule Take 1 (one) capsule by mouth once daily Active Cholecalciferol (VITAMIN D3) 92368 UNITS TABS Active Eliquis 5 MG tablet [...] Comments Blood Pressure 118/81 02/21/2023 2:05 PM JEWELSMITH Pulse 77 02/21/2023 2:05 PM JEWELSMITH Temperature 36.8 C (98.2 F) 02/21/2023 2:05 PM JEWELSMITH Respiratory Rate 9 02/08/2023 9:45 AM JEWELSMITH Oxygen Saturation 97% 02/21/2023 2:05 PM JEWELSMITH Inhaled Oxygen Concentration - - Weight 128.1 kg (282 lb 4.8 oz) 02/08/2023 6:46 AM JEWELSMITH Height 182.9 cm (6') 02/21/2023 2:05 PM JEWELSMITH Body Mass Index 38.29 02/08/2023 6:46 AM JEWELSMITH Plan of Treatment Health Maintenance Due Date [...] VACCINE (1 - 2023-2 5 season) 2023 DEPRESSION SCREENING 02/08/2024 INFLUENZA VACCINE (Season Ended) 2024 12/13/2016, 01/13/2016 SCREENING FOR DIABETES 02/02/2026 , 09/01/2016 Respiratory Syncytial Virus (RSV) Vaccine Pt: [...] COMPREHENSIVE METABOLIC PANEL Routine 02/02/2023 1:43 PM JEWELSMITH Mass of scalp from Last 3 Months or Most Recently Relevant to Health Maintenance Results * (ABNORMAL) COMPREHENSIVE METABOLIC PANEL (02/02/2023 1:43 PM JEWELSMITH) BUN 15 7 - 26 mg/dL 02/02/2023 2:31 PM [facility] Creatinine 0.76 0.71 - 1.16 mg/dL 02/02/2023 2:31 PM [facility] Sodium 143 136 - 145 mmol/L 02/02/2023 2:31 PM [facility] Potassium 3.8 3.5 - 4.5 mmol/L 02/02/2023 2:31 PM [facility] Chloride 104 98 - 107 mmol/L 02/02/2023 2:31 PM [facility] CO2 26 22 - 29 mmol/L 02/02/2023 2:31 PM [facility] Glucose 115 70 - 115 mg/dL 02/02/2023 2:31 PM [facility] Calcium 10.2 8.4 - 10.2 mg/dL [...] Lab Venipuncture / Unknown 02/02/2023 1:43 PM J[facility]EL[facility]ITH 02/02/2023 2:06 PM [facility] Talib Hunt MD LAB - CHEMISTRY [facility] [address] [place] [address], [facility] [phone] from Last 3 Months or Most Recently Relevant to Health Maintenance Care Teams Computer Forensics Investigator Relationship Specialty Start Date End Date Og Tran, CRUSHER [employer]Y GROUND MICA-LOGGER ALL ROUND [address] [place] [phone] PCP - General 11/02/21
--- OUTSIDE RECORDS SUMMARY | 2024-05-14 10:21 | XMS_ITS | Data Portability ---
Author Organization [place] - [facility] [employer], Main Office Address [address] [place] [address] Care Team Providers Care Senior Geologist Name Role Phone KG GONZALEZ Primary Care Provider [phone] KG GONZALEZ Referring Provider Assessment No assessment recorded. Plan of Treatment Reminders Order Date Submit Date Provider Last Modified By Organization Details Last Modified Time Details Appointments None recorded. Lab None recorded. Referral None recorded. Procedures None recorded. Surgeries None recorded. Imaging None recorded. Medication Orders phentermine 37.5 mg capsule 2022 023 [facility], [address], [place], [address], 3 16:30:12 phentermine 15 mg capsule 2022 023 [facility], [address], [place], [address], 3 17:02:24 fluticasone propionate 50 mcg/actuati on nasal spray,suspe nsion 2022 023 [facility], [address] [place], [address], 3 16:48:27 Loratadine- D 10 mg-240 mg tablet,exte nded release 24 hr 2022 023 [facility], [address] [place], [address], 3 16:48:29 Wegovy 0.25 mg/0.5 mL subcutaneou s pen injector 2022 023 [facility], [address], [place], [address], 3 16:48:26 Eliquis 5 mg tablet 2022 023 [facility], [address], [place], [address], 3 17:04:20 Mounjaro 5 mg/0.5 mL subcutaneou s pen injector 2022 [email or web address] [place] [address] Pharmacy 4878, [address], [place], [address], 3 17:42:07 Mounjaro 7.5 mg/0.5 mL subcutaneou s pen injector 2022 [email or web address] [place] [address] Pharmacy 4878, [address], [place], [address], 3 13:21:35 Patient TargetsNo targets recorded. Patient InstructionsNo instructions recorded. Reason for Referral None Reported. Results Created Date Observation Date Name Description Value Unit Range Abnormal Flag Note LastModifiedBy Organization Detail LastModifiedTime 01/29/20 23 01/28/2023 XR, chest No observ ation record ed. [address] [facility] [address], [place], [address], 06/17/2023 17:51:50 Result Notes None recorded. Problems Name Problem SNOMED Code Status Onset Date Resolution Date Notes Provider Name and Address Organization Details Recorded Time Dupuytren' s disease of palm, nodules with no contractur e 218947043 Active 2021 Not Available [facility] 3 20:39:32 Renal mass 378021309 Active 2018 Not Available [facility] 3 20:39:32 Dyslipidem ia 878556170 Active 2018 Not Available [facility] 3 20:39:32 Hypertensi ve disorder 39786065 Active 2018 Not Available [facility] 3 20:39:32 Atrial fibrillati on 44943170 Active 2018 Not Available [facility] 3 20:39:32 Essential hypertensi on 60772941 Active 2020 Not Available [facility] 3 20:39:32 Diabetes mellitus 22473301 Active 2018 Not Available [facility] 3 20:39:32 Seasonal allergy 516338055 Active 2022 ASHIA Bautista [address], [place], [address] , [employer] 3 13:42:10 Hyperglyce alfonzo due to type 2 diabetes mellitus 1947369546526 09 Active 2022 SALTY Perez [address], [address], [place], [address] , [employer] 3 15:46:08 Obesity 510412711 Active 2022 ISAC Sidhu [address], [address], [place], [address] , [employer] 3 16:20:08 Problem Notes None recorded. Procedures Surgical History None recorded. Imaging Results Imaging Date Name Status LastModified by Organiz ation Details LastModified Time 01/28/2023 XR, chest completed [email or web address] [facility] [address], [place], [address], 06/17/2023 17:51:50 Procedure Notes None recorded. Medical Equipment None Reported. Allergies Allergen ID Allergen Name Allergen Category Reaction Reaction Severity Criticality Documentation Date Start Date Code Code System Note Provider Name and Address Organization Details Recorded Time 50347 Product containin g 3-hydroxy -3-methyl glutaryl- coenzyme A reductase inhibitor (product) medicatio n Not available Not available Not available 04/07/2022 48627 009 SNOMED pain Not Available [facility] 3 20:40:35 Medications Name Sig [...] Updated DateTime 3 185.42 cm 37.5 kg/m2 501805. 23 g 97.1 [degF] 76 /min 93 % 93 % 110 mm[Hg] 68 mm[Hg] PATRICIA Weinstein [facility] [employer] 3 16:34:39 Date Recorded Body height Body mass index (BMI) Body weight Body temperature Heart rate Oxygen saturation Oxygen saturation in Arterial blood by Pulse oximetry Systolic blood pressure Diastolic blood pressure Provider Name and Address Organization Details Last Updated DateTime 3 185.42 cm 35.2 kg/m2 753498. 16 g 98.9 [degF] 82 /min 96 % 96 % 118 mm[Hg] 78 mm[Hg] [facility]ICIA [facility] [employer] 3 17:10:47 Date Recorded Body height Body mass index (BMI) Body weight Body temperature Oxygen saturation Oxygen saturation in Arterial blood by Pulse oximetry Heart rate Systolic blood pressure Diastolic blood pressure Provider Name and Address Organization Details Last Updated DateTime 3 185.42 cm 35.1 kg/m2 633716. 57 g 97.9 [degF] 96 % 96 % 108 /min 122 mm[Hg] 68 mm[Hg] Luci Alexander CMA [facility] [employer] 3 15:58:45 Date Recorded Body height Body mass index (BMI) Body weight Body temperature Heart rate Oxygen saturation Oxygen saturation in Arterial blood by Pulse oximetry Systolic blood pressure Diastolic blood pressure Provider Name and Address Organization Details Last Updated DateTime 3 185.42 cm 36.4 kg/m2 429207. 49 g 98.3 [degF] 77 /min 93 % 93 % 122 mm[Hg] 72 mm[Hg] Justyna Sullivan LPN [place] [employer] [facility] [employer] 3 16:45:41 Date Recorded Body height Body mass index (BMI) Body weight Body temperature Oxygen saturation Oxygen saturation in Arterial blood by Pulse oximetry Heart rate Systolic blood pressure Diastolic blood pressure Provider Name and Address Organization Details Last Updated DateTime 3 185.42 cm 37.2 kg/m2 024040. 05 g 97.2 [degF] 94 % 94 % 91 /min 128 mm[Hg] 90 mm[Hg] Erna Smiley RN [facility] [employer] 3 15:59:44 Social History Question Answer Notes LastModified by Organizat ion Details LastModified Time Tobacco Smoking Status Former Smoker Lillie Tim RN [facility], [facility] [employer] 05/21/2022 15:35:51 What Is Your Level Of [...] Anxious, Or Unable To Sleep At Night)? [id number] [email or web address] Information not available 06/09/2022 Do You Use Any Illicit Or Recreational Drugs? Yes [facility] Information not available 05/21/2022 Sex: Unknown Functional [...] SNOMED-CT Code Diagnosis ICD10 Code Diagnosis Note [id number] [address] [address] 01/27/2021 00:00:00 01/27/2021 17:14:[id number] [address] 11/13/2021 00:00:00 11/13/2021 18:16:22 [id number] SALTY Perez [address] [address] 05/21/2022 15:25:56 05/21/2022 17:26:10 Hyperglycemia due to type 2 diabetes mellitus 0609675869 47642 E11.65 Unknown status.Dis cussed need for regular exercise, increase intake of water/vege tables/fib er. Decrease intake of carbs, especially white rice/pasta /flour/leodan ad/sugar.W ill check labs and start on metformin 500mg ER daily.Will also give trial of Mounjaro 2.5mg weekly. [id number] SALTY Perez [address] [address] 06/09/2022 16:28:17 06/09/2022 17:27:44 Hyperglycemia due to type 2 diabetes mellitus 5300202632 06802 E11.65 Improved with starting MounjaroA1 C 5.7 [...] dose. Patient in formed - test result [id number] Z71.2 Reviewed lab results with patient. Discussed abnormal levels and treatment recommenda tions as above.chol esterol levels wnl (06/05/22)C BC wnl (06/05/22)C MP: na 136, creat 0.60 (06/05/22) [id number] SALTY Perez [facility] Primary Care [address] [place] [address] 07/15/2022 16:50:48 07/15/2022 18:02:22 Hyperglycemia due to type 2 diabetes mellitus 8440533775 21672 E11.65 Improved with starting MounjaroA1 C 5.7 [...] W19.XXXA No ongoing sx at this time. [id number] ISAC Sidhu [facility] Primary Care [address] [place] [address] 09/10/2022 15:53:43 09/10/2022 16:46:53 Obesity 827849594 E66.9 Declines further use of the Mounjaro d/t negative GI side effectsWil l trial wegovyEnco uraged fresh fruits and veggies.In crease daily water intake Seasonal allergy 5923178 04 J30.2 stable Atrial fibrillation 4943 6004 I48.91 stable [id number] Sergio Abdalla VACUUM PAN OPERATOR-C [facility] Primary Care [facility] [address] [facility] [address] [place] [address] 12/01/2022 16:27:15 12/01/2022 17:00:40 Obesity 285750046 E66.9 Has gained 10 lbs since last [...] fruits and veggies.In crease daily water intake [id number] Sergio AbdallaSALTY-Yuriy [facility] Primary Care [facility] [address] [facility] [address] [place] [address] 02/02/2023 15:49:25 02/02/2023 16:28:34 Obesity 926098892 E66.9 -pt notes no ASE with use [...] Wagoner Member ID Guarantor Name 06/09/2022 1 [facility] [id number] [facility] [id number] [facility] 07/15/2022 1 [facility] [id number] [facility] [id number] [facility] 09/10/2022 1 [facility] [id number] [facility] [id number] [facility] 12/01/2022 1 [facility] [id number] [facility] [id number] Kentrell Iglesias [facility] 02/02/2023 1 [facility] [id number] Kentrell Iglesias [facility] [id number] Kentrell Kelsie [facility] Notes Date Note Type Note Provider Name [...] him lose some weight. SALTY Perez [address], [place], [address], [facility] [employer] 06/09/2022 17:11:37 07/15/2022 text/html 07/15/22: 1. Pt in office with for 4 week f/u appt on Mounjaro. Pt states he is tolerating well. Denies any severe GI distress most of the time until he went to [facility] for lunch on Tuesday.2. Pt states he [...] him lose some weight. SALTY Perez [address], [place], [address], [facility] [employer] [facility] [employer] [facility] 07/15/2022 18:47:06 09/10/2022 text/html Pt here [...] and miralax ISAC Sidhu [address] [place] [address] [address], [place], [address], [facility] [employer] [facility] 09/10/2022 16:49:17 12/01/2022 text/html Pt is here for 1 month f/u ISAC Sidhu [address], [place] [address] [address], [place], [address], [employer] [facility] [employer] [facility] 12/01/2022 17:03:57 02/02/2023 text/html Pt is here for weight loss f/u ISAC Sidhu [address] [address], [place], [address], [facility] [employer] [facility] [employer] [facility] 02/02/2023 16:33:03
--- OUTSIDE RECORDS SUMMARY | 2024-05-14 10:21 | XMS_ITS | Encounter Summary ---
Author Organization [facility] Address [address] [facility] [place] [address] Care Team Providers Care Fiber Drier Operator Name Role Phone TranOg WAREHOUSEMAN-WATER CHEMIST Primary Care Provider Encounter Details Date Type Department Care Team (Late st Contact Info) Description 03/22/2019 Lab Requisition [facility] [address] [facility] [place] [address] Sloan Alfaro MD [address] [facility] [address] [place] [address] Social History Tobacco Use Types [...] Comments DERMATOPATHOLOGY Routine 03/20/2019 12:0 0 AM FREIGHT ADJUSTER documented in this encounter Results * DERMATOPATHOLOGY (03/20/2019 12:00 AM FREIGHT ADJUSTER) Case Report Dermatopathology Report Case: [id number] Authorizing Provider: Sloan Alfaro MD Collected: 03/20/2019 12:00 AM Ordering Location: [facility] Received: 03/22/2019 08:09 AM Pathologist: Destiny Graham MD Specimen: Skin, left mid back 0 2:09 PM [facility] Final Diagnosis Specimen A. 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 [id number]. Check margins 0 2:09 PM FREIGHT ADJUSTER DERMATOPATHOLOGY LABORATORY Gross Description Specimen A: Received is one formalin filled container labeled with the patient's name and designated left mid back. The specimen consists of a shave biopsy measuring 9x7x1 mm, inked. Jar 0. 0 2:09 PM [facility] Microscopic Description Specimen A. [...] margin of the specimen. 0 2:09 PM [facility] Disclaimer An external and internal positive and negative controls are appropriate for the histochemical, immunohistochemical and immunofluorescence stain(s) in this case (if any), except where stated explicitly. The performance characteristics of the stain(s) cited in this report were developed and its performance characteristic determined by the Dermatopathology Laboratory at [facility], directed by Dr. Christie Núñez. These tests need not be, and therefore are not, approved by the [place] Food and Drug Administration. The tests are used for clinical purposes. Billing Codes Specimen Charges Stain Charges 39626 1 0 2:09 PM [facility] Embedded Images 0 2:09 PM [facility] Pathology/Cytolog y TISSUE SPECIMEN FROM SKIN / Unknown 03/20/2019 03/22/2019 8:09 AM FREIGHT ADJUSTER Sloan Alfaro MD LAB - PATHOLOGY/CYTO LOGY ORDERABLES DERMATOPATHOLOGY LABORATORY [facility] - Department of Dermatology [address] [facility] 5th Floor Lab B [address] [phone] documented in this encounter Visit Diagnoses Not on filedocumented in this encounter Care Teams Fiber Drier Operator Relationship Specialty Start Date End Date Og Tran, WAREHOUSEMAN-WATER CHEMIST [address] [address] PCP - General 11/02/21 documented as of this encounter
--- OUTSIDE RECORDS SUMMARY | 2024-05-14 10:21 | XMS_ITS | Referral Summary ---
Author Organization [facility] Address [address] [place] [address] Care Team Providers Care Service Delivery Management Consultant Name Role Phone Rosy Alexander NP Primary [...] on file Legal Sex Male 5:43 PM WEDDING FLORIST Gender Identity Not on file Sexual Orientation Not on file Last Filed Vital Signs Vital Sign Reading Time Taken Comments Blood Pressure 122/96 02/09/2024 7:36 PM WEDDING FLORIST Pulse 78 02/09/2024 7:36 PM WEDDING FLORIST Temperature 36.4 C (97.6 F) 02/09/2024 3:20 PM WEDDING FLORIST Respiratory Rate 17 02/09/2024 7:36 PM WEDDING FLORIST Oxygen Saturation 98% 02/09/2024 7:36 PM WEDDING FLORIST Inhaled Oxygen Concentration - - Weight 136.1 kg (300 lb) 02/09/2024 3:20 PM WEDDING FLORIST Height 182.9 cm (6') 02/09/2024 3:20 PM WEDDING FLORIST Body Mass Index 40.69 02/09/2024 3:20 PM WEDDING FLORIST Plan of Treatment Not on file Procedures [...] Most Recently Relevant to Health Maintenance Insurance [facility] [employer] PL[facility] [employer] Care Teams Service Delivery Management Consultant Relationship Specialty Start Date End Date Rosy Alexander NP [address] [address] PCP - General Family Medicine 02/09/24
--- OUTSIDE RECORDS SUMMARY | 2024-05-14 10:21 | XMS_ITS | Encounter Summary ---
Author Organization [facility] Care Team Providers Care Physics Faculty Member Name Role Phone Alanna Rhodes MD Primary Care Provider + Rosy Alexander NP Primary Care Provider Encounter Details Date Type Department Care Team (Latest Contact Info) Description 02/20/2015 Orders Only [facility] ProviderGiselle MD [address] [place] [address] Social History Tobacco Use Types Packs/Day Years Used Date Smoking Tobacco: Never Assessed Sex and Gender Information Value Date Recorded Sex Assigned at Not on file Legal Sex Male 5:43 PM ALMOND GRINDER Gender Identity Not on file Sexual Orientation Not on file documented as of this encounter Plan of Treatment Not on file documented as of this encounter Procedures Procedure Name Priority Date/Time Associated Diagnosis Comments CARDIOLOGY REPORT 03/04/2016 12: 00 AM ALMOND GRINDER documented in this encounter Results * CARDIOLOGY REPORT (03/04/2016 12:00 AM ALMOND GRINDER) Anatomical Region Laterality Modality Other Narrative 03/04/2016 12:00 AM ALMOND GRINDER Ordered by an unspecified provider. Historical Provider [facility] [place] Final Result documented in this encounter Visit Diagnoses Not on filedocumented in this encounter Care Teams Physics Faculty Member Relationship Specialty Start Date End Date Alanna Rhodes MD PCP - General 06/12/18 02/08/24 Rosy Alexander NP [address] [address] PCP - General Family Medicine 02/09/24 documented as of this encounter
[2024-05-14] MEDS: oxyCODONE HCL (*CRX) 5 MG TAB IR PO (11:17)
[2024-05-14 11:37] VITALS: BP 104/88; PULSE 81; RESP 18; O2SAT 96
== END 2024-05-14 11:38 | disposition home or self-care (01) ==
PROVIDERS: Emergency Provider Physician Assistant; PCP Nurse Practitioner Family
DX: S49.092A Other physeal fracture of upper end of humerus, left arm, initial encounter for closed fracture (principal); M97.32XA Periprosthetic fracture around internal prosthetic left shoulder joint, initial encounter; R29.6 Repeated falls; I48.91 Unspecified atrial fibrillation; I10 Essential (primary) hypertension; E78.5 Hyperlipidemia, unspecified; R73.03 Prediabetes; D47.2 Monoclonal gammopathy; K58.9 Irritable bowel syndrome, unspecified; K21.9 Gastro-esophageal reflux disease without esophagitis; F41.9 Anxiety disorder, unspecified; F32.A Depression, unspecified; Z85.820 Personal history of malignant melanoma of skin; Z86.2 Personal history of diseases of the blood and blood-forming organs and certain disorders involving the immune mechanism; Z87.891 Personal history of nicotine dependence; W18.30XA Fall on same level, unspecified, initial encounter
CPT/HCPCS: 73030; 73200; 96374; 96375; 99284; A4565; A9270; J2270; J2405

== ENCOUNTER 2024-06-26 11:20 | Outpatient (CLI) | payer OTHER, SELFPAY ==
--- NOTE | ~2024-06-26 | XR_ITS ---
XR shoulder LT min 2V Ordering provider: German Freed MD History: . 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 Comparison: June 01, 2024 FINDINGS: BONES: No acute fracture or dislocation. JOINT SPACES: Postoperative changes seen in the distal left clavicle. The glenohumeral joint shows to maureen shoulder arthroplasty. SOFT TISSUES: Normal. IMPRESSION: No acute osseous abnormality left shoulder. Left shoulder arthroplasty. Reviewed, dictated and finalized at location A.
--- OUTSIDE RECORDS SUMMARY | 2024-06-26 11:24 | XMS_ITS | Encounter Summary ---
Author Organization [facility] Address [address] [facility] [place] [address] Care Team Providers Care Professor Criminal Justice Name Role Phone MarcOg OFFICE EXECUTIVE-CUSTOMS BROKERAGE MANAGER Primary Care Provider Encounter Details Date Type Department Care Team (Late st Contact Info) Description 03/22/2019 Lab Requisition [facility] Care Derm[facility] Lab [address] [facility] [place] [address] Sloan Alfaro MD [address] [place] [address] Social History Tobacco Use Types Packs/Day Years Used Date Smoking Tobacco: Former Cigarettes Q uit: 09/09/1996 Smokeless Tobacco: Never Alcohol Use Standard Drinks/Week Comments Yes 0 (1 standard drink = 0.6 oz pur e alcohol) few beers once and and awhile Sex and Gender Information Value Date Recorded Sex Assigned at Not on file Legal Sex Male 8:16 AM CDT Gender Identity Not on file Sexual Orientation Not on file documented as of this encounter Plan of Treatment Not on file documented as of this encounter Procedures Procedure Name Priority Date/Time Associated Diagnosis Comments DERMATOPATHOLOGY Routine 03/20/2019 12:0 0 AM CALL TAKER documented in this encounter Results * DERMATOPATHOLOGY (03/20/2019 12:00 AM CALL TAKER) Case Report Dermatopathology Report Case: [id number] Authorizing Provider: Sloan Alfaro MD Collected: 03/20/2019 12:00 AM Ordering Location: [facility] DermPath Lab Received: 03/22/2019 08:09 AM Pathologist: Destiny Graham MD Specimen: Skin, left mid back 0 2:09 PM [facility] DERMATOPATHOLOGY LABORATORY Final Diagnosis Specimen A. 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 [id number]. Check margins 0 2:09 PM [facility] DERMATOPATHOLOGY LABORATORY Gross Description Specimen A: Received is one formalin filled container labeled with the patient's name and designated left mid back. The specimen consists of a shave biopsy measuring 9x7x1 mm, inked. Jar 0. 0 2:09 PM [facility] DERMATOPATHOLOGY LABORATORY Microscopic Description Specimen A. [...] margin of the specimen. 0 2:09 PM [facility] DERMATOPATHOLOGY LABORATORY Disclaimer An external and internal positive and negative controls are appropriate for the histochemical, immunohistochemical and immunofluorescence stain(s) in this case (if any), except where stated explicitly. The performance characteristics of the stain(s) cited in this report were developed and its performance characteristic determined by the Dermatopathology Laboratory at [facility], directed by Dr. Christie Núñez. These tests need not be, and therefore are not, approved by the [place] Food and Drug Administration. The tests are used for clinical purposes. Billing Codes Specimen Charges Stain Charges 08841 1 0 2:09 PM [facility] DERMATOPATHOLOGY LABORATORY Embedded Images 0 2:09 PM [facility] DERMATOPATHOLOGY LABORATORY Pathology/Cytolog y TISSUE SPECIMEN FROM SKIN / Unknown 03/20/2019 03/22/2019 8:09 AM CALL TAKER us Sloan Alfaro MD LAB - PATHOLOGY/CYTOLOGY ORDER FRANKY Final Result DERMATOPATHOLOGY LABORATORY [facility] - Department of Dermatology [address] [place] [address], 5th [place] [address], [facility] [phone] documented in this encounter Visit Diagnoses Not on filedocumented in this encounter Care Teams Professor Criminal Justice Relationship Specialty Start Date End Date Og Tran, OFFICE EXECUTIVE-CUSTOMS BROKERAGE MANAGER [address] [place] [id number] PCP - General 11/02/21 documented as of this encounter
--- OUTSIDE RECORDS SUMMARY | 2024-06-26 11:24 | XMS_ITS | Referral Summary ---
Author Organization [facility] Address [address] [place] [address] Care Team Providers Care Biomedical Engineering Aide Name Role Phone Rosy Alexander NP Primary Care Provider [phone] Allergies No known active allergies Medications No [...] on file Legal Sex Male 5:43 PM CANDLE MAKING SUPERVISOR Gender Identity Not on file Sexual Orientation Not on file Last Filed Vital Signs Vital Sign Reading Time Taken Comments Blood Pressure 122/96 02/09/2024 7:36 PM CANDLE MAKING SUPERVISOR Pulse 78 02/09/2024 7:36 PM CANDLE MAKING SUPERVISOR Temperature 36.4 C (97.6 F) 02/09/2024 3:20 PM CANDLE MAKING SUPERVISOR Respiratory Rate 17 02/09/2024 7:36 PM CANDLE MAKING SUPERVISOR Oxygen Saturation 98% 02/09/2024 7:36 PM CANDLE MAKING SUPERVISOR Inhaled Oxygen Concentration - - Weight 136.1 kg (300 lb) 02/09/2024 3:20 PM CANDLE MAKING SUPERVISOR Height 182.9 cm (6') 02/09/2024 3:20 PM CANDLE MAKING SUPERVISOR Body Mass Index 40.69 02/09/2024 3:20 PM CANDLE MAKING SUPERVISOR Plan of Treatment Not on file [...] Most Recently Relevant to Health Maintenance Insurance [facility] PLUS [facility] CHOICE PL[facility] Care Teams Biomedical Engineering Aide Relationship Specialty Start Date End Date Rosy Alexander NP [address] [address] PCP - General Family Medicine 02/09/24
--- OUTSIDE RECORDS SUMMARY | 2024-06-26 11:24 | XMS_ITS | Clinical Summary ---
Author Organization [facility] Guzman castanon Manuelito Address [address] [place] [address] Care Team Providers Care Mri Ct Tech Name Role Phone Unavailable Primary Care [...] by mouth. Active iron/folic ac/vit Bcomp,C/min (B [id number] -FA ORAL) Take by mouth. Active Active Problems No known active problems Encounters Date Type Department Care Team Description 05/21/2024 9:45 AM CDT Office Visit [facility] Oncology and Hematology - [place] Annmarie Clarke [address] [facility] [place] [address] Ernesto Truner MD Plasma cell disorder (Primary Dx) 05/15/2024 Orders Only [facility] Oncology and Hematology - [place] Chase Clarke [address] [place] [address] Ernesto Turner MD 05/11/2024 Orders Only [facility] Oncology and Hematology - [place] [address] [place] Clarke [address] [facility] [place] [address] Ernesto Turner MD 05/09/2024 Orders Only [facility] Oncology and Hematology - [place] [address] Clarke [address] [place] [address] Ernesto Turner MD 05/08/2024 External Device Data STL ABSTRACTION Provider, Abstract 05/08/2024 External Device Data STL ABSTRACTION Provider, Abstract 05/08/2024 External Device Data STL ABSTRACTION Provider, Abstract 05/08/2024 Orders Only [facility] Oncology and Hematology - [place] [address] [place] Clarke [address] Ernesto Turner MD 05/07/2024 9:15 AM CDT Office Visit [facility] Oncology and Hematology - [place] Manuelito Clarke [address] Ernesto Turner MD Plasma cell disorder (Primary Dx) 05/07/2024 Abstract [facility] Oncology and Hematology [facility] Manuelito Clarke [address] [place] [id number] Ernesto Turner MD from Last 3 Months [...] Sign Reading Time Taken Comments Blood Pressure 116/78 05/21/2024 9:39 AM CDT Pulse 89 05/21/2024 9:39 AM CDT Temperature 36.6 C (97.9 F) 05/21/2024 9:39 AM CDT Respiratory Rate 15 05/21/2024 9:39 AM CDT Oxygen Saturation 95% 05/21/2024 9:39 AM CDT Inhaled Oxygen Concentration - - Weight 139.1 kg (306 lb 9.6 oz) 05/21/2024 9:39 AM CDT Height 182.9 cm (6') 05/07/2024 9:01 AM CDT Body Mass Index 41.58 05/07/2024 9:01 AM CDT Plan of Treatment Upcoming Encounters Date Type Department Care Team (Late st Contact Info) Description 11/22/2024 3:45 PM CDT Office Visit [facility] Oncology and Hematology - [place] [address] [facility] [address] [place] [address] Ernesto Turner MD [address] [facility] [employer] [address] [place] [address] Health Maintenance Due Date Last [...] series) 2015 INFLUENZA VACCINE (#1) 2023 12/13/2016 DTAP/TDAP/TD VACCINES (2 - Td or Tdap) 03/29/2029 COLORECTAL SCREENING 09/30/2029 10/01/2019 Colorectal Cancer Screening 09/30/2029 Procedures Procedure Name Priority Date/Time Associated Diagnosis Comments XR BONE SURVEY COMPLETE Routine 05/11/19 10:48 AM CDT PROTEIN ELECTROPHORESIS, CSF Routine 05/07/2024 12:23 PM CDT CBC WITH AUTODIFFERENTIAL Routine 2024 11:33 AM CDT COMPREHENSIVE METABOLIC PANEL Routine 05/07/2024 11:32 AM CDT KAPPA/LAMBDA LIGHT CHAINS Routine 2024 10:30 AM CDT from Last 3 Months Results * XR BONE SURVEY COMPLETE (05/10/2024 10:48 AM CDT) Anatomical Region Laterality Modality Other Result Sia Turner MD DIAGNOSTIC IMAGING ORDERABLES F inal Result * PROTEIN ELECTROPHORESIS, CSF (05/07/2024 12:23 PM CDT) Cerebrospinal fluid CEREBROSPINAL FLUID / Unknown us Ernesto Turner MD BODY FLUIDS AND STOOLS Final Re sult * CBC WITH AUTODIFFERENTIAL (05/07/2024 11:33 AM CDT) Blood Result Sia Turner MD HEMATOLOGY ORDERABLES Final Res ult * COMPREHENSIVE METABOLIC PANEL (05/07/2024 11:32 AM CDT) Blood us Ernesto Turner MD CHEMISTRY ORDERABLES Final Resu lt * KAPPA/LAMBDA, FREE LIGHT CHAINS (05/07/2024 10:30 AM CDT) Blood Result [facility] us Ernesto Turner MD CHEMISTRY ORDERABLES Final Resu lt from Last 3 Months Insurance [employer] [id number] [facility] Address: [facility] [id number] [place] [address]
--- OUTSIDE RECORDS SUMMARY | 2024-06-26 11:24 | XMS_ITS | Encounter Summary ---
Author Organization [facility] Facility Care Team Providers Care Manager Of International Name Role Phone Alanna Rhodes MD Primary Care Provider + Rosy Alexander NP Primary Care Provider [phone] Encounter Details Date Type Department Care Team (Latest Contact Info) Description 02/20/2015 Orders Only [facility] ProviderGiselle MD [address] [place] [address] Social History Tobacco Use Types Packs/Day Years Used Date Smoking Tobacco: Never Assessed Sex and Gender Information Value Date Recorded Sex Assigned at Not on file Legal Sex Male 5:43 PM NET WEB APPLICATION DEVELOPER Gender Identity Not on file Sexual Orientation Not on file documented as of this encounter Plan of Treatment Not on file documented as of this encounter Procedures Procedure Name Priority Date/Time Associated Diagnosis Comments CARDIOLOGY REPORT 03/04/2016 12: 00 AM NET WEB APPLICATION DEVELOPER documented in this encounter Results * CARDIOLOGY REPORT (03/04/2016 12:00 AM NET WEB APPLICATION DEVELOPER) Anatomical Region Laterality Modality Other Narrative 03/04/2016 12:00 AM NET WEB APPLICATION DEVELOPER Ordered by an unspecified provider. Historical Provider [facility] [place] Final Result documented in this encounter Visit Diagnoses Not on filedocumented in this encounter Care Teams Manager Of International Relationship Specialty Start Date End Date Alanna Rhodes MD PCP - General 06/12/18 02/08/24 Rosy Alexander NP [address] [address] PCP - General Family Medicine 02/09/24 documented as of this encounter
--- OUTSIDE RECORDS SUMMARY | 2024-06-26 11:24 | XMS_ITS | Clinical Summary ---
Author Organization [facility] Address [facility] [place] [address] Care Team Providers Care Train Station Agent Name Role Phone Jose Alberto Toth MD Unavailable [phone] Rosy Alexander Primary Care Provider [phone] Allergies Active Allergy Reactions Criticality Noted Date Comments Gabapentin Hallucinations 03/25/2021 Statins Myalgias High 04/17/2019 Tape Swelling Low 09/27/2016 Medications benazepril 20 MG tablet Take 1 tablet (20 mg total) by mouth daily. 9 Active fluticasone propionate 50 MCG/ACT nasal spray 2 sprays by Nasal route daily. Active Cholecalciferol (VITAMIN D-3) 125 MCG (5000 UT) Tab Take 1 tablet (5,000 Units total) by mouth daily. Active loratadine 10 MG tablet Take 1 tablet (10 mg total) by mouth daily. Active ELIQUIS 5 MG tablet Take 1 tablet by mouth twice daily 180 tablet 1 3 Active metFORMIN ER (GLUCOPHAGE-XR) 500 MG 24 hr tablet Take 1 tablet (500 mg total) by mouth daily with breakfast. Active Phentermine HCl 30 MG Cap Take 30 mg by mouth daily. Active terbinafine (LAMISIL) 250 MG tablet TAKE 1 TABLET BY MOUTH ONCE DAILY FOR 90 DAYS, THEN STOP TAKING FOR 90 DAYS, THEN TAKE AGAIN FOR 90 DAYS. 4 Active dilTIAZem ER (TIAZAC) 360 MG 24 hr capsule 5 Active ezetimibe (ZETIA) 10 MG tabletIndicatio ns:Dyslipidemia Take 1 tablet (10 mg total) by mouth daily. 90 tablet 1 5 Active ezetimibe (ZETIA) 10 MG tabletIndicatio ns:Dyslipidemia Take 1 tablet (10 mg total) by mouth daily. 90 tablet 2 4 05/29/19 25 Discontinu ed(Reorder ) Active Problems Problem Noted Date Diagnosed Date Atrial fibrillation ([facility]) 02/27/2018 Hypertensive disorder 02/27/2018 Diabetes mellitus ([facility]) 02/27/2018 Dyslipidemia 02/27/2018 Palpitations Encounters Date Type Department Care Team Description 05/28/2024 [facility]phone [facility], [address] [address] Jose Alberto Toth MD Refill Request (ZETIA) from Last 3 Months Immunizations Immunization Administration Dates Next Due Flucelvax 6 Months+ [...] Sex Assigned at Male 02/23/2022 1:56 PM INGOT STRIPPER Legal Sex Male 5:08 PM CDT Gender Identity Male 03/23/2021 4:31 AM INGOT STRIPPER Sexual Orientation Straight 03/23/2021 4: 31 AM INGOT STRIPPER Last Filed Vital Signs Vital Sign Reading Time Taken Comments Blood Pressure 108/80 02/29/2024 2:55 PM INGOT STRIPPER Pulse 76 02/29/2024 2:55 PM INGOT STRIPPER Temperature 36.6 C (97.8 F) 04/17/2019 6:50 AM CDT Respiratory Rate 15 04/17/2019 11:00 AM CDT Oxygen Saturation 98% 02/29/2024 2:55 PM INGOT STRIPPER Inhaled Oxygen Concentration - - Weight 137.4 kg (303 lb) 02/29/2024 2:55 PM INGOT STRIPPER Height 182.9 cm (6') 02/29/2024 2:55 PM INGOT STRIPPER Body Mass Index 41.09 02/29/2024 2:55 PM INGOT STRIPPER Plan of Treatment Upcoming Encounters Date Type Department Care Team (Late st Contact Info) Description 08/22/2024 3:00 PM CDT Office Visit [facility] [facility], [address] [place], [place] [phone] Jose Alberto Toth MD Three [facility]. [address] [place], [place] [id number] Health Maintenance Due Date Last Done Comments Kidney Health Evaluation 1955 Hemoglobin A1C 1955 Diabetes: Retinopathy Eye Exam 1973 Hepatitis C 1973 Pneumococcal Vaccine: 50+ Years (1 of 2 - PCV) 1974 Zoster Vaccines (1 of 2) 2005 RSV Immunization or 60+ Years (1 - Risk 60-74 years 1-dose series) 2015 COVID-19 Vaccine ( - season) 2023 Lipid Panel 07/26/2024 07/27/2023, 05/09, 09/12/2021, Additional [...] (10/01/2019) us Documents Scanned SCANNING Final Result HS ONBASE from Last 3 Months or Most Recently Relevant to Health Maintenance Insurance [address] Care Teams Train Station Agent Relationship Specialty Start Date End Date Rosy Alexander APNP [address] [address] [address] [place] [address] PCP - General Nurse Practitioner Family 08/17/23 Jose Alberto Toth MD Three [facility]. [address] [place] [address] [place] CARDIOVASCULAR DISEASE 05/09/19
--- OUTSIDE RECORDS SUMMARY | 2024-06-26 11:24 | XMS_ITS | Clinical Summary ---
Author Organization [facility] [employer] Address [address] [place] [address] Care Team Providers Care Stable Cleaner Name Role Phone Og Tran APRN-BLOCKER POLISHING Primary Care Provider Source Comments [facility] [employer],non-owned Affiliates and Associated Physician Practices is amultiple site organization consisting of ambulatory clinics and hospital sitesin [place], [place], [place] and [place]. This disclosure is being madepursuant to the Care Everywhere program and may not contain all information available regarding this patient. Last updated 17.[facility] [employer] Allergies Active Allergy Reactions Criticality Noted Date Comments Adhesive Sensitivity Swelling Low 09/27/2016 Gabapentin Psychiatric Medium 03/25/2021 Hmg-Coa-R Inhibitors Myalgias High 04/17/2019 Medications * Be aware that medications may not be up to date on this document. Alwaysverify current medications with the patient. fluticasone propionate (FLONASE) 50 MCG/ACT nasal spray [place] 2 (two) sprays into each nostril once daily Active dilTIAZem ER (TIAZAC) 360 MG capsule Take 1 (one) capsule by mouth once daily Active benazepril (LOTENSIN) 20 MG tablet Take by mouth once daily Active hydroCHLOROthia zide (MICROZIDE) 12.5 MG capsule Take 1 (one) capsule by mouth once daily Active Cholecalciferol (VITAMIN D3) 60684 UNITS TABS Active Eliquis 5 MG tablet Take 1 (one) tablet by mouth 2 times daily 3 Active metFORMIN (Glucophage) 500 MG tablet Take [...] Comments Blood Pressure 118/81 02/21/2023 2:05 PM VETERINARY TECHNICIAN INSTRUCTOR Pulse 77 02/21/2023 2:05 PM VETERINARY TECHNICIAN INSTRUCTOR Temperature 36.8 C (98.2 F) 02/21/2023 2:05 PM VETERINARY TECHNICIAN INSTRUCTOR Respiratory Rate 9 02/08/2023 9:45 AM VETERINARY TECHNICIAN INSTRUCTOR Oxygen Saturation 97% 02/21/2023 2:05 PM VETERINARY TECHNICIAN INSTRUCTOR Inhaled Oxygen Concentration - - Weight 128.1 kg (282 lb 4.8 oz) 02/08/2023 6:46 AM VETERINARY TECHNICIAN INSTRUCTOR Height 182.9 cm (6') 02/21/2023 2:05 PM VETERINARY TECHNICIAN INSTRUCTOR Body Mass Index 38.29 02/08/2023 6:46 AM VETERINARY TECHNICIAN INSTRUCTOR Plan of Treatment Health Maintenance Due Date [...] COMPREHENSIVE METABOLIC PANEL Routine 02/02/2023 1:43 PM VETERINARY TECHNICIAN INSTRUCTOR Mass of scalp from Last 3 Months or Most Recently Relevant to Health Maintenance Results * (ABNORMAL) COMPREHENSIVE METABOLIC PANEL (02/02/2023 1:43 PM VETERINARY TECHNICIAN INSTRUCTOR) BUN 15 7 - 26 mg/dL 02/02/2023 2:31 PM [facility] Creatinine 0.76 0.71 - 1.16 mg/dL 02/02/2023 2:31 PM [facility] Sodium 143 136 - 145 mmol/L 02/02/2023 2:31 PM [facility] Potassium 3.8 3.5 - 4.5 mmol/L 02/02/2023 2:31 PM [facility] Chloride 104 98 - 107 mmol/L 02/02/2023 2:31 PM [facility] CO2 26 22 - 29 mmol/L 02/02/2023 2:31 PM [facility] Glucose 115 70 - 115 mg/dL 02/02/2023 2:31 PM [facility] Calcium 10.2 8.4 - 10.2 mg/dL 02/02/2023 2:31 PM [facility] Protein Total 7.5 6.0 - 8.3 g/dL 02/02/2023 2:31 PM [facility] Albumin 4.3 3.4 - 5.0 g/dL 02/02/2023 2:31 PM [facility] Bilirubin Total 0.3 0.2 - 1.2 mg/dL 02/02/2023 2:31 PM [facility] Alkaline Phosphatase 62 40 - 150 U/L 02/02/2023 2:31 PM [facility] ALT 30 5 - 55 U/L 02/02/2023 2:31 PM [facility] AST 21 5 - 34 U/L 02/02/2023 2:31 PM [facility] Anion Gap 13 6 - 16 02/02/2023 2:31 PM [facility] BUN/Creatinine Ratio 20 7 - 23 02/02/2023 2:31 PM [facility] Osmolality Calculated 298(H) 275 - 295 mOsm/kg 02/02/2023 2:31 PM [facility] Albumin/Globulin Ratio 1.3 1.1 - 2.3 02/02/2023 2:31 PM [facility] eGFR by CKD-EPI >90 >=90 mL/min/1.7 3 m2 02/02/2023 2:31 PM [facility] Blood BLOOD SPECIMEN / Unknown Lab Venipuncture / Unknown 02/02/2023 1:43 PM [facility] 02/02/2023 2:06 PM [facility] us Talib Hunt MD LAB - CHEMISTRY ORDERABLES Final Result [facility] [address] [place] [address], [facility] [phone] from Last 3 Months or Most Recently Relevant to Health Maintenance Insurance [facility] Care Teams Stable Cleaner Relationship Specialty Start Date End Date Og Tran, LIBRARIAN SPECIALIST-BLOCKER POLISHING [address] [place] [phone] PCP - General 11/02/21
--- OUTSIDE RECORDS SUMMARY | 2024-06-26 11:24 | XMS_ITS | Encounter Summary ---
Author Organization [facility] Address [address] [place] [address] Care Team Providers Care Actuarial Assistant Name Role Phone Alanna Rhodes MD Primary Care Provider [phone] Jose Alberto Toth MD Unavailable [phone] Rosy Alexander Primary Care Provider [phone] Encounter Details Date Type Department Care Team (Late Contact Info) Description 10/07/2020 Abstract [facility] [facility], [address] [address] Jenifer Lujan MA Social History Tobacco Use Types Packs/Day Years Used Date Smoking Tobacco: Never Smokeless Tobacco: Never Alcohol Use Standard Drinks/Week Comments Yes 0 (1 standard drink = 0.6 oz pur e alcohol) ocassionally Sex and Gender Information Value Date Recorded Sex Assigned at Male 02/23/2022 1:56 PM TRASH COLLECTOR SUPERVISOR Legal Sex Male 5:08 PM CDT Gender Identity Male 03/23/2021 4:31 AM TRASH COLLECTOR SUPERVISOR Sexual Orientation Straight 03/23/2021 4: 31 AM TRASH COLLECTOR SUPERVISOR COVID-19 Exposure Response Date Recorded In the last month, have you been in contact with someone who was confirmed or suspected to have Coronavirus / COVID-19? No / Unsure 09/23/2020 8:32 AM CDT documented as of this encounter Plan of Treatment Upcoming Encounters Date Type Department Care Team (Late Contact Info) Description 08/22/2024 3:00 PM CDT Office Visit [facility] [facility], [address] [address] Jose Alberto Toth MD Three [facility]. [facility] [address] [place], [place] [id number] documented as of this encounter Procedures Procedure [...] Result * CBC (OUTSIDE LAB) (10/07/2020) Pathologist [facility] WBC 8.5 HGB 16.1 HCT 48.5 PLT 241 10/07/2020 us Doc [facility] Abstract LAB-OUTSIDE/ABSTRACTED Final Result * LIPID PANEL (10/07/2020) Pathologist [facility] CHOLESTEROL 157 HDL 40 TRIGLYCERIDES 143 DIRECT LDL 77 10/07/2020 us Doc [facility] Abstract LABORATORY Final Result * (ABNORMAL) COMPREHENSIVE METABOLIC PANEL (10/07/2020) Pathologist [facility] SODIUM S/P/B 137 POTASSIUM S/P/B 4.0 CO2 [...] on filedocumented in this encounter Care Teams Actuarial Assistant Relationship Specialty Start Date End Date Alanna Rhodes MD [address] [place] [address] [place] [address] PCP - General FAMILY PRACTICE 04/06/19 08/16/23 Rosy Alexander APNP [address] [place] [id number] PCP - General Nurse Practitioner Family 08/17/23 Jose Alberto Toth MD [address] [address] [place] Double Head Machine Operator CARDIOVASCULAR DISEASE 05/09/19 documented as of this encounter
--- OUTSIDE RECORDS SUMMARY | 2024-06-26 11:24 | XMS_ITS | Encounter Summary ---
Author Organization [facility] Facility Care Team Providers Care Deputy K 9 Name Role Phone Alanna Rhodes MD Primary Care Provider + Rosy Alexander NP Primary Care Provider Encounter Details Date Type Department Care Team (Latest Contact Info) Description 01/13/2015 Orders Only [facility] CLIN[facility] ProviderGiselle MD [address] [place] [address] Social History Tobacco Use Types Packs/Day Years Used Date Smoking Tobacco: Never Assessed Sex and Gender Information Value Date Recorded Sex Assigned at Not on file Legal Sex Male 5:43 PM EVAPORATOR OPERATOR MOLASSES Gender Identity Not on file Sexual Orientation Not on file documented as of this encounter Plan of Treatment Not on file documented as of this encounter Procedures Procedure Name Priority Date/Time Associated Diagnosis Comments SCAN - LABS 03/04/2016 12:00 AM EVAPORATOR OPERATOR MOLASSES documented in this encounter Results * SCAN - LABS (03/04/2016 12:00 AM EVAPORATOR OPERATOR MOLASSES) Narrative 03/04/2016 12:00 AM EVAPORATOR OPERATOR MOLASSES Ordered by an unspecified provider. Historical Provider Final Res ult documented in this encounter Visit Diagnoses Not on filedocumented in this encounter Care Teams Deputy K 9 Relationship Specialty Start Date End Date Alanna Rhodes MD PCP - General 06/12/18 02/08/24 Rosy Alexander NP [address] [address] PCP - General Family Medicine 02/09/24 documented as of this encounter
--- OUTSIDE RECORDS SUMMARY | 2024-06-26 11:24 | XMS_ITS | Clinical Summary ---
Author Organization [facility] Address [address] [place] [address] Care Team Providers Care Instructor Tap Dancing Name Role Phone Rosy Alexander NP Primary Care Provider [phone] Allergies No known active allergies Medications No [...] on file Legal Sex Male 5:43 PM EDUCATION AND TRAINING COORDINATOR Gender Identity Not on file Sexual Orientation Not on file Last Filed Vital Signs Vital Sign Reading Time Taken Comments Blood Pressure 122/96 02/09/2024 7:36 PM EDUCATION AND TRAINING COORDINATOR Pulse 78 02/09/2024 7:36 PM EDUCATION AND TRAINING COORDINATOR Temperature 36.4 C (97.6 F) 02/09/2024 3:20 PM EDUCATION AND TRAINING COORDINATOR Respiratory Rate 17 02/09/2024 7:36 PM EDUCATION AND TRAINING COORDINATOR Oxygen Saturation 98% 02/09/2024 7:36 PM EDUCATION AND TRAINING COORDINATOR Inhaled Oxygen Concentration - - Weight 136.1 kg (300 lb) 02/09/2024 3:20 PM EDUCATION AND TRAINING COORDINATOR Height 182.9 cm (6') 02/09/2024 3:20 PM EDUCATION AND TRAINING COORDINATOR Body Mass Index 40.69 02/09/2024 3:20 PM EDUCATION AND TRAINING COORDINATOR Plan of Treatment Health Maintenance Due [...] Most Recently Relevant to Health Maintenance Insurance [facility] CHO[facility] PLUS [facility] H[facility]PPO Address: [address] [address] [place] [address] [facility] CHOICE PLUS [facility] HMO/PPO Address: [place] [id number] [place] [phone] Care Teams Instructor Tap Dancing Relationship Specialty Start Date End Date Rosy Alexander NP [address] [id number] PCP - General Family Medicine 02/09/24
--- OUTSIDE RECORDS SUMMARY | 2024-06-26 11:24 | XMS_ITS | Data Portability ---
Author Organization [place] - [facility] [employer], Main Office Address [address] [place] [address] Care Team Providers Care Nursing Resident Name Role Phone OG TRAN Primary Care Provider [phone] OG TRAN Referring Provider [phone] Assessment No assessment recorded. Plan of Treatment Reminders Order Date Submit Date Provider Last Modified By Organization Details Last Modified Time Details Appointments None recorded. Lab None recorded. Referral None recorded. Procedures None recorded. Surgeries None recorded. Imaging None recorded. Medication Orders phentermine 37.5 mg capsule 2022 023 [facility], [address] Y[address] Posey, [place], [address], 3 16:30:12 phentermine 15 mg capsule 2022 023 [facility], 5 Yessy Posey, [place], [address], 3 17:02:24 fluticasone propionate 50 mcg/actuati on nasal spray,suspe nsion 2022 023 [facility], [address] [place], [address], 3 16:48:27 Loratadine- D 10 mg-240 mg tablet,exte nded release 24 hr 2022 023 [facility], [address] [place], [address], 3 16:48:29 Wegovy 0.25 mg/0.5 mL subcutaneou s pen injector 2022 023 [facility], 5 Yessy Posey, [place], [address], 3 16:48:26 Eliquis 5 mg tablet 2022 023 [facility], 5 Yess[address]osey, [place], [address], 3 17:04:20 Mounjaro 5 mg/0.5 mL subcutaneou s pen injector 2022 [email or web address] [place] [address] Pharmacy 4878, 5 Yessy Posey, [place], [address], 3 17:42:07 Mounjaro 7.5 mg/0.5 mL subcutaneou s pen injector 2022 [email or web address] [place] [address] Pharmacy 4878, 5 Yessy Posey, [place], [address], 3 13:21:35 Patient TargetsNo targets recorded. Patient InstructionsNo instructions recorded. Reason for Referral None Reported. Results Created Date Observation Date Name Description Value Unit Range Abnormal Flag Note LastModifiedBy Organization Detail LastModifiedTime 01/29/20 23 01/28/2023 XR, chest No observ ation record ed. [email or web address] [facility] [address], [place], [address], 06/17/2023 17:51:50 Result Notes None recorded. Problems Name Problem SNOMED Code Status Onset Date Resolution Date Notes Provider Name and Address Organization Details Recorded Time Dupuytren' s disease of palm, nodules with no contractur e 530345040 Active 2021 Not Available [facility] 3 20:39:32 Renal mass 720629078 Active 2018 Not Available [facility] 3 20:39:32 Dyslipidem ia 055369886 Active 2018 Not Available [facility] 3 20:39:32 Hypertensi ve disorder 87966652 Active 2018 Not Available [facility] 3 20:39:32 Atrial fibrillati on 90168345 Active 2018 Not Available [facility] 3 20:39:32 Essential hypertensi on 74965409 Active 2020 Not Available [facility] 3 20:39:32 Diabetes mellitus 82176701 Active 2018 Not Available [facility] 3 20:39:32 Seasonal allergy 466798279 Active 2022 ASHIA Bautista [address], [place], [address] , [facility] 3 13:42:10 Hyperglyce alfonzo due to type 2 diabetes mellitus 6862126605425 09 Active 2022 SALTY Perez [address], [address], [place], [address] , [facility] 3 15:46:08 Obesity 727198991 Active 2022 ISAC Sidhu [address], [address], [place], [address] , [facility] 3 16:20:08 Problem Notes None recorded. Procedures Surgical History None recorded. Imaging Results Imaging Date Name Status LastModified by Organiz ation Details LastModified Time 01/28/2023 XR, chest completed [email or web address] [place] [id number] [facility] [address], [place], [address], 06/17/2023 17:51:50 Procedure Notes None recorded. Medical Equipment None Reported. Allergies Allergen ID Allergen Name Allergen Category Reaction Reaction Severity Criticality Documentation Date Start Date Code Code System Note Provider Name and Address Organization Details Recorded Time 00360 Product containin g 3-hydroxy -3-methyl glutaryl- coenzyme A reductase inhibitor (product) medicatio n Not available Not available Not available 04/07/2022 38529 009 SNOMED pain Not Available [facility] 3 20:40:35 Medications Name Sig Start Date [...] Updated DateTime 3 185.42 cm 37.5 kg/m2 816671. 23 g 97.1 [degF] 76 /min 93 % 93 % 110 mm[Hg] 68 mm[Hg] PATRICIA Weinstein [facility] [employer] 3 16:34:39 Date Recorded Body height Body mass index (BMI) Body weight Body temperature Heart rate Oxygen saturation Oxygen saturation in Arterial blood by Pulse oximetry Systolic blood pressure Diastolic blood pressure Provider Name and Address Organization Details Last Updated DateTime 3 185.42 cm 35.2 kg/m2 066728. 16 g 98.9 [degF] 82 /min 96 % 96 % 118 mm[Hg] 78 mm[Hg] [facility] [employer] [facility] 3 17:10:47 Date Recorded Body height Body mass index (BMI) Body weight Body temperature Oxygen saturation Oxygen saturation in Arterial blood by Pulse oximetry Heart rate Systolic blood pressure Diastolic blood pressure Provider Name and Address Organization Details Last Updated DateTime 3 185.42 cm 35.1 kg/m2 265238. 57 g 97.9 [degF] 96 % 96 % 108 /min 122 mm[Hg] 68 mm[Hg] Luci Alexander CMA [facility] [employer] [facility] 3 15:58:45 Date Recorded Body height Body mass index (BMI) Body weight Body temperature Heart rate Oxygen saturation Oxygen saturation in Arterial blood by Pulse oximetry Systolic blood pressure Diastolic blood pressure Provider Name and Address Organization Details Last Updated DateTime 3 185.42 cm 36.4 kg/m2 096344. 49 g 98.3 [degF] 77 /min 93 % 93 % 122 mm[Hg] 72 mm[Hg] Justyna Sullivan LPN [place] [employer] [facility] [employer] [facility] 3 16:45:41 Date Recorded Body height Body mass index (BMI) Body weight Body temperature Oxygen saturation Oxygen saturation in Arterial blood by Pulse oximetry Heart rate Systolic blood pressure Diastolic blood pressure Provider Name and Address Organization Details Last Updated DateTime 3 185.42 cm 37.2 kg/m2 984720. 05 g 97.2 [degF] 94 % 94 % 91 /min 128 mm[Hg] 90 mm[Hg] Erna Smiley RN [facility] [employer] 3 15:59:44 Social History Question Answer Notes LastModified by Friday Details LastModified Time Tobacco Smoking Status Former Smoker Lillie Tim RN [facility], [facility] [employer] 05/21/2022 15:35:51 What Is Your Level Of Caffeine Consumption? Moderate Information not available 05/21/2022 Which Illicit Or Recreational Drugs Have You Used? Marijuana Information not available 05/21/2022 When Did You Quit Smoking? 16+yearssincel sadiecinazette Information not available 05/21/2022 Do You Use Your Seat Belt Or Car Seat Routinely? Yes Information not available 06/09/2022 Sex: Unknown Functional Status Question Answer Note LastModified by Organizat ion Details LastModified Time Do you use any illicit or recreational drugs? Yes Information not available 05/21/2022 What is your level of alcohol consumption? Occasional Information not available 05/21/2022 Mental Status Question Answer Note LastModified by Organization D etails LastModified Time Do you feel stressed (tense, restless, nervous, or anxious, or unable to sleep at night)? [id number] Information not available 06/09/2022 Family History Nothing Reported. Medical History No medical history recorded. Immunizations Vaccine Type Date Status Note Provider Nam e and Address Organization Details Recorded Time Tdap 03/29/2019 completed Not Available [employer] 04/07/2022 20:40:33 Past Encounters Encounter ID Performer Location Encounter Start Date Encounter Closed Date Diagnosis/Indication Diagnosis SNOMED-CT Code Diagnosis ICD10 Code Diagnosis Note [id number] Alanna Rhodes MD [facility] [address] [address] 01/27/2021 00:00:00 01/27/2021 17:14:50 [id number] Alanna Rhodes MD [facility] Primary Care [address] [address] 11/13/2021 00:00:00 11/13/2021 18:16:22 [id number] SALTY Perez [facility] Primary Care [address] [address] 05/21/2022 15:25:56 05/21/2022 17:26:10 Hyperglycemia due to type 2 diabetes mellitus 7467912770 84401 E11.65 Unknown status.Dis cussed need for regular exercise, increase intake of water/vege tables/fib er. Decrease intake of carbs, especially white rice/pasta /flour/leodan ad/sugar.W ill check labs and start on metformin 500mg ER daily.Will also give trial of Mounjaro 2.5mg weekly. [id number] Alanna Rhodes MD [facility] Primary Care [address] [address] 06/09/2022 16:28:17 06/09/2022 17:27:44 Hyperglycemia due to type 2 diabetes mellitus 6383268765 76077 E11.65 Improved with starting MounjaroA1 C 5.7 [...] dose. Patient in formed - test result [id number] Z71.2 Reviewed lab results with patient. Discussed abnormal levels and treatment recommenda tions as above.chol esterol levels wnl (06/05/22)C BC wnl (06/05/22)C MP: na 136, creat 0.60 (06/05/22) [id number] SALTY Perez [facility] Primary Care [facility] [address] [facility] [place] [address] 07/15/2022 16:50:48 07/15/2022 18:02:22 Hyperglycemia due to type 2 diabetes mellitus 9359150912 71899 E11.65 Improved with starting MounjaroA1 C 5.7 [...] W19.XXXA No ongoing sx at this time. [id number] ISAC Sidhu [facility] Primary Care [facility] [address] [facility] [place] [address] 09/10/2022 15:53:43 09/10/2022 16:46:53 Obesity 913103844 E66.9 Declines further use of the Mounjaro d/t negative GI side effectsWil l trial wegovyEnco uraged fresh fruits and veggies.In crease daily water intake Seasonal allergy 4695041 04 J30.2 stable Atrial fibrillation 4943 6004 I48.91 stable [id number] Alanna Rhodes MD [facility] Primary Care [facility] [address] [facility] [place] [address] 12/01/2022 16:27:15 12/01/2022 17:00:40 Obesity 062562122 E66.9 Has gained 10 lbs since last visitinsur oscar did not approve wegovyhe has tried to be more active in the last 2 months than he has in the last 2 yearshe is agreeable to trying phentermin e-will give 15mg capf/u in 1 month Declines further use of the Mounjaro d/t negative GI side effectsWil l trial wegovyEnco uraged fresh fruits and veggies.In crease daily water intake [id number] ISAC Sidhu [facility] Primary Care [facility] [address] [facility] [place] [address] 02/02/2023 15:49:25 02/02/2023 16:28:34 Obesity 464433783 E66.9 -pt notes no ASE with use [...] Wagoner Member ID Guarantor Name 06/09/2022 1 [facility] [id number] [facility] [id number] [facility] 07/15/2022 1 [facility] [id number] [facility] [id number] [facility] 09/10/2022 1 [facility] [id number] [facility] [id number] [facility] [place] 12/01/2022 1 [facility] [id number] Kentrell W [facility] [id number] Kentrell W [facility] 02/02/2023 1 [facility] [id number] [facility] [id number] Notes Date Note Type Note Provider Name [...] that will help him lose some weight. Og Tran, RUBBER WORKER [address] [facility], [place], [address], [place] [facility] [employer] 06/09/2022 17:11:37 07/15/2022 text/html 07/15/22: 1. Pt in office with for 4 week f/u appt on Mounjaro. Pt states he is tolerating well. Denies any severe GI distress most of the time until he went to [employer] for lunch on Tuesday.2. Pt states he [...] that will help him lose some weight. Og Tran, SALTY [address], [place], [address], [facility] 07/15/2022 18:47:06 09/10/2022 text/html Pt here to [...] Improved with use of metamucil, and miralax SALTY Sidhu-Yuriy [address], [address], [place], [address], [facility] 09/10/2022 16:49:17 12/01/2022 text/html Pt is here for 1 month f/u ISAC Sidhu [address], [place], [address], [facility] 12/01/2022 17:03:57 02/02/2023 text/html Pt is here for weight loss f/u ISAC Sidhu [address], [place], [address], [facility] 02/02/2023 16:33:03
== END 2024-06-26 11:21 | disposition home or self-care (01) ==
PROVIDERS: PCP Nurse Practitioner Family; Visit Provider Orthopaedic Surgery
DX: Z96.612 Presence of left artificial shoulder joint (principal)
CPT/HCPCS: 73030

== ENCOUNTER 2024-08-08 13:05 | Outpatient (CLI) | payer OTHER, SELFPAY ==
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
--- NOTE | ~2024-08-08 | MR_ITS ---
MRI of the cervical spine Clinical History: Cervicalgia Technique: Axial T2-weighted and gradient images, and sagittal T1-weighted, T2-weighted, and STIR af[place] ges were acquired. Findings: There is no fracture or subluxation of the cervical spine. There is straightening of the no rmal cervical lordosis. No bone marrow signal abnormality seen. At C2-C3, there is mild facet arthropathy, left worse than right. No spinal canal stenosis, cord comp ression, or definite neural foraminal narrowing. At C3-C4, there is mild disc osteophyte complex with bilateral facet arthropathy. There is probable b ilateral neural foraminal narrowing. There is mild canal stenosis without vijaya cord compression. At C4-C5, there is mild disc osteophyte, somewhat bilateral facet arthropathy, left worse than right. Follow minimal bilateral neural foraminal narrowing. No canal stenosis or cord compression. At C5-C6, there is minimal disc osteophyte complex. There is bilateral facet arthropathy. There is pr obable bilateral neural foraminal narrowing. There is minimal canal stenosis without vijaya cord compr ession. At C6-C7, there is mild disc osteophyte complex. There is mild canal stenosis without vijaya cord comp ression. No definite neural foraminal narrowing. Paravertebral soft tissues are unremarkable. No abnormal signal seen in the spinal cord. Impression: Mild degenerative spondylosis overall, as detailed above. Reviewed, dictated and finalized at [facility]. Impression: Mild degenerative spondylosis overall, as detailed above.
== END 2024-08-08 13:06 | disposition home or self-care (01) ==
LOC: MICIMG 13:06
PROVIDERS: PCP Nurse Practitioner Family; Visit Provider Psychiatry & Neurology Neurology
DX: M47.892 Other spondylosis, cervical region (principal); I67.82 Cerebral ischemia; G31.9 Degenerative disease of nervous system, unspecified; G62.9 Polyneuropathy, unspecified; R26.89 Other abnormalities of gait and mobility; R29.6 Repeated falls; Z87.828 Personal history of other (healed) physical injury and trauma
CPT/HCPCS: 70551; 72141

== ENCOUNTER 2024-08-17 14:07 | Outpatient (CLI) | payer OTHER, SELFPAY ==
--- NOTE | ~2024-08-17 | XR_ITS ---
Right Shoulder Technique: AP and axillary views were obtained. Clinical History: Pain Findings: No fracture or dislocation is seen. Osseous alignment is anatomic. The glenohumeral joint i s intact. There is mild AC joint degenerative change. Soft tissues are unremarkable. Impression: Mild AC joint degenerative change. Reviewed, dictated and finalized at location . Impression: Mild AC joint degenerative change.
--- NOTE | ~2024-08-17 | XR_ITS ---
EXAM/ PROCEDURE: XR shoulder LT min 2V - 08/17/2024 14:22 CDT HISTORY: 69 years old Male with PRESENCE OF LEFT ARTIFICAL SHOULDER JOINT COMPARISON: None available TECHNIQUE: Four view(s) FINDINGS/ IMPRESSION: Status post reverse total shoulder arthroplasty. Intact hardware and no loosening. There are no fractures or dislocations.Joint space narrowing, subchondral sclerosis, subchondral cyst formation and osteophyte formation, compatible with moderate osteoarthritis. Reviewed, dictated and finalized at location A.
--- OUTSIDE RECORDS SUMMARY | 2024-08-17 14:12 | XMS_ITS | Clinical Summary ---
Author Organization [facility] Address [address] [place] [address] Care Team Providers Care Laminating Machine Feeder Name Role Phone Rosy Alexander NP Primary Care Provider [phone] Allergies No known active allergies Medications No [...] on file Legal Sex Male 5:43 PM DISPLAY DESIGNER Gender Identity Not on file Sexual Orientation Not on file Last Filed Vital Signs Vital Sign Reading Time Taken Comments Blood Pressure 122/96 02/09/2024 7:36 PM DISPLAY DESIGNER Pulse 78 02/09/2024 7:36 PM DISPLAY DESIGNER Temperature 36.4 C (97.6 F) 02/09/2024 3:20 PM DISPLAY DESIGNER Respiratory Rate 17 02/09/2024 7:36 PM DISPLAY DESIGNER Oxygen Saturation 98% 02/09/2024 7:36 PM DISPLAY DESIGNER Inhaled Oxygen Concentration - - Weight 136.1 kg (300 lb) 02/09/2024 3:20 PM DISPLAY DESIGNER Height 182.9 cm (6') 02/09/2024 3:20 PM DISPLAY DESIGNER Body Mass Index 40.69 02/09/2024 3:20 PM DISPLAY DESIGNER Plan of Treatment Health Maintenance Due Date [...] Most Recently Relevant to Health Maintenance Insurance [facility] [place] [address] [facility] CHO[facility] PL[facility] Member Subscriber Plan / Payer (Ef fective 2018-Present) Name:Kentrell Javier Relation to Subscriber:Self Name:Kentrell Javier Payer ID:[id number] (NAIC) Type:[facility] HMO/PPO Address: [place] [id number] [place] [id number] Care Teams Laminating Machine Feeder Relationship Specialty Start Date End Date Rosy Alexander NP [address] [address] PCP - General Family Medicine 02/09/24
--- OUTSIDE RECORDS SUMMARY | 2024-08-17 14:12 | XMS_ITS | Encounter Summary ---
Author Organization [facility] Address [address] [place] [address] Care Team Providers Care Animal Laboratory Helper Name Role Phone MarcOg PE TEACHER-MARINE ENGINEERING CONSULTANT Primary Care Provider Encounter Details Date Type Department Care Team (Late st Contact Info) Description 03/22/2019 Lab Requisition [facility] D[facility] [address] [place] [address] Sloan Alfaro MD [address] [place] [address] Social History Tobacco Use Types [...] Comments DERMATOPATHOLOGY Routine 03/20/2019 12:0 0 AM [employer] documented in this encounter Results * DERMATOPATHOLOGY (03/20/2019 12:00 AM [employer] DEBURRER) Case Report Dermatopathology Report Case: [id number] Authorizing Provider: Sloan Alfaro MD Collected: 03/20/2019 12:00 AM Ordering Location: [facility] Received: 03/22/2019 08:09 AM Pathologist: Destiny Graham MD Specimen: Skin, left mid back 0 2:[address] [facility] DERMATOPATHOLOGY LABORATORY Final Diagnosis Specimen A. SKIN, left mid back: LENTIGINOUS MELANOCYTIC NEVUS, COMPOUND TYPE (COMPOUND MELANOCYTIC NEVUS WITH ARCHITECTURAL DISORDER) (D22.5) NOT PRESENT AT SAMPLED MARGIN 0 2:[address] [facility] DERMATOPATHOLOGY LABORATORY at [address] [employer] [address] [employer] Clinical History Nevus vs MM. 54A499. Check margins 0 2:[address] [facility] DERMATOPATHOLOGY LABORATORY Gross Description Specimen A: Received is one formalin filled container labeled with the patient's name and designated left mid back. The specimen consists of a shave biopsy measuring 9x7x1 mm, inked. Jar 0. 0 2:[address] [facility] DERMATOPATHOLOGY LABORATORY Microscopic Description Specimen [...] specimen. 0 2:[address] [facility] DERMATOPATHOLOGY LABORATORY Disclaimer An external and internal positive and negative controls are appropriate for the histochemical, immunohistochemical and immunofluorescence stain(s) in this case (if any), except where stated explicitly. The performance characteristics of the stain(s) cited in this report were developed and its performance characteristic determined by the Dermatopathology Laboratory at [facility], directed by Dr. Christie Núñez. These tests need not be, and therefore are not, approved by the [place] Food and Drug Administration. The tests are used for clinical purposes. Billing Codes Specimen Charges Stain Charges 41704 1 0 2:[address] [facility] DERMATOPATHOLOGY LABORATORY Embedded Images 0 2:[address] [facility] DERMATOPATHOLOGY LABORATORY Pathology/Cytolog y TISSUE SPECIMEN FROM SKIN / Unknown 03/20/2019 03/22/2019 8:09 AM [employer] DEBURRER us Sloan Alfaro MD LAB - PATHOLOGY/CYTOLOGY ORDER FRANKY Final Result DERMATOPATHOLOGY LABORATORY [facility] - Department of Dermatology [address] [place] [address], [address] [place] [address], [facility] [phone] documented in this encounter Visit Diagnoses Not on filedocumented in this encounter Care Teams Animal Laboratory Helper Relationship Specialty Start Date End Date Og Tran, PE TEACHER-MARINE ENGINEERING CONSULTANT [address] [place] [id number] PCP - General 11/02/21 documented as of this encounter
--- OUTSIDE RECORDS SUMMARY | 2024-08-17 14:12 | XMS_ITS | Clinical Summary ---
Author Organization [facility] Address [address] [place] [address] Care Team Providers Care Lumber Marker Name Role Phone Jose Alberto Toth MD Unavailable [phone] Rosy Alexander Primary Care Provider [phone] Allergies Active Allergy Reactions Criticality Noted Date [...] TAKE AGAIN FOR 90 DAYS. 07/06/2023 Active dilTIAZem ER (TIAZAC) 360 MG 24 hr capsule 02/24/2024 Activ e ezetimibe (ZETIA) 10 MG tabletIndication s:Dyslipidemia Take 1 tablet (10 mg total) by mouth daily. 90 tablet 1 05/28/2024 Active Active Problems Problem Noted Date Diagnosed Date Atrial fibrillation ([facility]) 02/27/2018 Hypertensive disorder 02/27/2018 Diabetes mellitus ([facility]) 02/27/2018 Dyslipidemia 02/27/2018 Palpitations Encounters Date Type Department Care Team Description 07/18/2024 Telephone [facility] [facility], [facility] [address] [place] [address] Jose Alberto Toth MD Refill Request 05/28/2024 Telephone [facility], [place] [address] [place] [address] Jose Alberto Toth MD Refill Request (ZETIA) [...] Sex Assigned at Male 02/23/2022 1:56 PM PLUG CUTTING MACHINE OPERATOR Legal Sex Male 5:08 PM CDT Gender Identity Male 03/23/2021 4:31 AM PLUG CUTTING MACHINE OPERATOR Sexual Orientation Straight 03/23/2021 4: 31 AM PLUG CUTTING MACHINE OPERATOR Last Filed Vital Signs Vital Sign Reading Time Taken Comments Blood Pressure 108/80 02/29/2024 2:55 PM PLUG CUTTING MACHINE OPERATOR Pulse 76 02/29/2024 2:55 PM PLUG CUTTING MACHINE OPERATOR Temperature 36.6 C (97.8 F) 04/17/2019 6:50 AM CDT Respiratory Rate 15 04/17/2019 11:00 AM CDT Oxygen Saturation 98% 02/29/2024 2:55 PM PLUG CUTTING MACHINE OPERATOR Inhaled Oxygen Concentration - - Weight 137.4 kg (303 lb) 02/29/2024 2:55 PM PLUG CUTTING MACHINE OPERATOR Height 182.9 cm (6') 02/29/2024 2:55 PM PLUG CUTTING MACHINE OPERATOR Body Mass Index 41.09 02/29/2024 2:55 PM PLUG CUTTING MACHINE OPERATOR Plan of Treatment Upcoming Encounters Date Type Department Care Team (Late st Contact Info) Description 08/22/2024 3:00 PM CDT Office Visit [facility] [facility], [place] [address] [place], [place] [id number] Jose Alberto Toth MD Three [facility]. [address] [place], [place] [id number] Health Maintenance Due Date Last Done Comments [...] LDL (CALCULATED) 99 0 - 100 07/27/2023 Default History Genericprovider LABORATORY Final Result * COLONOSCOPY (10/01/2019) Documents Scanned SCANNING Final Result [facility] ONBASE from Last 3 Months or Most Recently Relevant to Health Maintenance Insurance Member Subscriber Plan / Payer (Ef fective 2019-Present) Name:Yaya Kentrellabhishek Gerber Relation to Subscriber:Self Name:Yaya Kentrellabhishek Gerber Payer ID:[id number] (NAIC) Type:Not on file Address: [place] [id number] Care Teams Lumber Marker Relationship Specialty Start Date End Date Rosy Alexander APNP [address] [place] [address] [address] [place] [address] PCP - General Nurse Practitioner Family 08/17/23 Jose Alberto Toth MD Three [facility]. [address] [place] [address] [place] Business Operations Manager CARDIOVASCULAR DISEASE 05/09/19
--- OUTSIDE RECORDS SUMMARY | 2024-08-17 14:12 | XMS_ITS | Encounter Summary ---
Author Organization [facility] Facility Care Team Providers Care Machine Heel Builder Name Role Phone Alanna Rhodes MD Primary Care Provider + Rosy Alexander NP Primary Care Provider [phone] Encounter Details Date Type Department Care Team (Latest Contact Info) Description 02/20/2015 Orders Only [facility] ProviderGiselle MD [address] [place] [address] Social History Tobacco Use Types Packs/Day Years Used Date Smoking Tobacco: Never Assessed Sex and Gender Information Value Date Recorded Sex Assigned at Not on file Legal Sex Male 5:43 PM POWER PROJECT MANAGER Gender Identity Not on file Sexual Orientation Not on file documented as of this encounter Plan of Treatment Not on file documented as of this encounter Procedures Procedure Name Priority Date/Time Associated Diagnosis Comments CARDIOLOGY REPORT 03/04/2016 12: 00 AM POWER PROJECT MANAGER documented in this encounter Results * CARDIOLOGY REPORT (03/04/2016 12:00 AM POWER PROJECT MANAGER) Anatomical Region Laterality Modality Other Narrative 03/04/2016 12:00 AM POWER PROJECT MANAGER Ordered by an unspecified provider. Historical Provider [facility] CARDIAC SERVICES DESIREE GREENWOOD Final Result documented in this encounter Visit Diagnoses Not on filedocumented in this encounter Care Teams Machine Heel Builder Relationship Specialty Start Date End Date Alanna Rhodes MD PCP - General 06/12/18 02/08/24 Rosy Alexander NP [address] [address] PCP - General Family Medicine 02/09/24 documented as of this encounter
--- OUTSIDE RECORDS SUMMARY | 2024-08-17 14:12 | XMS_ITS | Encounter Summary ---
Author Organization [facility] Facility Care Team Providers Care Special Education Assistant Name Role Phone Alanna Rhodes MD Primary Care Provider + Rosy Alexander NP Primary Care Provider [phone] Encounter Details Date Type Department Care Team (Latest Contact Info) Description 01/13/2015 Orders Only [facility] CLINCONV ProviderGiselle MD [address] [place] [address] Social History Tobacco Use Types Packs/Day Years Used Date Smoking Tobacco: Never Assessed Sex and Gender Information Value Date Recorded Sex Assigned at Not on file Legal Sex Male 5:43 PM ROUSTABOUT SUPERVISOR Gender Identity Not on file Sexual Orientation Not on file documented as of this encounter Plan of Treatment Not on file documented as of this encounter Procedures Procedure Name Priority Date/Time Associated Diagnosis Comments SCAN - LABS 03/04/2016 12:00 AM ROUSTABOUT SUPERVISOR documented in this encounter Results * SCAN - LABS (03/04/2016 12:00 AM ROUSTABOUT SUPERVISOR) Narrative 03/04/2016 12:00 AM ROUSTABOUT SUPERVISOR Ordered by an unspecified provider. Historical Provider Final Res ult documented in this encounter Visit Diagnoses Not on filedocumented in this encounter Care Teams Special Education Assistant Relationship Specialty Start Date End Date Alanna Rhodes MD PCP - General 06/12/18 02/08/24 Rosy Alexander NP [address] [address] PCP - General Family Medicine 02/09/24 documented as of this encounter
--- OUTSIDE RECORDS SUMMARY | 2024-08-17 14:12 | XMS_ITS | Clinical Summary ---
Author Organization [facility] Address [address] [place] [address] Care Team Providers Care Engineer Assistant Name Role Phone Unavailable Primary Care Provider [...] by mouth. Active iron/folic ac/vit Bcomp,C/min (B [id number] -FA ORAL) Take by mouth. Active Active Problems No known active problems Encounters Date Type Department Care Team Description 05/21/2024 9:45 AM CDT Office Visit [facility]cology and Hematology - [place] [address] [facility] [address] [address] Ernesto Turner MD Plasma cell [...] Description 11/22/2024 3:45 PM CDT Office Visit [facility] and Hematology - [place] [address] [facility] [address] [place] [address] Ernesto Turner MD [address] [facility] [address] [place] [address] Health Maintenance Due Date Last [...] years 1-dose series) 2015 INFLUENZA VACCINE (#1) 2024 12/13/2016 DTAP/TDAP/TD VACCINES (2 - Td or Tdap) 03/29/2029 COLORECTAL SCREENING 09/30/2029 10/01/2019 Colorectal Cancer Screening 09/30/2029 Insurance [facility] [id number]
--- OUTSIDE RECORDS SUMMARY | 2024-08-17 14:12 | XMS_ITS | Referral Summary ---
Author Organization [facility] Address [address] [place] [address] Care Team Providers Care Environmental Manager Name Role Phone Rosy Alexander NP Primary Care Provider [phone] Allergies No known active allergies Medications No [...] on file Legal Sex Male 5:43 PM MODELING ANALYST Gender Identity Not on file Sexual Orientation Not on file Last Filed Vital Signs Vital Sign Reading Time Taken Comments Blood Pressure 122/96 02/09/2024 7:36 PM MODELING ANALYST Pulse 78 02/09/2024 7:36 PM MODELING ANALYST Temperature 36.4 C (97.6 F) 02/09/2024 3:20 PM MODELING ANALYST Respiratory Rate 17 02/09/2024 7:36 PM MODELING ANALYST Oxygen Saturation 98% 02/09/2024 7:36 PM MODELING ANALYST Inhaled Oxygen Concentration - - Weight 136.1 kg (300 lb) 02/09/2024 3:20 PM MODELING ANALYST Height 182.9 cm (6') 02/09/2024 3:20 PM MODELING ANALYST Body Mass Index 40.69 02/09/2024 3:20 PM MODELING ANALYST Plan of Treatment Not on file Procedures [...] Maintenance Insurance [facility]PPO Address: [address] [address] [facility]O Address: [place] [address] Care Teams Environmental Manager Relationship Specialty Start Date End Date Rosy Alexander NP [address] [address] PCP - General Family Medicine 02/09/24
--- OUTSIDE RECORDS SUMMARY | 2024-08-17 14:13 | XMS_ITS | Encounter Summary ---
Author Organization [facility] Address [address] [place] [address] Care Team Providers Care Elementary Spanish Teacher Name Role Phone Alanna Rhodes MD Primary Care Provider [phone] Jose Alberto Toth MD Unavailable [phone] Rosy Alexander Primary Care Provider [phone] Encounter Details Date Type Department Care Team (Late Contact Info) Description 10/07/2020 Abstract [facility] [facility], [address] [address] Jenifer Lujan MA Social History Tobacco Use Types Packs/Day Years Used Date Smoking Tobacco: Never Smokeless Tobacco: Never Alcohol Use Standard Drinks/Week Comments Yes 0 (1 standard drink = 0.6 oz pur e alcohol) ocassionally Sex and Gender Information Value Date Recorded Sex Assigned at Male 02/23/2022 1:56 PM NURSE CLINICIAN Legal Sex Male 5:08 PM CDT Gender Identity Male 03/23/2021 4:31 AM NURSE CLINICIAN Sexual Orientation Straight 03/23/2021 4: 31 AM NURSE CLINICIAN COVID-19 Exposure Response Date Recorded In the last month, have you been in contact with someone who was confirmed or suspected to have Coronavirus / COVID-19? No / Unsure 09/23/2020 8:32 AM CDT documented as of this encounter Plan of Treatment Upcoming Encounters Date Type Department Care Team (Late Contact Info) Description 08/22/2024 3:00 PM CDT Office Visit [facility] [facility], [address] [address] Jose Alberto Toth MD Three [facility]. [facility] [address] [place], [place] [id number] documented as of this encounter Procedures Procedure [...] Result * CBC (OUTSIDE LAB) (10/07/2020) Pathologist [facility] WBC 8.5 HGB 16.1 HCT 48.5 PLT 241 10/07/2020 us Doc [facility] Abstract LAB-OUTSIDE/ABSTRACTED Final Result * LIPID PANEL (10/07/2020) Pathologist [facility] CHOLESTEROL 157 HDL 40 TRIGLYCERIDES 143 DIRECT LDL 77 10/07/2020 us Doc [facility] Abstract LABORATORY Final Result * (ABNORMAL) COMPREHENSIVE METABOLIC PANEL (10/07/2020) Pathologist [facility] SODIUM S/P/B 137 POTASSIUM S/P/B 4.0 CO2 [...] on filedocumented in this encounter Care Teams Elementary Spanish Teacher Relationship Specialty Start Date End Date Alanna Rhodes MD [address] [place] [address] [place] [address] PCP - General FAMILY PRACTICE 04/06/19 08/16/23 Rosy Alexander APNP [address] [place] [address] PCP - General Nurse Practitioner Family 08/17/23 Jose Alberto Toth MD [address] [address] [place] Vice President Of Customer Service CARDIOVASCULAR DISEASE 05/09/19 documented as of this encounter
--- OUTSIDE RECORDS SUMMARY | 2024-08-17 14:13 | XMS_ITS | Clinical Summary ---
Author Organization [facility] [email or web address] Address [address] [place] [address] Care Team Providers Care Linux System Admin Name Role Phone Og Tran APRN-VEGETABLE FARMING SUPERVISOR Primary Care Provider Source Comments [facility] [email or web address],non-owned Affiliates and Associated Physician Practices is amultiple site organization consisting of ambulatory clinics and hospital sitesin [place], [place], [place]. This disclosure is being madepursuant to the Care Everywhere program and may not contain all information available regarding this patient. Last updated 17.[facility] [email or web address] Allergies Active Allergy Reactions Criticality Noted Date Comments Adhesive Sensitivity Swelling Low 09/27/2016 Gabapentin Psychiatric Medium 03/25/2021 Hmg-Coa-R Inhibitors Myalgias High 04/17/2019 Medications * Be aware that medications may not be up to date on this document. Alwaysverify current medications with the patient. fluticasone propionate (FLONASE) 50 MCG/ACT nasal spray [place] 2 (two) sprays into each nostril once daily Active dilTIAZem ER (TIAZAC) 360 MG capsule Take 1 (one) capsule by mouth once daily Active benazepril (LOTENSIN) 20 MG tablet Take by mouth once daily Active hydroCHLOROthia zide (MICROZIDE) 12.5 MG capsule Take 1 (one) capsule by mouth once daily Active Cholecalciferol (VITAMIN D3) [address] UNITS TABS Active Eliquis 5 MG tablet [...] Comments Blood Pressure 118/81 02/21/2023 2:05 PM HOSE TESTER Pulse 77 02/21/2023 2:05 PM HOSE TESTER Temperature 36.8 C (98.2 F) 02/21/2023 2:05 PM HOSE TESTER Respiratory Rate 9 02/08/2023 9:45 AM HOSE TESTER Oxygen Saturation 97% 02/21/2023 2:05 PM HOSE TESTER Inhaled Oxygen Concentration - - Weight 128.1 kg (282 lb 4.8 oz) 02/08/2023 6:46 AM HOSE TESTER Height 182.9 cm (6') 02/21/2023 2:05 PM HOSE TESTER Body Mass Index 38.29 02/08/2023 6:46 AM HOSE TESTER Plan of Treatment Health Maintenance Due Date Last Done Comments COLOGUARD (AGES 45-75) - COLON CA SCREENING 1955 COLON MONITORING 1955 COLONOSCOPY [...] AAA SCREENING 2020 COVID-19 VACCINE (1 - season) 2023 DEPRESSION SCREENING 02/08/2024 INFLUENZA VACCINE (Season Ended) 2024 12/13/2016, 01/13/2016 SCREENING FOR DIABETES 02/02/2026 3, 04/17/2019, 04/17/2019, Additional history exists Respiratory Syncytial Virus (RSV) Vaccine Pt: or [...] A/C/Y/W VACCINE Aged Out No longer eligible based on patient's age to complete this topic Procedures Procedure Name Priority Date/Time Associated Diagnosis Comments COMPREHENSIVE METABOLIC PANEL Routine 02/02/2023 1:43 PM HOSE TESTER Mass of scalp from Last 3 Months or Most Recently Relevant to Health Maintenance Results * (ABNORMAL) COMPREHENSIVE METABOLIC PANEL (02/02/2023 1:43 PM HOSE TESTER) BUN 15 7 - 26 mg/dL 02/02/2023 2:31 PM [facility] Creatinine 0.76 0.71 - 1.16 mg/dL 02/02/2023 2:31 PM [facility] Sodium 143 136 - 145 mmol/L 02/02/2023 2:31 PM [facility] Potassium 3.8 3.5 - 4.5 mmol/L 02/02/2023 2:31 PM [facility] Chloride 104 98 - 107 mmol/L 02/02/2023 2:31 PM [facility] CO2 26 22 - 29 mmol/L 02/02/2023 2:31 PM [facility] Glucose 115 70 - 115 mg/dL 02/02/2023 2:31 PM [facility] Calcium 10.2 8.4 - 10.2 mg/dL [...] Lab Venipuncture / Unknown 02/02/2023 1:43 PM [facility] 02/02/2023 2:06 PM [facility] Talib Hunt MD LAB - CHEMISTRY ORDERABLES Final Result [facility] [address] [place] [address], [facility] [phone] from Last 3 Months or Most Recently Relevant to Health Maintenance Insurance [facility] Care Teams Linux System Admin Relationship Specialty Start Date End Date Og Tran, FISH RECEIVER-VEGETABLE FARMING SUPERVISOR [address] [place] [phone] PCP - General 11/02/21
== END 2024-08-17 14:08 | disposition home or self-care (01) ==
LOC: ANHIMG 14:10
PROVIDERS: PCP Nurse Practitioner Family; Visit Provider Orthopaedic Surgery
DX: M19.011 Primary osteoarthritis, right shoulder (principal); Z96.612 Presence of left artificial shoulder joint
CPT/HCPCS: 73030

== ENCOUNTER 2024-09-18 08:39 | Outpatient (CLI) | payer OTHER, SELFPAY ==
--- OUTSIDE RECORDS SUMMARY | 2024-09-18 08:54 | XMS_ITS | Encounter Summary ---
Author Organization [facility] Facility Care Team Providers Care Motion Designer Name Role Phone Alanna Rhodes MD Primary Care Provider + Rosy Alexander NP Primary Care Provider [phone] Encounter Details Date Type Department Care Team (Latest Contact Info) Description 02/20/2015 Orders Only [facility] CLINCONV ProviderGiselle MD [address] [place] [address] Social History Tobacco Use Types Packs/Day Years Used Date Smoking Tobacco: Never Assessed Sex and Gender Information Value Date Recorded Sex Assigned at Not on file Legal Sex Male 5:43 PM CERTIFIED NURSES' AIDE Gender Identity Not on file Sexual Orientation Not on file documented as of this encounter Plan of Treatment Not on file documented as of this encounter Procedures Procedure Name Priority Date/Time Associated Diagnosis Comments CARDIOLOGY REPORT 03/04/2016 12: 00 AM CERTIFIED NURSES' AIDE documented in this encounter Results * CARDIOLOGY REPORT (03/04/2016 12:00 AM CERTIFIED NURSES' AIDE) Anatomical Region Laterality Modality Other Narrative 03/04/2016 12:00 AM CERTIFIED NURSES' AIDE Ordered by an unspecified provider. Historical Provider [facility] CARDIAC SERVICES DESIREE GREENWOOD Final Result documented in this encounter Visit Diagnoses Not on filedocumented in this encounter Care Teams Motion Designer Relationship Specialty Start Date End Date Alanna Rhodes MD PCP - General 06/12/18 02/08/24 Rosy Alexander NP [address] [address] PCP - General Family Medicine 02/09/24 documented as of this encounter
--- OUTSIDE RECORDS SUMMARY | 2024-09-18 08:54 | XMS_ITS | Clinical Summary ---
Author Organization [facility] Address [address] [address] Care Team Providers Care Non Profit Job Titles Name Role Phone Unavailable Primary Care Provider [...] by mouth. Active iron/folic ac/vit Bcomp,C/min (B [id number] -FA ORAL) Take by mouth. Active Active Problems No known active problems Family History * Patient is adopted Medical [...] Description 11/22/2024 3:45 PM CDT Office Visit [facility] Oncology and Hematology - [place] [address] [facility] [address] [place] [address] Ernesto Turner MD [address] [facility] [address] [place] [address] Health Maintenance Due Date Last [...] 09/30/2029 10/01/2019 Colorectal Cancer Screening 09/30/2029 Insurance [employer] [id number]
--- OUTSIDE RECORDS SUMMARY | 2024-09-18 08:54 | XMS_ITS | Encounter Summary ---
Author Organization [facility] Facility Care Team Providers Care Brand Engineer Name Role Phone Alanna Rhodes MD Primary Care Provider + Rosy Alexander NP Primary Care Provider [phone] Encounter Details Date Type Department Care Team (Latest Contact Info) Description 01/13/2015 Orders Only [facility] CLINCONV ProviderGiselle MD [address] [place] [address] Social History Tobacco Use Types Packs/Day Years Used Date Smoking Tobacco: Never Assessed Sex and Gender Information Value Date Recorded Sex Assigned at Not on file Legal Sex Male 5:43 PM FLAME HARDENING MACHINE SETTER Gender Identity Not on file Sexual Orientation Not on file documented as of this encounter Plan of Treatment Not on file documented as of this encounter Procedures Procedure Name Priority Date/Time Associated Diagnosis Comments SCAN - LABS 03/04/2016 12:00 AM FLAME HARDENING MACHINE SETTER documented in this encounter Results * SCAN - LABS (03/04/2016 12:00 AM FLAME HARDENING MACHINE SETTER) Narrative 03/04/2016 12:00 AM FLAME HARDENING MACHINE SETTER Ordered by an unspecified provider. Historical Provider Final Res ult documented in this encounter Visit Diagnoses Not on filedocumented in this encounter Care Teams Brand Engineer Relationship Specialty Start Date End Date Alanna Rhodes MD PCP - General 06/12/18 02/08/24 Rosy Alexander NP [address] [address] PCP - General Family Medicine 02/09/24 documented as of this encounter
--- OUTSIDE RECORDS SUMMARY | 2024-09-18 08:54 | XMS_ITS | Encounter Summary ---
Author Organization [facility] Address [address] [place] [address] Care Team Providers Care Director Immunology Name Role Phone Alanna Rhodes MD Primary Care Provider [phone] Jose Alberto Toth MD Unavailable [phone] Rosy Alexander Primary Care Provider [phone] Encounter Details Date Type Department Care Team (Late Contact Info) Description 10/07/2020 Abstract [facility] [address] Jenifer Lujan MA Social History Tobacco Use Types Packs/Day Years Used Date Smoking Tobacco: Never Smokeless Tobacco: Never Alcohol Use Standard Drinks/Week Comments Yes 0 (1 standard drink = 0.6 oz pur e alcohol) ocassionally Sex and Gender Information Value Date Recorded Sex Assigned at Male 02/23/2022 1:56 PM VISUAL DESIGN LEAD Legal Sex Male 5:08 PM CDT Gender Identity Male 03/23/2021 4:31 AM VISUAL DESIGN LEAD Sexual Orientation Straight 03/23/2021 4: 31 AM VISUAL DESIGN LEAD COVID-19 Exposure Response Date Recorded In the last month, have you been in contact with someone who was confirmed or suspected to have Coronavirus / COVID-19? No / Unsure 09/23/2020 8:32 AM CDT documented as of this encounter Plan of Treatment Upcoming Encounters Date Type Department Care Team (Late Contact Info) Description 02/18/2025 12:15 PM VISUAL DESIGN LEAD Office Visit [facility], [address] [address] Lea Hagan, WIRE BRUSHER [address] [place] [address] documented as of this encounter Procedures Procedure Name Priority Date/Time Associated Diagnosis Comments COMPREHENSIVE METABOLIC PANEL Routine 05/07/2024 CBC, MANUAL DIFF Routine 05/07/2024 COMPREHENSIVE METABOLIC PANEL Routine 06/05/2022 LIPID PANEL Routine 06/05/2022 CBC, MANUAL DIFF Routine 06/05/2022 LIPID PANEL Routine 09/12/2021 CBC (OUTSIDE LAB) Routine 10/07/2020 COMPREHENSIVE METABOLIC PANEL Routine 10/07/2020 LIPID PANEL Routine 10/07/2020 documented in this encounter Results * (ABNORMAL) COMPREHENSIVE METABOLIC PANEL (05/07/2024) SODIUM S/P/B 137 GLUCOSE 112 mg/dL AST 37 BUN 13 CREATININE S/P/B 0.66(A) 0.7 - 1.3 CALCIUM S/P/B 9.8 POTASSIUM S/P/B 4.2 CHLORIDE S/P/B 101 ALT 35 GFR ESTIMATE >60 us Default History Genericprovider LABORATORY Edited Result - Final * CBC, MANUAL DIFF (05/07/2024) WBC 10.4 HGB 14.3 HCT 43 PLT 368 us Default History Genericprovider LABORATORY Edited Result - Final * (ABNORMAL) COMPREHENSIVE METABOLIC PANEL (06/05/2022) SODIUM S/P/B 136 GLUCOSE 96 mg/dL AST 27 BUN 14 CREATININE S/P/B 0.60(A) 0.7 - 1.3 CALCIUM S/P/B 9.2 POTASSIUM S/P/B 3.6 CHLORIDE S/P/B 103 ALT 33 GFR ESTIMATE >60 Narrative Resulting Agency Comment Default History Genericprovider LABORATORY Final Result * LIPID PANEL (06/05/2022) CHOLESTEROL 164 TRIGLYCERIDES 93 HDL 34 DIRECT LDL 113 Narrative Resulting Agency Comment Default History Genericprovider LABORATORY Final Result * CBC, MANUAL DIFF (06/05/2022) WBC 7.0 HGB 17.1 HCT 49.7 PLT 243 Narrative Resulting Agency Comment Default History Genericprovider LABORATORY Final Result * LIPID PANEL (09/12/2021) CHOLESTEROL 197 HDL 38 TRIGLYCERIDES 158 DIRECT LDL 117 09/12/2021 us Doc [facility] Abstract LABORATORY Final Result * CBC (OUTSIDE LAB) (10/07/2020) WBC 8.5 HGB 16.1 HCT 48.5 PLT 241 10/07/2020 us Doc [facility] Abstract LAB-OUTSIDE/ABSTRACTED Final Result * LIPID PANEL (10/07/2020) CHOLESTEROL 157 HDL 40 TRIGLYCERIDES 143 DIRECT LDL 77 10/07/2020 us Doc [facility] Abstract LABORATORY Final Result * (ABNORMAL) COMPREHENSIVE METABOLIC PANEL (10/07/2020) SODIUM S/P/B 137 POTASSIUM S/P/B 4.0 CO2 [...] on filedocumented in this encounter Care Teams Director Immunology Relationship Specialty Start Date End Date Alanna Rhodes MD [address] [place] [address] PCP - General FAMILY PRACTICE 04/06/19 08/16/23 Rosy Alexander APNP [address] [place] [phone] PCP - General Nurse Practitioner Family 08/17/23 Jose Alberto Toth MD [facility]. [facility] [address] [place] [address] [place] Director Life CARDIOVASCULAR DISEASE 05/09/19 documented as of this encounter
--- OUTSIDE RECORDS SUMMARY | 2024-09-18 08:54 | XMS_ITS | Clinical Summary ---
Author Organization [facility] Address [address] [place] [address] Care Team Providers Care Monomer Purification Operator Name Role Phone Rosy Alexander NP Primary Care Provider [phone] Allergies No known active allergies Medications No [...] on file Legal Sex Male 5:43 PM HOST/HOSTESS RESTAURANT Gender Identity Not on file Sexual Orientation Not on file Last Filed Vital Signs Vital Sign Reading Time Taken Comments Blood Pressure 122/96 02/09/2024 7:36 PM HOST/HOSTESS RESTAURANT Pulse 78 02/09/2024 7:36 PM HOST/HOSTESS RESTAURANT Temperature 36.4 C (97.6 F) 02/09/2024 3:20 PM HOST/HOSTESS RESTAURANT Respiratory Rate 17 02/09/2024 7:36 PM HOST/HOSTESS RESTAURANT Oxygen Saturation 98% 02/09/2024 7:36 PM HOST/HOSTESS RESTAURANT Inhaled Oxygen Concentration - - Weight 136.1 kg (300 lb) 02/09/2024 3:20 PM HOST/HOSTESS RESTAURANT Height 182.9 cm (6') 02/09/2024 3:20 PM HOST/HOSTESS RESTAURANT Body Mass Index 40.69 02/09/2024 3:20 PM HOST/HOSTESS RESTAURANT Plan of Treatment Health Maintenance Due Date Last Done Comments Colon Cancer Screening-Colonoscopy 1955 Depression Screening 1955 Fall Risk Assessment 1955 Hepatitis C Screening 1955 Prostate Cancer Screening-PSA 1955 Hepatitis B Screening 1973 Zoster Vaccine (1 of 2) 2005 Abdominal Aortic Aneurysm (A AA) Screen 2020 06/12/2018 Well Visit 65+ 2020 Covid-19 Vaccine (2023-2 5 season) 2024 01/19/2024, 12/04/2022, 11/04/2021, Additional history exists Influenza Vaccine (#1) 2024 , 11/04/2021, 12/13/2016, Additional history exists DTaP/Tdap/Td Vaccine (3 - Td or Tdap) 03/31/2030 03/31/2020, 03/29/2019 Pneumococcal vaccine 65+ Completed 12/04/2022 Procedures Procedure Name Priority Date/Time Associated Diagnosis [...] Most Recently Relevant to [place] [address] [facility] H[facility]/PPO Address: [address] [address] [place] [address] [facility] H[facility]/PPO Address: [address] [address] [place] [address] Care Teams Monomer Purification Operator Relationship Specialty Start Date End Date Rosy Alexander NP [address] [address] PCP - General Family Medicine 02/09/24
--- OUTSIDE RECORDS SUMMARY | 2024-09-18 08:54 | XMS_ITS | Clinical Summary ---
Author Organization [facility] Address Critical access hospital[address] [place] [address] Care Team Providers Care Single Ending Machine Operator Name Role Phone Jose Alberto Toth MD Unavailable [phone] Rosy Alexander Primary Care Provider [phone] Allergies Active Allergy Reactions Criticality Noted Date Comments Gabapentin Hallucinations 03/25/2021 Statins Myalgias High 04/17/2019 Tape Swelling Low 09/27/2016 Medications benazepril 20 MG tablet Take 1 tablet (20 mg total) by mouth daily. 9 Active fluticasone propionate 50 MCG/ACT nasal spray 2 sprays by Nasal route daily. Active Cholecalcifero l (VITAMIN D-3) 125 MCG (5000 UT) Tab Take 1 tablet (5,000 Units total) by mouth daily. Active loratadine 10 MG tablet Take 1 tablet (10 mg total) by mouth daily. Active ELIQUIS 5 MG tablet Take 1 tablet by mouth twice daily 180 tablet 1 3 Active metFORMIN ER (GLUCOPHAGE-XR ) 500 MG 24 hr tablet Take 1 tablet (500 mg total) by mouth daily with breakfast. Active Phentermine HCl 30 MG Cap Take 30 mg by mouth daily. Active terbinafine (LAMISIL) 250 MG tablet TAKE 1 TABLET BY MOUTH ONCE DAILY FOR 90 DAYS, THEN STOP TAKING FOR 90 DAYS, THEN TAKE AGAIN FOR 90 DAYS. 4 Active ezetimibe (ZETIA) 10 MG tabletIndicati ons:Dyslipidem ia Take 1 tablet (10 mg total) by mouth daily. 90 tablet 1 5 Active dilTIAZem HCl ER 360 MG TABLET SR 24 HR Take 1 tablet by mouth daily. 5 Active hydroCHLOROthi azide (MICROZIDE) 12.5 MG tablet Take 1 tablet (12.5 mg total) by mouth every morning. 5 Active dilTIAZem ER (TIAZAC) 360 MG 24 hr capsule 5 08/23/19 25 Discontinued hydroCHLOROthi azide (MICROZIDE) 12.5 MG capsule Take 1 capsule (12.5 mg total) by mouth every morning. 08/23/19 25 Discontinued Active Problems Problem Noted Date Diagnosed Date Atrial fibrillation ([facility]) 02/27/2018 Hypertensive disorder 02/27/2018 Diabetes mellitus ([facility]) 02/27/2018 Dyslipidemia 02/27/2018 Palpitations Encounters Date Type Department Care Team Description 08/22/2024 3:00 PM CDT Office Visit [facility] [address] Jose Alberto Toth MD Follow Up 08/22/2024 Travel 08/21/2024 Results Follow-Up [address] [address] Nicki Cross, PATRICIA CBC, MANUAL DIFF, COMPREHENSIVE METABOLIC PANEL 07/18/[address] [address] Jose Alberto Toth MD Refill Request from Last 3 Months Immunizations Immunization Administration [...] Sex Assigned at Male 02/23/2022 1:56 PM MEDICAL DETAIL REPRESENTATIVE Legal Sex Male 5:08 PM CDT Gender Identity Male 03/23/2021 4:31 AM MEDICAL DETAIL REPRESENTATIVE Sexual Orientation Straight 03/23/2021 4: 31 AM MEDICAL DETAIL REPRESENTATIVE Last Filed Vital Signs Vital Sign Reading Time Taken Comments Blood Pressure 110/80 08/22/2024 2:44 PM CDT Pulse 79 08/22/2024 2:44 PM CDT Temperature 36.6 C (97.8 F) 04/17/2019 6:50 AM CDT Respiratory Rate 15 04/17/2019 11:0 0 AM CDT Oxygen Saturation 94% 08/22/2024 2:44 PM CDT Inhaled Oxygen Concentration - - Weight 139.6 kg (307 lb 12.8 oz) 08/22/2024 2:44 PM CDT Height 182.9 cm (6') 08/22/2024 2:44 PM CDT Body Mass Index 41.75 08/22/2024 2:44 PM CDT Plan of Treatment Upcoming Encounters Date Type Department Care Team (Late st Contact Info) Description 02/18/2025 12:15 PM MEDICAL DETAIL REPRESENTATIVE [facility] [address] [place] [address] Lea Hagan, LESLY [facility] [address] [place] [address] Health Maintenance Due Date Last Done Comments Kidney Health Evaluation 1955 Hemoglobin A1C 1955 Diabetes: Retinopathy Eye Exam 1973 Hepatitis C 1973 Pneumococcal Vaccine: 50+ Years (1 of 2 - PCV) 1974 Zoster Vaccines (1 of 2) 2005 RSV Immunization or 60+ Years (1 - Risk 60-74 years 1-dose series) 2015 COVID-19 Vaccine ( - season) 2023 Lipid Panel 07/26/2024 07/27/2023, 04/2 10/2022, 09/12/2021, [...] Scanned SCANNING Final Result Performing Organization Address City/State/[facility] Co de Phone Number [facility] from Last 3 Months or Most Recently Relevant to Health Maintenance Insurance [facility] Care Teams Single Ending Machine Operator Relationship Specialty Start Date End Date Rosy Alexander APNP [address] [place] [phone] PCP - General Nurse Practitioner Family 08/17/23 Jose Alberto Toth MD [facility]. [facility] [address] [place] [address] Terra Adaptive Physical Educator CARDIOVASCULAR DISEASE 05/09/19
--- OUTSIDE RECORDS SUMMARY | 2024-09-18 08:54 | XMS_ITS | Encounter Summary ---
Author Organization [facility] Address [address] [place] [place] [address] Care Team Providers Care Boatbuilder Supervisor Name Role Phone MarcOg SHIPWRIGHT APPRENTICE-INTERNAL AFFAIRS COMMANDER Primary Care Provider Encounter Details Date Type Department Care Team (Late st Contact Info) Description 03/22/2019 Lab Requisition [facility] Care DermPath Lab [address] [facility] [place] [id number] Sloan Alfaro MD [address] [place] [address] Social History Tobacco Use Types [...] Comments DERMATOPATHOLOGY Routine 03/20/2019 12:0 0 AM TELEPHONE INFORMATION CLERK documented in this encounter Results * DERMATOPATHOLOGY (03/20/2019 12:00 AM TELEPHONE INFORMATION CLERK) Case Report Dermatopathology Report Case: [id number] Authorizing Provider: Sloan Alfaro MD Collected: 03/20/2019 12:00 AM Ordering Location: [facility] DermPath Lab Received: 03/22/2019 08:09 AM Pathologist: Destiny Graham MD Specimen: Skin, left mid back 0 2:09 PM [facility] DERMAT[facility]ORAT[facility] Final Diagnosis Specimen A. SKIN, left mid back: LENTIGINOUS MELANOCYTIC NEVUS, COMPOUND TYPE (COMPOUND MELANOCYTIC NEVUS WITH ARCHITECTURAL DISORDER) (D22.5) NOT PRESENT AT SAMPLED MARGIN 0 2:09 PM [facility] DERMATOPATHOLOGY [facility]ORATORY at 1409 TELEPHONE INFORMATION CLERK Clinical History Nevus vs MM. [id number]. Check margins 0 2:09 PM [facility] DERMATOPATHOLOG[facility]ORAT[facility] Gross Description Specimen A: Received is one formalin filled container labeled with the patient's name and designated left mid back. The specimen consists of a shave biopsy measuring 9x7x1 mm, inked. Jar 0. 0 2:09 PM [facility] DERMATOPATHOLOGY [facility]ORATORY Microscopic Description Specimen A. SKIN, [...] of the specimen. 0 2:09 PM [facility] DERMATOPATHOLOG[facility]ORATORY Disclaimer An external and internal positive and negative controls are appropriate for the histochemical, immunohistochemical and immunofluorescence stain(s) in this case (if any), except where stated explicitly. The performance characteristics of the stain(s) cited in this report were developed and its performance characteristic determined by the Dermatopathology Laboratory at [facility], directed by Dr. Christie Núñez. These tests need not be, and therefore are not, approved by the [place] Food and Drug Administration. The tests are used for clinical purposes. Billing Codes Specimen Charges Stain Charges 16432 1 0 2:09 PM [facility] DERMATOPATHOLOG[facility]ORAT[facility] Embedded Images 0 2:09 PM [facility]ERMATOPATH[facility]OR[facility] Pathology/Cytolog y TISSUE SPECIMEN FROM SKIN / Unknown 03/20/2019 03/22/2019 8:09 AM TELEPHONE INFORMATION CLERK us Sloan Alfaro MD LAB - PATHOLOGY/CYTOLOGY ORDER FRANKY Final Result DERMATOPATHOLOGY LABORATORY [facility] - Department of Dermatology [address] [place] [address], [address]th [place] [address], [facility] [phone] documented in this encounter Visit Diagnoses Not on filedocumented in this encounter Care Teams Boatbuilder Supervisor Relationship Specialty Start Date End Date Og Tran, SHIPWRIGHT APPRENTICE-INTERNAL AFFAIRS COMMANDER [address] [place] [address] [place] [phone] PCP - General 11/02/21 documented as of this encounter
--- OUTSIDE RECORDS SUMMARY | 2024-09-18 08:54 | XMS_ITS | Clinical Summary ---
Author Organization [facility] Address [address] [place] [address] Care Team Providers Care Chimney Builder Brick Name Role Phone Og Tran APRN-ENVIRONMENTAL HEALTH MANAGER Primary Care Provider Source Comments [facility],non-owned Affiliates and Associated Physician Practices is amultiple site organization consisting of ambulatory clinics and hospital sitesin [place], [place], [place] and [place]. This disclosure is being madepursuant to the Care Everywhere program and may not contain all information available regarding this patient. Last updated 17.[facility] Allergies Active Allergy Reactions Criticality Noted Date Comments Adhesive Sensitivity Swelling Low 09/27/2016 Gabapentin Psychiatric Medium 03/25/2021 Hmg-Coa-R Inhibitors Myalgias High 04/17/2019 Medications * Be aware that medications may not be up to date on this document. Alwaysverify current medications with the patient. fluticasone propionate (FLONASE) 50 MCG/ACT nasal spray [place] 2 (two) sprays into each nostril once daily Active dilTIAZem ER (TIAZAC) 360 MG capsule Take 1 (one) capsule by mouth once daily Active benazepril (LOTENSIN) 20 MG tablet Take by mouth once daily Active hydroCHLOROthia zide (MICROZIDE) 12.5 MG capsule Take 1 (one) capsule by mouth once daily Active Cholecalciferol (VITAMIN D3) [address] UNITS TABS Active Eliquis 5 MG tablet [...] Comments Blood Pressure 118/81 02/21/2023 2:05 PM [employer] Pulse 77 02/21/2023 2:05 PM [employer] Temperature 36.8 C (98.2 F) 02/21/2023 2:05 PM [employer] Respiratory Rate 9 02/08/2023 9:45 AM [employer] Oxygen Saturation 97% 02/21/2023 2:05 PM [employer] Inhaled Oxygen Concentration - - Weight 128.1 kg (282 lb 4.8 oz) 02/08/2023 6:46 AM [employer] Height 182.9 cm (6') 02/21/2023 2:05 PM [employer] Body Mass Index 38.29 02/08/2023 6:46 AM [employer] Plan of Treatment Health Maintenance Due Date [...] season) 2023 DEPRESSION SCREENING 02/08/2024 INFLUENZA VACCINE (#1) 2024 12/13/2016, 2015 SCREENING FOR DIABETES 02/02/2026 3, 04/17/2019, 04/17/2019, [...] COMPREHENSIVE METABOLIC PANEL Routine 02/02/2023 1:43 PM [employer] Mass of scalp from Last 3 Months or Most Recently Relevant to Health Maintenance Results * (ABNORMAL) COMPREHENSIVE METABOLIC PANEL (02/02/2023 1:43 PM [employer]) BUN 15 7 - 26 mg/dL 02/02/2023 2:31 PM [facility] Creatinine 0.76 0.71 - 1.16 mg/dL 02/02/2023 2:31 PM [facility] Sodium 143 136 - 145 mmol/L 02/02/2023 2:31 PM [facility] Potassium 3.8 3.5 - 4.5 mmol/L 02/02/2023 2:31 PM [facility] Chloride 104 98 - 107 mmol/L 02/02/2023 2:31 PM [facility] CO2 26 22 - 29 mmol/L 02/02/2023 2:31 PM [facility] Glucose 115 70 - 115 mg/dL 02/02/2023 2:31 PM [facility] Calcium 10.2 8.4 - 10.2 mg/dL 02/02/2023 2:31 PM [facility] Protein Total 7.5 6.0 - 8.3 g/dL 02/02/2023 2:31 PM [facility] Albumin 4.3 3.4 - 5.0 g/dL 02/02/2023 2:31 PM [facility] Bilirubin Total 0.3 0.2 - 1.2 mg/dL 02/02/2023 2:31 PM [facility] Alkaline Phosphatase 62 40 - 150 U/L 02/02/2023 2:31 PM [facility] ALT 30 5 - 55 U/L 02/02/2023 2:31 PM [facility] AST 21 5 - 34 U/L 02/02/2023 2:31 PM [facility] Anion Gap 13 6 - 16 02/02/2023 2:31 PM [facility] BUN/Creatinine Ratio 20 7 - 23 02/02/2023 2:31 PM [facility] Osmolality Calculated 298(H) 275 - 295 mOsm/kg 02/02/2023 2:31 PM [facility] Albumin/Globulin Ratio 1.3 1.1 - 2.3 02/02/2023 2:31 PM [facility] eGFR by CKD-EPI >90 >=90 mL/min/1.7 3 m2 02/02/2023 2:31 PM [facility] Blood BLOOD SPECIMEN / Unknown Lab Venipuncture / Unknown 02/02/2023 1:43 PM [facility] 02/02/2023 2:06 PM [facility] Talib Hunt MD LAB - CHEMISTRY ORDERABLES Final Result [facility] [address] [place] [address], [facility] [phone] from Last 3 Months or Most Recently Relevant to Health Maintenance Insurance [facility] Care Teams Chimney Builder Brick Relationship Specialty Start Date End Date Og Tran, INSTRUMENTATION MANAGER-ENVIRONMENTAL HEALTH MANAGER [address] [place] [phone] PCP - General 11/02/21
--- OUTSIDE RECORDS SUMMARY | 2024-09-18 08:54 | XMS_ITS | Encounter Summary ---
Author Organization [facility] Address [address] [place] [address] Care Team Providers Care Spiral Binder Name Role Phone Jose Alberto Toth MD Unavailable [phone] Rosy Alexander Primary Care Provider [phone] Encounter Details Date Type Department Care Team (Latest Contact Info) Description 08/21/2024 Results Follow-Up [facility] [facility] [address] [place], [place] [id number] Nicki Cross, PATRICIA CBC, MANUAL DIFF, COMPREHENSIVE METABOLIC PANEL Social History Tobacco Use Types Packs/Day Years Used Date Smoking Tobacco: Never Smokeless Tobacco: Never Alcohol Use Standard Drinks/Week Comments Yes 0 (1 standard drink = 0.6 oz pur e alcohol) ocassionally Sex and Gender Information Value Date Recorded Sex Assigned at Male 02/23/2022 1:56 PM J2EE PROGRAMMER Legal Sex Male 5:08 PM CDT Gender Identity Male 03/23/2021 4:31 AM J2EE PROGRAMMER Sexual Orientation Straight 03/23/2021 4: 31 AM J2EE PROGRAMMER documented as of this encounter Plan of Treatment Upcoming Encounters Date Type Department Care Team (Late st Contact Info) Description 02/18/2025 12:15 PM J2EE PROGRAMMER Office Visit [facility] [facility] [address] [place], [place] [id number] Lea Hagan NP [facility] [address] [place], [place] [id number] documented as of this encounter Visit Diagnoses Not on filedocumented in this encounter Care Teams Spiral Binder Relationship Specialty Start Date End Date Rosy Alexander APNP [address] [facility] [address] [facility] [address] [place] [address] PCP - General Nurse Practitioner Family 08/17/23 Jose Alberto Toth MD [facility]. [facility] [address] [place] [address] [place] Cylinder Press Operator Apprentice CARDIOVASCULAR DISEASE 05/09/19 documented as of this encounter
--- NOTE | 2024-09-18 11:30 | NEURO_ITS ---
Impression: # Diabetic complains of balance dysfunction ? # Axonal sensorimotor neuropathy # Neurogenic changes in muscles noted on needle/EMG exam. ? # ?Clinical correlation recommended Nerve Conduction Studies ?Stim Site NR Peak (ms) P-T Amp (?V) Site1 Site2 Delta-P (ms) Dist (cm) Srinath (m/s) Left Sup Fibular Anti Sensory (Ant Lat Mall) 14 cm ? 3.5 10.3 14 cm Ant Lat Mall 3.5 16.0 46 Right Sup Fibular Anti Sensory (Ant Lat Mall) 14 cm ? 3.5 9.2 14 cm Ant Lat Mall 3.5 16.0 46 Left Sural Anti Sensory (Lat Mall)??? NO RESPONSE Calf NR Calf Lat Mall 16.0 Right Sural Anti Sensory (Lat Mall)??? NO RESPONSE Calf NR Calf Lat Mall 16.0 ?Stim Site NR Onset (ms) O-P Amp (mV) Site1 Site2 Delta-0 (ms) Dist (cm) Srinath (m/s) Left Peroneal Motor (Vastus Med) Ankle ? 3.7 4.0 Popit Ankle 10.1 46.0 46 Popit ? 13.8 2.9 Right Peroneal Motor (Vastus Med) Ankle ? 3.3 2.2 Popit Ankle 10.1 43.0 43 Popit ? 13.4 1.9 Left Tibial Motor (Abd Ortiz Brev) Ankle ? 4.1 1.0 Knee Ankle 12.5 47.0 38 Knee ? 16.6 0.6 Right Tibial Motor (Abd Ortiz Brev) Ankle ? 4.8 1.1 Knee Ankle 10.6 43.0 41 Knee ? 15.4 2.4 Electromyography ?Side Muscle Nerve Root Ins Act Fibs Amp Dur Recrt Comment Right AntTibialis Dp Br Fibular L4-5 Nml Nml Nml >12ms +1 Right Gastroc Tibial S1-2 Nml Nml Nml >12ms +1 Right Fibularis Long Sup Br Fibular L5-S1 Nml Nml Nml >12ms +1 Right Flex Dig Long Tibial L5-S2 Nml Nml Nml >12ms +1 Right Ext Dig Brev Dp Br Fibular L5, S1 Nml Nml Nml >12ms +2 Right QuadratusFem QuadFemoris L4-5, S1 Nml Nml Nml Nml +1 Left AntTibialis Dp Br Fibular L4-5 Nml Nml Nml >12ms +1 Left Gastroc Tibial S1-2 Nml Nml Nml >12ms +1 Left Fibularis Long Sup Br Fibular L5-S1 Nml Nml Nml >12ms +1 Left Flex Dig Long Tibial L5-S2 Nml Nml Nml >12ms +1 Left Ext Dig Brev Dp Br Fibular L5, S1 Nml Nml Nml >12ms +2 Left QuadratusFem QuadFemoris L4-5, S1 Nml Nml Nml Nml +1
== END 2024-09-18 08:40 | disposition home or self-care (01) ==
PROVIDERS: PCP Nurse Practitioner Family; Visit Provider Psychiatry & Neurology Neurology
DX: G60.0 Hereditary motor and sensory neuropathy (principal); G70.9 Myoneural disorder, unspecified; M62.50 Muscle wasting and atrophy, not elsewhere classified, unspecified site; R26.89 Other abnormalities of gait and mobility; R29.6 Repeated falls; E11.9 Type 2 diabetes mellitus without complications
CPT/HCPCS: 95886; 95910

== ENCOUNTER 2024-10-19 17:25 | Emergency (ER) | payer OTHER, SELFPAY ==
[2024-10-19 17:36] VITALS: BP 111/76; PULSE 90; RESP 18; TEMP 36.5; O2SAT 99
--- NOTE | 2024-10-19 17:54 | ED.SKABFB ---
HPI - Skin/Abscess/Foreign Bdy General Chief complaint: Wound/Laceration Stated complaint: Right Leg Wound Check Time Seen by Provider: 10/19/24 17:40 Source: patient Mode of arrival: ambulatory Limitations: no limitations History of Present Illness HPI narrative: 69 yo M presents with concern for infected insect bite to R leg. Noticed 5 days ago After camping. Redness and swelling progressively worse. Noticed yellow drainage today. All systems reviewed and negative except as noted above. Related Data Home Medications ?Medication ?Instructions ?Recorded ?Confirmed ?Last Taken ?Type cholecalciferol (vitamin D3) 125 125 mcg PO DAILY 07/06/23 10/04/24 04/20/24 History mcg (5,000 unit) capsule omeprazole magnesium 20 mg 20 mg PO DAILY 07/06/23 10/04/24 04/23/24 History tablet,delayed release (Prilosec OTC) ezetimibe 10 mg tablet (Zetia) 10 mg PO DAILY 08/30/23 10/04/24 04/23/24 History Allergies Allergy/AdvReac Type Severity Reaction Status Date / Time No Known Allergies Allergy Verified 10/19/24 17:27 [facility] Past Medical History Medical History Lumbosacral radiculopathy Lower back pain Shoulder pain, right Daytime sleepiness Monoclonal gammopathy Polyneuropathy Anxiety and depression Abnormal CT scan, head Family history of Parkinson disease Frequent falls Balance problem Cervical radiculitis Cervicalgia Left shoulder pain Dyslipidemia Chronic allergic rhinitis Prediabetes Anemia Onychomycosis IBS (irritable bowel syndrome) Hx of melanoma of skin back Heart disease Acid reflux Arthritis Hypertension Atrial fibrillation Surgical History Surgical History Status post reverse total arthroplasty of left shoulder (~04/24/24) Family History Family History Mother Diabetes mellitus Hypertension Cerebrovascular accident Social History Social History Smoking packs per day: 0.5 Smoking cigarettes per day: 10.0 Years smoked: 15 Smoking pack-years: 7.50 Smoking status: Former smoker Alcohol intake: current Drinks per week: 1 Substance use: never Substance use type: marijuana Other substance usage details: daily smokes Marijuana Current Housing: Decline to Answer Concerned About Future Housing: Decline to Answer Difficulty Paying Gas/Electric Bills: Decline to Answer Difficulty Paying for Meds: Decline to Answer Currently Unemployed: Decline to Answer Education: Decline to Answer Difficulty w/ Childcare or Family Care: Decline to Answer Living arrangements: with family Additional living arrangements comments: Gender identity (if verbalized by the patient): Male Spiritual care concerns: No Comments At time of signature, agree with nursing past medical, surgical, social and family history. There is no relevant family history pertinent to the presenting complaint. Exam Narrative: GENERAL: This is a well-nourished, well-developed patient, in no apparent distress. HEAD: normocephalic, atraumatic. EYES: PERRL. Sclera clear/white. Vision is grossly intact. EARS: External ears normal NOSE: External nose normal NECK: Neck supple, non-tender without lymphadenopathy, masses or thyromegaly. CARDIOVASCULAR: Regular rate and rhythm without murmurs, gallops, or rubs. RESPIRATORY: Clear to auscultation. Breath sounds equal bilaterally. No wheezes, rales, or rhonchi. SKIN: warm, Dry, intact with no suspicious rash, good texture and turgor. erythematous swollen lesion to RLE approx. 3x1cm with scant yellow drainage. no fluctuance. NEURO: awake, alert, and oriented to person, place and time. There were no obvious focal neurologic abnormalities. EXTREMITIES: No joint tenderness, effusion, or edema noted. Course Course Level of Care: Express Care Visit Vital Signs Vital signs: Vital Signs Temperature 36.5 C 10/19/24 17:36 Pulse Rate 90 10/19/24 17:36 Respiratory Rate 18 10/19/24 17:36 Blood Pressure 111/76 10/19/24 17:36 Pulse Oximetry 99 10/19/24 17:36 Oxygen Delivery Room Air 10/19/24 17:36 Temperature 36.5 C 10/19/24 17:36 Pulse Rate 90 10/19/24 17:36 Respiratory Rate 18 10/19/24 17:36 Blood Pressure 111/76 10/19/24 17:36 Pulse Oximetry 99 10/19/24 17:36 Oxygen Delivery Room Air 10/19/24 17:36 Reviewed MDM - Skin/Abscess/Foreign Bdy MDM Narrative Medical decision making narrative: patient is well-appearing, nontoxic. History of diabetes. Will prescribe doxycycline for infected insect bite. Differential Diagnosis Differential diagnosis: Likely abscess of skin or subcutaneous tissue, cellulitis, insect bites, impetigo and contact dermatitis Discharge Plan Discharge Clinical Impression: Infected insect bite of right lower extremity Qualifiers: Encounter type: initial encounter Qualified Code(s): S80.861A - Insect bite (nonvenomous), right lower leg, initial encounter Patient Disposition: Home Condition: Stable Instructions: Antibiotic Form, Insect Bite or Sting (ED) Additional Instructions: take antibiotic as prescribed until gone. Apply antibiotic ointment twice a day. Keep clean and dry. Wash with soap and water twice a day. See your doctor if not improving. Patient Language: Greek Prescriptions: New doxycycline hyclate 100 mg capsule 100 mg PO BID 7 Days Qty: 14 0RF mupirocin [Centany] 2 % ointment 1 applic topical BID 7 Days Qty: 15 0RF No Action cholecalciferol (vitamin D3) 125 mcg (5,000 unit) capsule 125 mcg PO DAILY omeprazole magnesium [Prilosec OTC] 20 mg tablet,delayed release (DR/EC) 20 mg PO DAILY Eliquis 5 mg tablet 5 mg PO BID Qty: 180 3RF Patient Comments: HOLD 2 days preop and restart 2 days post op per Dr Freed eszopiclone 2 mg tablet 2 mg PO ONCE Qty: 1 0RF Rx Instructions: Take tablet with you to sleep center for sleep study, if needed ezetimibe [Zetia] 10 mg tablet 10 mg PO DAILY Loratadine-D 10-240 mg tablet extended release 24 hr 1 tablet PO DAILY PRN (Reason: allergy symptoms) Qty: 90 1RF hydrochlorothiazide 12.5 mg tablet 12.5 mg PO DAILY Qty: 90 3RF benazepril 20 mg tablet 20 mg PO DAILY Qty: 90 3RF metformin 500 mg tablet extended release 24 hr 500 mg PO DAILY Qty: 90 3RF diltiazem HCl 360 mg capsule,extended release 24 hr 360 mg PO DAILY Qty: 90 3RF Follow-up/Referrals: Rosy Alexander NP [Primary Care Provider, [facility]] Time of Disposition: 17:48
== END 2024-10-19 17:55 | disposition home or self-care (01) ==
PROVIDERS: Emergency Provider Nurse Practitioner Family; PCP Nurse Practitioner Family
DX: S80.861A Insect bite (nonvenomous), right lower leg, initial encounter (principal); L08.9 Local infection of the skin and subcutaneous tissue, unspecified; W57.XXXA Bitten or stung by nonvenomous insect and other nonvenomous arthropods, initial encounter; F12.90 Cannabis use, unspecified, uncomplicated; I10 Essential (primary) hypertension; I48.91 Unspecified atrial fibrillation; E78.5 Hyperlipidemia, unspecified; R73.03 Prediabetes; K21.9 Gastro-esophageal reflux disease without esophagitis; M19.90 Unspecified osteoarthritis, unspecified site; G62.9 Polyneuropathy, unspecified; E55.9 Vitamin D deficiency, unspecified; Z79.01 Long term (current) use of anticoagulants; Z87.891 Personal history of nicotine dependence
CPT/HCPCS: 99213; G0463

== ENCOUNTER 2024-10-23 07:48 | Outpatient (CLI) | payer OTHER, SELFPAY ==
--- NOTE | ~2024-10-23 | MR_ITS ---
EXAMINATION: MR lumbar spine chad austin, 10/23/2024 8:00 CDT HISTORY: G62.9 - Polyneuropathy, unspecified COMPARISON: None TECHNIQUE: Multi-planar multi-sequence images were obtained of the lumbar spine without contrast per protocol. FINDINGS: Moderate loss of vertebral height throughout with grade 1 anterolisthesis of L4 on L5. Marrow signal appropriate, no abnormal signal within the posterior elements. Scattered subcentimeter areas of hemangioma formation. Posterior alignment is intact Conus terminates at T12-L1 with no abnormal signal in the visualized cord Moderate loss of disc height throughout most marked at L2-3, L3-4, L4-5 and L5- S1 with moderate disc desiccation and endplate degenerative changes Soft tissues unremarkable L5-S1: Circumferential bulging of the disc asymmetrically to the left with ligamentum flavum and facet hypertrophy. Severe bilateral foramina and left lateral recess stenosis. Mild canal stenosis. L4-5: Circumferential bulging of the disc with ligamentum flavum and facet hypertrophy. Severe bilateral foramina, lateral recess and canal stenosis. L3-4: Circumferential bulging of the disc with ligamentum flavum and facet hypertrophy. Severe bilateral foramina, lateral recess and canal stenosis. L2-L3: Circumferential bulging of the disc with ligamentum flavum and facet hypertrophy. Moderate bilateral foramina, lateral recess and canal stenosis. L1-L2: No canal or foraminal stenosis IMPRESSION: Degenerative changes detailed above Reviewed, dictated and finalized at location A.
--- OUTSIDE RECORDS SUMMARY | 2024-10-23 08:22 | XMS_ITS | Encounter Summary ---
Author Organization [facility] Address [address] [place] [address] Care Team Providers Care Prototype Engineer Name Role Phone TranOg CORRESPONDENCE CLERK-HOURLY MANAGER Primary Care Provider Encounter Details Date Type Department Care Team (Late st Contact Info) Description 03/22/2019 Lab Requisition [facility] Care DermPath Lab [address] [id number] Sloan Alfaro MD [address] [place] [address] Social History Tobacco Use Types [...] Comments DERMATOPATHOLOGY Routine 03/20/2019 12:0 0 AM SLEEVE TURNER documented in this encounter Results * DERMATOPATHOLOGY (03/20/2019 12:00 AM SLEEVE TURNER) Case Report Dermatopathology Report Case: [id number] Authorizing Provider: Sloan Alfaro MD Collected: 03/20/2019 12:00 AM Ordering Location: [facility] DermPath Lab Received: 03/22/2019 08:09 AM Pathologist: Destiny Graham MD Specimen: Skin, left mid back 0 2:09 PM [facility] DERMATOPATHOLOGY [facility]ORATORY Final Diagnosis Specimen A. SKIN, left mid back: LENTIGINOUS MELANOCYTIC NEVUS, COMPOUND TYPE (COMPOUND MELANOCYTIC NEVUS WITH ARCHITECTURAL DISORDER) (D22.5) NOT PRESENT AT SAMPLED MARGIN 0 2:09 PM [facility] DERMATOPATHOLOGY LABORATORY at [address] Clinical History Nevus vs MM. [id number]. Check margins 0 2:09 PM [facility] DERMATOPATHOLOGY [facility]ORAT[facility] Gross Description Specimen A: Received is one formalin filled container labeled with the patient's name and designated left mid back. The specimen consists of a shave biopsy measuring 9x7x1 mm, inked. Jar 0. 0 2:09 PM [facility] DERMATOPATHOLOGY LABORATORY Microscopic Description Specimen A. [...] of the specimen. 0 2:09 PM [facility] DERMATOPATHOLOGY [facility]ORATORY Disclaimer An external and internal positive and negative controls are appropriate for the histochemical, immunohistochemical and immunofluorescence stain(s) in this case (if any), except where stated explicitly. The performance characteristics of the stain(s) cited in this report were developed and its performance characteristic determined by the Dermatopathology Laboratory at [facility], directed by Dr. Christie Núñez. These tests need not be, and therefore are not, approved by the [place] Food and Drug Administration. The tests are used for clinical purposes. Billing Codes Specimen Charges Stain Charges 42943 1 0 2:09 PM [facility] DERMATOPATHOLOGY [facility]ORATORY Embedded Images 0 2:09 PM [facility] DERMATOPATHOLOGY [facility]ORATORY Pathology/Cytolog y TISSUE SPECIMEN FROM SKIN / Unknown 03/20/2019 03/22/2019 8:09 AM SLEEVE TURNER us Sloan Alfaro MD LAB - PATHOLOGY/CYTOLOGY ORDER FRANKY Final Result DERMATOPATHOLOGY LABORATORY [facility] - Department of Dermatology [address] [place] [address], 5th Floor Lab [address] [phone] documented in this encounter Visit Diagnoses Not on filedocumented in this encounter Care Teams Prototype Engineer Relationship Specialty Start Date End Date Og Tran, CORRESPONDENCE CLERK-HOURLY MANAGER [address] [place] [phone] PCP - General 11/02/21 documented as of this encounter
--- OUTSIDE RECORDS SUMMARY | 2024-10-23 08:22 | XMS_ITS | Encounter Summary ---
Author Organization [facility] Care Team Providers Care Director Card Name Role Phone Alanna Rhodes MD Primary Care Provider + Rosy Alexander NP Primary Care Provider Encounter Details Date Type Department Care Team (Latest Contact Info) Description 01/13/2015 Orders Only [facility] CLINCONV ProviderGiselle MD [address] [place] [address] Social History Tobacco Use Types Packs/Day Years Used Date Smoking Tobacco: Never Assessed Sex and Gender Information Value Date Recorded Sex Assigned at Not on file Legal Sex Male 5:43 PM OUTPATIENT DIETITIAN Gender Identity Not on file Sexual Orientation Not on file documented as of this encounter Plan of Treatment Not on file documented as of this encounter Procedures Procedure Name Priority Date/Time Associated Diagnosis Comments SCAN - LABS 03/04/2016 12:00 AM OUTPATIENT DIETITIAN documented in this encounter Results * SCAN - LABS (03/04/2016 12:00 AM OUTPATIENT DIETITIAN) Narrative 03/04/2016 12:00 AM OUTPATIENT DIETITIAN Ordered by an unspecified provider. Historical Provider Final Res ult documented in this encounter Visit Diagnoses Not on filedocumented in this encounter Care Teams Director Card Relationship Specialty Start Date End Date Alanna Rhodes MD PCP - General 06/12/18 02/08/24 Rosy Alexander NP [address] [address] PCP - General Family Medicine 02/09/24 documented as of this encounter
--- OUTSIDE RECORDS SUMMARY | 2024-10-23 08:22 | XMS_ITS | Encounter Summary ---
Author Organization [facility] Address [address] [place] [address] Care Team Providers Care Speech Pathologist Name Role Phone Jose Alberto Toth MD Unavailable [phone] Rosy Alexander Primary Care Provider [phone] Encounter Details Date Type Department Care Team (Latest Contact Info) Description 08/21/2024 Results Follow-Up [facility] [facility] [address] [place], [place] [id number] Nicki Cross, PATRICIA CBC, MANUAL DIFF, COMPREHENSIVE METABOLIC PANEL Social History Tobacco Use Types Packs/Day Years Used Date Smoking Tobacco: Never Smokeless Tobacco: Never Alcohol Use Standard Drinks/Week Comments Yes 0 (1 standard drink = 0.6 oz pur e alcohol) ocassionally Sex and Gender Information Value Date Recorded Sex Assigned at Male 02/23/2022 1:56 PM LEAD PRINTER Legal Sex Male 5:08 PM CDT Gender Identity Male 03/23/2021 4:31 AM LEAD PRINTER Sexual Orientation Straight 03/23/2021 4: 31 AM LEAD PRINTER documented as of this encounter Plan of Treatment Upcoming Encounters Date Type Department Care Team (Late st Contact Info) Description 02/18/2025 12:15 PM LEAD PRINTER Office Visit [facility] [facility] [address] [place], [place] [phone] Lea Hagan NP [facility] [address] [place], [place] [id number] documented as of this encounter Visit Diagnoses Not on filedocumented in this encounter Care Teams Speech Pathologist Relationship Specialty Start Date End Date Rosy Alexander APNP [address] [facility] [address] [facility] [address] [place] [address] PCP - General Nurse Practitioner Family 08/17/23 Jose Alberto Toth MD [facility]. [facility] [address] [place] [address] [place] Instructional Support Specialist CARDIOVASCULAR DISEASE 05/09/19 documented as of this encounter
--- OUTSIDE RECORDS SUMMARY | 2024-10-23 08:22 | XMS_ITS | Encounter Summary ---
Author Organization [facility] Address [address] [place] [address] Care Team Providers Care Emergency Medicine Physician Assistant Name Role Phone Alanna Rhodes MD Primary Care Provider [phone] Jose Alberto Toth MD Unavailable [phone] Rosy Alexander Primary Care Provider [phone] Encounter Details Date Type Department Care Team (Late Contact Info) Description 10/07/2020 Abstract [facility] [address] Jenifer Lujan MA Social History Tobacco Use Types Packs/Day Years Used Date Smoking Tobacco: Never Smokeless Tobacco: Never Alcohol Use Standard Drinks/Week Comments Yes 0 (1 standard drink = 0.6 oz pur e alcohol) ocassionally Sex and Gender Information Value Date Recorded Sex Assigned at Male 02/23/2022 1:56 PM SENIOR BENEFITS MANAGER Legal Sex Male 5:08 PM CDT Gender Identity Male 03/23/2021 4:31 AM SENIOR BENEFITS MANAGER Sexual Orientation Straight 03/23/2021 4: 31 AM SENIOR BENEFITS MANAGER COVID-19 Exposure Response Date Recorded In the last month, have you been in contact with someone who was confirmed or suspected to have Coronavirus / COVID-19? No / Unsure 09/23/2020 8:32 AM CDT documented as of this encounter Plan of Treatment Upcoming Encounters Date Type Department Care Team (Late Contact Info) Description 02/18/2025 12:15 PM SENIOR BENEFITS MANAGER Office Visit [facility] [facility] [place], [address] [address] Lea Hagan, NEONATAL NURSE [id number] [place] [address] documented as of this encounter Procedures Procedure [...] on filedocumented in this encounter Care Teams Emergency Medicine Physician Assistant Relationship Specialty Start Date End Date Alanna Rhodes MD [address] [place] [address] PCP - General FAMILY PRACTICE 04/06/19 08/16/23 Rosy Alexander APNP [address] [place] [phone] PCP - General Nurse Practitioner Family 08/17/23 Jose Alberto Toth MD [facility]. [facility] [address] [place] [address] [place] Law Enforcement Director CARDIOVASCULAR DISEASE 05/09/19 documented as of this encounter
--- OUTSIDE RECORDS SUMMARY | 2024-10-23 08:22 | XMS_ITS | Clinical Summary ---
Author Organization [facility] [employer] Address [address] [place] [address] Care Team Providers Care Dental Laboratory Assistant Name Role Phone Og Tran APRN-CLIENT ACCOUNT REPRESENTATIVE Primary Care Provider Source Comments [facility] [employer],non-owned Affiliates and Associated Physician Practices is amultiple site organization consisting of ambulatory clinics and hospital sitesin [place], [place], [place] and [place]. This disclosure is being madepursuant to the Care Everywhere program and may not contain all information available regarding this patient. Last updated 17.[facility] [employer] Allergies Active Allergy Reactions Criticality Noted Date Comments Adhesive Sensitivity Swelling Low 09/27/2016 Gabapentin Psychiatric Medium 03/25/2021 Hmg-Coa-R Inhibitors Myalgias High 04/17/2019 Medications * Be aware that medications may not be up to date on this document. Alwaysverify current medications with the patient. fluticasone propionate (FLONASE) 50 MCG/ACT nasal spray [place] 2 (two) sprays into each nostril once daily Active dilTIAZem ER (TIAZAC) 360 MG capsule Take 1 (one) capsule by mouth once daily Active benazepril (LOTENSIN) 20 MG tablet Take by mouth once daily Active hydroCHLOROthia zide (MICROZIDE) 12.5 MG capsule Take 1 (one) capsule by mouth once daily Active Cholecalciferol (VITAMIN D3) 70514 UNITS TABS Active Eliquis 5 MG tablet [...] Comments Blood Pressure 118/81 02/21/2023 2:05 PM DIVIDING MACHINE OPERATOR Pulse 77 02/21/2023 2:05 PM DIVIDING MACHINE OPERATOR Temperature 36.8 C (98.2 F) 02/21/2023 2:05 PM DIVIDING MACHINE OPERATOR Respiratory Rate 9 02/08/2023 9:45 AM DIVIDING MACHINE OPERATOR Oxygen Saturation 97% 02/21/2023 2:05 PM DIVIDING MACHINE OPERATOR Inhaled Oxygen Concentration - - Weight 128.1 kg (282 lb 4.8 oz) 02/08/2023 6:46 AM DIVIDING MACHINE OPERATOR Height 182.9 cm (6') 02/21/2023 2:05 PM DIVIDING MACHINE OPERATOR Body Mass Index 38.29 02/08/2023 6:46 AM DIVIDING MACHINE OPERATOR Plan of Treatment Health Maintenance Due Date [...] (1 of 2) 2005 AAA SCREENING 2020 DEPRESSION SCREENING 02/08/2024 COVID-19 VACCINE (1 - 2023-2 5 season) 2024 INFLUENZA VACCINE (#1) 2024 7, 01/13/2016 SCREENING FOR DIABETES 02/02/2026 3, 09/01/2016 Respiratory [...] COMPREHENSIVE METABOLIC PANEL Routine 02/02/2023 1:43 PM DIVIDING MACHINE OPERATOR Mass of scalp from Last 3 Months or Most Recently Relevant to Health Maintenance Results * (ABNORMAL) COMPREHENSIVE METABOLIC PANEL (02/02/2023 1:43 PM DIVIDING MACHINE OPERATOR) BUN 15 7 - 26 mg/dL 02/02/2023 2:31 PM [facility] Creatinine 0.76 0.71 - 1.16 mg/dL 02/02/2023 2:31 PM [facility] Sodium 143 136 - 145 mmol/L 02/02/2023 2:31 PM [facility] Potassium 3.8 3.5 - 4.5 mmol/L 02/02/2023 2:31 PM [facility] Chloride 104 98 - 107 mmol/L 02/02/2023 2:31 PM [facility] CO2 26 22 - 29 mmol/L 02/02/2023 2:31 PM [facility] Glucose 115 70 - 115 mg/dL 02/02/2023 2:31 PM [facility] Calcium 10.2 8.4 - 10.2 mg/dL 02/02/2023 2:31 PM [facility] Protein Total 7.5 6.0 - 8.3 g/dL 02/02/2023 2:31 PM [facility] Albumin 4.3 3.4 - 5.0 g/dL 02/02/2023 2:31 PM [facility] Bilirubin Total 0.3 0.2 - 1.2 mg/dL 02/02/2023 2:31 PM [facility] Alkaline Phosphatase 62 40 - 150 U/L 02/02/2023 2:31 PM [facility] ALT 30 5 - 55 U/L 02/02/2023 2:31 PM [facility] AST 21 5 - 34 U/L 02/02/2023 2:31 PM [facility] Anion Gap 13 6 - 16 02/02/2023 2:31 PM [facility] BUN/Creatinine Ratio 20 7 - 23 02/02/2023 2:31 PM [facility] Osmolality Calculated 298(H) 275 - 295 mOsm/kg 02/02/2023 2:31 PM [facility] Albumin/Globulin Ratio 1.3 1.1 - 2.3 02/02/2023 2:31 PM [facility] eGFR by CKD-EPI >90 >=90 mL/min/1.7 3 m2 02/02/2023 2:31 PM [facility] Blood BLOOD SPECIMEN / Unknown Lab Venipuncture / Unknown 02/02/2023 1:43 PM DIVIDING MACHINE OPERATOR 02/02/2023 2:06 PM [facility] us Talib Hunt MD LAB - CHEMISTRY ORDERABLES Final Result [facility] [address] [place] [address], [facility] [phone] from Last 3 Months or Most Recently Relevant to Health Maintenance Insurance [facility] Care Teams Dental Laboratory Assistant Relationship Specialty Start Date End Date Og Tran, FABRICATION MANAGER-CLIENT ACCOUNT REPRESENTATIVE [address] [place] [phone] PCP - General 11/02/21
--- OUTSIDE RECORDS SUMMARY | 2024-10-23 08:22 | XMS_ITS | Clinical Summary ---
Author Organization [facility] Address [address] [place] [address] Care Team Providers Care Library Cataloging Technician Name Role Phone Jose Alberto Toth MD Unavailable [phone] Rosy Alexander Primary Care Provider [phone] Allergies Active Allergy Reactions Criticality Noted Date [...] (10 mg total) by mouth daily. Active metFORMIN ER (GLUCOPHAGE-XR) 500 MG 24 hr tablet Take 1 tablet (500 mg total) by mouth daily with breakfast. Active Phentermine HCl 30 MG Cap Take 30 mg by mouth daily. Active terbinafine (LAMISIL) 250 MG tablet TAKE 1 TABLET BY MOUTH ONCE DAILY FOR 90 DAYS, THEN STOP TAKING FOR 90 DAYS, THEN TAKE AGAIN FOR 90 DAYS. 4 Active dilTIAZem HCl ER 360 MG TABLET SR 24 HR Take 1 tablet by mouth daily. 5 Active hydroCHLOROthiazi de (MICROZIDE) 12.5 MG tablet Take 1 tablet (12.5 mg total) by mouth every morning. 5 Active apixaban (ELIQUIS) 5 MG tabletIndications :Longstanding persistent atrial fibrillation (CMS/HCC [facility]) Take 1 tablet (5 mg total) by mouth 2 (two) times daily. 180 tablet 1 5 Active ezetimibe (ZETIA) 10 MG tabletIndications :Dyslipidemia Take 1 tablet (10 mg total) by mouth daily. 90 tablet 1 5 Active ELIQUIS 5 MG tablet Take 1 tablet by mouth twice daily 180 tablet 1 3 09/29/19 25 Discontinu ed(Reorder ) ezetimibe (ZETIA) 10 MG tabletIndications :Dyslipidemia Take 1 tablet (10 mg total) by mouth daily. 90 tablet 1 5 10/16/19 25 Discontinu ed(Reorder ) Active Problems Problem Noted Date Diagnosed Date Atrial fibrillation ([facility]) 02/27/2018 Hypertensive disorder 02/27/2018 Diabetes mellitus ([facility]) 02/27/2018 Dyslipidemia 02/27/2018 Palpitations Encounters Date Type Department Care Team Description 10/15/2024 Telephone [facility] [address] Jose Alberto Toth MD Refill Request (EZETIMIBE) 09/28/2024 Telephone [facility] [address] Celestina Sheldon CMA Refill Request (eliquis) 08/22/2024 3:00 PM CDT Office Visit [facility] [address] [address] Jose Alberto Toth MD Follow Up 08/22/2024 Travel 08/21/2024 Results Follow-Up [facility] [address] Nicki Cross, RN CBC, MANUAL DIFF, COMPREHENSIVE METABOLIC PANEL from Last 3 Months Immunizations Immunization Administration [...] Sex Assigned at Male 02/23/2022 1:56 PM GLASS PRODUCTION MACHINE OPERATOR Legal Sex Male 5:08 PM CDT Gender Identity Male 03/23/2021 4:31 AM GLASS PRODUCTION MACHINE OPERATOR Sexual Orientation Straight 03/23/2021 4: 31 AM GLASS PRODUCTION MACHINE OPERATOR Last Filed Vital Signs Vital [...] st Contact Info) Description 02/18/2025 12:15 PM GLASS PRODUCTION MACHINE OPERATOR Office Visit [facility] [facility] [address] [place], [place] [id number] Lea Hagan, LESLY [facility] [address] [place] [address] Health Maintenance Due Date Last Done Comments Kidney Health Evaluation 1955 Hemoglobin A1C 1955 Diabetes: Retinopathy Eye Exam 1973 Hepatitis C 1973 Pneumococcal Vaccine: 50+ Years (1 of 2 - PCV) 1974 Zoster Vaccines (1 of 2) 2005 RSV Immunization or 60+ Years (1 - Risk 60-74 years 1-dose series) 2015 Lipid Panel 07/26/2024 07/27/2023, 04/2 10/2022, 09/12/2021, Additional history exists COVID-19 Vaccine ( - season) 2024 DTaP, Tdap and Td Vaccines (2 - [...] (10/01/2019) us Documents Scanned SCANNING Final Result [facility] ONBASE from Last 3 Months or Most Recently Relevant to Health Maintenance Insurance [facility] Care Teams Library Cataloging Technician Relationship Specialty Start Date End Date Rosy Alexander APNP [address] [place] [phone] PCP - General Nurse Practitioner Family 08/17/23 Jose Alberto Toth MD [facility] [address] [place] [address] Terra Mine Technician CARDIOVASCULAR DISEASE 05/09/19
--- OUTSIDE RECORDS SUMMARY | 2024-10-23 08:22 | XMS_ITS | Encounter Summary ---
Author Organization [facility] Care Team Providers Care Production Editor Name Role Phone Alanna Rhodes MD Primary Care Provider + Rosy Alexander NP Primary Care Provider [phone] Encounter Details Date Type Department Care Team (Latest Contact Info) Description 02/20/2015 Orders Only [facility] CLINCONV ProviderGiselle MD [address] [place] [address] Social History Tobacco Use Types Packs/Day Years Used Date Smoking Tobacco: Never Assessed Sex and Gender Information Value Date Recorded Sex Assigned at Not on file Legal Sex Male 5:43 PM FEATHER SHAPER Gender Identity Not on file Sexual Orientation Not on file documented as of this encounter Plan of Treatment Not on file documented as of this encounter Procedures Procedure Name Priority Date/Time Associated Diagnosis Comments CARDIOLOGY REPORT 03/04/2016 12: 00 AM FEATHER SHAPER documented in this encounter Results * CARDIOLOGY REPORT (03/04/2016 12:00 AM FEATHER SHAPER) Anatomical Region Laterality Modality Other Narrative 03/04/2016 12:00 AM FEATHER SHAPER Ordered by an unspecified provider. Historical Provider [facility] DESI[facility] GREENWOOD Final Result documented in this encounter Visit Diagnoses Not on filedocumented in this encounter Care Teams Production Editor Relationship Specialty Start Date End Date Alanna Rhodes MD PCP - General 06/12/18 02/08/24 Rosy Alexander NP [address] [address] PCP - General Family Medicine 02/09/24 documented as of this encounter
--- OUTSIDE RECORDS SUMMARY | 2024-10-23 08:22 | XMS_ITS | Clinical Summary ---
Author Organization [facility] Address [address] [place] [address] Care Team Providers Care Building Service Worker Name Role Phone Unavailable Primary Care Provider [...] by mouth. Active iron/folic ac/vit Bcomp,C/min (B [id number] -FA ORAL) Take by mouth. Active Active [...] Description 11/22/2024 3:45 PM CDT Office Visit [facility] Oncology and Hematology - [place] [address] [facility] [address] [place] [address] Ernesto Turner MD [address] [facility] [address] [place] [address] Health Maintenance Due Date Last [...] 09/30/2029 10/01/2019 Colorectal Cancer Screening 09/30/2029 [employer] [id number]
--- OUTSIDE RECORDS SUMMARY | 2024-10-23 08:22 | XMS_ITS | Clinical Summary ---
Author Organization [facility] Address [address] [place] [address] Care Team Providers Care Broadband Technician Name Role Phone Rosy Alexander NP Primary Care Provider [phone] Allergies No known active allergies Medications No [...] on file Legal Sex Male 5:43 PM FRAME SAMPLE AND PATTERN SUPERVISOR Gender Identity Not on file Sexual Orientation Not on file Last Filed Vital Signs Vital Sign Reading Time Taken Comments Blood Pressure 122/96 02/09/2024 7:36 PM FRAME SAMPLE AND PATTERN SUPERVISOR Pulse 78 02/09/2024 7:36 PM FRAME SAMPLE AND PATTERN SUPERVISOR Temperature 36.4 C (97.6 F) 02/09/2024 3:20 PM FRAME SAMPLE AND PATTERN SUPERVISOR Respiratory Rate 17 02/09/2024 7:36 PM FRAME SAMPLE AND PATTERN SUPERVISOR Oxygen Saturation 98% 02/09/2024 7:36 PM FRAME SAMPLE AND PATTERN SUPERVISOR Inhaled Oxygen Concentration - - Weight 136.1 kg (300 lb) 02/09/2024 3:20 PM FRAME SAMPLE AND PATTERN SUPERVISOR Height 182.9 cm (6') 02/09/2024 3:20 PM FRAME SAMPLE AND PATTERN SUPERVISOR Body Mass Index 40.69 02/09/2024 3:20 PM FRAME SAMPLE AND PATTERN SUPERVISOR Plan of Treatment Health Maintenance Due [...] Most Recently Relevant to [place] [address] [facility] Care Teams Broadband Technician Relationship Specialty Start Date End Date Rosy Alexander NP [address] [address] PCP - General Family Medicine 02/09/24
== END 2024-10-23 07:49 | disposition home or self-care (01) ==
PROVIDERS: PCP Nurse Practitioner Family; Visit Provider Psychiatry & Neurology Neurology
DX: G62.9 Polyneuropathy, unspecified (principal); I48.91 Unspecified atrial fibrillation; R29.6 Repeated falls; M54.17 Radiculopathy, lumbosacral region; M51.369 Other intervertebral disc degeneration, lumbar region without mention of lumbar back pain or lower extremity pain
CPT/HCPCS: 72148

== ENCOUNTER 2024-11-06 10:53 | Outpatient (CLI) | payer OTHER, SELFPAY ==
[2024-11-06 11:33] LABS: Add Urine Microscopic? YES; Appearance Urine Clear (Clear); Glucose Urine UA Negative (Negative); Leukocyte Esterase Ur 1+ LEU/UL (Negative); Nitrate Urine Negative (Negative); Non Pathogenic Casts 0-2; Specific Grav Ur 1.020 (1.001-1.035)
[2024-11-06 11:38] LABS: Hemoglobin A1C 6.1 % (<5.7)
--- OUTSIDE RECORDS SUMMARY | 2024-11-06 11:38 | XMS_ITS | Clinical Summary ---
Author Organization [facility] Address [address] [place] [address] Care Team Providers Care Natural Resources Technician Name Role Phone Rosy Alexander NP Primary Care Provider [phone] Allergies No known active allergies Medications No [...] on file Legal Sex Male 5:43 PM BELLOWS TESTER Gender Identity Not on file Sexual Orientation Not on file Last Filed Vital Signs Vital Sign Reading Time Taken Comments Blood Pressure 122/96 02/09/2024 7:36 PM BELLOWS TESTER Pulse 78 02/09/2024 7:36 PM BELLOWS TESTER Temperature 36.4 C (97.6 F) 02/09/2024 3:20 PM BELLOWS TESTER Respiratory Rate 17 02/09/2024 7:36 PM BELLOWS TESTER Oxygen Saturation 98% 02/09/2024 7:36 PM BELLOWS TESTER Inhaled Oxygen Concentration - - Weight 136.1 kg (300 lb) 02/09/2024 3:20 PM BELLOWS TESTER Height 182.9 cm (6') 02/09/2024 3:20 PM BELLOWS TESTER Body Mass Index 40.69 02/09/2024 3:20 PM BELLOWS TESTER Plan of Treatment Health Maintenance Due [...] Most Recently Relevant to [place] [address] [facility] Care Teams Natural Resources Technician Relationship Specialty Start Date End Date Rosy Alexander NP [address] [address] PCP - General Family Medicine 02/09/24
--- OUTSIDE RECORDS SUMMARY | 2024-11-06 11:38 | XMS_ITS | Encounter Summary ---
Author Organization [facility] Address [address] [place] [address] Care Team Providers Care Licensed Practical Nurse Name Role Phone Alanna Rhodes MD Primary Care Provider [phone] Jose Alberto Toth MD Unavailable [phone] Rosy Alexander Primary Care Provider [phone] Encounter Details Date Type Department Care Team (Late Contact Info) Description 10/07/2020 Abstract [facility] [address] Jenifer Lujan MA Social History Tobacco Use Types Packs/Day Years Used Date Smoking Tobacco: Never Smokeless Tobacco: Never Alcohol Use Standard Drinks/Week Comments Yes 0 (1 standard drink = 0.6 oz pur e alcohol) ocassionally Sex and Gender Information Value Date Recorded Sex Assigned at Male 02/23/2022 1:56 PM CREDIT SUPPORT COUNSELOR Legal Sex Male 5:08 PM CDT Gender Identity Male 03/23/2021 4:31 AM CREDIT SUPPORT COUNSELOR Sexual Orientation Straight 03/23/2021 4: 31 AM CREDIT SUPPORT COUNSELOR COVID-19 Exposure Response Date Recorded In the last month, have you been in contact with someone who was confirmed or suspected to have Coronavirus / COVID-19? No / Unsure 09/23/2020 8:32 AM CDT documented as of this encounter Plan of Treatment Upcoming Encounters Date Type Department Care Team (Late Contact Info) Description 02/18/2025 12:15 PM CREDIT SUPPORT COUNSELOR Office Visit [facility] [facility], [address] [address] Lea Hagan, CONSULTING SME [address] [place] [address] documented as of this encounter Procedures Procedure [...] on filedocumented in this encounter Care Teams Licensed Practical Nurse Relationship Specialty Start Date End Date Alanna Rhodes MD [address] [place] [address] PCP - General FAMILY PRACTICE 04/06/19 08/16/23 Rosy Alexander APNP [address] [place] [phone] PCP - General Nurse Practitioner Family 08/17/23 Jose Alberto Toth MD [facility]. [facility] [address] [place] [address] [place] Commissions Manager CARDIOVASCULAR DISEASE 05/09/19 documented as of this encounter
--- OUTSIDE RECORDS SUMMARY | 2024-11-06 11:38 | XMS_ITS | Encounter Summary ---
Author Organization [facility] Address [address] [place] [address] Care Team Providers Care Modular Home Crew Member Name Role Phone TranOg NURSING EDUCATION SPECIALIST-SENIOR INTERACTIVE DEVELOPER Primary Care Provider Encounter Details Date Type Department Care Team (Late st Contact Info) Description 03/22/2019 Lab Requisition [facility] Care DermPath Lab [address] [place] [address] Sloan Alfaro MD [address] [place] [address] Social History Tobacco Use Types [...] Comments DERMATOPATHOLOGY Routine 03/20/2019 12:0 0 AM ALBACORE FISHING BOAT CREWMAN documented in this encounter Results * DERMATOPATHOLOGY (03/20/2019 12:00 AM ALBACORE FISHING BOAT CREWMAN) Case Report Dermatopathology Report Case: [id number] Authorizing Provider: Sloan Alfaro MD Collected: 03/20/2019 12:00 AM Ordering Location: [facility] DermPath Lab Received: 03/22/2019 08:09 AM Pathologist: Destiny Graham MD Specimen: Skin, left mid back 0 2:09 PM [facility] DERMATOPATHOLOGY [facility]ORATORY Final Diagnosis Specimen A. SKIN, left mid back: LENTIGINOUS MELANOCYTIC NEVUS, COMPOUND TYPE (COMPOUND MELANOCYTIC NEVUS WITH ARCHITECTURAL DISORDER) (D22.5) NOT PRESENT AT SAMPLED MARGIN 0 2:09 PM [facility] DERMATOPATHOLOGY LABORATORY at [address] ALBACORE FISHING BOAT CREWMAN Clinical History Nevus vs MM. [id number]. Check margins 0 2:09 PM [facility] DERMATOPATHOLOGY [facility]ORATORY Gross Description Specimen A: Received is one formalin filled container labeled with the patient's name and designated left mid back. The specimen consists of a shave biopsy measuring 9x7x1 mm, inked. Jar 0. 0 2:09 PM [facility] DERMATOPATHOLOGY LABORATORY Microscopic Description Specimen A. [...] margin of the specimen. 0 2:09 PM [facility] DERMATOPATHOLOGY LABORATORY Disclaimer An external and [...] purposes. Billing Codes Specimen Charges Stain Charges 39187 1 0 2:09 PM [facility] DERMATOPATHOLOGY [facility]ORATORY Embedded Images 0 2:09 PM [facility] DERMATOPATHOLOGY [facility]ORATORY Pathology/Cytolog y TISSUE SPECIMEN FROM SKIN / Unknown 03/20/2019 03/22/2019 8:09 AM ALBACORE FISHING BOAT CREWMAN us Sloan Alfaro MD LAB - PATHOLOGY/CYTOLOGY ORDER FRANKY Final Result DERMATOPATHOLOGY LABORATORY [facility] - Department of Dermatology [address] [place] [address], 5th Floor Lab [address] [phone] documented in this encounter Visit Diagnoses Not on filedocumented in this encounter Care Teams Modular Home Crew Member Relationship Specialty Start Date End Date Og Tran, NURSING EDUCATION SPECIALIST-SENIOR INTERACTIVE DEVELOPER [address] [place] [address] PCP - General 11/02/21 documented as of this encounter
--- OUTSIDE RECORDS SUMMARY | 2024-11-06 11:38 | XMS_ITS | Encounter Summary ---
Author Organization [facility] Care Team Providers Care Cook Fast Food Name Role Phone Alanna Rhodes MD Primary Care Provider + Rosy Alexander NP Primary Care Provider [phone] Encounter Details Date Type Department Care Team (Latest Contact Info) Description 01/13/2015 Orders Only [facility] CLINCONV ProviderGiselle MD [address] [place] [address] Social History Tobacco Use Types Packs/Day Years Used Date Smoking Tobacco: Never Assessed Sex and Gender Information Value Date Recorded Sex Assigned at Not on file Legal Sex Male 5:43 PM LAMINATING MACHINE FEEDER Gender Identity Not on file Sexual Orientation Not on file documented as of this encounter Plan of Treatment Not on file documented as of this encounter Procedures Procedure Name Priority Date/Time Associated Diagnosis Comments SCAN - LABS 03/04/2016 12:00 AM LAMINATING MACHINE FEEDER documented in this encounter Results * SCAN - LABS (03/04/2016 12:00 AM LAMINATING MACHINE FEEDER) Narrative 03/04/2016 12:00 AM LAMINATING MACHINE FEEDER Ordered by an unspecified provider. Historical Provider Final Res ult documented in this encounter Visit Diagnoses Not on filedocumented in this encounter Care Teams Cook Fast Food Relationship Specialty Start Date End Date Alanna Rhodes MD PCP - General 06/12/18 02/08/24 Rosy Alexander NP [address] [address] PCP - General Family Medicine 02/09/24 documented as of this encounter
--- OUTSIDE RECORDS SUMMARY | 2024-11-06 11:38 | XMS_ITS | Clinical Summary ---
Author Organization [facility] Address [address] [place] [address] Care Team Providers Care Manager Corporate Strategy Name Role Phone Jose Alberto Toth MD Unavailable [phone] Rosy Alexander Primary Care Provider [phone] Allergies Active Allergy Reactions Criticality Noted Date [...] MG tabletIndications :Longstanding persistent atrial fibrillation (CMS/HCC [facility]) Take 1 tablet (5 mg [...] Noted Date Diagnosed Date Atrial fibrillation ([facility]) 02/27/2018 Hypertensive disorder 02/27/2018 Diabetes mellitus ([facility]) 02/27/2018 Dyslipidemia 02/27/2018 Palpitations Encounters Date Type Department Care Team Description 10/15/2024 Telephone [facility], [address] [address] Jose Alberto Toth MD Refill Request (EZETIMIBE) 09/28/2024 Telephone [facility], [address] [address] Celestina Sheldon CMA Refill Request (eliquis) 08/22/2024 3:00 PM CDT Office Visit [facility] [address] Jose Alberto Toth MD Follow Up 08/22/2024 Travel 08/21/2024 Results Follow-Up [facility], [address] [phone] Nicki Cross, PATRICIA CBC, MANUAL DIFF, COMPREHENSIVE METABOLIC PANEL from [...] Sex Assigned at Male 02/23/2022 1:56 PM HEAD OPERATOR Legal Sex Male 5:08 PM CDT Gender Identity Male 03/23/2021 4:31 AM HEAD OPERATOR Sexual Orientation Straight 03/23/2021 4: 31 AM HEAD OPERATOR Last Filed Vital Signs Vital Sign [...] st Contact Info) Description 02/18/2025 12:15 PM HEAD OPERATOR Office Visit [facility] [facility] [address] [place], [place] [phone] Lea Hagan NP [facility] [address] [place] [address] Health Maintenance Due Date Last Done Comments Kidney Health Evaluation 1955 Hemoglobin A1C 1955 Diabetes: Retinopathy Eye Exam 1973 Hepatitis C 1973 Pneumococcal Vaccine: 50+ Years (1 of 2 - PCV) 1974 Zoster Vaccines (1 of 2) 2005 RSV Immunization or 60+ Years (1 - Risk 60-74 years 1-dose series) 2015 Lipid Panel 07/26/2024 07/27/2023, 05/09, 09/12/2021, Additional history exists COVID-19 Vaccine (1 - 2023-25 season) 2024 DTaP, Tdap and Td Vaccines [...] us Documents Scanned SCANNING Final Result [facility] ONBASE from Last 3 Months or Most Recently Relevant to Health Maintenance Insurance [facility] Care Teams Manager Corporate Strategy Relationship Specialty Start Date End Date Rosy Alexander APNP [address] [place] [phone] PCP - General Nurse Practitioner Family 08/17/23 Jose Alberto Toth MD [address] [facility]. [facility] [address] [place] [address] Terra Wrapper Caser CARDIOVASCULAR DISEASE 05/09/19
--- OUTSIDE RECORDS SUMMARY | 2024-11-06 11:38 | XMS_ITS | Clinical Summary ---
Author Organization [facility] Address [address] [address] Care Team Providers Care Reconnaissance Man Name Role Phone Unavailable Primary Care Provider [...] by mouth. Active iron/folic ac/vit Bcomp,C/min (B [id number]-FE -FA ORAL) Take by mouth. Active Active Problems No known active problems Encounters Date Type Department Care Team Description 10/24/2024 External Device Data [facility] ABSTRACTION Provider, Abstract 10/23/2024 External Device Data [facility] ABSTRACTION Provider, Abstract from Last 3 Months Family History * [...] Description 11/22/2024 3:45 PM CDT Office Visit [facility] Oncology and Hematology [facility] [address] [facility] [address] [place] [address] Ernesto Turner MD [address] [facility] [address] [place] [address] Health Maintenance Due Date Last [...] 09/30/2029 10/01/2019 Colorectal Cancer Screening 09/30/2029 Insurance [facility] [id number]
--- OUTSIDE RECORDS SUMMARY | 2024-11-06 11:38 | XMS_ITS | Clinical Summary ---
Author Organization [facility] Address [address] [place] [address] Care Team Providers Care Tongue Presser Name Role Phone Og Tran APRN-MUD CLEANER OPERATOR Primary Care Provider Source Comments [facility],non-owned Affiliates and Associated Physician Practices is amultiple site organization consisting of ambulatory clinics and hospital sitesin [place], [place], [place] and [place]. This disclosure is being madepursuant to the Care Everywhere program and may not contain all information available regarding this patient. Last updated 17.[facility] Allergies Active Allergy Reactions Criticality Noted Date Comments Adhesive Sensitivity Swelling Low 09/27/2016 Gabapentin Psychiatric Medium 03/25/2021 Hmg-Coa-R Inhibitors Myalgias High 04/17/2019 Medications * Be aware that medications may not be up to date on this document. Alwaysverify current medications with the patient. fluticasone propionate (FLONASE) 50 MCG/ACT nasal spray [place] 2 (two) sprays into each nostril once daily Active dilTIAZem ER (TIAZAC) 360 MG capsule Take 1 (one) capsule by mouth once daily Active benazepril (LOTENSIN) 20 MG tablet Take by mouth once daily Active hydroCHLOROthia zide (MICROZIDE) 12.5 MG capsule Take 1 (one) capsule by mouth once daily Active Cholecalciferol (VITAMIN D3) 98301 UNITS TABS Active Eliquis 5 MG tablet [...] Comments Blood Pressure 118/81 02/21/2023 2:05 PM MEAT MOLDER Pulse 77 02/21/2023 2:05 PM MEAT MOLDER Temperature 36.8 C (98.2 F) 02/21/2023 2:05 PM MEAT MOLDER Respiratory Rate 9 02/08/2023 9:45 AM MEAT MOLDER Oxygen Saturation 97% 02/21/2023 2:05 PM MEAT MOLDER Inhaled Oxygen Concentration - - Weight 128.1 kg (282 lb 4.8 oz) 02/08/2023 6:46 AM MEAT MOLDER Height 182.9 cm (6') 02/21/2023 2:05 PM MEAT MOLDER Body Mass Index 38.29 02/08/2023 6:46 AM MEAT MOLDER Plan of Treatment Health Maintenance Due Date [...] COMPREHENSIVE METABOLIC PANEL Routine 02/02/2023 1:43 PM MEAT MOLDER Mass of scalp from Last 3 Months or Most Recently Relevant to Health Maintenance Results * (ABNORMAL) COMPREHENSIVE METABOLIC PANEL (02/02/2023 1:43 PM MEAT MOLDER) BUN 15 7 - 26 mg/dL 02/02/2023 2:31 PM [facility] Creatinine 0.76 0.71 - 1.16 mg/dL 02/02/2023 2:31 PM [facility] Sodium 143 136 - 145 mmol/L 02/02/2023 2:31 PM [facility] Potassium 3.8 3.5 - 4.5 mmol/L 02/02/2023 2:31 PM [facility] Chloride 104 98 - 107 mmol/L 02/02/2023 2:31 PM [facility] CO2 26 22 - 29 mmol/L 02/02/2023 2:31 PM [facility] Glucose 115 70 - 115 mg/dL [...] mOsm/kg 02/02/2023 2:31 PM [facility] Albumin/Globulin Ratio 1.3 1.1 - 2.3 02/02/2023 2:31 PM [facility] eGFR by CKD-EPI >90 >=90 mL/min/1.7 3 m2 02/02/2023 2:31 PM [facility] Blood BLOOD SPECIMEN / Unknown Lab Venipuncture / Unknown 02/02/2023 1:43 PM MEAT MOLDER 02/02/2023 2:06 PM [facility] us Talib Hunt MD LAB - CHEMISTRY ORDERABLES Final Result [facility] [address] [place] [address], [facility] [phone] from Last 3 Months or Most Recently Relevant to Health Maintenance Insurance [facility] Care Teams Tongue Presser Relationship Specialty Start Date End Date Og Tran, ORACLE ANALYST-MUD CLEANER OPERATOR [address] [place] [phone] PCP - General 11/02/21
--- OUTSIDE RECORDS SUMMARY | 2024-11-06 11:38 | XMS_ITS | Encounter Summary ---
Author Organization [facility] Care Team Providers Care Glaze Carrier Name Role Phone Alanna Rhodes MD Primary Care Provider + Rosy Alexander NP Primary Care Provider [phone] Encounter Details Date Type Department Care Team (Latest Contact Info) Description 02/20/2015 Orders Only [facility] CLINCONV ProviderGiselle MD [address] [place] [address] Social History Tobacco Use Types Packs/Day Years Used Date Smoking Tobacco: Never Assessed Sex and Gender Information Value Date Recorded Sex Assigned at Not on file Legal Sex Male 5:43 PM MANAGER OF ORGANIZATIONAL DEVELOPMENT Gender Identity Not on file Sexual Orientation Not on file documented as of this encounter Plan of Treatment Not on file documented as of this encounter Procedures Procedure Name Priority Date/Time Associated Diagnosis Comments CARDIOLOGY REPORT 03/04/2016 12: 00 AM MANAGER OF ORGANIZATIONAL DEVELOPMENT documented in this encounter Results * CARDIOLOGY REPORT (03/04/2016 12:00 AM MANAGER OF ORGANIZATIONAL DEVELOPMENT) Anatomical Region Laterality Modality Other Narrative 03/04/2016 12:00 AM MANAGER OF ORGANIZATIONAL DEVELOPMENT Ordered by an unspecified provider. Historical Provider [facility] [place] Final Result documented in this encounter Visit Diagnoses Not on filedocumented in this encounter Care Teams Glaze Carrier Relationship Specialty Start Date End Date Alanna Rhodes MD PCP - General 06/12/18 02/08/24 Rosy Alexander NP [address] [address] PCP - General Family Medicine 02/09/24 documented as of this encounter
[2024-11-06 11:44] LABS: Alanine Aminotransferase 50 U/L (6-50); Albumin Level 4.5 g/dL (3.5-5.1); Alkaline Phosphatase 70 U/L (38-126); Anion Gap 10 mmol/L (4-12); Aspartate Amino Transferase 33 U/L (17-59); Bilirubin,Total 0.4 mg/dL (0.2-1.3); Blood Urea Nitrogen 17 mg/dL (9-20); Calcium 9.3 mg/dL (8.4-10.2); Carbon Dioxide 24 mmol/L (22-30); Chloride 103 mmol/L (98-107); Cholesterol 163 mg/dL (0-200); Estimated Glomerular Filt Rate > 60; Glucose 114 mg/dL (65-110); HDL Direct 41 mg/dL; Potassium 4.1 mmol/L (3.4-5.0); Sodium 137 mmol/L (137-145); Total Protein 7.2 g/dL (6.3-8.2); Triglycerides 264 mg/dL (<150); Uric Acid 6.7 mg/dL (3.5-8.5)
[2024-11-06 12:13] LABS: Thyroid Stimulating Hormone Reflex 1.580 uIU/mL (0.465-4.68)
[2024-11-06 12:18] LABS: Prostate Specific Antigen 1.3 ng/mL (< OR = 4.0)
[2024-11-07 07:09] LABS: C-Reactive Protein, Cardiac 1.74 mg/L (0.00-3.00)
[2024-11-07 15:09] LABS: ANA by IFA Rfx Titer/Pattern Negative (.)
== END 2024-11-06 10:54 | disposition home or self-care (01) ==
LOC: ANHLAB 10:54
PROVIDERS: PCP Nurse Practitioner Family; Visit Provider Nurse Practitioner Family
DX: E78.5 Hyperlipidemia, unspecified (principal); I10 Essential (primary) hypertension; R73.03 Prediabetes; M25.50 Pain in unspecified joint; Z12.5 Encounter for screening for malignant neoplasm of prostate
CPT/HCPCS: 36415; 80053; 80061; 81001; 83036; 84153; 84443; 84550; 86038; 86141; 86430; G0103

== ENCOUNTER 2024-12-03 09:16 | Day surgery (SDC) | payer OTHER, SELFPAY ==
[2024-11-23 12:38] VITALS: BMI 40.6
--- NOTE | ~2024-12-03 | XR_ITS ---
EXAMINATION: XR fluoroscopy no charge DATE: 12/03/2024 11:59 INDICATION: Bilateral L5-S1 transforaminal epidural steroid injections TECHNIQUE: 65 fluoroscopic images of the lower lumbar spine were obtained during procedure performed by Dr. Bourne. Radiologist was not present for the imaging or procedure. The amount of fluoroscopy time used during this procedure was 1.0 minutes. Cumulative radiation dose of 68.68 mGy. COMPARISON: None. FINDINGS: Images demonstrate needle tips advanced to the posterior superior lateral aspect of the neural foramina bilaterally at L5-S1. Contrast injection demonstrates perineural spread at the neural foramina with no evident intravascular or intrathecal contrast. IMPRESSION: 1. Fluoroscopy utilized during bilateral L5-S1 transforaminal injections. See procedure note for further detail. Reviewed, dictated and finalized at location A. IMPRESSION: 1. Fluoroscopy utilized during bilateral L5-S1 transforaminal injections. See p rocedure note for further detail.
[2024-12-03 10:23] VITALS: BP 124/100; PULSE 95; RESP 18; TEMP 36.8; O2SAT 96
--- OUTSIDE RECORDS SUMMARY | 2024-12-03 10:55 | XMS_ITS | Clinical Summary ---
Author Organization [facility] Address [address] [place] [address] Care Team Providers Care Opto Mechanical Technician Name Role Phone Jose Alberto Toth MD Unavailable [phone] Rosy Alexander Primary Care Provider [phone] Allergies Active Allergy Reactions Criticality Noted Date [...] AGAIN FOR 90 DAYS. 07/06/2023 Active dilTIAZem HCl ER 360 MG TABLET SR 24 HR Take 1 tablet by mouth daily. 07/12/2024 Active hydroCHLOROthiazi de (MICROZIDE) 12.5 MG tablet Take 1 tablet (12.5 mg total) by mouth every morning. 08/22/2024 Active apixaban (ELIQUIS) 5 MG tabletIndications :Longstanding persistent atrial fibrillation (CMS/HCC HHS/HCC) Take 1 tablet (5 mg total) by mouth 2 (two) times daily. 180 tablet 1 09/28/2024 Active ezetimibe (ZETIA) 10 MG tabletIndications :Dyslipidemia Take 1 tablet (10 mg total) by mouth daily. 90 tablet 1 10/15/2024 Active Active Problems Problem Noted Date Diagnosed Date Atrial fibrillation 02/27/2018 Hypertensive disorder 02/27/2018 Diabetes mellitus 02/27/2018 Dyslipidemia 02/27/2018 Palpitations Encounters Date Type Department Care Team Description 10/15/[address] [facility], [address] [address] Jose Alberto Toth MD Refill Request (EZETIMIBE) 09/28/[address] [facility], [address] [address] Celestina Sheldon CMA Refill Request (eliquis) from Last 3 Months Immunizations Immunization Administration [...] Sex Assigned at Male 02/23/2022 1:56 PM ENGRAVING PLATE MAKER Legal Sex Male 5:08 PM CDT Gender Identity Male 03/23/2021 4:31 AM ENGRAVING PLATE MAKER Sexual Orientation Straight 03/23/2021 4: 31 AM ENGRAVING PLATE MAKER Last Filed Vital Signs Vital Sign Reading [...] st Contact Info) Description 02/18/2025 12:15 PM ENGRAVING PLATE MAKER Office Visit [facility] [facility], [facility] [address] [place], [place] [phone] Lea Hagan, LESLY [facility] [address] [place], [place] [phone] Health Maintenance Due Date Last Done Comments [...] exists COVID-19 Vaccine ( - season) 2024 Influenza Adult (#1) 2024 12/13/2016, 01/13/20 16 DTaP, Tdap and Td Vaccines (2 - Td or Tdap) 03/29/2029 03/29/2019 Colorectal Cancer Screening Colonoscopy (10 Years) 09/30/2029 10/01/2019 Hepatitis A Vaccines Aged Out No long er eligible based on patient's age to complete this topic Meningococcal B Vaccine Aged Out No l [...] Scanned SCANNING Final Result Performing Organization Address City/State/[facility] Co de Phone Number [facility] from Last 3 Months or Most Recently Relevant to Health Maintenance Insurance [facility] Care Teams Opto Mechanical Technician Relationship Specialty Start Date End Date Rosy Alexander APNP [address] [place] [phone] PCP - General Nurse Practitioner Family 08/17/23 Jose Alberto Toth MD [facility] [address] [place] [address] [place] Spectrographic Analyst CARDIOVASCULAR DISEASE 05/09/19
--- OUTSIDE RECORDS SUMMARY | 2024-12-03 10:55 | XMS_ITS | Clinical Summary ---
Author Organization [facility] Address [address] [place] [address] Care Team Providers Care Gambreler Helper Name Role Phone Rosy Alexander NP Primary Care Provider [phone] Allergies No known active allergies Medications No [...] on file Legal Sex Male 5:43 PM COOL ROOFING INSTALLER Gender Identity Not on file Sexual Orientation Not on file Last Filed Vital Signs Vital Sign Reading Time Taken Comments Blood Pressure 122/96 02/09/2024 7:36 PM COOL ROOFING INSTALLER Pulse 78 02/09/2024 7:36 PM COOL ROOFING INSTALLER Temperature 36.4 C (97.6 F) 02/09/2024 3:20 PM COOL ROOFING INSTALLER Respiratory Rate 17 02/09/2024 7:36 PM COOL ROOFING INSTALLER Oxygen Saturation 98% 02/09/2024 7:36 PM COOL ROOFING INSTALLER Inhaled Oxygen Concentration - - Weight 136.1 kg (300 lb) 02/09/2024 3:20 PM COOL ROOFING INSTALLER Height 182.9 cm (6') 02/09/2024 3:20 PM COOL ROOFING INSTALLER Body Mass Index 40.69 02/09/2024 3:20 PM COOL ROOFING INSTALLER Plan of Treatment Health Maintenance Due Date [...] Most Recently Relevant to Health [place] [address] [facility] CHOICE PLUS [facility] CHOICE PLUS Care Teams Gambreler Helper Relationship Specialty Start Date End Date Rosy Alexander NP [address] [address] PCP - General Family Medicine 02/09/24
--- OUTSIDE RECORDS SUMMARY | 2024-12-03 10:55 | XMS_ITS | Encounter Summary ---
Author Organization [facility] Facility Care Team Providers Care Electronic Service Technician Name Role Phone Alanna Rhodes MD Primary Care Provider + Rosy Alexander NP Primary Care Provider [phone] Encounter Details Date Type Department Care Team (Latest Contact Info) Description 02/20/2015 Orders Only [facility] CLINCONV ProviderGiselle MD [address] [place] [address] Social History Tobacco Use Types Packs/Day Years Used Date Smoking Tobacco: Never Assessed Sex and Gender Information Value Date Recorded Sex Assigned at Not on file Legal Sex Male 5:43 PM SPEARER Gender Identity Not on file Sexual Orientation Not on file documented as of this encounter Plan of Treatment Not on file documented as of this encounter Procedures Procedure Name Priority Date/Time Associated Diagnosis Comments CARDIOLOGY REPORT 03/04/2016 12: 00 AM SPEARER documented in this encounter Results * CARDIOLOGY REPORT (03/04/2016 12:00 AM SPEARER) Anatomical Region Laterality Modality Other Narrative 03/04/2016 12:00 AM SPEARER Ordered by an unspecified provider. Historical Provider [facility] [place] Final Result documented in this encounter Visit Diagnoses Not on filedocumented in this encounter Care Teams Electronic Service Technician Relationship Specialty Start Date End Date Alanna Rhodes MD PCP - General 06/12/18 02/08/24 Rosy Alexander NP [address] [address] PCP - General Family Medicine 02/09/24 documented as of this encounter
--- OUTSIDE RECORDS SUMMARY | 2024-12-03 10:55 | XMS_ITS | Encounter Summary ---
Author Organization [facility] Address [address] [place] [address] Care Team Providers Care Inspector Process Name Role Phone TranOg RN ACCESS-OIL GAS AND PIPE TESTER Primary Care Provider Encounter Details Date Type Department Care Team (Late st Contact Info) Description 03/22/2019 Lab Requisition [facility] Care DermPath Lab [address] [place] [phone] Sloan Alfaro MD [address] [place] [address] Social History Tobacco Use Types [...] Comments DERMATOPATHOLOGY Routine 03/20/2019 12:0 0 AM PROPERTY COORDINATOR documented in this encounter Results * DERMATOPATHOLOGY (03/20/2019 12:00 AM PROPERTY COORDINATOR) Case Report Dermatopathology Report Case: [id number] Authorizing Provider: Sloan Alfaro MD Collected: 03/20/2019 12:00 AM Ordering Location: [facility] Lab Received: 03/22/2019 08:09 AM Pathologist: Destiny Graham MD Specimen: Skin, left mid back 0 2:09 PM [facility] DER[facility] Final Diagnosis Specimen A. 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 29I164. Check margins 0 2:09 PM [facility]ERMAT[facility] Gross Description Specimen A: Received is one formalin filled container labeled with the patient's name and designated left mid back. The specimen consists of a shave biopsy measuring 9x7x1 mm, inked. Jar 0. 0 2:09 PM [facility]ERMAT[facility] Microscopic Description Specimen A. [...] margin of the specimen. 0 2:09 PM [facility] Disclaimer An external and internal positive and negative controls are appropriate for the histochemical, immunohistochemical and immunofluorescence stain(s) in this case (if any), except where stated explicitly. The performance characteristics of the stain(s) cited in this report were developed and its performance characteristic determined by the Dermatopathology Laboratory at [facility], directed by Dr. Christie Núñez. These tests need not be, and therefore are not, approved by the [place] Food and Drug Administration. The tests are used for clinical purposes. Billing Codes Specimen Charges Stain Charges 33032 1 0 2:09 PM [facility] Embedded Images 0 2:09 PM [facility] Pathology/Cytolog y TISSUE SPECIMEN FROM SKIN / Unknown 03/20/2019 03/22/2019 8:09 AM PROPERTY COORDINATOR us Sloan Alfaro MD LAB - PATHOLOGY/CYTOLOGY ORDER FRANKY Final Result DERMATOPATHOLOGY LABORATORY [facility] - Department of Dermatology [address] [place] [address], 5th Floor Lab [address] [phone] documented in this encounter Visit Diagnoses Not on filedocumented in this encounter Care Teams Inspector Process Relationship Specialty Start Date End Date Og Tran, RN ACCESS-OIL GAS AND PIPE TESTER [address] [place] [phone] PCP - General 11/02/21 documented as of this encounter
--- OUTSIDE RECORDS SUMMARY | 2024-12-03 10:55 | XMS_ITS | Clinical Summary ---
Author Organization [facility] Address [address] [place] [address] Care Team Providers Care Security Flex Officer Name Role Phone Og Tran APRN-MECHANICS SUPERVISOR Primary Care Provider Source Comments [facility],non-owned Affiliates and Associated Physician Practices is amultiple site organization consisting of ambulatory clinics and hospital sitesin [place], [place], [place] and [place]. This disclosure is being madepursuant to the Care Everywhere program and may not contain all information available regarding this patient. Last updated 17.[facility] Allergies Active Allergy Reactions Criticality Noted Date Comments Adhesive Sensitivity Swelling Low 09/27/2016 Gabapentin Psychiatric Medium 03/25/2021 Hmg-Coa-R Inhibitors Myalgias High 04/17/2019 Medications * Be aware that medications may not be up to date on this document. Alwaysverify current medications with the patient. fluticasone propionate (FLONASE) 50 MCG/ACT nasal spray [place] 2 (two) sprays into each nostril once daily Active dilTIAZem ER (TIAZAC) 360 MG capsule Take 1 (one) capsule by mouth once daily Active benazepril (LOTENSIN) 20 MG tablet Take by mouth once daily Active hydroCHLOROthia zide (MICROZIDE) 12.5 MG capsule Take 1 (one) capsule by mouth once daily Active Cholecalciferol (VITAMIN D3) 40846 UNITS TABS Active Eliquis 5 MG tablet [...] Comments Blood Pressure 118/81 02/21/2023 2:05 PM ASSOCIATE Pulse 77 02/21/2023 2:05 PM ASSOCIATE Temperature 36.8 C (98.2 F) 02/21/2023 2:05 PM ASSOCIATE Respiratory Rate 9 02/08/2023 9:45 AM ASSOCIATE Oxygen Saturation 97% 02/21/2023 2:05 PM ASSOCIATE Inhaled Oxygen Concentration - - Weight 128.1 kg (282 lb 4.8 oz) 02/08/2023 6:46 AM ASSOCIATE Height 182.9 cm (6') 02/21/2023 2:05 PM ASSOCIATE Body Mass Index 38.29 02/08/2023 6:46 AM ASSOCIATE Plan of Treatment Health Maintenance Due Date [...] COMPREHENSIVE METABOLIC PANEL Routine 02/02/2023 1:43 PM ASSOCIATE Mass of scalp from Last 3 Months or Most Recently Relevant to Health Maintenance Results * (ABNORMAL) COMPREHENSIVE METABOLIC PANEL (02/02/2023 1:43 PM ASSOCIATE) BUN 15 7 - 26 mg/dL 02/02/2023 2:31 PM [facility] Creatinine 0.76 0.71 - 1.16 mg/dL 02/02/2023 2:31 PM [facility] Sodium 143 136 - 145 mmol/L 02/02/2023 2:31 PM [facility] Potassium 3.8 3.5 - 4.5 mmol/L 02/02/2023 2:31 PM [facility] Chloride 104 98 - 107 mmol/L 02/02/2023 2:31 PM [facility] CO2 26 22 - 29 mmol/L 02/02/2023 2:31 PM [facility] Glucose 115 70 - 115 mg/dL 02/02/2023 2:31 PM [facility] Calcium 10.2 8.4 - 10.2 mg/dL 02/02/2023 2:31 PM [facility] Protein Total 7.5 6.0 - 8.3 g/dL 02/02/2023 2:31 PM [facility] Albumin 4.3 3.4 - 5.0 g/dL 02/02/2023 2:31 PM [facility] Bilirubin Total 0.3 0.2 - 1.2 mg/dL 02/02/2023 2:31 PM [facility] Alkaline Phosphatase 62 40 - 150 U/L 02/02/2023 2:31 PM [facility] ALT 30 5 - 55 U/L 02/02/2023 2:31 PM [facility] AST 21 5 - 34 U/L 02/02/2023 2:31 PM [facility] Anion Gap 13 6 - 16 02/02/2023 2:31 PM [facility] BUN/Creatinine Ratio 20 7 - 23 02/02/2023 2:31 PM [facility] Osmolality Calculated 298(H) 275 - 295 mOsm/kg 02/02/2023 2:31 PM [facility] Albumin/Globulin Ratio 1.3 1.1 - 2.3 02/02/2023 2:31 PM [facility] eGFR by CKD-EPI >90 >=90 mL/min/1.7 3 m2 02/02/2023 2:31 PM [facility] Blood BLOOD SPECIMEN / Unknown Lab Venipuncture / Unknown 02/02/2023 1:43 PM ASSOCIATE 02/02/2023 2:06 PM [facility] us Talib Hunt MD LAB - CHEMISTRY ORDERABLES Final Result [facility] [address] [place] [address], [facility] [phone] from Last 3 Months or Most Recently Relevant to Health Maintenance Insurance [facility] Care Teams Security Flex Officer Relationship Specialty Start Date End Date Og Tran, QUALITY CONTROL TESTER-MECHANICS SUPERVISOR [address] [place] [phone] PCP - General 11/02/21
--- OUTSIDE RECORDS SUMMARY | 2024-12-03 10:55 | XMS_ITS | Clinical Summary ---
Author Organization [facility] Address [address] [place] [address] Care Team Providers Care Lock Corner Machine Operator Name Role Phone Unavailable Primary Care Provider [...] by mouth. Active iron/folic ac/vit Bcomp,C/min (B [id number] -FA ORAL) Take by mouth. Active Active Problems No known active problems Encounters Date Type Department Care Team Description 11/27/2024 External Device Data STL ABSTRACTION Provider, Abstract 10/24/2024 External Device Data STL ABSTRACTION Provider, [...] Care Team (Late st Contact Info) Description 02/11/2025 2:[address] Office Visit [facility] [place] [address] [facility] [address] [place] [address] Ernesto Turner MD [address] [place] [address] Health Maintenance Due Date Last Done Comments DIABETES ANNUAL FOOT EXAM 1973 DIABETES ANNUAL RETINAL EXAM 1973 DIABETES HBA1C Q 6 MONTHS 1973 DIABETES MICROALBUMIN ANNUAL SCREEN 1973 LDL CHOLESTEROL ANNUAL 1973 PNEUMOCOCCAL VACCINE 50+ YEARS (1 of 2 - PCV) 03/19/18 75 FIT-DNA Q 3 years 2000 FIT/FOBT Q 1 year 2000 Flex Sig/CT Colonography Q 5 years 2000 RSV VACCINE (60+ or ) (1 - Risk 50-74 years 1-dose series) 2005 ZOSTER VACCINE (1 of 2) 2005 INFLUENZA VACCINE (#1) 2024 12/13/2016 DTAP/TDAP/TD VACCINES (2 - Td or Tdap) 03/29/2029 COLORECTAL SCREENING 09/30/2029 10/01/2019 Colorectal Cancer Screening 09/30/2029 Insurance [facility] [id number] Member Subscriber Plan / Payer (Ef fective 2024-Present) Name:Kentrell Javier Relation to Subscriber:Self Name:Kentrell Javier Payer ID:[id number] (NAIC) Type:O Address: [facility] [address] [place] [id number]
--- OUTSIDE RECORDS SUMMARY | 2024-12-03 10:55 | XMS_ITS | Encounter Summary ---
Author Organization [facility] Facility Care Team Providers Care Ampoule Inspector Name Role Phone Alanna Rhodes MD Primary Care Provider + Rosy Alexander NP Primary Care Provider [phone] Encounter Details Date Type Department Care Team (Latest Contact Info) Description 01/13/2015 Orders Only [facility] CLINCONV ProviderGiselle MD [address] [place] [address] Social History Tobacco Use Types Packs/Day Years Used Date Smoking Tobacco: Never Assessed Sex and Gender Information Value Date Recorded Sex Assigned at Not on file Legal Sex Male 5:43 PM FIRER LOCOMOTIVE Gender Identity Not on file Sexual Orientation Not on file documented as of this encounter Plan of Treatment Not on file documented as of this encounter Procedures Procedure Name Priority Date/Time Associated Diagnosis Comments SCAN - LABS 03/04/2016 12:00 AM FIRER LOCOMOTIVE documented in this encounter Results * SCAN - LABS (03/04/2016 12:00 AM FIRER LOCOMOTIVE) Narrative 03/04/2016 12:00 AM FIRER LOCOMOTIVE Ordered by an unspecified provider. Historical Provider Final Res ult documented in this encounter Visit Diagnoses Not on filedocumented in this encounter Care Teams Ampoule Inspector Relationship Specialty Start Date End Date Alanna Rhodes MD PCP - General 06/12/18 02/08/24 Rosy Alexander NP [address] [address] PCP - General Family Medicine 02/09/24 documented as of this encounter
--- OUTSIDE RECORDS SUMMARY | 2024-12-03 10:55 | XMS_ITS | Encounter Summary ---
Author Organization [facility] Address [address] [place] [address] Care Team Providers Care Licensed Acupuncturist Name Role Phone Alanna Rhodes MD Primary Care Provider [phone] Jose Alberto Toth MD Unavailable [phone] Rosy Alexander Primary Care Provider [phone] Encounter Details Date Type Department Care Team (Late Contact Info) Description 10/07/2020 Abstract [facility] [address] Jenifer Lujan MA Social History Tobacco Use Types Packs/Day Years Used Date Smoking Tobacco: Never Smokeless Tobacco: Never Alcohol Use Standard Drinks/Week Comments Yes 0 (1 standard drink = 0.6 oz pur e alcohol) ocassionally Sex and Gender Information Value Date Recorded Sex Assigned at Male 02/23/2022 1:56 PM PHARMACY SERVICES DIRECTOR Legal Sex Male 5:08 PM CDT Gender Identity Male 03/23/2021 4:31 AM PHARMACY SERVICES DIRECTOR Sexual Orientation Straight 03/23/2021 4: 31 AM PHARMACY SERVICES DIRECTOR COVID-19 Exposure Response Date Recorded In the last month, have you been in contact with someone who was confirmed or suspected to have Coronavirus / COVID-19? No / Unsure 09/23/2020 8:32 AM CDT documented as of this encounter Plan of Treatment Upcoming Encounters Date Type Department Care Team (Late Contact Info) Description 02/18/2025 12:15 PM PHARMACY SERVICES DIRECTOR Office Visit [facility], [address] [address] Lea Hagan, MANAGER PRACTICE [address] [place] [address] documented as of this encounter Procedures Procedure [...] filedocumented in this encounter Care Teams Licensed Acupuncturist Relationship Specialty Start Date End Date Alanna Rhodes MD [address] [place] [address] PCP - General FAMILY PRACTICE 04/06/19 08/16/23 Rosy Alexander APNP [address] [place] [id number] PCP - General Nurse Practitioner Family 08/17/23 Jose Alberto Toth MD [facility]. [facility] [address] [place] [address] [facility] Room Attendants CARDIOVASCULAR DISEASE 05/09/19 documented as of this encounter
--- NOTE | 2024-12-03 11:06 | WPDHPUPDATE1 ---
History and Physical Update Update Date/Time: 12/03/24 11:06 History and Physical has been reviewed, including an updated exam of the patient. There are NO changes in the patient's condition. Risks, benefits, and alternatives have been discussed and questions answered. Patient agrees to proceed with procedure.
--- NOTE | 2024-12-03 11:07 | W.PM.PROC2 ---
Procedure Note - Detailed Date of Procedure 12/03/24 Pre-op Diagnosis Lumbar Radiculopathy Post-op Diagnosis Same Procedure Performed Bilateral Lumbar Transforaminal Epidural Steroid Injection under Fluoroscopic Guidance and with Contrast Control at L5-S1. Surgeon Laith Bourne MD Anesthesia Local Description of Procedure INFORMED CONSENT: Risks, benefits and alternatives to the procedure were discussed in detail with the patient who expressed explicit understanding and consent to proceed. Patient was informed verbally and in written form regarding the risks associated with the procedure including the low risk of serious infection, bleeding/bruising, allergic reaction, nerve or organ injury, paralysis, procedural site pain or discomfort, worsening pain and/or mobility, failure to treat and/or disfigurement. The patient expressed explicit understanding and consent to proceed. All materials required for the procedure were available prior to procedure start. Site and side was marked prior to procedure and confirmed in the presence of the patient. PROCEDURE IN DETAIL: The patient was brought to the procedural suite and placed in the prone position. Patient was made comfortable with use of pillows under the head/chest, hips and ankles. Skin overlying the injection site was prepared broadly with ChloraPrep applicator and draped in a sterile manner. Aseptic technique was employed throughout. The endplates of the vertebral body at the site of interest were aligned in the AP view. Ipsilateral oblique angulation was utilized to better visualize the neuroforamen of interest. Local anesthesia was established by infiltration with approximately 5 mL of 0.5% PF lidocaine via a 1-1/2 inch 27-gauge needle. A 22-gauge 5.0 inch Christopher (pencil point) spinal needle was advanced until the needle approached the 6 o'clock position on the pedicle just superior to the exiting nerve root. on the right at L5-S1. Lateral view was utilized to confirm appropriate position of the needle tip within the superior and posterior portion of the respective foramen. In an AP view, 1 mL of Omnipaque 300 contrast medium was injected after negative aspiration for CSF, blood or other bodily fluid, showing appropriate neurogram without evidence of intravascular or intrathecal spread of contrast. Digital subtraction imaging was used with an additional 1ml of the same contrast medium to confirm absence of intravascular contrast spread. A 1mL solution containing 5 mg of dexamethasone was injected after negative repeat aspiration. Appropriate spread of the injectate was confirmed with washout of previously injected contrast. No parasthesias were elicited. Needle was removed completely intact without difficulty. The same exact procedure was repeated for all remaining levels on the ipsilateral side, right L5-S1 neuroforamen, modified as necessary to accommodate for the new target location with identical findings and results and no evidence of complication. Images were saved and documented in the patient chart. Patient's skin was cleaned and sterile bandage applied. The patient tolerated the procedure well. The patient was transported to the recovery area in stable condition where they were observed for an appropriate amount of time prior to discharge, without evidence of complication. The patient was instructed to avoid excessive activity for the next 48 hours, including climbing and frequent use of stairs. Showers only for 48 hours. They were instructed not to drive or operate heavy machinery for 24 hours. They are to monitor for severe headaches, fevers, chills, night sweats, erythema/swelling at the site or any other signs of infection, bleeding/bruising, bowel or bladder changes as well as new pain, weakness or numbness in the upper or lower extremity. Should they notice these changes, they are instructed to call our office immediately or report directly to the nearest Emergency Department if no answer or if after posted office hours. COMPLICATIONS: None COMMENTS: None CONTRAST WASTED: 26 mL Omnipaque 300. STEROID WASTED: 0 mg of dexamethasone. Complications No immediate complications Condition Stable Disposition Same day [facility] Billing Surgery - Charge Forward: Surgery Billing
[2024-12-03 11:20] VITALS: BP 130/70; PULSE 95; RESP 12; O2SAT 95
[2024-12-03] MEDS: dexAMETHasone SOD PHOS INJ 10 MG/ML 1 ML VIAL IM (11:22)
[2024-12-03] MEDS: LIDOCAINE 2% PF LOCAL INJ 5 ML VIAL 2 ML INFILTRATE (11:22)
[2024-12-03] MEDS: LIDOCAINE 1% PF INJ 5 ML VIAL INFILTRATE (11:23)
[2024-12-03 11:24] VITALS: BP 152/76; PULSE 75; RESP 10; O2SAT 95
[2024-12-03 11:28] VITALS: BP 145/91; PULSE 90; RESP 16; O2SAT 94
[2024-12-03 11:33] VITALS: BP 135/107; PULSE 92; RESP 20; O2SAT 97
== END 2024-12-03 11:50 | disposition home or self-care (01) ==
PROVIDERS: PCP Nurse Practitioner Family; Visit Provider Anesthesiology Pain Medicine
PROC: (CPT 64483; principal; 2024-12-03 10:50)
DX: M47.26 Other spondylosis with radiculopathy, lumbar region (principal); M48.062 Spinal stenosis, lumbar region with neurogenic claudication
CPT/HCPCS: 64483; 99199

== ENCOUNTER 2024-12-05 08:08 | Outpatient (CLI) | payer OTHER, SELFPAY ==
--- OUTSIDE RECORDS SUMMARY | 2024-12-05 08:16 | XMS_ITS | Data Portability ---
Author Organization [place] [facility], Main Office Address [address] [place] [address] Care Team Providers Care Director Public Service Name Role Phone OG TRAN Primary Care Provider OG TRAN Referring Provider [phone] Assessment No assessment recorded. Plan of Treatment Reminders Order Date Submit Date Provider Last Modified By Organization Details Last Modified Time Details Appointments None recorded. Lab None recorded. Referral None recorded. Procedures None recorded. Surgeries None recorded. Imaging None recorded. Medication Orders phentermine 37.5 mg capsule 2022 023 [facility], [address], [place], [address], 3 16:30:12 phentermine 15 mg capsule 2022 023 [facility], [address], [place], [address], 3 17:02:24 fluticasone propionate 50 mcg/actuati on nasal spray,suspe nsion 2022 023 [facility], [address] [place], [address], 3 16:48:27 Loratadine- D 10 mg-240 mg tablet,exte nded release 24 hr 2022 023 [facility], [address] [place], [address], 3 16:48:29 Wegovy 0.25 mg/0.5 mL subcutaneou s pen injector 2022 023 [facility], [address], [place], [address], 3 16:48:26 Eliquis 5 mg tablet 2022 023 [facility], [address], [place], [address], 3 17:04:20 Mounjaro 5 mg/0.5 mL subcutaneou s pen injector [email or web address] [place] [address] Pharmacy [address], [address], [place], [address], 3 17:42:07 Mounjaro 7.5 mg/0.5 mL subcutaneou s pen injector [email or web address] [place] [address] Pharmacy 4878, [address], [place], [address], 3 13:21:35 Patient TargetsNo targets recorded. Patient InstructionsNo instructions recorded. Reason for Referral None Reported. Results Created Date Observation Date Name Description Value Unit Range Abnormal Flag Note LastModifiedBy Organization Detail LastModifiedTime 01/29/20 23 01/28/2023 XR, chest No observ ation record ed. [email or web address] [facility] [address], [place], [address], 06/17/2023 17:51:50 Result Notes None recorded. Problems Name Problem SNOMED Code Status Onset Date Resolution Date Notes Provider Name and Address Organization Details Recorded Time Dyslipidem ia 495315876 Active 2018 Not Available [facility] 3 20:39:32 Hypertensi ve disorder 28076253 Active 2018 Not Available [facility] 3 20:39:32 Atrial fibrillati on 86825516 Active 2018 Not Available [facility] 3 20:39:32 Diabetes mellitus 99205844 Active 2018 Not Available [facility] 3 20:39:32 Renal mass 395524534 Active 2018 Not Available [facility] 3 20:39:32 Essential hypertensi on 14299993 Active 2020 Not Available [facility] 3 20:39:32 Dupuytren' s disease of palm, nodules with no contractur e 741188029 Active 2021 Not Available [facility] 3 20:39:32 Seasonal allergy 366800603 Active 2022 ASHIA Bautista [address], [place], [address] , [employer] 3 13:42:10 Hyperglyce alfonzo due to type 2 diabetes mellitus 2538113925607 09 Active 2022 SALTY Perez [address], [address], [place], [address] , [employer] 3 15:46:08 Obesity 101769498 Active 2022 SALTY Sidhu-Yuriy [address], [address], [place], [address] , [employer] 3 16:20:08 Problem Notes None recorded. Medical Equipment None Reported. Allergies Allergen ID Allergen Name Allergen Category Reaction Reaction Severity Criticality Documentation Date Start Date Code Code System Note Provider Name and Address Organization Details Recorded Time 24739 Product containin g 3-hydroxy -3-methyl glutaryl- coenzyme A reductase inhibitor (product) medicatio n Not available Not available Not available 04/07/2022 75536 009 SNOMED pain Not Available [facility] 3 20:40:35 Medications Name Sig Start Date [...] propionate 50 mcg/actuat ion nasal spray,susp ension active Not Available Not Available Not Available metformin ER 500 mg tablet,ext ended release [...] Available Not Available Eliquis 5 mg tablet active Not Available Not Available No t Available Trulicity 0.75 mg/0.5 mL subcutaneo us pen [...] in Arterial blood by Pulse oximetry Systolic And Diastolic Provider Name and Address Organization Details Last Updated DateTime 3 185.42 cm 37.5 kg/m2 947919. 23 g 97.1 [degF] 76 /min 93 % 93 % 110/68 mm[Hg] Lillie Tim RN [facility] [employer] 3 16:34:39 Date Recorded Body height Body mass index (BMI) Body weight Body temperature Heart rate Oxygen saturation Oxygen saturation in Arterial blood by Pulse oximetry Systolic And Diastolic Provider Name and Address Organization Details Last Updated DateTime 3 185.42 cm 35.2 kg/m2 316123. 16 g 98.9 [degF] 82 /min 96 % 96 % 118/78 mm[Hg] Lillie Tim RN [facility] [employer] [facility] 3 17:10:47 Date Recorded Body height Body mass index (BMI) Body weight Body temperature Oxygen saturation Oxygen saturation in Arterial blood by Pulse oximetry Heart rate Systolic And Diastolic Provider Name and Address Organization Details Last Updated DateTime 3 185.42 cm 35.1 kg/m2 057545. 57 g 97.9 [degF] 96 % 96 % 108 /min 122/68 mm[Hg] Luci Alexander CMA [facility] [employer] 3 15:58:45 Date Recorded Body height Body mass index (BMI) Body weight Body temperature Heart rate Oxygen saturation Oxygen saturation in Arterial blood by Pulse oximetry Systolic And Diastolic Provider Name and Address Organization Details Last Updated DateTime 3 185.42 cm 36.4 kg/m2 957476. 49 g 98.3 [degF] 77 /min 93 % 93 % 122/72 mm[Hg] Justyna Sullivan LPN [facility] [employer] [facility] 3 16:45:41 Date Recorded Body height Body mass index (BMI) Body weight Body temperature Oxygen saturation Oxygen saturation in Arterial blood by Pulse oximetry Heart rate Systolic And Diastolic Provider Name and Address Organization Details Last Updated DateTime 3 185.42 cm 37.2 kg/m2 582609. 05 g 97.2 [degF] 94 % 94 % 91 /min 128/90 mm[Hg] Erna Smiley RN [facility] [employer] [facility] 3 15:59:44 Social History Question Answer Notes LastModified by [employer] Details LastModified Time Tobacco Smoking Status Former Smoker Lillie Tim RN [facility], [facility] [employer] [facility] 05/21/2022 15:35:51 What Is Your Level Of Caffeine Consumption? Moderate Information not available 05/21/2022 Which Illicit Or Recreational Drugs Have You Used? Marijuana Information not available 05/21/2022 When Did You Quit Smoking? 16+yearssincel astcigarette Information not available 05/21/2022 Do You Use Your Seat Belt Or Car Seat Routinely? Yes Information not available 06/09/2022 Sex: Unknown Functional Status Question Answer Note LastModified by [employer] Details LastModified Time Do you use any illicit or recreational drugs? Yes Information not available 05/21/2022 What is your level of alcohol consumption? Occasional Information not available 05/21/2022 Mental Status Question Answer Note LastModified by Organization D etails LastModified Time Do you feel stressed (tense, restless, nervous, or anxious, or unable to sleep at night)? [id number] Information not available 06/09/2022 Family History Nothing Reported. Medical History No medical history recorded. Immunizations Vaccine Type Date Status Note Provider Nam e and Address Organization Details Recorded Time Tdap 03/29/2019 completed Not Available [facility] 04/07/2022 20:40:33 Past Encounters Encounter ID Performer Location Encounter Start Date Encounter Closed Date Diagnosis/Indication Diagnosis SNOMED-CT Code Diagnosis ICD10 Code Diagnosis IMO Codes Diagnosis Note [id number] Alanna Rhodes MD [facility] Primary Care [address] [place] [address] 01/27/2021 00:00:00 01/27/2021 17:14:50 [id number] Alanna Rhodes MD [facility] Primary Care [address] [place] [address] 11/13/2021 00:00:00 11/13/2021 18:16:22 [id number] SALTY Perez [facility] Primary Care [address] [place] [address] 05/21/2022 15:25:56 05/21/2022 17:26:10 Hyperglycemia due to type 2 diabetes mellitus 8968862976 27747 E11.65 Unknown status.Dis cussed need for regular exercise, increase intake of water/vege tables/fib er. Decrease intake of carbs, especially white rice/pasta /flour/leodan ad/sugar.W ill check labs and start on metformin 500mg ER daily.Will also give trial of Mounjaro 2.5mg weekly. [id number] Alanna Rhodes MD [facility] Primary Care [address] [place] [address] 06/09/2022 16:28:17 06/09/2022 17:27:44 Hyperglycemia due to type 2 diabetes mellitus 6263418684 38429 E11.65 Improved with starting MounjaroA1 C 5.7 [...] dose. Patient in formed - test result [id number] Z71.2 Reviewed lab results with patient. Discussed abnormal levels and treatment recommenda tions as above.chol esterol levels wnl (06/05/22)C BC wnl (06/05/22)C MP: na 136, creat 0.60 (06/05/22) [id number] SALTY Perez [facility] Primary Care [address] [place] [address] 07/15/2022 16:50:48 07/15/2022 18:02:22 Hyperglycemia due to type 2 diabetes mellitus 3436810277 97085 E11.65 Improved with starting MounjaroA1 C 5.7 [...] W19.XXXA No ongoing sx at this time. [id number] ISAC Sidhu [facility] Primary Care [address] [place] [address] 09/10/2022 15:53:43 09/10/2022 16:46:53 Obesity 698828961 E66.9 Declines further use of the Mounjaro d/t negative GI side effectsWil l trial wegovyEnco uraged fresh fruits and veggies.In crease daily water intake Seasonal allergy 4746102 04 J30.2 stable Atrial fibrillation 4943 6004 I48.91 stable [id number] Alanna Rhodes MD [facility] Primary Care [address] [place] [address] 12/01/2022 16:27:15 12/01/2022 17:00:40 Obesity 166273746 E66.9 Has gained 10 lbs since last [...] fruits and veggies.In crease daily water intake [id number] Sergio Abdalla, RN LPN CNA-C S_G Primary Care [facility] [address] [facility] [address] [place] [address] 02/02/2023 15:49:25 02/02/2023 16:28:34 Obesity 044412248 E66.9 -pt notes no ASE with use of phentermin e-he is ready to increase the dosage-phe ntermine 37.5 started-f/ u in 2 months to restart meds Health Concerns Section Related Observation LastModified by Organization Detai ls LastModified Time None Recorded Concern Status LastModified by Organization Details LastModified Time None Recorded Advance Directives Directive None Recorded Payers Insurance Date Sequence Insurance Name Policy Number Policy Wagoner Covered Member ID Wagoner Member ID Guarantor Name 05/21/2023 1 [facility] [id number] [facility] [id number] [facility] Notes Date Note Type Note Provider [...] lose some weight. Og Tran, SALTY [address] [facility], [place], [address], [facility] [email or web address] 06/09/2022 17:11:37 07/15/2022 text/html 07/15/22: 1. Pt in office with for 4 week f/u appt on Mounjaro. Pt states he is tolerating well. Denies any severe GI distress most of the time until he went to [employer] for lunch on Tuesday.2. Pt states he [...] him lose some weight. SALTY Perez [address], [place], [address], [facility] [employer] [facility] [employer] 07/15/2022 18:47:06 09/10/2022 text/html Pt here to f/u on mounjaro and blood sugars . Started taking [...] metamucil, and miralax ISAC Sidhu [address], [place], [address], [facility] [employer] [facility] [employer] 09/10/2022 16:49:17 12/01/2022 text/html Pt is here for 1 month f/u ISAC Sidhu [address] [address], [place], [address], [facility] [employer] [facility] [email or web address] [facility] 12/01/2022 17:03:57 02/02/2023 text/html Pt is here for weight loss f/u Sergio Abdalla, SALTY-Yuriy [address], [address] [address], [place], [address], [facility] - [facility] [email or web address] [facility] 02/02/2023 16:33:03
--- OUTSIDE RECORDS SUMMARY | 2024-12-05 08:16 | XMS_ITS | Clinical Summary ---
Author Organization [facility] Address [address] [place] [address] Care Team Providers Care Staff Midwife/Apprenticeship Director Name Role Phone Unavailable Primary Care Provider [...] by mouth. Active iron/folic ac/vit Bcomp,C/min (B [id number] -FA ORAL) Take by mouth. Active Active Problems No known active problems Encounters Date Type Department Care Team Description 12/04/2024 External Device Data [facility] ABSTRACTION Provider, Abstract 11/27/2024 External Device Data [facility]STRACTION Provider, [...] st Contact Info) Description 02/11/2025 2:00 PM CEILING CLEANER Office Visit [facility] Oncology and Hematology - [place] [address] [place] [address] [facility] [address] [place] [address] Ernesto Turner MD [address] [facility] [address] [place] [address] Health Maintenance Due Date Last [...] 09/30/2029 10/01/2019 Colorectal Cancer Screening 09/30/[address] [facility] [id number] Member Subscriber Plan / Payer (Ef fective 2024-Present) Name:Kentrell Javier Relation to Subscriber:Self Name:Kentrell Javier Payer ID:[id number] (NAIC) Type:O Address: [facility] [id number]
--- OUTSIDE RECORDS SUMMARY | 2024-12-05 08:16 | XMS_ITS | Clinical Summary ---
Author Organization [facility] Address [address] [place] [address] Care Team Providers Care Retail Shift Supervisor Name Role Phone Jose Alebrto Toth MD Unavailable Rosy Alexander Primary Care Provider [phone] Allergies Active Allergy Reactions Criticality Noted Date [...] Type Department Care Team Description 10/15/2024 Telephone Novopyxis [facility], [address] [address] Jose Alberto Toth MD Refill Request ([email or web address]) 09/28/2024 Telephone Novopyx[facility], [address] [address] Celestina Sheldon CMA Refill Request (eliquis) from [...] Sex Assigned at Male 02/23/2022 1:56 PM HEALTH CARE ADMINISTRATOR Legal Sex Male 5:08 PM CDT Gender Identity Male 03/23/2021 4:31 AM HEALTH CARE ADMINISTRATOR Sexual Orientation Straight 03/23/2021 4: 31 AM HEALTH CARE ADMINISTRATOR Last Filed Vital Signs Vital Sign Reading [...] st Contact Info) Description 02/18/2025 12:15 PM HEALTH CARE ADMINISTRATOR Office Visit [facility], [facility] [address] [place], [place] [phone] Lea Hagan, LESLY Three [facility] [address], [place] [phone] Health Maintenance Due Date Last Done Comments [...] Scanned SCANNING Final Result Performing Organization Address City/State/[facility] Co de Phone Number [facility] from Last 3 Months or Most Recently Relevant to Health Maintenance Insurance [facility] Care Teams Retail Shift Supervisor Relationship Specialty Start Date End Date Rosy Alexander APNP [address] [place] [address] PCP - General Nurse Practitioner Family 08/17/23 Jose Alberto Toth MD [facility] [address] [place] [address] [employer] CARDIOVASCULAR DISEASE 05/09/19
--- OUTSIDE RECORDS SUMMARY | 2024-12-05 08:16 | XMS_ITS | Clinical Summary ---
Author Organization [facility] Address [address] [place] [address] Care Team Providers Care Glass Melt Operator Name Role Phone Rosy Alexander NP Primary Care Provider [phone] Allergies No known active allergies Medications No [...] on file Legal Sex Male 5:43 PM COPYRIGHT CLERK Gender Identity Not on file Sexual Orientation Not on file Last Filed Vital Signs Vital Sign Reading Time Taken Comments Blood Pressure 122/96 02/09/2024 7:36 PM COPYRIGHT CLERK Pulse 78 02/09/2024 7:36 PM COPYRIGHT CLERK Temperature 36.4 C (97.6 F) 02/09/2024 3:20 PM COPYRIGHT CLERK Respiratory Rate 17 02/09/2024 7:36 PM COPYRIGHT CLERK Oxygen Saturation 98% 02/09/2024 7:36 PM COPYRIGHT CLERK Inhaled Oxygen Concentration - - Weight 136.1 kg (300 lb) 02/09/2024 3:20 PM COPYRIGHT CLERK Height 182.9 cm (6') 02/09/2024 3:20 PM COPYRIGHT CLERK Body Mass Index 40.69 02/09/2024 3:20 PM COPYRIGHT CLERK Plan of Treatment Health Maintenance Due Date [...] Most Recently Relevant to [place] [address] [facility] PL[facility] Care Teams Glass Melt Operator Relationship Specialty Start Date End Date Rosy Alexander NP [address] [address] PCP - General Family Medicine 02/09/24
--- OUTSIDE RECORDS SUMMARY | 2024-12-05 08:16 | XMS_ITS | Encounter Summary ---
Author Organization [facility] Facility Care Team Providers Care Statistical Geneticist Name Role Phone Alanna Rhodes MD Primary Care Provider + Rosy Alexander NP Primary Care Provider [phone] Encounter Details Date Type Department Care Team (Latest Contact Info) Description 02/20/2015 Orders Only [facility] CLINCONV ProviderGiselle MD [address] [place] [address] Social History Tobacco Use Types Packs/Day Years Used Date Smoking Tobacco: Never Assessed Sex and Gender Information Value Date Recorded Sex Assigned at Not on file Legal Sex Male 5:43 PM CHEMIST BIOLOGICAL Gender Identity Not on file Sexual Orientation Not on file documented as of this encounter Plan of Treatment Not on file documented as of this encounter Procedures Procedure Name Priority Date/Time Associated Diagnosis Comments CARDIOLOGY REPORT 03/04/2016 12: 00 AM CHEMIST BIOLOGICAL documented in this encounter Results * CARDIOLOGY REPORT (03/04/2016 12:00 AM CHEMIST BIOLOGICAL) Anatomical Region Laterality Modality Other Narrative 03/04/2016 12:00 AM CHEMIST BIOLOGICAL Ordered by an unspecified provider. Historical Provider [facility] DESIREE GREENWOOD Final Result documented in this encounter Visit Diagnoses Not on filedocumented in this encounter Care Teams Statistical Geneticist Relationship Specialty Start Date End Date Alanna Rhodes MD PCP - General 06/12/18 02/08/24 Rosy Alexander NP [address] [address] PCP - General Family Medicine 02/09/24 documented as of this encounter
--- OUTSIDE RECORDS SUMMARY | 2024-12-05 08:16 | XMS_ITS | Encounter Summary ---
Author Organization [facility] Facility Care Team Providers Care Certified Composites Technician Name Role Phone Alanna Rhodes MD Primary Care Provider + Rosy Alexander NP Primary Care Provider [phone] Encounter Details Date Type Department Care Team (Latest Contact Info) Description 01/13/2015 Orders Only [facility] CLINCONV ProviderGiselle MD [address] [place] [address] Social History Tobacco Use Types Packs/Day Years Used Date Smoking Tobacco: Never Assessed Sex and Gender Information Value Date Recorded Sex Assigned at Not on file Legal Sex Male 5:43 PM FIELD AUDITOR Gender Identity Not on file Sexual Orientation Not on file documented as of this encounter Plan of Treatment Not on file documented as of this encounter Procedures Procedure Name Priority Date/Time Associated Diagnosis Comments SCAN - LABS 03/04/2016 12:00 AM FIELD AUDITOR documented in this encounter Results * SCAN - LABS (03/04/2016 12:00 AM FIELD AUDITOR) Narrative 03/04/2016 12:00 AM FIELD AUDITOR Ordered by an unspecified provider. Historical Provider Final Res ult documented in this encounter Visit Diagnoses Not on filedocumented in this encounter Care Teams Certified Composites Technician Relationship Specialty Start Date End Date Alanna Rhodes MD PCP - General 06/12/18 02/08/24 Rosy Alexander NP [address] [address] PCP - General Family Medicine 02/09/24 documented as of this encounter
--- OUTSIDE RECORDS SUMMARY | 2024-12-05 08:16 | XMS_ITS | Encounter Summary ---
Author Organization [facility] Address [address] [facility] [place] [address] Care Team Providers Care Rn Neonatal Name Role Phone TranOg METAL MOCKUP MAKER-ALL PURPOSE CLERK Primary Care Provider Encounter Details Date Type Department Care Team (Late st Contact Info) Description 03/22/2019 Lab Requisition [facility] Care DermPath Lab [address] [facility] [place] [address] Sloan Alfaro MD [address] [place] [address] Social History Tobacco Use Types [...] Comments DERMATOPATHOLOGY Routine 03/20/2019 12:0 0 AM INSTALLER METAL FLOORING documented in this encounter Results * DERMATOPATHOLOGY (03/20/2019 12:00 AM INSTALLER METAL FLOORING) Case Report Dermatopathology Report Case: [id number] Authorizing Provider: Sloan Alfaro MD Collected: 03/20/2019 12:00 AM Ordering Location: [facility] DermPath Lab Received: 03/22/2019 08:09 AM Pathologist: Destiny Graham MD Specimen: Skin, left mid back 0 2:09 PM [facility] DERMATOPATHOLOGY LABORATORY Final Diagnosis Specimen A. SKIN, left mid back: LENTIGINOUS MELANOCYTIC NEVUS, COMPOUND TYPE (COMPOUND MELANOCYTIC NEVUS WITH ARCHITECTURAL DISORDER) (D22.5) NOT PRESENT AT SAMPLED MARGIN 0 2:09 PM [facility] DERMATOPATHOLOGY LABORATORY at 1409 INSTALLER METAL FLOORING Clinical History Nevus vs MM. [id number]. Check margins 0 2:09 PM [facility] DERMATOPATHOLOGY LABORATORY Gross Description Specimen A: Received is one formalin filled container labeled with the patient's name and designated left mid back. The specimen consists of a shave biopsy measuring 9x7x1 mm, inked. Jar 0. 0 2:09 PM [facility] DERMATOPATHOLOGY LABORATORY Microscopic Description Specimen A. [...] margin of the specimen. 0 2:09 PM [facility] DERMATOPATHOLOGY LABORATORY Disclaimer An external and internal positive and negative controls are appropriate for the histochemical, immunohistochemical and immunofluorescence stain(s) in this case (if any), except where stated explicitly. The performance characteristics of the stain(s) cited in this report were developed and its performance characteristic determined by the Dermatopathology Laboratory at [facility], directed by Dr. Christie Núñez. These tests need not be, and therefore are not, approved by the [place] Food and Drug Administration. The tests are used for clinical purposes. Billing Codes Specimen Charges Stain Charges 47691 1 0 2:09 PM [facility] DERMATOPATHOLOGY LABORATORY Embedded Images 0 2:09 PM [facility] DERMATOPATHOLOGY LABORATORY Pathology/Cytolog y TISSUE SPECIMEN FROM SKIN / Unknown 03/20/2019 03/22/2019 8:09 AM INSTALLER METAL FLOORING us Sloan Alfaro MD LAB - PATHOLOGY/CYTOLOGY ORDER FRANKY Final Result DERMATOPATHOLOGY LABORATORY [facility] - Department of Dermatology [address] [place] [address], 5th Floor Lab [address] [phone] documented in this encounter Visit Diagnoses Not on filedocumented in this encounter Care Teams Rn Neonatal Relationship Specialty Start Date End Date Og Tran, METAL MOCKUP MAKER-ALL PURPOSE CLERK [address] [place] [address] PCP - General 11/02/21 documented as of this encounter
--- OUTSIDE RECORDS SUMMARY | 2024-12-05 08:17 | XMS_ITS | Encounter Summary ---
Author Organization [facility] Address [address] [place] [address] Care Team Providers Care Spring Tier Name Role Phone Alanna Rhodes MD Primary Care Provider [phone] Jose Alberto Toth MD Unavailable [phone] Rosy Alexander Primary Care Provider [phone] Encounter Details Date Type Department Care Team (Late Contact Info) Description 10/07/2020 [facility] [address] Jenifer Lujan MA Social History Tobacco Use Types Packs/Day Years Used Date Smoking Tobacco: Never Smokeless Tobacco: Never Alcohol Use Standard Drinks/Week Comments Yes 0 (1 standard drink = 0.6 oz pur e alcohol) ocassionally Sex and Gender Information Value Date Recorded Sex Assigned at Male 02/23/2022 1:56 PM RESOURCE SPECIALIST TEACHER Legal Sex Male 5:08 PM CDT Gender Identity Male 03/23/2021 4:31 AM RESOURCE SPECIALIST TEACHER Sexual Orientation Straight 03/23/2021 4: 31 AM RESOURCE SPECIALIST TEACHER COVID-19 Exposure Response Date Recorded In the last month, have you been in contact with someone who was confirmed or suspected to have Coronavirus / COVID-19? No / Unsure 09/23/2020 8:32 AM CDT documented as of this encounter Plan of Treatment Upcoming Encounters Date Type Department Care Team (Late Contact Info) Description 02/18/2025 12:15 PM RESOURCE SPECIALIST TEACHER Office Visit [facility] [facility], [address] [address] Lea Hagan, EXPERIMENTAL ELECTRONICS DEVELOPER [phone] [place] [address] documented as of this encounter Procedures Procedure [...] on filedocumented in this encounter Care Teams Spring Tier Relationship Specialty Start Date End Date Alanna Rhodes MD [address] [place] [address] PCP - General FAMILY PRACTICE 04/06/19 08/16/23 Rosy Alexander APNP [address] [place] [phone] PCP - General Nurse Practitioner Family 08/17/23 Jose Alberto Toth MD [facility]. [facility] [address] [place] [address] [place] Commercial Insurance Underwriter CARDIOVASCULAR DISEASE 05/09/19 documented as of this encounter
--- OUTSIDE RECORDS SUMMARY | 2024-12-05 08:17 | XMS_ITS | Clinical Summary ---
Author Organization [facility] Address [address] [place] [address] Care Team Providers Care Coal Trimmer Name Role Phone Og Tran APRN-HEALTH AND FITNESS PROFESSOR Primary Care Provider Source Comments [facility],non-owned Affiliates and Associated Physician Practices is amultiple site organization consisting of ambulatory clinics and hospital sitesin [place], [place], [place] and [place]. This disclosure is being madepursuant to the Care Everywhere program and may not contain all information available regarding this patient. Last updated 17.[facility] Allergies Active Allergy Reactions Criticality Noted Date Comments Adhesive Sensitivity Swelling Low 09/27/2016 Gabapentin Psychiatric Medium 03/25/2021 Hmg-Coa-R Inhibitors Myalgias High 04/17/2019 Medications * Be aware that medications may not be up to date on this document. Alwaysverify current medications with the patient. fluticasone propionate (FLONASE) 50 MCG/ACT nasal spray [place] 2 (two) sprays into each nostril once daily Active dilTIAZem ER (TIAZAC) 360 MG capsule Take 1 (one) capsule by mouth once daily Active benazepril (LOTENSIN) 20 MG tablet Take by mouth once daily Active hydroCHLOROthia zide (MICROZIDE) 12.5 MG capsule Take 1 (one) capsule by mouth once daily Active Cholecalciferol (VITAMIN D3) 56845 UNITS TABS Active Eliquis 5 MG tablet [...] Comments Blood Pressure 118/81 02/21/2023 2:05 PM MECHANICAL SPREADER OPERATOR Pulse 77 02/21/2023 2:05 PM MECHANICAL SPREADER OPERATOR Temperature 36.8 C (98.2 F) 02/21/2023 2:05 PM MECHANICAL SPREADER OPERATOR Respiratory Rate 9 02/08/2023 9:45 AM MECHANICAL SPREADER OPERATOR Oxygen Saturation 97% 02/21/2023 2:05 PM MECHANICAL SPREADER OPERATOR Inhaled Oxygen Concentration - - Weight 128.1 kg (282 lb 4.8 oz) 02/08/2023 6:46 AM MECHANICAL SPREADER OPERATOR Height 182.9 cm (6') 02/21/2023 2:05 PM MECHANICAL SPREADER OPERATOR Body Mass Index 38.29 02/08/2023 6:46 AM MECHANICAL SPREADER OPERATOR Plan of Treatment Health Maintenance Due [...] COMPREHENSIVE METABOLIC PANEL Routine 02/02/2023 1:43 PM MECHANICAL SPREADER OPERATOR Mass of scalp from Last 3 Months or Most Recently Relevant to Health Maintenance Results * (ABNORMAL) COMPREHENSIVE METABOLIC PANEL (02/02/2023 1:43 PM MECHANICAL SPREADER OPERATOR) BUN 15 7 - 26 mg/dL 02/02/2023 2:31 PM [facility] Creatinine 0.76 0.71 - 1.16 mg/dL 02/02/2023 2:31 PM [facility] Sodium 143 136 - 145 mmol/L 02/02/2023 2:31 PM [facility] Potassium 3.8 3.5 - 4.5 mmol/L 02/02/2023 2:31 PM [facility] Chloride 104 98 - 107 mmol/L 02/02/2023 2:31 PM [facility] CO2 26 22 - 29 mmol/L 02/02/2023 2:31 PM [facility] Glucose 115 70 - 115 mg/dL 02/02/2023 2:31 PM [facility] Calcium 10.2 8.4 - 10.2 mg/dL 02/02/2023 2:31 PM [facility] Protein Total 7.5 6.0 - 8.3 g/dL 02/02/2023 2:31 PM [facility] Albumin 4.3 3.4 - 5.0 g/dL 02/02/2023 2:31 PM [facility] Bilirubin Total 0.3 0.2 - 1.2 mg/dL 02/02/2023 2:31 PM [facility] Alkaline Phosphatase 62 40 - 150 U/L 02/02/2023 2:31 PM [facility] ALT 30 5 - 55 U/L 02/02/2023 2:31 PM [facility] AST 21 5 - 34 U/L 02/02/2023 2:31 PM [facility] Anion Gap 13 6 - 16 02/02/2023 2:31 PM [facility] BUN/Creatinine Ratio 20 7 - 23 02/02/2023 2:31 PM [facility] Osmolality Calculated 298(H) 275 - 295 mOsm/kg 02/02/2023 2:31 PM [facility] Albumin/Globulin Ratio 1.3 1.1 - 2.3 02/02/2023 2:31 PM [facility] eGFR by CKD-EPI >90 >=90 mL/min/1.7 3 m2 02/02/2023 2:31 PM [facility] Blood BLOOD SPECIMEN / Unknown Lab Venipuncture / Unknown 02/02/2023 1:43 PM MECHANICAL SPREADER OPERATOR 02/02/2023 2:06 PM [facility] us Talib Hunt MD LAB - CHEMISTRY ORDERABLES Final Result [facility] [address] [place] [address], [facility] [phone] from Last 3 Months or Most Recently Relevant to Health Maintenance Insurance [facility] Care Teams Coal Trimmer Relationship Specialty Start Date End Date Og Tran, INSTALLER INSPECTOR FINAL-HEALTH AND FITNESS PROFESSOR [address] [place] [phone] PCP - General 11/02/21
--- OUTSIDE RECORDS SUMMARY | 2024-12-05 08:17 | XMS_ITS | Encounter Summary ---
Author Organization [facility] Address [address] [place] [address] Care Team Providers Care Theoretical Physicist Name Role Phone Unavailable Primary Care Provider Unavailabl e Encounter Details Date Type Department Care Team (Late st Contact Info) Description 12/04/2024 External Device Data STL ABSTRACTION [...] st Contact Info) Description 02/11/2025 2:00 PM GLASS DESIGNER Office Visit [facility] Oncology and Hematology - [place] [address] [facility] [address] [place] [address] Ernesto Turner MD [address] [facility] [address] [place] [address] documented as of this encounter Visit Diagnoses Not on filedocumented in this encounter
[2024-12-18 13:43] VITALS: BMI 40.6
--- NOTE | 2024-12-18 13:43 | WPDHOMESLEEP ---
Sleep Study - Home Unattended Date of Study: 12/05/24 Ordering Provider: Hussein Paul APRN Interpreting Provider: Ivy Murphy, DO Home Sleep Study Type: Watch PAT Height: 1.83 m Weight: 136.078 kg Body Mass Index: 40.6 Neck Circumference (inches): 18.25 [place]: 10 Reason for Sleep Study Daytime hypersomnia Sleep History The patient is a 69-year-old male that had a sleep study ordered by the Pulmonary group for evaluation of sleep apnea. The patient occasionally awakens from sleep short of breath. He occasionally awakens at night with heartburn, belching or cough. He occasionally snores and is occasionally loud enough that others complain. He occasionally has trouble sleeping when he has a cold. He occasionally wakes up gasping for air throughout the night. He occasionally has breathing problems at night observed by himself or others. He occasionally sweats excessively at night. He occasionally has heart palpitations or irregular heartbeats during the night. He occasionally falls asleep during the day but rarely while driving. He denies sleep paralysis, cataplexy and hypnagogic/ hypnopompic hallucinations. He rarely has trouble at school or work due to sleepiness. He denies feeling afraid of going to sleep. He denies having nightmares. He denies remembering his dreams. He constantly has thoughts racing through his mind. He occasionally feels sad or depressed. He frequently has anxiety. He denies having muscular tension. He rarely notices parts of his body jerk. He rarely kicks during the night. He denies having crawling and aching feelings in his legs and denies having leg pain during the night. He denies grinding his teeth during sleep and denies awakening with morning jaw pain. He is occasionally bothered by pain during the day and occasionally awakened by pain during the night. He occasionally wakes up feeling stiff in the morning. He rarely wakes up with sore or achy muscles. He rarely wakes up with pain in the neck, spine and other joints. He goes to bed at 8:30 p.m. every night. It takes him 30 minutes to fall asleep. He wakes up 3-4 times throughout the night to urinate and is able to fall back asleep within 5-10 minutes. He wakes up at 6:00 a.m. every morning. He typically gets 4-6 hours of sleep per night. He does not stay in bed after waking up in the morning. He currently lives with his . He denies consuming any caffeinated beverages within 2 hours of bedtime. He denies engaging in physical exercise before bedtime. He denies reading and watching television before falling asleep. He denies taking naps in afternoon or the evening. He denies consuming caffeinated beverages throughout the day. He quit smoking cigarettes 30 years ago. He denies alcohol use. He does use an unspecified recreational drug. [facility] Past Medical History Medical History Rib pain on right side Paresthesia of both feet Neurogenic claudication due to lumbar spinal stenosis Lumbar stenosis Lumbar spondylosis Lumbar radiculopathy Dorsalgia Low back pain radiating to both legs Arthralgia of multiple joints Lumbosacral radiculopathy Lower back pain Shoulder pain, right Daytime sleepiness Monoclonal gammopathy Polyneuropathy Anxiety and depression Abnormal CT scan, head Family history of Parkinson disease Frequent falls Balance problem Cervical radiculitis Cervicalgia Left shoulder pain Dyslipidemia Chronic allergic rhinitis Prediabetes Anemia Onychomycosis IBS (irritable bowel syndrome) Hx of melanoma of skin back Heart disease Acid reflux Arthritis Hypertension Atrial fibrillation Surgical History Surgical History Status post reverse total arthroplasty of left shoulder (~04/24/24) Family History Family History Mother Diabetes mellitus Hypertension Cerebrovascular accident Social History Social History Smoking packs per day: 0.5 Smoking cigarettes per day: 10.0 Years smoked: 15 Smoking pack-years: 7.50 Smoking status: Former smoker Tobacco type: cigarettes Second hand tobacco smoke exposure: Yes Smoking end date: 02/08/04 Alcohol intake: never Drinks per week: 1 Substance use: current Substance use type: marijuana Other substance usage details: DAILY Current Housing: Decline to Answer Concerned About Future Housing: Decline to Answer Difficulty Paying Gas/Electric Bills: Decline to Answer Difficulty Paying for Meds: Decline to Answer Currently Unemployed: Decline to Answer Education: Decline to Answer Difficulty w/ Childcare or Family Care: Decline to Answer Living arrangements: with family Additional living arrangements comments: Gender identity (if verbalized by the patient): Male Spiritual care concerns: No Medications Home Medications ?Medication ?Instructions ?Recorded ?Confirmed ?Type apixaban 5 mg tablet (Eliquis) 5 mg PO BID #180 tabs 07/06/23 12/06/24 Rx cholecalciferol (vitamin D3) 125 125 mcg PO DAILY 07/06/23 12/06/24 History mcg (5,000 unit) capsule omeprazole magnesium 20 mg 20 mg PO DAILY 07/06/23 12/06/24 History tablet,delayed release (Prilosec OTC) ezetimibe 10 mg tablet (Zetia) 10 mg PO DAILY 08/30/23 12/06/24 History loratadine-pseudoephedrine ER 10 1 tablet PO DAILY PRN allergy 04/14/24 12/06/24 Rx mg-240 mg tablet,extended symptoms #90 tabs [id number] (Loratadine-D) eszopiclone 2 mg tablet 2 mg PO ONCE #1 tablet 10/04/24 12/06/24 Rx benazepril 20 mg tablet 20 mg PO DAILY #90 tabs 10/16/24 12/06/24 Rx hydrochlorothiazide 12.5 mg tablet 12.5 mg PO DAILY #90 tabs 10/16/24 12/06/24 Rx metformin 500 mg tablet,extended 500 mg PO DAILY #90 tabs 10/16/24 12/06/24 Rx release 24 hr diltiazem HCl 360 mg capsule,24 360 mg PO DAILY #90 caps 10/29/24 12/06/24 Rx hr,extended release acetaminophen 1,000 mg PO BID-TID PRN pain 11/05/24 12/06/24 History duloxetine 30 mg capsule,delayed 30 mg PO DAILY #30 caps 11/05/24 12/06/24 Rx release amoxicillin 500 mg tablet 500 mg PO ONCE #4 tabs 11/14/24 12/06/24 Rx vitamin B complex 1 cap PO DAILY 11/23/24 12/06/24 History prednisone 20 mg tablet See Rx Instructions PO DAILY #7 12/06/24 12/06/24 Rx tabs cyclobenzaprine 5 mg tablet 2.5 - 5 mg (0.5 - 1 x 5 mg) PO 12/14/24 Rx DAILY PRN muscle spasm #30 tabs Sleep Procedure The sleep study was completed using [employer] a technically adequate device with seven channels: peripheral arterial tone, actigraphy, body position, snore, respiratory movement, pulse oximetry, sleep staging, and heart rate. Prior to using the device, the patient received verbal and written instructions for its application and was provided with the help desk phone number for additional telephonic instruction with 24-hour availability of qualified personnel to answer questions. The study was scored using CMS guidelines. Sleep Architecture The total recording time is 9 hrs, 4 min. The total sleep time is 7 hrs, 38 min. Sleep latency is 12 minutes. REM latency is 271 minutes. The patient had 17 episodes of waking. Sleep architecture shows 2.4% deep sleep, 86.7% light sleep, and (as % Total Sleep Time) showed NREM (Light 86.7%; Deep 2.4%), and a 10.9% stage REM. The patient spent 100.0% of total sleep time in the supine position. Sleep efficiency was 84.19. Respiratory Analysis The overall AHI (pAHI 4%:) is 61.8. The overall AHI (pAHI 3%:) is 63.1. The central AHI is 12.2. The AHI was 65.4 in NREM and 46.0 in REM sleep. The AHI was 63.1 in Supine and N/A in Non-supine sleep. Percent of Ruben Salazar respirations is 7.1. Oximetry Data The oxygen desaturation index (QIANA 4%:) is 58.2. The mean saturation is 93%, and the lowest saturation is 77%. Time spent with saturation < 88% is 39.1 minutes. Snoring Profile Snoring average intensity is 43 dB. The patient snored above 45 decibels for 109.8 minutes, 24.0% of sleep time. Cardiac Profile The average pulse rate is 66 beats per minutes. The lowest pulse rate is 34 bpm. The highest pulse rate reported is 146 bpm. Suspected Afib total duration is 0:13:44, (h:m:sec). The longest Afibevent duration is 0:02:49. Premature beats occur 0.8 per minute. Assessment and Plan Assessment and Plan (1) NAKITA (obstructive sleep apnea): Code(s): G47.33 - Obstructive sleep apnea (adult) (pediatric) Status: Acute Assessment and Plan: The patient had an overall AHI of 61.8 with desaturation down to 77%. This is consistent with extremely severe sleep apnea. The patient had a central apnea index of 12.2, which is elevated (normal <5). the patient is not a candidate for AutoPAP due to the severity of his sleep apnea as well as the elevated central apnea index. I recommend that the patient have a CPAP titration with the use of a hypnotic to ensure we obtain enough sleep data and find an optimal pressure setting. (2) REGISTERED NURSING PROFESSOR (Ruben Salazar respiration): Code(s): R06.3 - Periodic breathing Status: Acute Assessment and Plan: The patient had Ruben-Salazar respirations present for 7.1% of total recording time. I recommend that the patient have an echocardiogram if not already done within the past 6 months to rule out cardiogenic causes for an elevated central apnea index and Ruben-Salazar respirations. Data The data obtained during this sleep study is adequate for interpretation. Certification This sleep study has been reviewed by a board certified sleep medicine physician.
== END 2024-12-06 13:40 | disposition home or self-care (01) ==
PROVIDERS: PCP Nurse Practitioner Family; Visit Provider Nurse Practitioner Family
DX: G47.30 Sleep apnea, unspecified (principal); G47.33 Obstructive sleep apnea (adult) (pediatric)
CPT/HCPCS: 95800

== ENCOUNTER → 2024-12-06 08:33 | Outpatient (CLI) | payer OTHER, SELFPAY ==
--- NOTE | ~2024-12-06 | XR_ITS ---
EXAMINATION: XR ribs RT 2V w CXR 2V, 12/06/2024 8:34 CDT HISTORY: R07.89 - Other chest pain COMPARISON: No comparisons available. Findings: No acute fracture or malalignment. No significant degenerative changes. Soft tissues unremarkable. Impression: No acute fracture or malalignment. Reviewed, dictated and finalized at location P. Impression: No acute fracture or malalignment.
--- OUTSIDE RECORDS SUMMARY | 2024-12-06 08:43 | XMS_ITS | Clinical Summary ---
Author Organization [facility] Address [address] [place] [address] Care Team Providers Care Manager Of Regulatory Affairs Name Role Phone Unavailable Primary Care Provider [...] by mouth. Active iron/folic ac/vit Bcomp,C/min (B UAZXSPK-[id number]-IKT-FE -FA ORAL) Take by mouth. Active Active [...] st Contact Info) Description 02/11/2025 2:00 PM CAN BANDER OPERATOR Office Visit [facility] Oncology and Hematology - [place] [address] [place] [address] [facility] [address] [place] [address] Ernesto Turner MD [address] [facility] [address] [place] [address] Health Maintenance Due Date Last [...] 09/30/2029 10/01/2019 Colorectal Cancer Screening 09/30/2029 Insurance [facility] [id number] Member Subscriber Plan / Payer (Ef fective 2024-Present) Name:Kentrell Javier Relation to Subscriber:Self Name:Kentrell Javier Payer ID:[id number] (NAIC) Type:O Address: [facility] [id number] [place] [id number]
--- OUTSIDE RECORDS SUMMARY | 2024-12-06 08:45 | XMS_ITS | Encounter Summary ---
Author Organization [facility] Address [address] [place] [address] Care Team Providers Care Plumbing Assembler Installer Name Role Phone Unavailable Primary Care Provider [...] st Contact Info) Description 02/11/2025 2:00 PM FOOD BEVERAGE SUPERVISOR Office Visit [facility] Oncology and Hematology - [place] [address] [facility] [address] [place] [address] Ernesto Turner MD [address] [facility] [address] [place] [address] documented as of this encounter Visit Diagnoses Not on filedocumented in this encounter
--- OUTSIDE RECORDS SUMMARY | 2024-12-06 08:45 | XMS_ITS | Encounter Summary ---
Author Organization [facility] Address [address] [place] [address] Care Team Providers Care Agriculture Intern Name Role Phone Alanna Rhodes MD Primary Care Provider [phone] Jose Alberto Toth MD Unavailable [phone] Rosy Alexander Primary Care Provider [phone] Encounter Details Date Type Department Care Team (Late Contact Info) Description 10/07/2020 Abstract [facility] [address] Jenifer Lujan MA Social History Tobacco Use Types Packs/Day Years Used Date Smoking Tobacco: Never Smokeless Tobacco: Never Alcohol Use Standard Drinks/Week Comments Yes 0 (1 standard drink = 0.6 oz pur e alcohol) ocassionally Sex and Gender Information Value Date Recorded Sex Assigned at Male 02/23/2022 1:56 PM TIRE SERVICER Legal Sex Male 5:08 PM CDT Gender Identity Male 03/23/2021 4:31 AM TIRE SERVICER Sexual Orientation Straight 03/23/2021 4: 31 AM TIRE SERVICER COVID-19 Exposure Response Date Recorded In the last month, have you been in contact with someone who was confirmed or suspected to have Coronavirus / COVID-19? No / Unsure 09/23/2020 8:32 AM CDT documented as of this encounter Plan of Treatment Upcoming Encounters Date Type Department Care Team (Late Contact Info) Description 02/18/2025 12:15 PM TIRE SERVICER Office Visit [facility] [facility], [address] [address] Lea Hagan, DWARF TREE GROWER [address] [place] [address] documented as of this encounter Procedures Procedure [...] on filedocumented in this encounter Care Teams Agriculture Intern Relationship Specialty Start Date End Date Alanna Rhodes MD [address] [place] [phone] PCP - General FAMILY PRACTICE 04/06/19 08/16/23 Rosy Alexander APNP [address] [place] [phone] PCP - General Nurse Practitioner Family 08/17/23 Jose Alberto Toth MD [facility]. [facility] [address] [place] [address] [place] Supervisory Lifeguard CARDIOVASCULAR DISEASE 05/09/19 documented as of this encounter
--- OUTSIDE RECORDS SUMMARY | 2024-12-06 08:45 | XMS_ITS | Encounter Summary ---
Author Organization [facility] Address [address] [facility] [place] [address] Care Team Providers Care Animal Warden Name Role Phone TranOg PRODUCTION CONTROL EXPEDITER-OCC THER Primary Care Provider Encounter Details Date Type Department Care Team (Late st Contact Info) Description 03/22/2019 Lab Requisition [facility] Care DermPath Lab [address] [facility] [place] [phone] Sloan Alfaro MD [address] [place] [address] Social History Tobacco Use Types [...] Comments DERMATOPATHOLOGY Routine 03/20/2019 12:0 0 AM PEDIATRIC PATHOLOGIST documented in this encounter Results * DERMATOPATHOLOGY (03/20/2019 12:00 AM PEDIATRIC PATHOLOGIST) Case Report Dermatopathology Report Case: [id number] Authorizing Provider: Sloan Alfaro MD Collected: 03/20/2019 12:00 AM Ordering Location: [facility] DermPath Lab Received: 03/22/2019 08:09 AM Pathologist: Destiny Graham MD Specimen: Skin, left mid back 0 2:[address] [facility] DERMATOPATHOLOGY LABORATORY Final Diagnosis Specimen A. SKIN, left mid back: LENTIGINOUS MELANOCYTIC NEVUS, COMPOUND TYPE (COMPOUND MELANOCYTIC NEVUS WITH ARCHITECTURAL DISORDER) (D22.5) NOT PRESENT AT SAMPLED MARGIN 0 2:[address] [facility] DERMATOPATHOLOGY LABORATORY at 1409 PEDIATRIC PATHOLOGIST Clinical History Nevus vs MM. [id number]. Check margins 0 2:[address] [facility] DERMATOPATHOLOGY LABORATORY Gross Description Specimen A: Received is one formalin filled container labeled with the patient's name and designated left mid back. The specimen consists of a shave biopsy measuring 9x7x1 mm, inked. Jar 0. 0 2:[address] [facility] DERMATOPATHOLOGY LABORATORY Microscopic Description Specimen A. [...] margin of the specimen. 0 2:[address] [facility] DERMATOPATHOLOGY LABORATORY Disclaimer An external and internal positive and negative controls are appropriate for the histochemical, immunohistochemical and immunofluorescence stain(s) in this case (if any), except where stated explicitly. The performance characteristics of the stain(s) cited in this report were developed and its performance characteristic determined by the Dermatopathology Laboratory at [facility], directed by Dr. Christie Núñez. These tests need not be, and therefore are not, approved by the [place] Food and Drug Administration. The tests are used for clinical purposes. Billing Codes Specimen Charges Stain Charges 70569 1 0 2:[address] [facility] DERMATOPATHOLOGY LABORATORY Embedded Images 0 2:[address] [facility] DERMATOPATHOLOGY LABORATORY Pathology/Cytolog y TISSUE SPECIMEN FROM SKIN / Unknown 03/20/2019 03/22/2019 8:09 AM PEDIATRIC PATHOLOGIST us Sloan Alfaro MD LAB - PATHOLOGY/CYTOLOGY ORDER FRANKY Final Result DERMATOPATHOLOGY LABORATORY [facility] - Department of Dermatology [address] [place] [address], 5th Floor Lab [address] [phone] documented in this encounter Visit Diagnoses Not on filedocumented in this encounter Care Teams Animal Warden Relationship Specialty Start Date End Date Og Tran, PRODUCTION CONTROL EXPEDITER-OCC THER [address] [place] [address] PCP - General 11/02/21 documented as of this encounter
--- OUTSIDE RECORDS SUMMARY | 2024-12-06 08:45 | XMS_ITS | Clinical Summary ---
Author Organization [facility] Address [address] [place] [address] Care Team Providers Care Hydropulper Name Role Phone Jose Alberto Toth MD Unavailable [phone] Rosy Alexander Primary Care Provider [phone] Allergies Active Allergy Reactions Criticality Noted Date [...] Type Department Care Team Description 10/15/2024 Telephone [facility], [address] [address] Jose Alberto Toth MD Refill Request ([email or web address]) 09/28/2024 Telephone [facility], [address] [address] Celestina Sheldon CMA Refill Request (eliquis) from [...] Sex Assigned at Male 02/23/2022 1:56 PM STATIONARY ENGINEER SUPERVISOR Legal Sex Male 5:08 PM CDT Gender Identity Male 03/23/2021 4:31 AM STATIONARY ENGINEER SUPERVISOR Sexual Orientation Straight 03/23/2021 4: 31 AM STATIONARY ENGINEER SUPERVISOR Last Filed Vital Signs Vital Sign Reading [...] st Contact Info) Description 02/18/2025 12:15 PM STATIONARY ENGINEER SUPERVISOR Office Visit [facility] [address] [place], [place] [id number] Lea Hagan, LESLY [facility] [address] [place], [place] [id number] Health Maintenance Due Date Last Done Comments [...] AT [place] Co de Phone Number [facility] from Last 3 Months or Most Recently Relevant to Health Maintenance Insurance [facility] Care Teams Hydropulper Relationship Specialty Start Date End Date Rosy Alexander APNP [address] [place] [id number] PCP - General Nurse Practitioner Family 08/17/23 Jose Alberto Toth MD [facility] [address] [place] [address] [facility] Vinyl Top Installer CARDIOVASCULAR DISEASE 05/09/19
--- OUTSIDE RECORDS SUMMARY | 2024-12-06 08:45 | XMS_ITS | Clinical Summary ---
Author Organization [facility] Address [address] [place] [address] Care Team Providers Care Driver License Examiner Name Role Phone Og Tran APRN-SPRAY II PAINTER Primary Care Provider Source Comments [facility],non-owned Affiliates and Associated Physician Practices is amultiple site organization consisting of ambulatory clinics and hospital sitesin [place], [place], [place] and [place]. This disclosure is being madepursuant to the Care Everywhere program and may not contain all information available regarding this patient. Last updated 17.[facility] Allergies Active Allergy Reactions Criticality Noted Date Comments Adhesive Sensitivity Swelling Low 09/27/2016 Gabapentin Psychiatric Medium 03/25/2021 Hmg-Coa-R Inhibitors Myalgias High 04/17/2019 Medications * Be aware that medications may not be up to date on this document. Alwaysverify current medications with the patient. fluticasone propionate (FLONASE) 50 MCG/ACT nasal spray [place] 2 (two) sprays into each nostril once daily Active dilTIAZem ER (TIAZAC) 360 MG capsule Take 1 (one) capsule by mouth once daily Active benazepril (LOTENSIN) 20 MG tablet Take by mouth once daily Active hydroCHLOROthia zide (MICROZIDE) 12.5 MG capsule Take 1 (one) capsule by mouth once daily Active Cholecalciferol (VITAMIN D3) 39118 UNITS TABS Active Eliquis 5 MG tablet [...] Comments Blood Pressure 118/81 02/21/2023 2:05 PM MASTER OCEAN YACHT Pulse 77 02/21/2023 2:05 PM MASTER OCEAN YACHT Temperature 36.8 C (98.2 F) 02/21/2023 2:05 PM MASTER OCEAN YACHT Respiratory Rate 9 02/08/2023 9:45 AM MASTER OCEAN YACHT Oxygen Saturation 97% 02/21/2023 2:05 PM MASTER OCEAN YACHT Inhaled Oxygen Concentration - - Weight 128.1 kg (282 lb 4.8 oz) 02/08/2023 6:46 AM MASTER OCEAN YACHT Height 182.9 cm (6') 02/21/2023 2:05 PM MASTER OCEAN YACHT Body Mass Index 38.29 02/08/2023 6:46 AM MASTER OCEAN YACHT Plan of Treatment Health Maintenance Due Date [...] COMPREHENSIVE METABOLIC PANEL Routine 02/02/2023 1:43 PM MASTER OCEAN YACHT Mass of scalp from Last 3 Months or Most Recently Relevant to Health Maintenance Results * (ABNORMAL) COMPREHENSIVE METABOLIC PANEL (02/02/2023 1:43 PM MASTER OCEAN YACHT) BUN 15 7 - 26 mg/dL 02/02/2023 2:31 PM [facility] Creatinine 0.76 0.71 - 1.16 mg/dL 02/02/2023 2:31 PM [facility] Sodium 143 136 - 145 mmol/L 02/02/2023 2:31 PM [facility] Potassium 3.8 3.5 - 4.5 mmol/L 02/02/2023 2:31 PM [facility] Chloride 104 98 - 107 mmol/L 02/02/2023 2:31 PM [facility] CO2 26 22 - 29 mmol/L 02/02/2023 2:31 PM [facility] Glucose 115 [...] Lab Venipuncture / Unknown 02/02/2023 1:43 PM MASTER OCEAN YACHT 02/02/2023 2:06 PM [facility] us Talib Hunt MD LAB - CHEMISTRY ORDERABLES Final Result [facility] [address] [place] [address], [facility] [phone] from Last 3 Months or Most Recently Relevant to Health Maintenance Insurance [facility] Care Teams Driver License Examiner Relationship Specialty Start Date End Date Og Tran, UPPER CUTTER MACHINE-SPRAY II PAINTER [address] [place] [phone] PCP - General 11/02/21
--- OUTSIDE RECORDS SUMMARY | 2024-12-06 08:45 | XMS_ITS | Encounter Summary ---
Author Organization [facility] Care Team Providers Care Emt/Paramedic Name Role Phone Alanna Rhodes MD Primary Care Provider + Rosy Alexander NP Primary Care Provider [phone] Encounter Details Date Type Department Care Team (Latest Contact Info) Description 01/13/2015 Orders Only [facility] ProviderGiselle MD [address] [place] [address] Social History Tobacco Use Types Packs/Day Years Used Date Smoking Tobacco: Never Assessed Sex and Gender Information Value Date Recorded Sex Assigned at Not on file Legal Sex Male 5:43 PM SET UP OPERATOR TOOL Gender Identity Not on file Sexual Orientation Not on file documented as of this encounter Plan of Treatment Not on file documented as of this encounter Procedures Procedure Name Priority Date/Time Associated Diagnosis Comments SCAN - LABS 03/04/2016 12:00 AM SET UP OPERATOR TOOL documented in this encounter Results * SCAN - LABS (03/04/2016 12:00 AM SET UP OPERATOR TOOL) Narrative 03/04/2016 12:00 AM SET UP OPERATOR TOOL Ordered by an unspecified provider. Historical Provider Final Res ult documented in this encounter Visit Diagnoses Not on filedocumented in this encounter Care Teams Emt/Paramedic Relationship Specialty Start Date End Date Alanna Rhodes MD PCP - General 06/12/18 02/08/24 Rosy Alexander NP [address] [address] PCP - General Family Medicine 02/09/24 documented as of this encounter
--- OUTSIDE RECORDS SUMMARY | 2024-12-06 08:45 | XMS_ITS | Encounter Summary ---
Author Organization [facility] Facility Care Team Providers Care Neon Sign Servicer Name Role Phone Alanna Rhodes MD Primary Care Provider + Rosy Alexander NP Primary Care Provider [phone] Encounter Details Date Type Department Care Team (Latest Contact Info) Description 02/20/2015 Orders Only [facility]IN[facility] ProviderGiselle MD [address] [place] [address] Social History Tobacco Use Types Packs/Day Years Used Date Smoking Tobacco: Never Assessed Sex and Gender Information Value Date Recorded Sex Assigned at Not on file Legal Sex Male 5:43 PM EMERGENCY DEPARTMENT TECHNICIAN Gender Identity Not on file Sexual Orientation Not on file documented as of this encounter Plan of Treatment Not on file documented as of this encounter Procedures Procedure Name Priority Date/Time Associated Diagnosis Comments CARDIOLOGY REPORT 03/04/2016 12: 00 AM EMERGENCY DEPARTMENT TECHNICIAN documented in this encounter Results * CARDIOLOGY REPORT (03/04/2016 12:00 AM EMERGENCY DEPARTMENT TECHNICIAN) Anatomical Region Laterality Modality Other Narrative 03/04/2016 12:00 AM EMERGENCY DEPARTMENT TECHNICIAN Ordered by an unspecified provider. Historical Provider [facility] DESIREE GREENWOOD Final Result documented in this encounter Visit Diagnoses Not on filedocumented in this encounter Care Teams Neon Sign Servicer Relationship Specialty Start Date End Date Alanna Rhodes MD PCP - General 06/12/18 02/08/24 Rosy Alexander NP [address] [address] PCP - General Family Medicine 02/09/24 documented as of this encounter
--- OUTSIDE RECORDS SUMMARY | 2024-12-06 08:45 | XMS_ITS | Clinical Summary ---
Author Organization [facility] Address [address] [place] [address] Care Team Providers Care Concrete Pipe Making Machine Operator Name Role Phone Rosy Alexander NP Primary Care Provider [phone] Allergies No known active allergies Medications No [...] on file Legal Sex Male 5:43 PM ALUMINUM FABRICATION SUPERVISOR Gender Identity Not on file Sexual Orientation Not on file Last Filed Vital Signs Vital Sign Reading Time Taken Comments Blood Pressure 122/96 02/09/2024 7:36 PM ALUMINUM FABRICATION SUPERVISOR Pulse 78 02/09/2024 7:36 PM ALUMINUM FABRICATION SUPERVISOR Temperature 36.4 C (97.6 F) 02/09/2024 3:20 PM ALUMINUM FABRICATION SUPERVISOR Respiratory Rate 17 02/09/2024 7:36 PM ALUMINUM FABRICATION SUPERVISOR Oxygen Saturation 98% 02/09/2024 7:36 PM ALUMINUM FABRICATION SUPERVISOR Inhaled Oxygen Concentration - - Weight 136.1 kg (300 lb) 02/09/2024 3:20 PM ALUMINUM FABRICATION SUPERVISOR Height 182.9 cm (6') 02/09/2024 3:20 PM ALUMINUM FABRICATION SUPERVISOR Body Mass Index 40.69 02/09/2024 3:20 PM ALUMINUM FABRICATION SUPERVISOR Plan of Treatment Health Maintenance Due [...] Most Recently Relevant to Health [place] [address] [facility] Care Teams Concrete Pipe Making Machine Operator Relationship Specialty Start Date End Date Rosy Alexander NP [address] [address] PCP - General Family Medicine 02/09/24
== END ==
LOC: EXPTRAD 08:34
PROVIDERS: PCP Nurse Practitioner Family; Visit Provider Nurse Practitioner Family
DX: R07.89 Other chest pain (principal)
CPT/HCPCS: 71046; 71100